=== PATIENT | male | born 1955 | race Caucasian/White ===

== ENCOUNTER → 2017-10-17 | Day surgery (SDC) | payer OTHER ==
[~2017-10-17] MED LIST: AMIODARONE HCL200 MG PO; ASPIR 8181 MG PO; ATORVASTATIN CA20 MG PO; BUPIVACAINE 0.25% 30ML SDV INJ ONE; DEXAMETHASONE SOD PHOS INJ 4 MG/ML VIAL ONE; EPHEDRINE SULFATE INJ 50 MG/10 ML SYR ONE; FENTANYL CITRATE/PF 100MCG/2 ML INJ ONE; LIDOCAINE 1% W/EPINEPHRINE 20 ML VIAL ONE; LIDOCAINE HCL 2% LOCAL INJ 5 ML SDV VIAL INJ ONE; METFORMIN HCL500 M2 PO; METOPROLOL TART25 MG PO; MIDAZOLAM HCL 2 MG/2 ML VIAL ONE; ONDANSETRON HCL INJ 2 MG/ML VIAL ONE; PLAVIX75 MG PO; PROPOFOL IV EMULSION 10 MG/ML 20 ML VIAL ONE; SEVOFLURANE INHAL SOLN 250 ML PEN BTL ONE
[2017-10-17 10:03] LABS: BASOPHILS # (AUTO) 0.1 (0.0-0.1); BASOPHILS % 0.8 % (0.0-1.0); EOSINOPHILS # (AUTO) 0.1 (0.0-0.4); EOSINOPHILS % 1.3 % (0.0-6.0); HEMOGLOBIN 12.6 g/dL (14.0-18.0); LYMPHOCYTES % 26.2 % (18.0-39.1); MEAN CORPUSCULAR HEMOGLOBIN 28.3 pg (28-32); MEAN CORPUSCULAR HGB CONC 33.2 g/dL (31-35); MEAN CORPUSCULAR VOLUME 85.4 fL (81-99); MONOCYTES # (AUTO) 0.6 (0.2-0.8); MONOCYTES % 7.7 % (4.4-11.3); NEUTROPHILS # (AUTO) 4.9 (2.1-6.9); NEUTROPHILS % 63.2 % (38.7-80.0); PLATELET COUNT 249 x10e3/uL (140-360); RED BLOOD COUNT 4.45 x10e6/uL (4.3-5.7); RED CELL DISTRIBUTION WIDTH 13.1 % (11.7-14.4)
[2017-10-17 10:24] LABS: ANION GAP 12.2 mmol/L (8-16); BLOOD UREA NITROGEN 18 mg/dL (7-26); BUN/CREATININE RATIO 16 (6-25); CALCIUM 8.9 mg/dL (8.4-10.2); CARBON DIOXIDE 23 mmol/L (22-29); CHLORIDE 107 mmol/L (98-107); CREATININE, SERUM 1.12 mg/dL (0.72-1.25); EST GLOMERULAR FILTRATION RATE > 60 ML/MIN (60-); GLUCOSE 122 mg/dL (74-118); POTASSIUM 4.2 mmol/L (3.5-5.1); SODIUM 138 mmol/L (136-145)
--- NOTE | 2017-10-17 10:57 | Diagnostic Imaging Report ---
PROCEDURE: X-RAY CHEST, TWO VIEWS COMPARISON: None. INDICATIONS: PREOPERATIVE FOR DRAINAGE OF ABSCESS FINDINGS: LUNGS: No consolidations or edema. PLEURA: No effusions or pneumothorax. HEART \T\ MEDIASTINUM: The heart is within normal size-limits. Sternotomy wire sutures and multiple mediastinal clips. BONES \T\ SOFT TISSUES: No acute findings. Irregularity of the distal right clavicle may be postoperative in nature. Degenerative changes of the spine. CONCLUSION: No acute thoracic abnormality. Ger Cortes D.O. Dictated by: Ger Cortes D.O. on 10/17/2017 at 10:57 Electronically approved by: Ger Cortes D.O. on 10/17/2017 at 10:57
--- NOTE | 2017-10-17 14:10 | Operative Report ---
DATE OF PROCEDURE: October 17, 2017 PREOPERATIVE DIAGNOSIS: Infected cystic mass of the back. POSTOPERATIVE DIAGNOSIS: Infected cystic mass of the back. OPERATION PERFORMED: Excision of infected cystic mass of the back. ANESTHESIA: General. COMPLICATIONS: None. ESTIMATED BLOOD LOSS: Minimal. DESCRIPTION OF PROCEDURE: With the patient lying in bed in the lateral position under good general anesthesia, the back was prepped with Betadine solution and draped in the usual manner. The necrotic skin overlying the lower aspect of the cystic mass was then excised and immediately a large amount of purulent material and sebaceous material was encountered. All of this was slowly and carefully aspirated. There was an actual cyst above the necrotic area and all of the contents of the cysts were removed and as much of the capsule of the cyst was resected as possible. After this was done, the whole area was thoroughly irrigated. Perfect hemostasis was ascertained. The wound was then packed with 1-inch iodoform gauze. A dressing was applied. The sponge, lap, and needle count was correct. Patient tolerated the procedure well and returned to the recovery room in stable condition. Job#: [id number] [facility]
== END | disposition home or self-care (01) ==
LOC: OR 08:35
PROVIDERS: ATTEND Surgery
DX: L72.9 Follicular cyst of the skin and subcutaneous tissue, unspecified (principal); I25.810 Atherosclerosis of coronary artery bypass graft(s) without angina pectoris; I10 Essential (primary) hypertension; E11.9 Type 2 diabetes mellitus without complications; G47.33 Obstructive sleep apnea (adult) (pediatric); I44.0 Atrioventricular block, first degree; Z95.1 Presence of aortocoronary bypass graft
CPT/HCPCS: 11406; 36415; 71046; 80048; 82948; 85025; 93005; J1100; J2001; J2250; J2405

== ENCOUNTER → 2018-08-21 | Day surgery (SDC) | payer OTHER ==
[2018-08-18 09:47] LABS: BASOPHILS # (AUTO) 0.1 (0.0-0.1); BASOPHILS % 0.6 % (0.0-1.0); EOSINOPHILS % 0.4 % (0.0-6.0); HEMATOCRIT 42.7 % (38.2-49.6); HEMOGLOBIN 14.5 g/dL (14.0-18.0); LYMPHOCYTES # (AUTO) 1.5 (1.0-3.2); LYMPHOCYTES % 17.9 % (18.0-39.1); MEAN CORPUSCULAR HEMOGLOBIN 29.7 pg (28-32); MEAN CORPUSCULAR VOLUME 87.3 fL (81-99); MONOCYTES # (AUTO) 0.5 (0.2-0.8); MONOCYTES % 6.4 % (4.4-11.3); NEUTROPHILS # (AUTO) 6.2 (2.1-6.9); NEUTROPHILS % 74.1 % (38.7-80.0); PLATELET COUNT 189 x10e3/uL (140-360); RED BLOOD COUNT 4.89 x10e6/uL (4.3-5.7); RED CELL DISTRIBUTION WIDTH 13.2 % (11.7-14.4)
--- NOTE | 2018-08-18 10:01 | Diagnostic Imaging Report ---
PROCEDURE: Frontal and lateral views of the chest. COMPARISON: Patients [facility], , CHEST 2 VIEWS, 10/17/2017, 10:22. INDICATIONS: PRE-OPERATIVE CHEST X-RAY FOR HERNIA SURGERY FINDINGS: Lines/tubes: Sternotomy wire sutures and small mediastinal vascular clips. Lungs: The lungs are well inflated and clear. There is no evidence of pneumonia or pulmonary edema. Scattered calcified granulomas. Pleura: There is no pleural effusion or pneumothorax. Heart and mediastinum: The heart and the mediastinum are normal. Bones: Degenerative changes of the spine. Irregularity of both distal clavicles. IMPRESSION: No acute cardiopulmonary disease. Ger Cortes D.O. Dictated by: Ger Cortes D.O. on 08/18/2018 at 10:11 Electronically approved by: Ger Cortes D.O. on 08/18/2018 at 10:11
[2018-08-18 10:08] LABS: ANION GAP 13.2 mmol/L (8-16); BLOOD UREA NITROGEN 13 mg/dL (7-26); BUN/CREATININE RATIO 12 (6-25); CALCIUM 9.3 mg/dL (8.4-10.2); CARBON DIOXIDE 25 mmol/L (22-29); CHLORIDE 106 mmol/L (98-107); EST GLOMERULAR FILTRATION RATE > 60 ML/MIN (60-); GLUCOSE 153 mg/dL (74-118); POTASSIUM 4.2 mmol/L (3.5-5.1); SODIUM 140 mmol/L (136-145)
[~2018-08-21] MED LIST changes: +ATROPINE SULFATE 1 MG/ML VIAL ONE; -BUPIVACAINE 0.25% 30ML SDV INJ ONE; +BUPIVACAINE 0.5%/EPI 30 ML SDV INJ ONE; -EPHEDRINE SULFATE INJ 50 MG/10 ML SYR ONE; +HYDROMORPHONE 2MG/ML 2 MG/ML ML ONE; +KETOROLAC TROMETHAMINE 30 MG/ML VIAL ONE; -LIDOCAINE 1% W/EPINEPHRINE 20 ML VIAL ONE; +MORPHINE SULFATE INJ 4 MG/ML INJ ONE; +NEOSTIGMINE 5 MG/5ML SYR ONE; +ROCURONIUM BROMIDE 10 MG/ML 5ML VIAL ONE
--- OUTSIDE RECORDS SUMMARY | 2018-08-21 06:57 | XMS REPORT | Continuity of Care Document ---
Author Author [facility] Interface Address Unknown Phone Unavailable Problems Problem Status Onset Date Classification Date Reported Comments Source Atherosclerotic heart disease of [place] coronary artery without angina pectoris 11/02/2017 02/03/2018 [facility] FOLLOW UP Active 09/24/2017 [facility] FOLLOW UP 1 MONTH Active 09/23/2017 [facility] 1 WEEK F/U Active 09/06/2017 [facility] HOSPITAL F/U Active 09/05/2017 [facility] SOB; SYNCOPE Active 09/05/2017 [facility] TRIPLE VESSEL DISEASE Active 08/29/2017 [facility] UNK Active 08/22/2017 [facility] UNK Active 08/22/2017 [facility] Chest pain Resolved Problem 02/03/2018 [facility] Hyperlipidemia Resolved Problem 02/03/2018 [facility] Hypertension Resolved Problem 02/03/2018 [facility] Unspecified atrial fibrillation 02/03/2018 [facility] Unspecified atrial flutter 02/03/2018 [facility] Presence of aortocoronary bypass graft 12/26/2017 [facility] Hyperlipidemia, unspecified 02/03/2018 [facility] Essential hypertension 02/03/2018 [facility] termite control representative use of aspirin 02/03/2018 [facility] termite control representative use of antithrombotics/antiplatelets 02/03/2018 [facility] Type 2 diabetes mellitus without complications 02/03/2018 [facility] Medications Medication Details Route Status Patient Instructions Ordering Provider Order Date Source 24 HR Metoprolol Tartrate 25 MG Extended Release Tablet [Toprol] 12.5 mg=0.5 tab, PO, Daily, # 45 tab, 3 Refill(s), Pharmacy: [facility] [id number] Active 12/13/2017 [facility] Acetaminophen 300 MG / Codeine Phosphate 30 MG Oral Tablet [Tylenol with Codeine #3] 1 tab, PO, Q12H, X 5 day, # 10 tab, 0 Refill(s), called to pharmacy No Longer Active 10/08/2017 [facility] tramadol hydrochloride 50 MG Oral Tablet 50 mg=1 tab, PO, Q4H, PRN, 0 Refill(s) Active 09/06/2017 [facility] Colchicine 0.6 MG Oral Tablet 0.6 mg=1 tab, PO, Daily, # 14 tab, 0 Refill(s), Pharmacy: [facility]/pharmacy #[id number] Active 09/06/2017 [facility] Metformin hydrochloride 500 MG Oral Tablet 500 mg=1 tab, PO, BID-Meals, # 60 tab, 1 Refill(s) Active 09/04/2017 [facility] 24 HR Metoprolol Tartrate 25 MG Extended Release Tablet [Toprol] 25 mg=1 tab, PO, Daily, # 30 tab, 1 Refill(s) Active 09/04/2017 [facility] pantoprazole 40 mg oral enteric coated tablet 40 mg=1 tab, PO, Before Breakfast, # 30 tab, 2 Refill(s) Inactive 09/04/2017 [facility] Cardiac Rehabilitation See Instructions, Cardiac Rehab Phase 2, # 1 ea, 0 Refill(s) Active 09/04/2017 [facility] aspirin 81 mg tablet, enteric coated 81 mg=1 tab, PO, Daily, # 100 tab, 3 Refill(s) Active 09/04/2017 [facility] Furosemide 40 MG Oral Tablet 40 mg=1 tab, PO, Daily, # 14 tab, 0 Refill(s) Active 09/04/2017 [facility] AMIODarone 200 mg oral tablet 400 mg=2 tab, PO, BID, Take 400mg (2 tabs) BID until 09/11 Then take 200mg (1 tab) daily and continue this dose, # 120 tab, 0 Refill(s) Active 09/04/2017 [facility] clopidogrel 75 mg oral tablet 75 mg=1 tab, PO, Daily, # 90 tab, 3 Refill(s) Active 09/04/2017 [facility] metoprolol tartrate 25 mg oral tablet 12.5 mg=0.5 tab, PO, Q12H, # 30 tab, 3 Refill(s) Inactive 09/04/2017 [facility] Acetaminophen 300 MG / Codeine Phosphate 30 MG Oral Tablet [Tylenol with Codeine #3] 1 tab, PO, Q6H, PRN Pain Score 6-10, X 7 day, # 28 tab, 0 Refill(s) Active 09/04/2017 [facility] atorvastatin 40 mg oral tablet 40 mg=1 tab, PO, Bedtime, # 90 tab, 3 Refill(s) Active 09/04/2017 [facility] Plavix 75 mg, 1 tab, Route: PO, Drug form: TAB, Daily, Dosing Weight 135.9, kg, Start date: 09/04/17 9:00:00 TROUT FARMER, Duration: 30 day, Stop date: 10/03/17 9:00:00 CSTNotes: (Same As: Plavix) Inactive 09/04/2017 [facility] Amiodarone 400 mg, Route: PO, Drug form: TAB, BID, Dosing Weight 135.9, kg, Start date: 09/03/17 17:00:00 TROUT FARMER, Duration: 30 day, Stop date: 10/03/17 9:00:00 [employer]OUT FARMER Inactive 09/03/2017 [facility] potassium phosphate 15 mmol, 5 mL, Route: IVPB, PRN, Dosing Weight 135.9, kg, PRN Abnormal Lab Result, For NON-ICU Patients Only., Start date: 09/03/17 12:38:00 TROUT FARMER, Duration: 30 day, Stop date: 10/03/17 12:37:00 CSTNotes: (Same as: K Phosphate.) 1 mMol phoshate has 1.47 mEq potassium Infuse over 4 hours No Longer Active 09/03/2017 [facility] Magnesium Sulfate 1 gm, 100 mL, Route: IVPB, Drug form: INJ, PRN, Dosing Weight 135.9, kg, PRN Abnormal Lab Result, For NON-ICU Patients Only., Start date: 09/03/17 12:38:00 TROUT FARMER, Duration: 30 day, Stop date: 10/03/17 12:37:00 CSTNotes: WASTE: F/P - Sink; E - Municipal Trash Bin No Longer Active 09/03/2017 [facility] sodium phosphate 15 mmol, 5 mL, Route: IVPB, PRN, Dosing Weight 135.9, kg, PRN Abnormal Lab Result, For NON-ICU Patients Only., Start date: 09/03/17 12:38:00 TROUT FARMER, Duration: 30 day, Stop date: 10/03/17 12:37:00 TROUT FARMER No Longer Active 09/03/2017 [facility] Calcium Gluconate 3 gm, 30 mL, Route: IVPB, PRN, Dosing Weight 135.9, kg, PRN Abnormal Lab Result, For NON-ICU Patients Only., Start date: 09/03/17 12:38:00 TROUT FARMER, Duration: 30 day, Stop date: 10/03/17 12:37:00 CSTNotes: WASTE: F/P - Sink; E - Municipal Trash Bin No Longer Active 09/03/2017 [facility] Magnesium Oxide 800 mg, 2 tab, Route: PO, Drug form: TAB, PRN, Dosing Weight 135.9, kg, PRN Abnormal Lab Result, For NON-ICU Patients Only., Start date: 09/03/17 12:38:00 TROUT FARMER, Duration: 30 day, Stop date: 10/03/17 12:37:00 CSTNotes: (Same as: Mag-Ox 400) Magnesium oxide [id number] elemental magnesium Dose=____mg magnesium oxide (___mg elemental magnesium) No Longer Active 09/03/2017 [facility] Potassium Chloride 20 mEq, 1 tab, Route: PO, Drug form: ERTAB, PRN, Dosing Weight 135.9, kg, PRN Abnormal Lab Result, For NON-ICU Patients Only, Start date: 09/03/17 12:38:00 TROUT FARMER, Duration: 30 day, Stop date: 10/03/17 12:37:00 CSTNotes: (Same as: K-Dur 20) "Do Not Crush" With food and full glass of water No Longer Active 09/03/2017 [facility] potassium phosphate-sodium phosphate 250 mg-280 mg-160 mg oral powder for reconstitution 2 pkt, Route: PO, Drug Form: PDR/REC, Dosing Weight 135.9, kg, PRN, PRN Abnormal Lab Result, For NON-ICU Patients Only, Start date: 09/03/17 12:38:00 TROUT FARMER, Duration: 30 day, Stop date: 10/03/17 12:37:00 CSTNotes: (Same as: Phos-NaK) Each 1.5 gm pkt has 250mg phosphorous. Mix w/2.5oz water and stir. No Longer Active 09/03/2017 [facility] Lasix 40 mg, 1 tab, Route: PO, Drug form: TAB, Daily, Dosing Weight 135.9, kg, Start date: 09/03/17 9:59:00 TROUT FARMER, Duration: 30 day, Stop date: 10/03/17 9:00:00 CSTNotes: (Same as: Lasix) May cause GI upset. Give with food or milk. No Longer Active 09/03/2017 [facility] Amiodarone 400 mg, 2 tab, Route: PO, Drug form: TAB, BID, Dosing Weight 135.9, kg, Start date: 09/03/17 9:57:00 TROUT FARMER, Duration: 30 day, Stop date: 10/03/17 9:00:00 CSTNotes: (Same as: Cordarone) No Longer Active 09/03/2017 [facility] Bisacodyl 10 mg, 1 supp, Route: SC, Drug form: SUPP, Daily, Dosing Weight 135.9, kg, PRN Constipation, Start date: 09/03/17 7:07:00 TROUT FARMER, Duration: 30 day, Stop date: 10/03/17 7:06:00 CSTNotes: (Same As: Dulcolax, Bisco-Lax) No Longer Active 09/03/2017 [facility] Lasix 20 mg, 2 mL, Route: IVP, Drug form: INJ, ONCE, Dosing Weight 135.9, kg, Start date: 09/02/17 9:10:00 TROUT FARMER, Stop date: 09/02/17 9:10:00 CSTNotes: (Same as: Lasix) Inactive 09/02/2017 [facility] Protonix 40 mg, 1 tab, Route: PO, Drug form: ECTAB, Before Breakfast, Dosing Weight 135.9, kg, Start date: 09/02/17 7:30:00 TROUT FARMER, Duration: 30 day, Stop date: 10/01/17 7:30:00 CSTNotes: Tablet should not be chewed or crushed. (Same as: Protonix) No Longer Active 09/02/2017 [facility] Lyrica 50 mg, 1 cap, Route: PO, Drug form: CAP, Q8H, Dosing Weight 135.9, kg, Start date: 09/01/17 16:00:00 TROUT FARMER, Duration: 30 day, Stop date: 10/01/17 8:00:00 CSTNotes: Same as Lyrica No Longer Active 09/01/2017 [facility] metoprolol tartrate 12.5 mg, 0.5 tab, Route: PO, Drug form: TAB, Q12H, Dosing Weight 135.9, kg, Start date: 09/01/17 14:00:00 TROUT FARMER, Duration: 30 day, Stop date: 10/01/17 9:00:00 CSTNotes: (Same as: Lopressor) 12.5 mg=1/2 X 25 mg TAB No Longer Active 09/01/2017 [facility] AMIODarone 900 mg in D5W 500 ml IV 900 mg + Dextrose 5% in Water IV 482 mL 900 mg, 18 mL, Rate: 1 mg/min for 6 hours, then reduce to 0.5 mg/min, Dosing Weight 135.9, kg, Route: IV, Total Volume: 500, Start Date: 09/01/17 12:06:00 TROUT FARMER, Duration: 30 day, Stop date: 10/01/17 12:05:00 TROUT FARMER, Replace Every: 24 hrNotes: Central administration only for concentration > 2 mg/ml. Use Glass Bottle or Non PVC Bag "Use 0.22 micron in-line filter" MEDICATION WASTE Product Size: 900 mg Product Wasted: ___ mg No Longer Active 09/01/2017 [facility] Amiodarone 150 mg, 3 mL, Route: IVPB, ONCE, Dosing Weight 135.9, kg, Start date: 09/01/17 12:06:00 TROUT FARMER, Stop date: 09/01/17 12:06:00 CSTNotes: Central administration only for concentrations > 2 mg/ml. "Recommendation: Use an in-line filter during administration for continuous infusions to reduce the incidence of phlebitis" (Same as Codarone) MEDICATION WASTE Product Size: 150 mg Product Wasted: ___ mg Inactive 09/01/2017 [facility] Lasix 40 mg, 4 mL, Route: IVP, Drug form: INJ, ONCE, Dosing Weight 135.9, kg, Start date: 09/01/17 9:34:00 TROUT FARMER, Stop date: 09/01/17 9:34:00 CSTNotes: (Same as: Lasix) MEDICATION WASTE Product Size: 40 mg Product Wasted: ___ mg Inactive 09/01/2017 [facility] Aspirin 81 mg, 1 tab, Route: PO, Drug form: ECTAB, Daily, Dosing Weight 135.9, kg, Start date: 09/01/17 9:00:00 TROUT FARMER, Duration: 30 day, Stop date: 09/30/17 9:00:00 CSTNotes: Do not crush or chew. (Same As: Ecotrin) No Longer Active 09/01/2017 [facility] atorvastatin 40 mg, 1 tab, Route: PO, Drug form: TAB, Bedtime, Dosing Weight 135.9, kg, Start date: 08/31/17 21:00:00 TROUT FARMER, Stop date: 09/29/17 21:00:00 CSTNotes: (Same as: Lipitor) No Longer Active 09/01/2017 [facility] insulin, isophane 5 unit, 0.05 mL, Route: SUB-Q, Drug form: INJ, Q12H, Dosing Weight 135.9, kg, Start date: 08/31/17 21:00:00 TROUT FARMER, Duration: 30 day, Stop date: 09/30/17 9:00:00 CSTNotes: Roll in palms of hands gently; Do not shake vigorously. (Same as: Humulin N) Do not hold insulin without contacting prescriber WASTE: F/P - Black; E - Municipal Trash Bin Stable for 28 days at room temperature Expires in days from Date No Longer Active 09/01/2017 [facility] senna 8.6 mg oral tablet 8.6 mg, 1 tab, Route: PO, Drug Form: TAB, Dosing Weight 135.9, kg, BID, Start date: 08/31/17 17:00:00 TROUT FARMER, Duration: 30 day, Stop date: 09/30/17 9:00:00 CSTNotes: (Same as: Senokot) No Longer Active 08/31/2017 [facility] heparin sodium, porcine 2500 UNT/ML Injectable Solution 5,000 unit, 1 mL, Route: SUB-Q, Drug form: INJ, Q8H, Dosing Weight 135.9, kg, Start date: 08/31/17 16:00:00 TROUT FARMER, Duration: 30 day, Stop date: 09/30/17 8:00:00 CSTNotes: porcine heparin No Longer Active 08/31/2017 [facility] Dextrose 50% Syringe 25 gm, 50 mL, Route: IVP, Drug Form: INJ, Dosing Weight 135.9, kg, PRN, PRN Blood Glucose Results, Start date: 08/31/17 15:45:00 TROUT FARMER, Duration: 30 day, Stop date: 09/30/17 15:44:00 TROUT FARMER No Longer Active 08/31/2017 [facility] Glucagon 1 mg, Route: IM, Drug form: PDR/INJ, PRN, Dosing Weight 135.9, kg, PRN Blood Glucose Results, Start date: 08/31/17 15:45:00 TROUT FARMER, Duration: 30 day, Stop date: 09/30/17 15:44:00 TROUT FARMER No Longer Active 08/31/2017 [facility] Insulin Lispro 10 unit, 0.1 mL, Route: SUB-Q, Drug form: SOLN, TID-Before Meals, Dosing Weight 135.9, kg, PRN Blood Glucose Results, Start date: 08/31/17 15:45:00 TROUT FARMER, Duration: 30 day, Stop date: 09/30/17 15:44:00 CSTNotes: (Same as: Humalog ) Roll in palms of hands gently; Do not shake `vigorously. "Single Patient Use Only " WASTE: F/P - Black; E - Municipal Trash Bin Stable for 28 days at room temperature. Expires in days from Date No Longer Active 08/31/2017 [facility] pantoprazole 40 mg, Route: IVP, Drug form: INJ, Daily, Dosing Weight 135.9, kg, Start date: 08/31/17 9:00:00 TROUT FARMER, Duration: 30 day, Stop date: 09/29/17 9:00:00 CSTNotes: For IV push reconstitute with 10 ml 0.9% s odium chloride and push over 2 minutes. (Same as: Protonix) No Longer Active 08/31/2017 [facility] Aspirin 325 MG Enteric Coated Tablet 325 mg, 1 tab, Route: PO, Drug form: ECTAB, Daily, Dosing Weight 135.9, kg, Start date: 08/31/17 9:00:00 TROUT FARMER, Duration: 30 day, Stop date: 09/29/17 9:00:00 CSTNotes: (Do Not Crush) Do not crush or chew. Inactive 08/31/2017 [facility] Tylenol 1,000 mg, 100 mL, Route: IV, Drug form: INJ, ONCE, Dosing Weight 135.9, kg, Start date: 08/31/17 0:34:00 TROUT FARMER, Stop date: 08/31/17 0:34:00 CSTNotes: Infuse over 15 minutes Do not exceed 4gm/day of acetaminophen MEDICATION WASTE Product Size: 1000 mg Product Wasted: ___ mg Inactive 08/31/2017 [facility] Cefazolin 2 gm, 20 mL, Route: IVPB, Drug form: SOLN, [id number], Dosing Weight 135.9, kg, Start date: 08/30/17 22:30:00 TROUT FARMER, Duration: 3 doses or times, Stop date: 08/31/17 14:30:00 TROUT FARMER, ABX Indication: Surgical P rophylaxisNotes: (Same as Ancef) No Longer Active 08/31/2017 [facility] Vancomycin 1,500 mg, Route: IVPB, [id number], Dosing Weight 135.9, kg, Time Critical Medication, Start date: 08/30/17 21:30:00 TROUT FARMER, Duration: 2 doses or times, Stop date: 08/31/17 9:30:00 TROUT FARMER, ABX Indication: Surgical ProphylaxisNotes: TIME CRITICAL MEDICATION (Same As: Vancocin) Infusion rate 2001 mg: infuse over 2.5 hours MEDICATION WASTE Product Size: 1000 mg Product Wasted: ___ mg No Longer Active 08/31/2017 [facility] chlorhexidine gluconate 1.2 MG/ML Mouthwash 15 mL, Route: Swab Mouth, Q12H, Drug form: LIQ, Start date: 08/30/17 21:00:00 TROUT FARMER, Duration: 30 day, Stop date: 09/29/17 9:00:00 CSTNotes: (Same As: Peridex) No Longer Active 08/31/2017 [facility] ocular lubricant 1 appl, Route: BOTH EYES, Q6H, Drug form: OINT, Start date: 08/30/17 18:00:00 TROUT FARMER, Duration: 30 day, Stop date: 09/29/17 12:00:00 CSTNotes: (Same as: Lacri-Lube, Duratears Naturale, Artificial Tears, and Tears Again ) No Longer Active 08/31/2017 [facility] Aspirin 300 MG Rectal Suppository 300 mg, 1 supp, Route: SC, Drug form: SUPP, Daily, Dosing Weight 135.9, kg, Start date: 08/30/17 18:00:00 TROUT FARMER, Duration: 30 day, Stop date: 09/29/17 9:00:00 CSTNotes: Refrigerate. No Longer Active 08/31/2017 [facility] Fentanyl 50 microgram, 1 mL, Route: IV, Drug form: INJ, ONCE, Dosing Weight 135.9, kg, Start date: 08/30/17 17:45:00 TROUT FARMER, Stop date: 08/30/17 17:45:00 CSTNotes: (Same as: Sublimaze) Preservative free. Inactive 08/30/2017 [facility] normal saline 0.9% IV 1,000 mL 1,000 mL, Rate: 100 ml/hr, Infuse over: 10 hr, Route: IV, Dosing Weight 135.9 kg, Total Volume: 1,000, Start date: 08/30/17 17:02:00 TROUT FARMER, Duration: 30 day, Stop date: 09/29/17 17:01:00 TROUT FARMER, 2.69, m2 No Longer Active 08/30/2017 [facility] Docusate Sodium 100 MG Oral Capsule [Colace] 100 mg, 1 cap, Route: PO, Drug form: CAP, BID, Dosing Weight 135.9, kg, Start date: 08/30/17 17:00:00 TROUT FARMER, Duration: 30 day, Stop date: 09/29/17 9:00:00 CSTNotes: (Same as: Colace) (Do Not Crush) No Longer Active 08/30/2017 [facility] Versed 1 mg, 1 mL, Route: IVP, Drug form: INJ, Q2H, Dosing Weight 135.9, kg, PRN Agitation, Start date: 08/30/17 16:57:00 TROUT FARMER, Duration: 4 doses or times, Stop date: Limited # of timesNotes: (Same as: Versed) MEDICATION WASTE Product Size: 5 mg Product Wasted: _0_ mg No Longer Active 08/30/2017 [facility] Fentanyl 1,000 microgram, 20 mL, Rate: Titrate, Start Dose: 50 microgram/hr, Titration: 25 microgram/hour every 15 minutes, Goal(s): -2, Max Dose: 300 microgram/hr, Route: IV, Dosing Weight 135.9 kg, Total Volume: 20, Start date: 08/30/17 16:57:00 TROUT FARMER, Duratio... No Longer Active 08/30/2017 [facility] Nicardipine 40 mg, 200 mL, Rate: Titrate, Start Dose: 5 mg/hr, Titration: 2.5 mg/hr every 15 minutes, Goal(s): MAP less than 80, Max Dose: 15 mg/hr, Route: IV, Dosing Weight 135.9 kg, Total Volume: 200, Start da te: 08/30/17 15:50:00 TROUT FARMER, Duration: 30 day, Stop da...Notes: Same as: Cardene Concentration: (0.2 mg /1 ml ) No Longer Active 08/30/2017 [facility] chlorhexidine gluconate 1.2 MG/ML Mouthwash 15 mL, Route: Swab Mouth, PRN, Drug form: LIQ, PRN Other -See Comment, Start date: 08/30/17 15:40:00 TROUT FARMER, Duration: 30 day, Stop date: 09/29/17 15:39:00 CSTNotes: (Same As: Peridex) No Longer Active 08/30/2017 [facility] Fentanyl 600 microgram, 30 mL, Route: IV, FORESTRY SUPPORT SPECIALIST Dose: 10 mcg, FORESTRY SUPPORT SPECIALIST Lockout: 10 minutes, Continuous Basal Rate: 0 mg, 4 Hour Limit (In MCG): 240, Drug Form: INJ, Continuous, Start date: 08/30/17 15:23:00 TROUT FARMER, Durati on: 30 day, Stop date: 09/29/17 15:22:00 CSTNotes: Concentration is 20 micrograms/ml No Longer Active 08/30/2017 [facility] Naloxone 0.04 mg, 0.1 mL, Route: IVP, Drug form: INJ, Q2MIN, Dosing Weight 135.9, kg, PRN Narcotic Reversal, Start date: 08/30/17 15:23:00 TROUT FARMER, Duration: 30 day, Stop date: 09/29/17 15:22:00 CSTNotes: Same as Narcan No Longer Active 08/30/2017 [facility] Dextrose 50% Syringe 25 gm, 50 mL, Route: IVP, Drug Form: INJ, Dosing Weight 135.9, kg, PRN, PRN Blood Glucose Results, Start date: 08/30/17 15:23:00 TROUT FARMER, Duration: 30 day, Stop date: 09/29/17 15:22:00 TROUT FARMER No Longer Active 08/30/2017 [facility] Insulin regular 100 unit + 99 mL, Rate: Start Insulin Drip Per ICU Protocol, Dosing Weight 135.9, kg, Route: IVPB, Total Volume: 100, Start Date: 08/30/17 15:23:00 TROUT FARMER, Duration: 30 day, Stop date: 09/29/17 15:22:00 TROUT FARMER, Replace Every: 24 hrNotes: Final Concentration 1unit/1ml WASTE: F/P - Black; E - Municipal Trash Bin No Longer Active 08/30/2017 [facility] Zofran 4 mg, 2 mL, Route: IV, Drug form: INJ, Q6H, Dosing Weight 135.9, kg, PRN Nausea, Start date: 08/30/17 15:23:00 TROUT FARMER, Duration: 30 day, Stop date: 09/29/17 15:22:00 CSTNotes: (Same as: Zofran) MEDICATION WASTE Product Size: 4 mg Product Wasted: ___ mg No Longer Active 08/30/2017 [facility] Cardene 40 mg in NS 200 mL (Titrate.) IV 40 mg 40 mg, 200 mL, Rate: Titrate, Start Dose: 5 mg/hr, Titration: increase or decrease by 5 but no more than 15, Goal(s): MAP 70, Max Dose: 15 mg/hr, Route: IV, Dosing Weight 135.9 kg, Total Volume: 200 mL, Start date: 08/30/17 15:23:00 TROUT FARMER, Duration: 30...Notes: Same as: Cardene Concentration: (0.2 mg /1 ml ) Inactive 08/30/2017 [facility] Aspirin 325 MG Oral Tablet 325 mg, 1 tab, Route: NG, Drug form: TAB, ONCE, Dosing Weight 135.9, kg, Start date: 08/30/17 15:23:00 TROUT FARMER, Stop date: 08/30/17 15:23:00 CSTNotes: Take with food. Inactive 08/30/2017 [facility] Acetaminophen 650 mg, 2 tab, Route: PO, Drug form: TAB, Q4H, Dosing Weight 135.9, kg, PRN Pain 1-3/Temp > 100.4 F, Start date: 08/30/17 15:23:00 TROUT FARMER, Duration: 30 day, Stop date: 09/29/17 15:22:00 CSTNotes: Do not exceed 4 gm/day. (Same as: Tylenol) No Longer Active 08/30/2017 [facility] Acetaminophen 325 MG / Hydrocodone Bitartrate 10 MG Oral Tablet 2 tab, Route: PO, Drug Form: TAB, Dosing Weight 135.9, kg, Q4H, PRN Pain Score 4-6, Start date: 08/30/17 15:23:00 TROUT FARMER, Duration: 30 day, Stop date: 09/29/17 15:22:00 CSTNotes: Do not exceed 4gm/day of acetaminophen. (Same as: [place] 325/10) No Longer Active 08/30/2017 [facility] Dextrose 50% Syringe 12.5 gm, 25 mL, Route: IVP, Drug Form: INJ, Dosing Weight 135.9, kg, PRN, PRN Blood Glucose Results, Start date: 08/30/17 14:36:00 TROUT FARMER, Duration: 30 day, Stop date: 09/29/17 14:35:00 TROUT FARMER No Longer Active 08/30/2017 [facility] Insulin regular 100 unit + 99 mL, Rate: Start Insulin Drip Per ICU Protocol, Dosing Weight 135.9, kg, Route: IVPB, Total Volume: 100, Start Date: 08/30/17 14:36:00 TROUT FARMER, Duration: 30 day, Stop date: 09/29/17 14:35:00 TROUT FARMER, Replace Every: 24 hrNotes: Final Concentration 1unit/1ml WASTE: F/P - Black; E - Municipal Trash Bin Inactive 08/30/2017 [facility] acetaminophen (ANES) Route: IV, Drug form: INJ, ONCE, Stop date: 08/30/17 13:53:00 TROUT FARMER Inactive 08/30/2017 [facility] protamine (ANES) 10 mg Route: IV, Drug form: INJ, Start date: 08/30/17 13:13:00 TROUT FARMER, Stop date: 08/30/17 14:13:00 TROUT FARMER Inactive 08/30/2017 [facility] Insulin regular (ANES) Route: IV, Drug form: INJ, ONCE, Stop date: 08/30/17 12:53:00 TROUT FARMER Inactive 08/30/2017 [facility] calcium gluconate (ANES) Route: IV, Drug form: INJ, ONCE, Stop date: 08/30/17 12:53:00 TROUT FARMER Inactive 08/30/2017 [facility] lidocaine (ANES) Route: IV, Drug form: INJ, ONCE, Stop date: 08/30/17 12:48:00 TROUT FARMER Inactive 08/30/2017 [facility] magnesium sulfate (ANES) Route: IV, Drug form: INJ, ONCE, Stop date: 08/30/17 12:48:00 TROUT FARMER Inactive 08/30/2017 [facility] tranexamic acid (ANES) Route: IV, Drug form: INJ, ONCE, Stop date: 08/30/17 11:33:00 TROUT FARMER Inactive 08/30/2017 [facility] heparin (ANES) Route: IV, Drug form: INJ, ONCE, Stop date: 08/30/17 11:03:00 TROUT FARMER Inactive 08/30/2017 [facility] esmolol (ANES) Route: IV, Drug form: INJ, ONCE, Stop date: 08/30/17 9:28:00 TROUT FARMER Inactive 08/30/2017 [facility] ceFAZolin (ANES) Route: IV, Drug form: INJ, ONCE, Stop date: 08/30/17 9:13:00 TROUT FARMER Inactive 08/30/2017 [facility] fentaNYL (ANES) Route: IV, Drug form: INJ, ONCE, Stop date: 08/30/17 9:08:00 [employer]ER Inactive 08/30/2017 [facility] midazolam (ANES) Route: IV, Drug form: SOLN, ONCE, Stop date: 08/30/17 9:08:00 [employer] Inactive 08/30/2017 [facility] lidocaine (ANES) Route: IV, Drug form: INJ, ONCE, Stop date: 08/30/17 9:08:00 [employer] Inactive 08/30/2017 [facility] propofol (ANES) Route: IV, Drug form: INJ, ONCE, Stop date: 08/30/17 9:08:00 [employer] Inactive 08/30/2017 [facility] norepinephrine (ANES) 10 microgram Route: IV, Drug form: INJ, Start date: 08/30/17 9:01:00 [employer]ER, Stop date: 08/30/17 10:01:00 [employer] Inactive 08/30/2017 [facility] rocuronium (ANES) Route: IV, Drug form: INJ, ONCE, Stop date: 08/30/17 8:22:00 [employer] Inactive 08/30/2017 [facility] vancomycin (ANES) 1000 mg Route: IV, Drug form: INJ, Start date: 08/30/17 8:20:00 [employer], Stop date: 08/30/17 9:20:00 [employer] Inactive 08/30/2017 [facility] tranexamic acid (ANES) 100 mg Route: IV, Drug form: INJ, Start date: 08/30/17 8:00:00 [employer], Stop date: 08/30/17 9:00:00 [employer] Inactive 08/30/2017 [facility] Sodium Chloride 0.9% IV (ANES) 1000 mL Route: IV, Total Volume: 1,000, Start date: 08/30/17 8:00:00 [employer]ER, Stop date: 08/30/17 9:00:00 [employer] Inactive 08/30/2017 [facility] Isolyte S PH 7.4 (ANES) 1000 mL Route: IV, Total Volume: 1,000, Start date: 08/30/17 7:46:00 [employer], Stop date: 08/30/17 8:46:00 [employer] Inactive 08/30/2017 [facility] atorvastatin 40 mg, 1 tab, Route: PO, Drug form: TAB, Bedtime, Dosing Weight 134.091, kg, Start date: 08/29/17 21:00:00 [employer]ER, Duration: 30 day, Stop date: 09/27/17 21:00:00 CSTNotes: (Same as: Lipitor) No Longer Active 08/30/2017 [facility] Saline Flush 0.9% 5 ml, Route: IVP, Drug Form: INJ, Dosing Weight 135.9, kg, Q12H, Start date: 08/29/17 21:00:00 [employer]ER, Duration: 30 day, Stop date: 09/28/17 9:00:00 CSTNotes: (Same as: BD Posiflush) No Longer Active 08/30/2017 [facility] Vancomycin 2,000 mg, 500 mL, Route: IV, Drug form: SOLN, ONCALL, Dosing Weight 135.9, kg, Start date: 08/29/17 18:00:00 [employer]ER, Duration: 1 doses or times, ABX Indication: Surgical ProphylaxisNotes: TIME CRITICAL MED ICATION Same as: Vancocin Infusion rate 2001 mg: infuse over 2.5 hours No Longer Active 08/30/2017 [facility] Cefazolin 2 gm, Route: IVPB, ONCALL, Dosing Weight 135.9, kg, Start date: 08/29/17 18:00:00 [employer], Duration: 1 doses or times, ABX Indication: Surgical ProphylaxisNotes: (Same As: Ancef Kefzol) MEDICATIO N WASTE Product Size: 1000 mg Product Wasted: ___ mg No Longer Active 08/30/2017 [facility] Sodium Chloride 0.9% (titrate) 250 mL 250 mL, Rate: To prime line and flush remaining blood products., Dosing Weight 135.9, kg, Route: IV, Total Volume: 250, Priority: Routine, Start Date: 08/29/17 17:24:00 [employer]ER, Duration: 30 day, Stop date: 09/28/17 17:23:00 [employer]OUT [employer]ER, Replace Every: 24 hr No Longer Active 08/29/2017 [facility] Saline Flush 0.9% 5 ml, Route: IVP, Drug Form: INJ, Dosing Weight 135.9, kg, PRN, PRN Line Flush, Start date: 08/29/17 17:24:00 [employer]ER, Duration: 30 day, Stop date: 09/28/17 17:23:00 CSTNotes: (Same as: BD Posiflush) No Longer Active 08/29/2017 [facility] Metoprolol 2 mg, 2 mL, Route: IVP, Drug form: INJ, ONCE, Dosing Weight 135.9, kg, Start date: 08/29/17 17:24:00 [employer], Stop date: 08/29/17 17:24:00 CSTNotes: (Same as: Lopressor) Push over 2 minutes No Longer Active 08/29/2017 [facility] metoprolol extended release 25 mg, 1 tab, Route: PO, Drug form: ERTAB, Daily, Start date: 08/29/17 9:00:00 [employer], Duration: 30 day, Stop date: 09/27/17 9:00:00 CSTNotes: (Same as: Toprol XL) Do Not Crush Inactive 08/29/2017 [facility] Aspirin 81 MG Chewable Tablet 81 mg, 1 tab, Route: PO, Drug form: CHEWTAB, Daily, Dosing Weight 134.091, kg, Start date: 08/29/17 9:00:00 [employer], Duration: 30 day, Stop date: 09/27/17 9:00:00 CSTNotes: Take with food. No Longer Active 08/29/2017 [facility] 24 HR Metoprolol Tartrate 25 MG Extended Release Tablet [Toprol] 25 mg, 1 tab, Route: PO, Drug form: ERTAB, Daily, Start date: 08/29/17 9:00:00 [employer]ER, Duration: 30 day, Stop date: 09/27/17 9:00:00 CSTNotes: (Same as: Toprol XL) Do Not Crush No Longer Active 08/29/2017 [facility] heparin 5,000 unit, Route: SUB-Q, Q8H, Dosing Weight 134.091, kg, Start date: 08/29/17 8:00:00 [employer]OUT [employer]ER, Duration: 30 day, Stop date: 09/28/17 0:00:00 [employer]OUT [employer]ER Inactive 08/29/2017 [facility] heparin additive 25,000 unit [12 unit/kg/hr] + Premix Diluent Sodium Chloride 0.45% 500 mL 500 mL, Rate: 24.88 ml/hr, Infuse over: 20.1 hr, Route: IVPB, Dosing Weight 103.68 kg, Total Volume: 500 mL, Start date: 08/29/17 4:13:00 [employer]OUT [employer]ER, Duration: 30 day, Stop date: 09/28/17 4:12:00 [employer]OUT [employer]ER, 2.34, [id number]: Total Concentration=50 unit/ ml Total utesbu=885 ml Send Med Request 2 hours prior to next bag No Longer Active 08/29/2017 [facility] Heparin 60 unit/kg Bolus (Heparin Dosing Weight) Route: IVP, PRN, 6,200 unit, 6.2 mL, Drug form: INJ, PRN, Heparin Protocol, Start date: 08/29/17 4:13:00 [employer] Stop date: 09/28/17 4:12:00 [employer], 30 day No Longer Active 08/29/2017 [facility] Heparin 30 unit/kg Bolus (Heparin Dosing Weight) Route: IVP, PRN, 3,100 unit, 3.1 mL, Drug form: INJ, PRN, Heparin Protocol, Start date: 08/29/17 4:13:00 [employer]ER Stop date: 09/28/17 4:12:00 [employer]OUT [employer]ER, 30 day No Longer Active 08/29/2017 [facility] Heparin - one time bolus for ACS 4,000 unit, 4 mL, Route: IVP, Drug form: INJ, ONCE, Dosing Weight 134.091, kg, Priority: STAT, Start date: 08/29/17 4:13:00 [employer]OUT [employer]ER, Stop date: 08/29/17 4:13:00 [employer]OUT [employer]ER Inactive 08/29/2017 [facility] Nitroglycerin 0.4 MG Sublingual Tablet 0.4 mg, 1 tab, Route: SL, Drug form: TAB, Q5Min, Dosing Weight 134.091, kg, PRN Chest Pain, Start date: 08/29/17 3:53:00 [employer]OUT [employer]ER, Duration: 30 day, Stop date: 09/28/17 3:52:00 CSTNotes: (Same as:Nitroquick, Nitrostat) "Do Not Crush" Sublingual tablet No Longer Active 08/29/2017 [facility] Calcium Carbonate 500 MG Chewable Tablet 1,000 mg, 2 tab, Route: PO, Drug form: CHEWTAB, PRN, Dosing Weight 134.091, kg, PRN Abnormal Lab Result, FOR ICU USE ONLY, Start date: 08/29/17 3:52:00 [employer]OUT [employer]ER, Duration: 30 day, Stop date: 09/28/17 3:51:00 CSTNotes: (Same As: Tums) Calcium Carbonate 500 [id number] mg elemental calcium Dose= mg calcium carbonate ( mg elemental calcium) No Longer Active 08/29/2017 [facility] Calcium Gluconate 1 gm, 10 mL, Route: IVPB, PRN, Dosing Weight 134.091, kg, PRN Abnormal Lab Result, Start date: 08/29/17 3:52:00 [employer]OUT [employer]ER, Duration: 30 day, Stop date: 09/28/17 3:51:00 TROUT FARMER, FOR ICU USE ONLYNotes: WASTE: F/P - Sink; E - Municipal Trash Bin No Longer Active 08/29/2017 [facility] sodium phosphate 30 mmol, 10 mL, Route: IVPB, PRN, Dosing Weight 134.091, kg, PRN Abnormal Lab Result, Start date: 08/29/17 3:52:00 [employer]OUT [employer]ER, Duration: 30 day, Stop date: 09/28/17 3:51:00 [employer]OUT [employer]ER, FOR ICU USE ONLY No Longer Active 08/29/2017 [facility] Magnesium Oxide 800 mg, 2 tab, Route: PO, Drug form: TAB, PRN, Dosing Weight 134.091, kg, PRN Abnormal Lab Result, FOR ICU USE ONLY, Start date: 08/29/17 3:52:00 [employer]OUT F[employer]ER, Duration: 30 day, Stop date: 09/28/17 3:51:00 CSTNotes: (Same as: Mag-Ox 400) Magnesium oxide [id number] elemental magnesium Dose=____mg magnesium oxide (___mg elemental magnesium) No Longer Active 08/29/2017 [facility] Potassium Chloride 20 mEq, 1 tab, Route: PO, Drug form: ERTAB, PRN, Dosing Weight 134.091, kg, PRN Abnormal Lab Result, Start date: 08/29/17 3:52:00 [employer]OUT [employer]ER, Duration: 30 day, Stop date: 09/28/17 3:51:00 [employer]OUT FARMER, FOR ICU USE ONLYNotes: (Same as: K-Dur 20) "Do Not Crush" With food and full glass of water No Longer Active 08/29/2017 [facility] potassium phosphate 45 mmol, 15 mL, Route: IVPB, PRN, Dosing Weight 134.091, kg, PRN Abnormal Lab Result, Start date: 08/29/17 3:52:00 [employer]OUT [employer]ER, Duration: 30 day, Stop date: 09/28/17 3:51:00 TROUT FARMER, FOR ICU USE ONLYNotes: (Same as: K Phosphate.) 1 mMol phoshate has 1.47 mEq potassium Infuse over 4 hours No Longer Active 08/29/2017 [facility] potassium phosphate-sodium phosphate 250 mg-280 mg-160 mg oral powder for reconstitution 2 pkt, Route: PO, Drug Form: PDR/REC, Dosing Weight 134.091, kg, PRN, PRN Abnormal Lab Result, FOR ICU USE ONLY, Start date: 08/29/17 3:52:00 [employer]OUT F[employer]ER, Duration: 30 day, Stop date: 09/28/17 3:51:00 CSTNotes: (Same as: Phos-NaK) Each 1.5 gm pkt has 250mg phosphorous. Mix w/2.5oz water and stir. No Longer Active 08/29/2017 [facility] Magnesium Sulfate 2 gm, 50 mL, Route: IVPB, Drug form: INJ, PRN, Dosing Weight 134.091, kg, PRN Abnormal Lab Result, Start date: 08/29/17 3:52:00 TROUT FARMER, Duration: 30 day, Stop date: 09/28/17 3:51:00 TROUT FARMER, FOR ICU USE ONLYNotes: WASTE: F/P - Sink; E - Municipal Trash Bin No Longer Active 08/29/2017 [facility] Nitroglycerin 0.4 MG Sublingual Tablet 0.4 mg=1 tab, SL, Q5Min, PRN Chest Pain, 0 Refill(s) On Hold 08/29/2017 [facility] metoprolol 25 mg oral tablet, extended release 25 mg=1 tab, PO, Daily, 0 Refill(s) On Hold 08/29/2017 [facility] atorvastatin 40 mg oral tablet 40 mg=1 tab, PO, Bedtime, 0 Refill(s) On Hold 08/29/2017 [facility] Aspirin 81 MG Chewable Tablet 81 mg=1 tab, PO, Daily, 0 Refill(s) On Hold 08/29/2017 [facility] atorvastatin 40 mg, 1 tab, Route: PO, Drug form: TAB, Bedtime, Dosing Weight 134.091, kg, Start date: 08/28/17 21:00:00 [employer]OUT [employer]ER, Duration: 30 day, Stop date: 09/26/17 21:00:00 CSTNotes: (Same as: Lipitor) No Longer Active 08/29/2017 [facility] Aspirin 325 MG Oral Tablet 325 mg, 1 tab, Route: PO, Drug form: ECTAB, Daily, Dosing Weight 134.091, kg, Start date: 08/28/17 17:00:00 [employer]OUT [employer]ER, Duration: 30 day, Stop date: 09/27/17 9:00:00 CSTNotes: (Do Not Crush) Do not crush or chew. Inactive 08/28/2017 [facility] Nitroglycerin 0.4 mg, 1 tab, Route: SL, Drug form: TAB, Q5Min, Dosing Weight 134.091, kg, PRN Chest Pain, Start date: 08/28/17 15:39:00 [employer]OUT [employer]ER, Duration: 3 doses or times, Stop date: Limited # of timesNotes: (Same as:[place]ина) "Do Not Crush" Sublingual tablet No Longer Active 08/28/2017 [facility] normal saline 0.9% IV 1,000 mL 1,000 mL, Rate: 100 ml/hr, Infuse over: 10 hr, Route: IV, Dosing Weight 134.091 kg, Total Volume: 1,000, Start date: 08/28/17 11:46:00 TROUT F[employer]ER, Duration: 30 day, Stop date: 09/27/17 11:45:00 TROUT FARMER, 2.67, m2 No Longer Active 08/28/2017 [facility] Sodium Chloride 0.9% (Bolus) IV 500 mL, 500 ml/hr, Infuse Over: 1 hr, Route: IV, 500, Drug form: INJ, ONCE, Dosing Weight 134.091 kg, Start date: 08/28/17 11:46:00 TROUT F[employer]ER, Stop date: 08/28/17 11:46:00 TROUT FARMER Inactive 08/28/2017 [facility] Nitroglycerin 0.4 MG Sublingual Tablet 0.4 mg=1 tab, SL, Q5Min, PRN Chest pain, Give up to 3 doses. Call 911 if pain persists., # 100 tab, 0 Refill(s) On Hold 08/28/2017 [facility] metoprolol 25 mg oral tablet, extended release 25 mg=1 tab, PO, Daily, # 30 tab, 0 Refill(s) On Hold 08/28/2017 [facility] Aspirin 81 MG Chewable Tablet 81 mg=1 tab, PO, Daily, tab, 0 Refill(s) On Hold 08/28/2017 [facility] Lipitor PO, Daily, 0 Refill(s) On Hold 08/28/2017 [facility] Allergies, Adverse Reactions, Alerts Substance Category Reaction Severity Reaction type Status Date Reported Comments Source Immunizations Immunization Date Given Site Status Last Updated Comments Source Results Order Name Results Value Reference Range Date Interpretation Comments Source Chest 1view DX Chest 1view DX EXAM: XR CHEST 1 VIEW DATE: 09/04/2017 INDICATION: - dyspnea . Comparison is made with yesterday FINDINGS: Cardiomediastinal silhouette and sternotomy wires are unchanged as a small left pleural effusion. There is platelike atelectasis at the left lung and left lower lobe. The right lung is clear. IMPRESSION: No significant interval change when compared to prior radiograph. 09/04/2017 - - Read by: Conchita Woody MD Dictated Date/time: 09/04/17 10:12 Electronically Signed by: Conchita Woody MD 09/04/17 10:13 FINAL REPORT [facility] CHEM PANEL Phosphorus 2.6 mg/dL 2.5 - 4.5 09/03/2017 [facility] CHEM PANEL Magnesium Lvl 2.1 mg/dL 1.8 - 2.4 09/03/2017 [facility] CHEM PANEL B/C Ratio 19 6 - 25 09/03/2017 [facility] CHEM PANEL AGAP 9.9 meq/L 10.0 - 20.0 09/03/2017 [facility] CHEM PANEL Globulin 3.6 g/dL 2.7 - 4.2 09/03/2017 [facility] CHEM PANEL A/G Ratio 0.6 0.7 - 1.6 09/03/2017 [facility] CHEM PANEL eGFR 70 mL/min/1.73m2 09/03/2017 Result Comment: The eGFR is calculated using the CKD-EPI formula. In most young, healthy individuals the eGFR will be >90 mL/min/1.73m2. The eGFR declines with age. An eGFR of 60-89 may be normal in some populations, particularly the elderly, for whom the CKD-EPI formula has not been extensively validated. Use of the eGFR is not recommended in the following populations: Individuals with unstable creatinine concentrations, including patients and those with serious co-morbid conditions. Patients with extremes in muscle mass or diet. The data above are obtained from the National Kidney Disease Education Program (NKDEP) which additionally recommends that when the eGFR is used in patients with extremes of body mass index for purposes of drug dosing, the eGFR should be multiplied by the estimated BMI. [facility] CHEM PANEL Calcium Lvl 8.2 mg/dL 8.5 - 10.5 09/03/2017 [facility] CHEM PANEL Chloride Lvl 99 meq/L 95 - 109 09/03/2017 [facility] CHEM PANEL CO2 29 meq/L 24 - 32 09/03/2017 [facility] CHEM PANEL Sodium Lvl 134 meq/L 135 - 145 09/03/2017 [facility] CHEM PANEL Creatinine Lvl 1.13 mg/dL 0.50 - 1.40 09/03/2017 [facility] CHEM PANEL Potassium Lvl 3.9 meq/L 3.5 - 5.1 09/03/2017 [facility] CHEM PANEL Glucose Lvl 133 mg/dL 70 - 99 09/03/2017 [facility] CHEM PANEL BUN 21 mg/dL 7 - 22 09/03/2017 [facility] CHEM PANEL Total Protein 5.8 g/dL 6.4 - 8.4 09/03/2017 [facility] CHEM PANEL ALT 25 unit/L 0 - 65 09/03/2017 [facility] CHEM PANEL Alk Phos 54 unit/L 39 - 136 09/03/2017 [facility] CHEM PANEL Albumin Lvl 2.2 g/dL 3.5 - 5.0 09/03/2017 [facility] CHEM PANEL Bili Total 0.5 mg/dL 0.2 - 1.3 09/03/2017 [facility] CHEM PANEL AST 23 unit/L 0 - 37 09/03/2017 [facility] HEMATOLOGY INR 1.13 0.85 - 1.17 09/03/2017 [facility] HEMATOLOGY PTT 33.0 s 22.9 - 35.8 09/03/2017 [facility] HEMATOLOGY D-Dimer 0.89 ug/mL FEU 09/03/2017 [facility] HEMATOLOGY Fibrinogen Lvl 771 mg/dL 230 - 510 09/03/2017 [facility] HEMATOLOGY Thrombin Time 14.9 s 15.0 - 21.2 09/03/2017 [facility] HEMATOLOGY PT 14.5 s 12.0 - 14.7 09/03/2017 [facility] HEMATOLOGY RDW 13.0 % 11.5 - 14.5 09/03/2017 [facility] HEMATOLOGY Platelet 191 K/CMM 133 - 450 09/03/2017 [facility] HEMATOLOGY MPV 9.1 fL 7.4 - 10.4 09/03/2017 [facility] HEMATOLOGY WBC 12.8 K/CMM 3.7 - 10.4 09/03/2017 [facility] HEMATOLOGY Hgb 9.9 g/dL 14.0 - 18.0 09/03/2017 [facility] HEMATOLOGY RBC 3.38 M/CMM 4.70 - 6.10 09/03/2017 [facility] HEMATOLOGY Hct 29.1 % 42.0 - 54.0 09/03/2017 [facility] HEMATOLOGY MCH 29.3 pg 27.0 - 31.0 09/03/2017 [facility] HEMATOLOGY MCV 85.9 fL 80.0 - 94.0 09/03/2017 [facility] HEMATOLOGY MCHC 34.1 g/dL 32.0 - 36.0 09/03/2017 [facility] HEMATOLOGY Anisocyte 1+ *ABN* (09/03/17 4:29 AM) None Seen 09/03/2017 [facility] HEMATOLOGY Eosinophils # 0.1 K/CMM 0.0 - 0.5 09/03/2017 [facility] HEMATOLOGY Plt Morph Normal (09/03/17 4:29 AM) 09/03/2017 [facility] HEMATOLOGY Lymphocytes 19.0 % 20.0 - 40.0 09/03/2017 [facility] HEMATOLOGY Monocytes 12.2 % 2.0 - 12.0 09/03/2017 [facility] HEMATOLOGY Segs 67.6 % 45.0 - 75.0 09/03/2017 [facility] HEMATOLOGY Segs-Bands # 8.7 K/CMM 1.5 - 8.1 09/03/2017 [facility] HEMATOLOGY Basophils 0.3 % 0.0 - 1.0 09/03/2017 [facility] HEMATOLOGY Eosinophils 0.9 % 0.0 - 4.0 09/03/2017 [facility] HEMATOLOGY Monocytes # 1.6 K/CMM 0.0 - 0.8 09/03/2017 [facility] HEMATOLOGY Lymphocytes # 2.4 K/CMM 1.0 - 5.5 09/03/2017 [facility] PARATHYROID PROFILE Ca Ion WB 1.05 mMol/L 1.05 - 1.25 09/03/2017 [facility] PARATHYROID PROFILE Ca Norm WB 1.05 mMol/L 1.05 - 1.25 09/03/2017 [facility] Chest 1view DX Chest 1view DX EXAM: XR CHEST 1 VIEW DATE: 09/03/2017 INDICATION: Tube placement/removal/reposition - chest tube placement . Comparison is made with yesterday FINDINGS: Cardiomediastinal silhouette and sternotomy wires are unchanged. Costophrenic sulci are sharp without effusion. Platelike atelectasis at the left lower lobe. The remainder the lungs are clear IMPRESSION: No significant interval change when compared to prior radiograph. 09/03/2017 - - Read by: Conchita Woody MD Dictated Date/time: 09/03/17 09:42 Electronically Signed by: Conchita Woody MD 09/03/17 09:43 FINAL REPORT [facility] BLOOD BANK RESULTS Antibody Scrn Negative (09/02/17 12:45 AM) 09/02/2017 [facility] BLOOD BANK RESULTS ABO/Rh O POS 09/02/2017 [facility] CHEM PANEL Phosphorus 2.6 mg/dL 2.5 - 4.5 09/02/2017 [facility] CHEM PANEL Magnesium Lvl 2.2 mg/dL 1.8 - 2.4 09/02/2017 [facility] ELECTROLYTES CO2 28 meq/L 24 - 32 09/02/2017 [facility] ELECTROLYTES Calcium Lvl 8.1 mg/dL 8.5 - 10.5 09/02/2017 [facility] ELECTROLYTES Chloride Lvl 101 meq/L 95 - 109 09/02/2017 [facility] ELECTROLYTES Potassium Lvl 3.9 meq/L 3.5 - 5.1 09/02/2017 [facility] ELECTROLYTES Creatinine Lvl 1.51 mg/dL 0.50 - 1.40 09/02/2017 [facility] ELECTROLYTES Sodium Lvl 135 meq/L 135 - 145 09/02/2017 [facility] ELECTROLYTES Glucose Lvl 140 mg/dL 70 - 99 09/02/2017 [facility] ELECTROLYTES BUN 23 mg/dL 7 - 22 09/02/2017 [facility] ELECTROLYTES eGFR 49 mL/min/1.73m2 09/02/2017 Result Comment: The eGFR is calculated using the CKD-EPI formula. In most young, healthy individuals the eGFR will be >90 mL/min/1.73m2. The eGFR declines with age. An eGFR of 60-89 may be normal in some populations, particularly the elderly, for whom the CKD-EPI formula has not been extensively validated. Use of the eGFR is not recommended in the following populations: Individuals with unstable creatinine concentrations, including patients and those with serious co-morbid conditions. Patients with extremes in muscle mass or diet. The data above are obtained from the National Kidney Disease Education Program (NKDEP) which additionally recommends that when the eGFR is used in patients with extremes of body mass index for purposes of drug dosing, the eGFR should be multiplied by the estimated BMI. [facility] ELECTROLYTES AGAP 9.9 meq/L 10.0 - 20.0 09/02/2017 [facility] HEMATOLOGY MCV 85.9 fL 80.0 - 94.0 09/02/2017 [facility] HEMATOLOGY RDW 13.1 % 11.5 - 14.5 09/02/2017 [facility] HEMATOLOGY Platelet 165 K/CMM 133 - 450 09/02/2017 [facility] HEMATOLOGY MCH 30.0 pg 27.0 - 31.0 09/02/2017 [facility] HEMATOLOGY MCHC 34.9 g/dL 32.0 - 36.0 09/02/2017 [facility] HEMATOLOGY MPV 9.0 fL 7.4 - 10.4 09/02/2017 [facility] HEMATOLOGY Hgb 10.9 g/dL 14.0 - 18.0 09/02/2017 [facility] HEMATOLOGY Hct 31.1 % 42.0 - 54.0 09/02/2017 [facility] HEMATOLOGY WBC 16.2 K/CMM 3.7 - 10.4 09/02/2017 [facility] HEMATOLOGY RBC 3.62 M/CMM 4.70 - 6.10 09/02/2017 [facility] HEMATOLOGY Segs 70.0 % 45.0 - 75.0 09/02/2017 [facility] HEMATOLOGY Lymphocytes 18.5 % 20.0 - 40.0 09/02/2017 [facility] HEMATOLOGY Basophils 0.3 % 0.0 - 1.0 09/02/2017 [facility] HEMATOLOGY Monocytes 10.7 % 2.0 - 12.0 09/02/2017 [facility] HEMATOLOGY Eosinophils 0.5 % 0.0 - 4.0 09/02/2017 [facility] HEMATOLOGY Eosinophils # 0.1 K/CMM 0.0 - 0.5 09/02/2017 [facility] HEMATOLOGY Monocytes # 1.7 K/CMM 0.0 - 0.8 09/02/2017 [facility] HEMATOLOGY Lymphocytes # 3.0 K/CMM 1.0 - 5.5 09/02/2017 [facility] HEMATOLOGY Segs-Bands # 11.3 K/CMM 1.5 - 8.1 09/02/2017 [facility] HEMATOLOGY INR 1.32 0.85 - 1.17 09/02/2017 [facility] HEMATOLOGY PT 16.5 s 12.0 - 14.7 09/02/2017 [facility] HEMATOLOGY PTT 32.6 s 22.9 - 35.8 09/02/2017 [facility] PARATHYROID PROFILE Ca Norm WB 1.04 mMol/L 1.05 - 1.25 09/02/2017 [facility] PARATHYROID PROFILE Ca Ion WB 1.06 mMol/L 1.05 - 1.25 09/02/2017 [facility] Chest 1view DX Chest 1view DX EXAM: XR CHEST 1 VIEW DATE: 09/02/2017 3:00 AM [employer]OUT [employer] INDICATION: Tube placement/removal/reposition - chest tube placement TECHNIQUE: AP chest. DISCUSSION: Removal of a previous right IJ approach central venous catheter. Intact median sternotomy wires. Postoperative changes of coronary artery bypass grafting. Prominent cardiac silhouette. Mild scattered platelike opacities are demonstrated. The costophrenic sulci are sharp. No pneumothorax given the limitation of a semiupright exam. IMPRESSION: No significant interval changes other than removal of a right IJ catheter. 09/02/2017 - - Read by: Kenneth Nagy MD Dictated Date/time: 09/02/17 10:18 Electronically Signed by: Kenneth Nagy MD 09/02/17 10:20 FINAL REPORT [facility] Chest 1view DX Chest 1view DX EXAM: XR CHEST 1 VIEW DATE: 09/01/2017 11:17 AM [employer]OUT [employer]ER INDICATION: - tube removal TECHNIQUE: AP chest. IMPRESSION: No significant interval changes. A right IJ approach central venous catheter is seen with its tip overlying the SVC. Intact median sternotomy wires. Low lung volumes with bronchovascular crowding and scattered subsegmental atelectasis. No pneumothorax given the limitation of a semiupright exam. 09/01/2017 - - Read by: Kenneth Nagy MD Dictated Date/time: 09/01/17 15:23 Electronically Signed by: Kenneth Nagy MD 09/01/17 15:27 FINAL REPORT [facility] CHEM PANEL Phosphorus 2.3 mg/dL 2.5 - 4.5 09/01/2017 [facility] CHEM PANEL Magnesium Lvl 2.2 mg/dL 1.8 - 2.4 09/01/2017 [facility] ELECTROLYTES AGAP 10.4 meq/L 10.0 - 20.0 09/01/2017 [facility] ELECTROLYTES eGFR 71 mL/min/1.73m2 09/01/2017 Result Comment: The eGFR is calculated using the CKD-EPI formula. In most young, healthy individuals the eGFR will be >90 mL/min/1.73m2. The eGFR declines with age. An eGFR of 60-89 may be normal in some populations, particularly the elderly, for whom the CKD-EPI formula has not been extensively validated. Use of the eGFR is not recommended in the following populations: Individuals with unstable creatinine concentrations, including patients and those with serious co-morbid conditions. Patients with extremes in muscle mass or diet. The data above are obtained from the National Kidney Disease Education Program (NKDEP) which additionally recommends that when the eGFR is used in patients with extremes of body mass index for purposes of drug dosing, the eGFR should be multiplied by the estimated BMI. [facility] ELECTROLYTES CO2 27 meq/L 24 - 32 09/01/2017 [facility] ELECTROLYTES Calcium Lvl 8.2 mg/dL 8.5 - 10.5 09/01/2017 [facility] ELECTROLYTES Glucose Lvl 160 mg/dL 70 - 99 09/01/2017 [facility] ELECTROLYTES BUN 18 mg/dL 7 - 22 09/01/2017 [facility] ELECTROLYTES Creatinine Lvl 1.12 mg/dL 0.50 - 1.40 09/01/2017 [facility] ELECTROLYTES Potassium Lvl 4.4 meq/L 3.5 - 5.1 09/01/2017 [facility] ELECTROLYTES Sodium Lvl 140 meq/L 135 - 145 09/01/2017 [facility] ELECTROLYTES Chloride Lvl 107 meq/L 95 - 109 09/01/2017 [facility] HEMATOLOGY PTT 32.7 s 22.9 - 35.8 09/01/2017 [facility] HEMATOLOGY INR 1.41 0.85 - 1.17 09/01/2017 [facility] HEMATOLOGY PT 17.3 s 12.0 - 14.7 09/01/2017 [facility] HEMATOLOGY Platelet 160 K/CMM 133 - 450 09/01/2017 [facility] HEMATOLOGY RDW 13.1 % 11.5 - 14.5 09/01/2017 [facility] HEMATOLOGY MPV 8.9 fL 7.4 - 10.4 09/01/2017 [facility] HEMATOLOGY MCV 86.7 fL 80.0 - 94.0 09/01/2017 [facility] HEMATOLOGY Hct 33.5 % 42.0 - 54.0 09/01/2017 [facility] HEMATOLOGY MCH 29.8 pg 27.0 - 31.0 09/01/2017 [facility] HEMATOLOGY RBC 3.86 M/CMM 4.70 - 6.10 09/01/2017 [facility] HEMATOLOGY MCHC 34.4 g/dL 32.0 - 36.0 09/01/2017 [facility] HEMATOLOGY Hgb 11.5 g/dL 14.0 - 18.0 09/01/2017 [facility] HEMATOLOGY WBC 17.0 K/CMM 3.7 - 10.4 09/01/2017 [facility] HEMATOLOGY Monocytes # 1.5 K/CMM 0.0 - 0.8 09/01/2017 [facility] HEMATOLOGY Eosinophils 0.1 % 0.0 - 4.0 09/01/2017 [facility] HEMATOLOGY Segs-Bands # 13.8 K/CMM 1.5 - 8.1 09/01/2017 [facility] HEMATOLOGY Basophils 0.2 % 0.0 - 1.0 09/01/2017 [facility] HEMATOLOGY Lymphocytes # 1.7 K/CMM 1.0 - 5.5 09/01/2017 [facility] HEMATOLOGY Segs 81.1 % 45.0 - 75.0 09/01/2017 [facility] HEMATOLOGY Monocytes 8.9 % 2.0 - 12.0 09/01/2017 [facility] HEMATOLOGY Lymphocytes 9.7 % 20.0 - 40.0 09/01/2017 [facility] PARATHYROID PROFILE Ca Ion WB 1.05 mMol/L 1.05 - 1.25 09/01/2017 [facility] PARATHYROID PROFILE Ca Norm WB 1.05 mMol/L 1.05 - 1.25 09/01/2017 [facility] Chest 1view DX Chest 1view DX EXAM: XR CHEST 1 VIEW DATE: 09/01/2017 3:00 AM [employer]OUT [employer] INDICATION: Tube placement/removal/reposition - chest tube placement TECHNIQUE: AP chest. DISCUSSION: A right IJ sheath is in place. Left chest tube is also present. Moderate patchy perihilar opacities are demonstrated. Low lung volumes with scattered subsegmental atelectasis. No definite residual pneumothorax. IMPRESSION: No significant interval changes. 09/01/2017 - - Read by: Kenneth Nagy MD Dictated Date/time: 09/01/17 19:23 Electronically Signed by: Kenneth Nagy MD 09/01/17 19:24 FINAL REPORT [facility] CHEM PANEL AST 62 unit/L 0 - 37 08/31/2017 [facility] CHEM PANEL Total Protein 5.9 g/dL 6.4 - 8.4 08/31/2017 [facility] CHEM PANEL Albumin Lvl 2.9 g/dL 3.5 - 5.0 08/31/2017 [facility] CHEM PANEL ALT 57 unit/L 0 - 65 08/31/2017 [facility] CHEM PANEL Bili Total 0.5 mg/dL 0.2 - 1.3 08/31/2017 [facility] CHEM PANEL Bili Indirect 0.4 mg/dL 0.0 - 1.0 08/31/2017 [facility] CHEM PANEL Bili Direct 0.1 mg/dL 0.0 - 0.3 08/31/2017 [facility] CHEM PANEL Alk Phos 63 unit/L 39 - 136 08/31/2017 [facility] CHEM PANEL Globulin 3.0 g/dL 2.7 - 4.2 08/31/2017 [facility] CHEM PANEL A/G Ratio 1.0 0.7 - 1.6 08/31/2017 [facility] CHEM PANEL Lactic Acid Lvl 1.3 mMol/L 0.5 - 2.2 08/31/2017 [facility] HEMATOLOGY Thrombin Time 16.6 s 15.0 - 21.2 08/31/2017 [facility] HEMATOLOGY Fibrinogen Lvl 393 mg/dL 230 - 510 08/31/2017 [facility] HEMATOLOGY D-Dimer 0.73 ug/mL FEU 08/31/2017 [facility] Chest 1view DX Chest 1view DX EXAM: XR CHEST 1 VIEW DATE: 08/31/2017 3:00 AM [employer]OUT [employer] INDICATION: Tube placement/removal/reposition - chest tube placement TECHNIQUE: AP chest. IMPRESSION: Life-support lines are stable. There is a tiny left apical pneumothorax. Mild platelike atelectasis or consolidation in the lung bases. Findings are grossly stable. 08/31/2017 - - Read by: Kenneth Nagy MD Dictated Date/time: 08/31/17 17:04 Electronically Signed by: Kenneth Nagy MD 08/31/17 17:04 FINAL REPORT [facility] CHEM PANEL Lactic Acid Lvl 1.9 mMol/L 0.5 - 2.2 08/30/2017 [facility] HEMATOLOGY Thrombin Time 20.3 s 15.0 - 21.2 08/30/2017 [facility] HEMATOLOGY D-Dimer 1.29 ug/mL FEU 08/30/2017 [facility] HEMATOLOGY Fibrinogen Lvl 312 mg/dL 230 - 510 08/30/2017 [facility] HEMATOLOGY Bands 20.0 % 0.0 - 11.0 08/30/2017 [facility] HEMATOLOGY Metamyelocytes 1.0 % 0.0 - 1.0 08/30/2017 [facility] HEMATOLOGY Atypical Lymphs 0.0 % <=0.0 % 08/30/2017 [facility] Chest 1view DX Chest 1view DX EXAM: AP VIEW OF THE CHEST DATE: 08/30/2017 4:07 PM [employer]OUT [employer] INDICATION: - for tube placement COMPARISON: CXR 08/30/2017 at 0306 hours TECHNIQUE: Single frontal view of the chest. FINDINGS: Lines and Tubes: Postsurgical changes of the mediastinum. ET tube tip projects 5.2 cm above the david. Right IJ vascular sheath projects over the mid SVC. Overlying EKG leads. Left chest tube with sidehole projecting over the mid left hemithorax and tip overlying the superior left hemithorax. The visualized bones, soft tissues and cardiac silhouette are unchanged. IMPRESSION: 1. Low lung volumes with accentuated vascular markings and bibasilar atelectasis. 2. Slight increase in bilateral mid to upper lung zone opacities may represent atelectasis or possible aspiration. 3. No pleural effusions. 08/30/2017 - - Read by: Deon Hayes MD Dictated Date/time: 08/30/17 17:15 Electronically Signed by: Deon Hayes MD 08/30/17 17:29 FINAL REPORT [facility] CHEM PANEL Bili Total 0.6 mg/dL 0.2 - 1.3 08/30/2017 [facility] CHEM PANEL Alk Phos 75 unit/L 39 - 136 08/30/2017 [facility] CHEM PANEL Albumin Lvl 3.5 g/dL 3.5 - 5.0 08/30/2017 [facility] CHEM PANEL ALT 60 unit/L 0 - 65 08/30/2017 [facility] CHEM PANEL AST 26 unit/L 0 - 37 08/30/2017 [facility] CHEM PANEL Total Protein 6.9 g/dL 6.4 - 8.4 08/30/2017 [facility] CHEM PANEL A/G Ratio 1.0 0.7 - 1.6 08/30/2017 [facility] CHEM PANEL Globulin 3.4 g/dL 2.7 - 4.2 08/30/2017 [facility] CHEM PANEL B/C Ratio 12 6 - 25 08/30/2017 [facility] HEMATOLOGY Eosinophils # 0.1 K/CMM 0.0 - 0.5 08/30/2017 [facility] HEMATOLOGY Basophils # 0.1 K/CMM 0.0 - 0.2 08/30/2017 [facility] URINE AND STOOL UA Turbidity Clear (08/30/17 12:01 AM) Clear 08/30/2017 [facility] URINE AND STOOL UA Color Yellow *NA* (08/30/17 12:01 AM) Yellow 08/30/2017 [facility] URINE AND STOOL UA Spec Grav 1.010 <=1.030 08/30/2017 [facility] URINE AND STOOL UA pH 6.0 5.0 - 8.0 08/30/2017 [facility] URINE AND STOOL UA Bili Negative *NA* (08/30/17 12:01 AM) Negative 08/30/2017 [facility] URINE AND STOOL UA Ketones Negative mg/dL Negative mg/dL 08/30/2017 [facility] URINE AND STOOL UA Glucose Negative mg/dL Negative mg/dL 08/30/2017 [facility] URINE AND STOOL UA Protein Negative mg/dL Negative mg/dL 08/30/2017 [facility] URINE AND STOOL UA WBC null 0 - 5 08/30/2017 [facility] URINE AND STOOL UA Leuk Est Negative (08/30/17 12:01 AM) Negative 08/30/2017 [facility] URINE AND STOOL UA Nitrite Negative (08/30/17 12:01 AM) Negative 08/30/2017 [facility] URINE AND STOOL UA Blood Negative (08/30/17 12:01 AM) Negative 08/30/2017 [facility] URINE AND STOOL UA Sq Epi None Seen 08/30/2017 [facility] URINE AND STOOL UA Urobilinogen <=1.0 mg/dL 0.1 - 1.0 08/30/2017 [facility] Chest 1view DX Chest 1view DX EXAM: XR CHEST 1 VIEW DATE: 08/30/2017 3:00 AM [employer]OUT F[employer]ER INDICATION: Respiratory distress - preop TECHNIQUE: AP chest DISCUSSION: The lungs and pleura are clear. Heart size is within normal limits. Osseous structures are unremarkable. IMPRESSION: The lungs are clear. 08/30/2017 - - Read by: Kenneth Nagy MD Dictated Date/time: 08/30/17 10:06 Electronically Signed by: Kenneth Nagy MD 08/30/17 10:07 FINAL REPORT [facility] BLOOD BANK RESULTS FFP product Product available (08/29/17 5:51 PM) 08/29/2017 [facility] BLOOD BANK RESULTS Platelet product Product available (08/29/17 5:51 PM) 08/29/2017 [facility] BLOOD BANK RESULTS RBC product Product available (08/29/17 5:51 PM) 08/29/2017 [facility] Chest wo contrast CT Chest wo contrast CT EXAM: CT CHEST WITHOUT CONTRAST DATE: 08/29/2017 4:18 PM [employer]OUT F[employer]ER INDICATION: - Dilated aortic root TECHNIQUE: Volumetric CT acquisition of the chest without contrast. Axial, sagittal and coronal reconstructions. Axial MIP images included. IV contrast: None. COMPARISON: None available. DISCUSSION: Lines and Tubes: None. Lower Neck: The visible portions or the lower neck and thyroid are unremarkable. Heart, Mediastinum, and Great Vessels: Heart is within normal limits in size. Moderate three-vessel coronary artery calcifications. No significant pericardial effusion. Dilated ascending thoracic aorta. Limited assessment without intravenous contrast but no acute findings. No mediastinal fluid collections. No abnormal periaortic density. Measurements of the aorta: Sinuses of Valsalva: width 37 x 38 x 38 mm (approximate, as the exam is limited from being nongated) Sino-Tubular Junction: 36 x 38 mm; average 37 mm Ascending Thoracic Aorta: 42 x 42 mm; average 42 mm; Mid Aortic Arch: 29 x 29 mm; average 29 mm; Descending Thoracic Aortic: 27 x 28 mm; average 27 mm; Aorta at the Diaphragm level: 26 x 27 mm; average 26 mm; Lymph Nodes: No hilar, mediastinal, axillary or internal mammary lymphadenopathy. Lungs: There is a punctate calcified granuloma in the left upper lobe. Tiny punctate calcified granuloma in the right upper lobe. The lungs are clear of consolidation. No suspicious pulmonary nodules. Pleura: No pleural effusion or pneumothorax. Esophagus and Upper abdomen: Fat infiltration of the liver. No acute findings. Bones and Soft Tissues: Degenerative changes of the thoracic spine are noted. No destructive process. IMPRESSION: Aortic measurements as provided above. Approximate measurements of the aortic root within the limitations of a noncontrast nongated exam. 08/29/2017 - - Read by: Kenneth Nagy MD Dictated Date/time: 08/30/17 08:20 Electronically Signed by: Kenneth Nagy MD 08/30/17 08:33 FINAL REPORT [facility] BACTERIAL - SEROLOGY MRSA by PCR Negative (08/29/17 5:07 AM) 08/29/2017 [facility] BLOOD BANK RESULTS Antibody Scrn Negative (08/29/17 5:01 AM) 08/29/2017 [facility] BLOOD BANK RESULTS ABO/Rh O POS 08/29/2017 [facility] CHEM PANEL Bili Indirect 0.4 mg/dL 0.0 - 1.0 08/29/2017 [facility] CHEM PANEL Bili Direct 0.1 mg/dL 0.0 - 0.3 08/29/2017 [facility] SPECIAL CHEMISTRY Hgb A1C 6.4 % <=5.6 % 08/29/2017 [facility] CHEM PANEL eGFR 82 mL/min/1.73m2 08/28/2017 Result Comment: The eGFR is calculated using the CKD-EPI formula. In most young, healthy individuals the eGFR will be >90 mL/min/1.73m2. The eGFR declines with age. An eGFR of 60-89 may be normal in some populations, particularly the elderly, for whom the CKD-EPI formula has not been extensively validated. Use of the eGFR is not recommended in the following populations: Individuals with unstable creatinine concentrations, including patients and those with serious co-morbid conditions. Patients with extremes in muscle mass or diet. The data above are obtained from the National Kidney Disease Education Program (NKDEP) which additionally recommends that when the eGFR is used in patients with extremes of body mass index for purposes of drug dosing, the eGFR should be multiplied by the estimated BMI. [facility] CHEM PANEL Creatinine Lvl 0.99 mg/dL 0.50 - 1.40 08/28/2017 [facility] HEMATOLOGY Hgb 14.0 g/dL 14.0 - 18.0 08/28/2017 [facility] CHEM PANEL eGFR 72 mL/min/1.73m2 08/28/2017 Result Comment: The eGFR is calculated using the CKD-EPI formula. In most young, healthy individuals the eGFR will be >90 mL/min/1.73m2. The eGFR declines with age. An eGFR of 60-89 may be normal in some populations, particularly the elderly, for whom the CKD-EPI formula has not been extensively validated. Use of the eGFR is not recommended in the following populations: Individuals with unstable creatinine concentrations, including patients and those with serious co-morbid conditions. Patients with extremes in muscle mass or diet. The data above are obtained from the National Kidney Disease Education Program (NKDEP) which additionally recommends that when the eGFR is used in patients with extremes of body mass index for purposes of drug dosing, the eGFR should be multiplied by the estimated BMI. [facility] CHEM PANEL CO2 28 meq/L 24 - 32 08/28/2017 [facility] CHEM PANEL Calcium Lvl 8.4 mg/dL 8.5 - 10.5 08/28/2017 [facility] CHEM PANEL Creatinine Lvl 1.11 mg/dL 0.50 - 1.40 08/28/2017 [facility] CHEM PANEL Glucose Lvl 142 mg/dL 70 - 99 08/28/2017 [facility] CHEM PANEL BUN 21 mg/dL 7 - 22 08/28/2017 [facility] CHEM PANEL Sodium Lvl 140 meq/L 135 - 145 08/28/2017 [facility] CHEM PANEL Potassium Lvl 3.9 meq/L 3.5 - 5.1 08/28/2017 [facility] CHEM PANEL Chloride Lvl 104 meq/L 95 - 109 08/28/2017 [facility] CHEM PANEL AGAP 11.9 meq/L 10.0 - 20.0 08/28/2017 [facility] HEMATOLOGY Eosinophils # 0.1 K/CMM 0.0 - 0.5 08/28/2017 [facility] HEMATOLOGY Monocytes # 0.8 K/CMM 0.0 - 0.8 08/28/2017 [facility] HEMATOLOGY Basophils 0.4 % 0.0 - 1.0 08/28/2017 [facility] HEMATOLOGY Eosinophils 1.4 % 0.0 - 4.0 08/28/2017 [facility] HEMATOLOGY Segs-Bands # 5.9 K/CMM 1.5 - 8.1 08/28/2017 [facility] HEMATOLOGY Lymphocytes # 2.7 K/CMM 1.0 - 5.5 08/28/2017 [facility] HEMATOLOGY Lymphocytes 28.1 % 20.0 - 40.0 08/28/2017 [facility] HEMATOLOGY Segs 61.5 % 45.0 - 75.0 08/28/2017 [facility] HEMATOLOGY Monocytes 8.6 % 2.0 - 12.0 08/28/2017 [facility] HEMATOLOGY PT 12.4 s 12.0 - 14.7 08/28/2017 [facility] HEMATOLOGY PTT 28.5 s 22.9 - 35.8 08/28/2017 [facility] HEMATOLOGY INR 0.92 0.85 - 1.17 08/28/2017 [facility] HEMATOLOGY MCV 87.1 fL 80.0 - 94.0 08/28/2017 [facility] HEMATOLOGY Hct 43.5 % 42.0 - 54.0 08/28/2017 [facility] HEMATOLOGY Hgb 14.8 g/dL 14.0 - 18.0 08/28/2017 [facility] HEMATOLOGY RBC 4.99 M/CMM 4.70 - 6.10 08/28/2017 [facility] HEMATOLOGY WBC 9.6 K/CMM 3.7 - 10.4 08/28/2017 [facility] HEMATOLOGY RDW 12.9 % 11.5 - 14.5 08/28/2017 [facility] HEMATOLOGY Platelet 206 K/CMM 133 - 450 08/28/2017 [facility] HEMATOLOGY MCH 29.6 pg 27.0 - 31.0 08/28/2017 [facility] HEMATOLOGY MCHC 34.0 g/dL 32.0 - 36.0 08/28/2017 [facility] HEMATOLOGY MPV 9.0 fL 7.4 - 10.4 08/28/2017 [facility] LIPIDS VLDL 44 08/28/2017 [facility] LIPIDS LDL (Calculated) 20 mg/dL <=99 mg/dL 08/28/2017 [facility] LIPIDS HDL 30 mg/dL >=61 mg/dL 08/28/2017 [facility] LIPIDS Chol 94 mg/dL <=199 mg/dL 08/28/2017 [facility] LIPIDS Trig 222 mg/dL <=149 mg/dL 08/28/2017 [facility] LIPIDS CHD Risk 3.13 4.00 - 7.30 08/28/2017 [facility] Vital Signs Vital Sign Value Date Comments Source BMI Calculated 38.08 10/28/2017 [facility] Weight 134.545 10/28/2017 [facility] Temperature Oral (F) 98.0 F 10/28/2017 [facility] Heart Rate 67 10/28/2017 [facility] Respitory Rate 16 10/28/2017 [facility] Height 187.96 cm 10/28/2017 [facility] Systolic (mm Hg) 110 10/28/2017 [facility] Diastolic (mm Hg) 67 10/28/2017 [facility] Height 181.1 cm 09/19/2017 [facility] Heart Rate 73 09/19/2017 [facility] Respitory Rate 18 09/19/2017 [facility] Temperature Oral (F) 97.9 F 09/19/2017 [facility] Weight 130.227 09/19/2017 [facility] BMI Calculated 39.71 09/19/2017 [facility] Systolic (mm Hg) 122 09/19/2017 [facility] Diastolic (mm Hg) 71 09/19/2017 [facility] Weight 134.574 09/06/2017 [facility] BMI Calculated 38.09 09/06/2017 [facility] Heart Rate 72 09/06/2017 [facility] Temperature Oral (F) 97.7 F 09/06/2017 [facility] Respitory Rate 20 09/06/2017 [facility] Systolic (mm Hg) 99 09/06/2017 [facility] Diastolic (mm Hg) 59 09/06/2017 [facility] Height 187.96 cm 09/06/2017 [facility] Height 182.63 cm 09/05/2017 [facility] Weight 135.682 09/05/2017 [facility] BMI Calculated 40.68 09/05/2017 [facility] Temperature Oral (F) 97.3 F 09/05/2017 [facility] Heart Rate 68 09/05/2017 [facility] Respitory Rate 18 09/05/2017 [facility] Systolic (mm Hg) 120 09/05/2017 [facility] Diastolic (mm Hg) 68 09/05/2017 [facility] Temperature Oral (F) 99 F 09/04/2017 [facility] Temperature Oral (F) 98.9 F 09/04/2017 [facility] Respitory Rate 20 09/04/2017 [facility] Systolic (mm Hg) 115 09/04/2017 [facility] Diastolic (mm Hg) 56 09/04/2017 [facility] Systolic (mm Hg) 108 09/04/2017 [facility] Diastolic (mm Hg) 56 09/04/2017 [facility] Respitory Rate 20 09/04/2017 [facility] Systolic (mm Hg) 108 09/04/2017 [facility] Diastolic (mm Hg) 53 09/04/2017 [facility] Respitory Rate 20 09/04/2017 [facility] Temperature Oral (F) 99.7 F 09/03/2017 [facility] Height 187.96 cm 08/31/2017 [facility] Height 187.96 cm 08/31/2017 [facility] Height 187.96 cm 08/31/2017 [facility] BMI Calculated 38.47 08/29/2017 [facility] Weight 135.9 08/29/2017 [facility] Respitory Rate 18 08/29/2017 [facility] Heart Rate 69 08/29/2017 [facility] Temperature Oral (F) 98.1 F 08/29/2017 [facility] Systolic (mm Hg) 115 08/29/2017 [facility] Diastolic (mm Hg) 69 08/29/2017 [facility] Respitory Rate 18 08/29/2017 [facility] Heart Rate 66 08/29/2017 [facility] Systolic (mm Hg) 119 08/29/2017 [facility] Diastolic (mm Hg) 69 08/29/2017 [facility] Temperature Oral (F) 98.3 F 08/29/2017 [facility] Systolic (mm Hg) 128 08/29/2017 [facility] Diastolic (mm Hg) 72 08/29/2017 [facility] Respitory Rate 18 08/29/2017 [facility] Heart Rate 68 08/29/2017 [facility] Height 187.96 cm 08/28/2017 [facility] BMI Calculated 37.95 08/28/2017 [facility] Weight 134.091 08/28/2017 [facility] BMI Calculated 37.95 08/28/2017 [facility] Weight 134.091 08/28/2017 [facility] Height 187.96 cm 08/28/2017 [facility] Encounters Location Location Details Encounter Type Encounter Number Reason For Visit Attending Provider ADM Date DC Date Status Source [facility] Bedded Outpatient [id number] Aurelio Fernandezado 08/28/2017 08/29/2017 [facility] Inpatient [id number] Rossyfelixjarrett Kendall 08/29/2017 09/04/2017 [facility] Outpatient [id number] Wilber Meek 09/05/2017 09/06/2017 [facility] Outpatient [id number] Jorge Arzate 09/06/2017 09/07/2017 [facility] Outpatient [id number] Jorge Arzate 09/19/2017 09/20/2017 [facility] Outpatient [id number] Jorge Arzate 10/28/2017 10/29/2017 [facility] Procedures Procedure Code Date Perfomer Comments Source Appendectomy [id number] [facility] Right knee Arthroscopy [id number] [facility] Repair of umbiilical hernia<sup>3</sup> [id number] In the 's [facility] Laminectomy and Spinal fusion<sup>1</sup> [id number] Fusion at L 4, 5, 6 [facility] Repair of ruptured biceps tendon<sup>2</sup> [id number] Attempted but unsuccessful [facility] Rotator cuff repair (bilateral) [id number] [facility] Suture of joint capsule with arthroplasty of ankle<sup>4</sup> [id number] Fractured, repaired with abe and screws [facility] Tonsilectomy [id number] [facility] Total replacement of left knee joint [id number] [facility] Appendectomy [id number] [facility] Right knee Arthroscopy [id number] [facility] Repair of umbiilical hernia<sup>3</sup> [id number] In the 80's [facility] Laminectomy and Spinal fusion<sup>1</sup> [id number] Fusion at L 4, 5, 6 [facility] Repair of ruptured biceps tendon<sup>2</sup> [id number] Attempted but unsuccessful [facility] Rotator cuff repair (bilateral) [id number] [facility] Suture of joint capsule with arthroplasty of ankle<sup>4</sup> [id number] Fractured, repaired with abe and screws [facility] Tonsilectomy [id number] [facility] Total replacement of left knee joint [id number] [facility]
--- OUTSIDE RECORDS SUMMARY | 2018-08-21 06:58 | XMS REPORT | Summary of Care ---
Author Author [facility] Organization [facility] Address Unknown Phone Unavailable Encounter WHITNEY Be(LILIYA) [id number] Date(s): 09/05/17 - 09/05/17 [facility] [address], [address] [place] [address]- Discharge Disposition: Home or Self Care Attending Physician: Wilber Meek Referring Physician: Wilber Meek Vital Signs Most recent to 1 oldest [Reference Range]: Height 182.63 cm (09/05/17 4:01 PM) Temperature Oral 97.3 DegF [96.4-99.1 DegF] (09/05/17 4:01 PM) Blood Pressure 120/68 mmHg [90-140/60-90 mmHg] (09/05/17 4:01 PM) Respiratory Rate 18 BRMIN [14-20 BRMIN] (09/05/17 4:01 PM) Peripheral Pulse 68 bpm Rate [60-100 bpm] (09/05/17 4:01 PM) Weight 135.682 kg (09/05/17 4:01 PM) Body Mass Index 40.68 m2 (09/05/17 4:01 PM) Problem List Condition Effective Dates Status Health Status Informant Chest Resolved pain(Confirmed) Hyperlipidemia(Confi Resolved rmed) Hypertension(Confirm Resolved ed) Allergies, Adverse Reactions, Alerts Substance Reaction Severity Status NKDA Active Medications No Known Medications Results No data available for this section Immunizations No data available for this section Procedures Procedure Date Related Diagnosis Body Site Appendectomy Laminectomy and Spinal fusion1 Repair of ruptured biceps tendon2 Repair of umbiilical hernia3 Right knee Arthroscopy Rotator cuff repair (bilateral) Suture of joint capsule with arthroplasty of ankle4 Tonsilectomy Total replacement of left knee joint 1Fusion at L 4, 5, 6 2Attempted but unsuccessful 3In the 's 4Fractured, repaired with abe and screws Social History Social History Type Response Exercise Exercise duration: 30. Exercise frequency: 1-2 times/week. Exercise type: Walking. Alcohol Current, Type Beer. Frequency: 1-2 times per week. Smoking Status Former smoker; Type: Cigars; Exposure to Tobacco Smoke None; Cigarette Smoking Last 365 Days Yes; Reg Smoking Cessation Counseling No1 1Quit smoking cigars December 2016 Assessment and Plan No data available for this section
--- OUTSIDE RECORDS SUMMARY | 2018-08-21 06:58 | XMS REPORT ---
Author Author [facility] Address Unknown Phone Unavailable Care Team Providers Care Supply Aide Name Role Phone Mary RODRIGUEZ Unavailable Unavailable Problems This patient has no known problems. Allergies, Adverse Reactions, Alerts This patient has no known allergies or adverse reactions. Medications This patient has no known medications. Results Test Description Test Time Test Comments Text Results Atomic Results Result Comments CHEST 2 VIEWS 2018-08-18 10:11:00 [place] [address] Patient Name: TERRENCE OLIVAS MR #: [id number] : 1955 Age/Sex: 63/M Req #: [id number] Adm Physician: Ordered by: MARIELY RODRIGUEZ MD Report #: [id number] Location: OR Room/Bed: Procedure: [id number] DX/CHEST 2 VIEWS Exam Date: 08/18/18 Exam Time: 924 REPORT STATUS: Signed PROCEDURE: Frontal and lateral views of the chest. COMPARISON: [facility], , CHEST 2 VIEWS, 10/17/2017, 10:22. INDICATIONS: PRE-OPERATIVE CHEST X-RAY FOR HERNIA SURGERY FINDINGS: Lines/tubes: Sternotomy wire sutures and small mediastinal vascular clips. Lungs: The lungs are well inflated and clear. There is no evidence of pneumonia or pulmonary edema. Scattered calcified granulomas. Pleura: There is no pleural effusion or pneumothorax. Heart and mediastinum: The heart and the mediastinum are normal. Bones: Degenerative changes of the spine. Irregularity of both distal clavicles. IMPRESSION: No acute cardiopulmonary disease. Hallie Cortes D.O. Dictated by: Hallie Cortes D.O. on 08/18/2018 at 10:11 Electronically approved by: Hallie Cortes D.O. on 08/18/2018 at 10:11 Dictated By: HALLIE CORTES DO 1011 Transcribed By: LINDA on 08/18/18 1011 COPY TO: MARIELY BOONE MD CHEST 2 VIEWS [place] [address] Patient Name: TERRENCE OLIVAS MR #: [id number] : 1955 Age/Sex: 62/M Req #: [id number] Adm Physician: Ordered by: MARIELY RODRIGUEZ MD Report #: [id number] Location: OR Room/Bed: Procedure: [id number] DX/CHEST 2 VIEWS Exam Date: 10/17/17 Exam Time: 1020 REPORT STATUS: Signed PROCEDURE: X-RAY CHEST, TWO VIEWS COMPARISON: None. INDICATIONS: PREOPERATIVE FOR DRAINAGE OF ABSCESS FINDINGS: LUNGS: No consolidations or edema. PLEURA: No effusions or pneumothorax. HEART T MEDIASTINUM: The heart is within normal size-limits. Sternotomy wire sutures and multiple mediastinal clips. BONES T SOFT TISSUES: No acute findings. Irregularity of the distal right clavicle may be postoperative in nature. Degenerative changes of the spine. CONCLUSION: No acute thoracic abnormality. Hallie Cortes D.O. Dictated by: Hallie Cortes D.O. on 10/17/2017 at 10:57 Electronically approved by: Hallie Cortes D.O. on 10/17/2017 at 10:57 Dictated By: HALLIE CORTES DO 1057 Transcribed By: LINDA on 10/17/17 1057 COPY TO: MARIELY RODRIGUEZ MD
--- OUTSIDE RECORDS SUMMARY | 2018-08-21 06:58 | XMS REPORT | Summary of Care ---
Author Author [facility] Organization [facility] Address Unknown Phone Unavailable Encounter [facility] [place](LILIYA) [id number] Date(s): 08/28/17 - 08/29/17 [facility] [address] [place] [address]- Discharge Disposition: Acute Care Attending Physician: Aurelio Gabriel MD Referring Physician: Aurelio Gabriel MD Vital Signs 1 2 3 Most recent to oldest [Reference Range]: 187.96 cm (08/28/17 6:55 AM) 187.96 cm (08/28/17 6:53 AM) Height 98.1 DegF (08/29/17 12:00 AM) 98.3 DegF (08/28/17 8:00 PM) Temperature Oral [96.4-99.1 DegF] 115/69 mmHg (08/29/17 12:00 AM) 119/69 mmHg (08/28/17 8:00 PM) 128/72 mmHg (08/28/17 6:40 PM) Blood Pressure [90-140/60-90 mmHg] 18 BRMIN (08/29/17 12:00 AM) 18 BRMIN (08/28/17 8:00 PM) 18 BRMIN (08/28/17 6:40 PM) Respiratory Rate [14-20 BRMIN] 69 bpm (08/29/17 12:00 AM) 66 bpm (08/28/17 8:00 PM) 68 bpm (08/28/17 6:40 PM) Peripheral Pulse Rate [60-100 bpm] 134.091 kg (08/28/17 6:55 AM) 134.091 kg (08/28/17 6:53 AM) Weight 37.95 m2 (08/28/17 6:55 AM) 37.95 m2 (08/28/17 6:53 AM) Body Mass Index Problem List Condition Effective Dates Status Health Status Informant Chest Resolved pain(Confirmed) Hyperlipidemia(Confi Resolved rmed) Hypertension(Confirm Resolved ed) Allergies, Adverse Reactions, Alerts Substance Reaction Severity Status NKDA Active Medications aspirin 325 mg tablet 325 mg, 1 tab, Route: PO, Drug form: ECTAB, Daily, Dosing Weight 134.091, kg, St art date: 08/28/17 17:00:00 HEALTH/SAFETY JOB TITLES, Duration: 30 day, Stop date: 09/27/17 9:00:[address] Notes: (Do Not Crush) Do not crush or chew. Start Date: 08/28/17 Stop Date: 08/28/17 Status: Canceled aspirin 81 mg tablet, chewable 81 mg, 1 tab, Route: PO, Drug form: CHEWTAB, Daily, Dosing Weight 134.091, kg, S tart date: 08/29/17 9:00:00 HEALTH/SAFETY JOB TITLES, Duration: 30 day, Stop date: 09/27/17 9:00:[address] Notes: Take with food. Start Date: 08/29/17 Stop Date: 08/29/17 Status: Canceled aspirin 81 mg tablet, chewable 81 mg=1 tab, PO, Daily, 0 Refill(s) Start Date: 08/29/17 Status: Suspended aspirin 81 mg tablet, chewable 81 mg=1 tab, PO, Daily, tab, 0 Refill(s) Start Date: 08/28/17 Status: Suspended atorvastatin 40 mg, 1 tab, Route: PO, Drug form: TAB, Bedtime, Dosing Weight 134.091, kg, Sta rt date: 08/28/17 21:00:00 HEALTH/SAFETY JOB TITLES, Duration: 30 day, Stop date: 09/26/17 21:00:[address] Notes: (Same as: Lipitor) Start Date: 08/28/17 Stop Date: 08/29/17 Status: Discontinued atorvastatin 40 mg oral tablet 40 mg=1 tab, PO, Bedtime, 0 Refill(s) Start Date: 08/29/17 Status: Suspended Lipitor PO, Daily, 0 Refill(s) Start Date: 08/28/17 Status: Suspended metoprolol 25 mg oral tablet, extended release 25 mg=1 tab, PO, Daily, 0 Refill(s) Start Date: 08/29/17 Status: Suspended metoprolol 25 mg oral tablet, extended release 25 mg=1 tab, PO, Daily, # 30 tab, 0 Refill(s) Start Date: 08/28/17 Status: Suspended metoprolol extended release 25 mg, 1 tab, Route: PO, Drug form: ERTAB, Daily, Start date: 08/29/17 9:00:[address], Duration: 30 day, Stop date: 09/27/17 9:00:00 HEALTH/SAFETY JOB TITLES Notes: (Same as: Toprol XL) Do Not Crush Start Date: 08/29/17 Stop Date: 08/29/17 Status: Canceled nitroglycerin 0.4 mg sublingual tablet 0.4 mg=1 tab, SL, Q5Min, PRN Chest Pain, 0 Refill(s) Start Date: 08/29/17 Status: Suspended nitroglycerin 0.4 mg sublingual tablet 0.4 mg=1 tab, SL, Q5Min, PRN Chest pain, Give up to 3 doses. Call 911 if pain pe rsists., # 100 tab, 0 Refill(s) Start Date: 08/28/17 Status: Suspended nitroglycerin SL Tab 0.4 mg, 1 tab, Route: SL, Drug form: TAB, Q5Min, Dosing Weight 134.091, kg, PRN Chest Pain, Start date: 08/28/17 15:39:00 HEALTH/SAFETY JOB TITLES, Duration: 3 doses or times, Stop date: Limited # of times Notes: (Same as:Nitroquick, Nitrostat)"Do Not Crush" Sublingual tablet Start Date: 08/28/17 Stop Date: 08/29/17 Status: Discontinued normal saline 0.9% IV 1,000 mL 1,000 mL, Rate: 100 ml/hr, Infuse over: 10 hr, Route: IV, Dosing Weight 134.091 kg, Total Volume: 1,000, Start date: 08/28/17 11:46:00 HEALTH/SAFETY JOB TITLES, Duration: 30 day, St op date: 09/27/17 11:45:00 HEALTH/SAFETY JOB TITLES, 2.67, m2 Start Date: 08/28/17 Stop Date: 08/29/17 Status: Discontinued Sodium Chloride 0.9% (Bolus) IV 500 mL, 500 ml/hr, Infuse Over: 1 hr, Route: IV, 500, Drug form: INJ, ONCE, Dosi ng Weight 134.091 kg, Start date: 08/28/17 11:46:00 HEALTH/SAFETY JOB TITLES, Stop date: 08/28/17 11: 46:00 HEALTH/SAFETY JOB TITLES Start Date: 08/28/17 Stop Date: 08/28/17 Status: Completed Results ELECTROLYTES Most recent to 1 2 oldest [Reference Range]: Sodium Lvl [135-145 140 mEq/L mEq/L] (08/28/17 6:56 AM) Potassium Lvl 3.9 mEq/L [3.5-5.1 mEq/L] (08/28/17 6:56 AM) Chloride Lvl [95-109 104 mEq/L mEq/L] (08/28/17 6:56 AM) CO2 [24-32 mEq/L] 28 mEq/L (08/28/17 6:56 AM) AGAP [10.0-20.0 11.9 mEq/L mEq/L] (08/28/17 6:56 AM) CHEM PANEL Most recent to 1 2 oldest [Reference Range]: Creatinine Lvl 0.99 mg/dL 1.11 mg/dL [0.50-1.40 mg/dL] (08/28/17 4:47 PM) (08/28/17 6:56 AM) eGFR 82 mL/min/1.73m2 1 72 mL/min/1.73m2 2 *NA* *NA* (08/28/17 4:47 PM) (08/28/17 6:56 AM) BUN [7-22 mg/dL] 21 mg/dL (08/28/17 6:56 AM) Glucose Lvl [70-99 142 mg/dL mg/dL] *HI* (08/28/17 6:56 AM) Calcium Lvl 8.4 mg/dL [8.5-10.5 mg/dL] *LOW* (08/28/17 6:56 AM) 1Result Comment: The eGFR is calculated using the [...] from the National Kidney Disease Education Program ( NKDEP) which additionally recommends that when the eGFR is used in patients with extremes of body mass index for purposes of drug dosing, the eGFR should be mul tiplied by the estimated BMI. 2Result Comment: The eGFR is calculated using the [...] from the National Kidney Disease Education Program ( NKDEP) which additionally recommends that when the eGFR is used in patients with extremes of body mass index for purposes of drug dosing, the eGFR should be mul tiplied by the estimated BMI. LIPIDS Most recent to 1 2 oldest [Reference Range]: CHD Risk [4.00-7.30] 3.13 *LOW* (08/28/17 6:56 AM) Chol [<=199 mg/dL] 94 mg/dL (08/28/17 6:56 AM) Trig [<=149 mg/dL] 222 mg/dL *HI* (08/28/17 6:56 AM) HDL [>=61 mg/dL] 30 mg/dL *LOW* (08/28/17 6:56 AM) LDL (Calculated) 20 mg/dL [<=99 mg/dL] (08/28/17 6:56 AM) VLDL 44 *NA* (08/28/17 6:56 AM) HEMATOLOGY Most recent to 1 2 oldest [Reference Range]: WBC [3.7-10.4 K/CMM] 9.6 K/CMM (08/28/17 6:56 AM) RBC [4.70-6.10 4.99 M/CMM M/CMM] (08/28/17 6:56 AM) Hgb [14.0-18.0 g/dL] 14.0 g/dL 14.8 g/dL (08/28/17 4:47 PM) (08/28/17 6:56 AM) Hct [42.0-54.0 %] 43.5 % (08/28/17 6:56 AM) MCV [80.0-94.0 fL] 87.1 fL (08/28/17 6:56 AM) MCH [27.0-31.0 pg] 29.6 pg (08/28/17 6:56 AM) MCHC [32.0-36.0 34.0 g/dL g/dL] (08/28/17 6:56 AM) RDW [11.5-14.5 %] 12.9 % (08/28/17 6:56 AM) Platelet [133-450 206 K/CMM K/CMM] (08/28/17 6:56 AM) MPV [7.4-10.4 fL] 9.0 fL (08/28/17 6:56 AM) Segs [45.0-75.0 %] 61.5 % (08/28/17 6:56 AM) Lymphocytes 28.1 % [20.0-40.0 %] (08/28/17 6:56 AM) Monocytes [2.0-12.0 8.6 % %] (08/28/17 6:56 AM) Eosinophils [0.0-4.0 1.4 % %] (08/28/17 6:56 AM) Basophils [0.0-1.0 0.4 % %] (08/28/17 6:56 AM) Segs-Bands # 5.9 K/CMM [1.5-8.1 K/CMM] (08/28/17 6:56 AM) Lymphocytes # 2.7 K/CMM [1.0-5.5 K/CMM] (08/28/17 6:56 AM) Monocytes # [0.0-0.8 0.8 K/CMM K/CMM] (08/28/17 6:56 AM) Eosinophils # 0.1 K/CMM [0.0-0.5 K/CMM] (08/28/17 6:56 AM) PT [12.0-14.7 12.4 seconds seconds] (08/28/17 6:56 AM) INR [0.85-1.17] 0.92 (08/28/17 6:56 AM) PTT [22.9-35.8 28.5 seconds seconds] (08/28/17 6:56 AM) Immunizations No data available for this section [...] Frequency: 1-2 times per week. Smoking Status Current some day smoker; Type: Cigars; Exposure to Tobacco Smoke None; Cigarette Smoking Last 365 Days Yes; Reg Smoking Cessation Counseling No Assessment and Plan Extracted from: Title: Cardiovascular Admission H&P Author: Aurelio Gabriel Date: 08/28/17 * Phil ROSEN Impression and Plan 62 yo M Severe multivessel CAD HTN HLD Recs: 08/28/17- ASA, statin, BB, initiated transfer to [facility] for CV surgical consultation- CAB evaluation.
--- OUTSIDE RECORDS SUMMARY | 2018-08-21 06:58 | XMS REPORT | Summary of Care ---
Author Author [facility] Organization [facility] Address Unknown Phone Unavailable Encounter WHITNEY Be(LILIYA) [id number] Date(s): 09/06/17 - 09/06/17 [facility] [address], [address] Discharge Disposition: Home or Self Care Attending Physician: Jorge Arzate MD Referring Physician: Jorge Arzate MD Vital Signs Most recent to 1 oldest [Reference Range]: Height 187.96 cm (09/06/17 11:30 AM) Temperature Oral 97.7 DegF [96.4-99.1 DegF] (09/06/17 11:30 AM) Blood Pressure 99/59 mmHg [90-140/60-90 mmHg] (09/06/17 11:30 AM) Respiratory Rate 20 BRMIN [14-20 BRMIN] (09/06/17 11:30 AM) Peripheral Pulse 72 bpm Rate [60-100 bpm] (09/06/17 11:30 AM) Weight 134.574 kg (09/06/17 11:30 AM) Body Mass Index 38.09 m2 (09/06/17 11:30 AM) Problem List Condition Effective Dates Status Health Status Informant Chest Resolved pain(Confirmed) Hyperlipidemia(Confi Resolved rmed) Hypertension(Confirm Resolved ed) Allergies, Adverse Reactions, Alerts Substance Reaction Severity Status NKDA Active Medications colchicine 0.6 mg oral tablet 0.6 mg=1 tab, PO, Daily, # 14 tab, 0 Refill(s), Pharmacy: [facility]/pharmacy #[id number] Start Date: 09/06/17 Stop Date: 09/20/17 Status: Ordered tramadol 50 mg oral tablet 50 mg=1 tab, PO, Q4H, PRN, 0 Refill(s) Start Date: 09/06/17 Status: Ordered Results No data available for this section [...] 5, 6 2Attempted but unsuccessful 3In the 80's 4Fractured, repaired with abe and screws Social [...]
--- OUTSIDE RECORDS SUMMARY | 2018-08-21 06:58 | XMS REPORT | Summary of Care ---
Author Author [facility] Organization [facility] Address Unknown Phone Unavailable Encounter WHITNEY Be(LILIYA) [id number] Date(s): 08/29/17 - 09/04/17 [facility] [address] [employer] provided by [facility] [place] [address]- Discharge Disposition: Home or Self Care Attending Physician: Traci Argueta MD Admitting Physician: Traci Argueta MD Vital Signs Most recent to 2 3 4 oldest [Reference Range]: Height 187.96 cm 187.96 cm 187.96 cm (08/31/17 8:19 AM) (08/31/17 3:15 AM) (08/30/17 10:54 PM) Current Weight 135.142 kg 141.7 kg 139 kg (09/04/17 5:51 AM) (09/03/17 5:00 AM) (09/02/17 5:00 AM) Temperature Oral 99 DegF 98.9 DegF 99.7 DegF 99.7 DegF [96.4-99.1 DegF] (09/04/17 11:14 AM) (09/04/17 8:00 AM) *HI* *HI* (09/03/17 4:00 PM) (09/03/17 4:00 PM) Blood Pressure 115/56 mmHg 108/56 mmHg 108/53 mmHg [90-140/60-90 mmHg] (09/04/17 8:00 AM) (09/04/17 4:00 AM) (09/04/17 2:00 AM) Respiratory Rate 20 BRMIN 20 BRMIN 20 BRMIN [14-20 BRMIN] (09/04/17 8:00 AM) (09/04/17 4:00 AM) (09/04/17 2:00 AM) Weight 135.9 kg (08/29/17 4:33 AM) Body Mass Index 38.47 m2 (08/29/17 4:33 AM) Problem List Condition Effective Dates Status Health Status Informant Chest Resolved pain(Confirmed) Hyperlipidemia(Confi Resolved rmed) Hypertension(Confirm Resolved ed) Allergies, Adverse Reactions, Alerts Substance Reaction Severity Status NKDA Active Medications acetaminophen 650 mg, 2 tab, Route: PO, Drug form: TAB, Q4H, Dosing Weight 135.9, kg, PRN Pain 1-3/Temp > 100.4 F, Start date: 08/30/17 15:23:00 OUTLET MANAGER, Duration: 30 day, Stop date: 09/29/17 15:22:00 OUTLET MANAGER Notes: Do not exceed 4 gm/day. (Same as: Tylenol) Start Date: 08/30/17 Stop Date: 09/04/17 Status: Discontinued acetaminophen 650 mg, 1 supp, Route: CT, Drug form: SUPP, Q4H, Dosing Weight 135.9, kg, PRN Pa in Score 1-3, Start date: 08/30/17 15:23:00 OUTLET MANAGER, Duration: 30 day, Stop date: 15:22:00 OUTLET MANAGER Notes: Max [id number]=0319 mg/day (4 gm/day). (Same as: Tylenol) Start Date: 08/30/17 Stop Date: 09/04/17 Status: Discontinued acetaminophen (ANES) Route: IV, Drug form: INJ, ONCE, Stop date: 08/30/17 13:53:00 OUTLET MANAGER Start Date: 08/30/17 Stop Date: 08/30/17 Status: Completed acetaminophen-hydrocodone 325 mg-10 mg oral tablet 2 tab, Route: PO, Drug Form: TAB, Dosing Weight 135.9, kg, Q4H, PRN Pain Score 4 -6, Start date: 08/30/17 15:23:00 OUTLET MANAGER, Duration: 30 day, Stop date: 09/29/17 15: 22:00 OUTLET MANAGER Notes: Do not exceed 4gm/day of acetaminophen. (Same as: [place] 325/10) Start Date: 08/30/17 Stop Date: 09/04/17 Status: Discontinued acetaminophen-hydrocodone 325 mg-10 mg oral tablet 1 tab, Route: PO, Drug Form: TAB, Dosing Weight 135.9, kg, Q4H, PRN Pain Score 1 -3, Start date: 08/30/17 15:23:00 OUTLET MANAGER, Duration: 30 day, Stop date: 09/29/17 15: 22:00 OUTLET MANAGER Notes: Do not exceed 4gm/day of acetaminophen. (Same as: [place] 325/10) Start Date: 08/30/17 Stop Date: 09/04/17 Status: Discontinued AMIODarone 400 mg, 2 tab, Route: PO, Drug form: TAB, BID, Dosing Weight 135.9, kg, Start da te: 09/03/17 9:57:00 OUTLET MANAGER, Duration: 30 day, Stop date: 10/03/17 9:00:00 OUTLET MANAGER Notes: (Same as: Cordarone) Start Date: 09/03/17 Stop Date: 09/04/17 Status: Discontinued AMIODarone 400 mg, Route: PO, Drug form: TAB, BID, Dosing Weight 135.9, kg, Start date: 10/20 17:00:00 OUTLET MANAGER, Duration: 30 day, Stop date: 10/03/17 9:00:00 OUTLET MANAGER Start Date: 09/03/17 Stop Date: 09/03/17 Status: Canceled AMIODarone + Dextrose 5% in Water 100 mL 150 mg, 3 mL, Route: IVPB, ONCE, Dosing Weight 135.9, kg, Start date: 09/01/17 1 2:06:00 OUTLET MANAGER, Stop date: 09/01/17 12:06:00 OUTLET MANAGER Notes: Central administration only for concentrations > 2 mg/ml."Recommendation: Use an in-line filter during administration for continuous infusions to reduce the incidence of phlebitis"(Same as Codarone) MEDICATION WASTE Product Size: 150 mgProduct Wasted: ___ mg Start Date: 09/01/17 Stop Date: 09/01/17 Status: Completed AMIODarone 200 mg oral tablet 400 mg=2 tab, PO, BID, Take 400mg (2 tabs) BID until 09/11 Then take 200mg (1 ta b) daily and continue this dose, # 120 tab, 0 Refill(s) Start Date: 09/04/17 Stop Date: 10/04/17 Status: Ordered AMIODarone 900 mg in D5W 500 ml IV 900 mg + Dextrose 5% in Water IV 482 mL 900 mg, 18 mL, Rate: 1 mg/min for 6 hours, then reduce to 0.5 mg/min, Dosing Arjun ght 135.9, kg, Route: IV, Total Volume: 500, Start Date: 09/01/17 12:06:00 OUTLET MANAGER, Duration: 30 day, Stop date: 10/01/17 12:05:00 OUTLET MANAGER, Replace Every: 24 hr Notes: Central administration only for concentration > 2 mg/ml. Use Glass Bottle or Non PVC Bag"Use 0.22 micron in-line filter" MEDICATION WASTE Product Size: 900 mgProduct Wasted: ___ mg Start Date: 09/01/17 Stop Date: 09/03/17 Status: Discontinued aspirin 81 mg, 1 tab, Route: PO, Drug form: ECTAB, Daily, Dosing Weight 135.9, kg, Start date: 09/01/17 9:00:00 OUTLET MANAGER, Duration: 30 day, Stop date: 09/30/17 9:00:00 OUTLET MANAGER Notes: Do not crush or chew.(Same As: Ecotrin) Start Date: 09/01/17 Stop Date: 09/04/17 Status: Discontinued aspirin 300 mg rectal suppository 300 mg, 1 supp, Route: CT, Drug form: SUPP, Daily, Dosing Weight 135.9, kg, Star t date: 08/30/17 18:00:00 OUTLET MANAGER, Duration: 30 day, Stop date: 09/29/17 9:00:00 OUTLET MANAGER Notes: Refrigerate. Start Date: 08/30/17 Stop Date: 09/03/17 Status: Discontinued aspirin 325 mg tablet 325 mg, 1 tab, Route: NG, Drug form: TAB, ONCE, Dosing Weight 135.9, kg, Start d ate: 08/30/17 15:23:00 OUTLET MANAGER, Stop date: 08/30/17 15:23:00 OUTLET MANAGER Notes: Take with food. Start Date: 08/30/17 Stop Date: 08/30/17 Status: Completed aspirin 325 mg tablet, enteric coated 325 mg, 1 tab, Route: PO, Drug form: ECTAB, Daily, Dosing Weight 135.9, kg, Star t date: 08/31/17 9:00:00 OUTLET MANAGER, Duration: 30 day, Stop date: 09/29/17 9:00:00 OUTLET MANAGER Notes: (Do Not Crush) Do not crush or chew. Start Date: 08/31/17 Stop Date: 08/31/17 Status: Discontinued aspirin 81 mg tablet, chewable 81 mg, 1 tab, Route: PO, Drug form: CHEWTAB, Daily, Dosing Weight 134.091, kg, S tart date: 08/29/17 9:00:00 OUTLET MANAGER, Duration: 30 day, Stop date: 09/27/17 9:00:[address] Notes: Take with food. Start Date: 08/29/17 Stop Date: 08/30/17 Status: Discontinued aspirin 81 mg tablet, enteric coated 81 mg=1 tab, PO, Daily, # 100 tab, 3 Refill(s) Start Date: 09/04/17 Status: Ordered atorvastatin 40 mg, 1 tab, Route: PO, Drug form: TAB, Bedtime, Dosing Weight 135.9, kg, Start date: 08/31/17 21:00:00 OUTLET MANAGER, Stop date: 09/29/17 21:00:00 OUTLET MANAGER Notes: (Same as: Lipitor) Start Date: 08/31/17 Stop Date: 09/04/17 Status: Discontinued atorvastatin 40 mg, 1 tab, Route: PO, Drug form: TAB, Bedtime, Dosing Weight 134.091, kg, Sta rt date: 08/29/17 21:00:00 OUTLET MANAGER, Duration: 30 day, Stop date: 09/27/17 21:00:[address] Notes: (Same as: Lipitor) Start Date: 08/29/17 Stop Date: 08/30/17 Status: Discontinued atorvastatin 40 mg oral tablet 40 mg=1 tab, PO, Bedtime, # 90 tab, 3 Refill(s) Start Date: 09/04/17 Status: Ordered bisacodyl 10 mg, 1 supp, Route: CT, Drug form: SUPP, Daily, Dosing Weight 135.9, kg, PRN C onstipation, Start date: 09/03/17 7:07:00 OUTLET MANAGER, Duration: 30 day, Stop date: 09/19 7:06:00 OUTLET MANAGER Notes: (Same As: Dulcolax, Bisco-Lax) Start Date: 09/03/17 Stop Date: 09/04/17 Status: Discontinued calcium carbonate 500 mg (200 mg elemental calcium) oral tablet 1,000 mg, 2 tab, Route: PO, Drug form: CHEWTAB, PRN, Dosing Weight 134.091, kg, PRN Abnormal Lab Result, FOR ICU USE ONLY, Start date: 08/29/17 3:52:00 OUTLET MANAGER, Dur ation: 30 day, Stop date: 09/28/17 3:51:00 OUTLET MANAGER Notes: (Same As: Armands)Calcium Carbonate 500 gk=633 mg elemental calcium Dose=_ mg calcium carbonate ( mg elemental calcium) Start Date: 08/29/17 Stop Date: 09/03/17 Status: Discontinued calcium carbonate 500 mg (200 mg elemental calcium) oral tablet 500 mg, 1 tab, Route: PO, Drug form: CHEWTAB, PRN, Dosing Weight 134.091, kg, CT N Abnormal Lab Result, FOR ICU USE ONLY, Start date: 08/29/17 3:52:00 OUTLET MANAGER, Durat ion: 30 day, Stop date: 09/28/17 3:51:00 OUTLET MANAGER Notes: (Same As: Yohannes)Calcium Carbonate 500 ap=735 mg elemental calcium Dose=_ mg calcium carbonate ( mg elemental calcium) Start Date: 08/29/17 Stop Date: 09/03/17 Status: Discontinued calcium gluconate (ANES) Route: IV, Drug form: INJ, ONCE, Stop date: 08/30/17 12:53:00 OUTLET MANAGER Start Date: 08/30/17 Stop Date: 08/30/17 Status: Completed calcium gluconate + Sodium Chloride 0.9% IV 50 mL 1 gm, 10 mL, Route: IVPB, PRN, Dosing Weight 134.091, kg, PRN Abnormal Lab Resul t, Start date: 08/29/17 3:52:00 OUTLET MANAGER, Duration: 30 day, Stop date: 09/28/17 3:51: 00 OUTLET MANAGER, FOR ICU USE ONLY Notes: WASTE: F/P - Sink; E - Municipal Trash Bin Start Date: 08/29/17 Stop Date: 09/03/17 Status: Discontinued calcium gluconate + Sodium Chloride 0.9% IV 80 mL 3 gm, 30 mL, Route: IVPB, PRN, Dosing Weight 135.9, kg, PRN Abnormal Lab Result, For NON-ICU Patients Only., Start date: 09/03/17 12:38:00 OUTLET MANAGER, Duration: 30 day, Stop date: 10/03/17 12:37:00 OUTLET MANAGER Notes: WASTE: F/P - Sink; E - Municipal Trash Bin Start Date: 09/03/17 Stop Date: 09/04/17 Status: Discontinued calcium gluconate + Sodium Chloride 0.9% IV 80 mL 2 gm, 20 mL, Route: IVPB, PRN, Dosing Weight 135.9, kg, PRN Abnormal Lab Result, For NON-ICU Patients Only., Start date: 09/03/17 12:38:00 OUTLET MANAGER, Duration: 30 day, Stop date: 10/03/17 12:37:00 OUTLET MANAGER Notes: WASTE: F/P - Sink; E - Municipal Trash Bin Start Date: 09/03/17 Stop Date: 09/04/17 Status: Discontinued Cardene 20 mg in NS 200 mL (Titrate.) IV 40 mg 40 mg, 200 mL, Rate: Titrate, Start Dose: 5 mg/hr, Titration: 2.5 mg/hr every 15 minutes, Goal(s): MAP less than 80, Max Dose: 15 mg/hr, Route: IV, Dosing Weight 135.9 kg, Total Volume: 200, Start date: 08/30/17 15:50:00 OUTLET MANAGER, Duration: 30 d ay, Stop da... Notes: Same as: CardeneConcentration: (0.2 mg /1 ml ) Start Date: 08/30/17 Stop Date: 09/01/17 Status: Discontinued Cardene 40 mg in NS 200 mL (Titrate.) IV 40 mg 40 mg, 200 mL, Rate: Titrate, Start Dose: 5 mg/hr, Titration: increase or decrea se by 5 but no more than 15, Goal(s): MAP 70, Max Dose: 15 mg/hr, Route: IV, Dos ing Weight 135.9 kg, Total Volume: 200 mL, Start date: 08/30/17 15:23:00 OUTLET MANAGER, Du ration: 30... Notes: Same as: CardeneConcentration: (0.2 mg /1 ml ) Start Date: 08/30/17 Stop Date: 08/30/17 Status: Discontinued Cardiac Rehabilitation See Instructions, Cardiac Rehab Phase 2, # 1 ea, 0 Refill(s) Start Date: 09/04/17 Status: Ordered ceFAZolin (ANES) Route: IV, Drug form: INJ, ONCE, Stop date: 08/30/17 9:13:00 OUTLET MANAGER Start Date: 08/30/17 Stop Date: 08/30/17 Status: Completed ceFAZolin (SCIP) 2 gm, 20 mL, Route: IVPB, Drug form: SOLN, ABXQ8H, Dosing Weight 135.9, kg, Star t date: 08/30/17 22:30:00 OUTLET MANAGER, Duration: 3 doses or times, Stop date: 08/31/17 1 4:30:00 OUTLET MANAGER, ABX Indication: Surgical Prophylaxis Notes: (Same as Ancef) Start Date: 08/30/17 Stop Date: 08/31/17 Status: Completed ceFAZolin + sterile water 20 mL 2 gm, Route: IVPB, ONCALL, Dosing Weight 135.9, kg, Start date: 08/29/17 18:00:0 0 OUTLET MANAGER, Duration: 1 doses or times, ABX Indication: Surgical Prophylaxis Notes: (Same As: Ancef, Mikafzol) MEDICATION WASTE Product Size: 1000 mgP roduct Wasted: ___ mg Start Date: 08/29/17 Stop Date: 08/31/17 Status: Completed chlorhexidine topical 0.12% liquid 15 mL, Route: Swab Mouth, Q12H, Drug form: LIQ, Start date: 08/30/17 21:00:00 CS T, Duration: 30 day, Stop date: 09/29/17 9:00:00 OUTLET MANAGER Notes: (Same As: Peridex) Start Date: 08/30/17 Stop Date: 08/31/17 Status: Voided With Results chlorhexidine topical 0.12% liquid 15 mL, Route: Swab Mouth, PRN, Drug form: LIQ, PRN Other -See Comment, Start tirso e: 08/30/17 15:40:00 OUTLET MANAGER, Duration: 30 day, Stop date: 09/29/17 15:39:00 OUTLET MANAGER Notes: (Same As: Peridex) Start Date: 08/30/17 Stop Date: 08/31/17 Status: Deleted clopidogrel 75 mg oral tablet 75 mg=1 tab, PO, Daily, # 90 tab, 3 Refill(s) Start Date: 09/04/17 Status: Ordered Colace 100 mg oral capsule 100 mg, 1 cap, Route: PO, Drug form: CAP, BID, Dosing Weight 135.9, kg, Start da te: 08/30/17 17:00:00 OUTLET MANAGER, Duration: 30 day, Stop date: 09/29/17 9:00:00 OUTLET MANAGER Notes: (Same as: Colace) (Do Not Crush) Start Date: 08/30/17 Stop Date: 09/04/17 Status: Discontinued Dextrose 50% Syringe 25 gm, 50 mL, Route: IVP, Drug Form: INJ, Dosing Weight 135.9, kg, PRN, PRN Bloo d Glucose Results, Start date: 08/30/17 15:23:00 OUTLET MANAGER, Duration: 30 day, Stop tirso e: 09/29/17 15:22:00 OUTLET MANAGER Start Date: 08/30/17 Stop Date: 09/01/17 Status: Discontinued Dextrose 50% Syringe 12.5 gm, 25 mL, Route: IVP, Drug Form: INJ, Dosing Weight 135.9, kg, PRN, PRN Bl ood Glucose Results, Start date: 08/30/17 15:23:00 OUTLET MANAGER, Duration: 30 day, Stop d ate: 09/29/17 15:22:00 OUTLET MANAGER Start Date: 08/30/17 Stop Date: 09/01/17 Status: Discontinued Dextrose 50% Syringe 12.5 gm, 25 mL, Route: IVP, Drug Form: INJ, Dosing Weight 135.9, kg, PRN, PRN Bl ood Glucose Results, Start date: 08/30/17 14:36:00 OUTLET MANAGER, Duration: 30 day, Stop d ate: 09/29/17 14:35:00 OUTLET MANAGER Start Date: 08/30/17 Stop Date: 08/31/17 Status: Discontinued Dextrose 50% Syringe 25 gm, 50 mL, Route: IVP, Drug Form: INJ, Dosing Weight 135.9, kg, PRN, PRN Bloo d Glucose Results, Start date: 08/30/17 14:36:00 OUTLET MANAGER, Duration: 30 day, Stop tirso e: 09/29/17 14:35:00 OUTLET MANAGER Start Date: 08/30/17 Stop Date: 08/31/17 Status: Discontinued Dextrose 50% Syringe 25 gm, 50 mL, Route: IVP, Drug Form: INJ, Dosing Weight 135.9, kg, PRN, PRN Bloo d Glucose Results, Start date: 08/31/17 15:45:00 OUTLET MANAGER, Duration: 30 day, Stop tirso e: 09/30/17 15:44:00 OUTLET MANAGER Start Date: 08/31/17 Stop Date: 09/04/17 Status: Discontinued Dextrose 50% Syringe 12.5 gm, 25 mL, Route: IVP, Drug Form: INJ, Dosing Weight 135.9, kg, PRN, PRN Bl ood Glucose Results, Start date: 08/31/17 15:45:00 OUTLET MANAGER, Duration: 30 day, Stop d ate: 09/30/17 15:44:00 OUTLET MANAGER Start Date: 08/31/17 Stop Date: 09/04/17 Status: Discontinued esmolol (ANES) Route: IV, Drug form: INJ, ONCE, Stop date: 08/30/17 9:28:00 OUTLET MANAGER Start Date: 08/30/17 Stop Date: 08/30/17 Status: Completed fentaNYL 50 microgram, 1 mL, Route: IV, Drug form: INJ, ONCE, Dosing Weight 135.9, kg, St art date: 08/30/17 17:45:00 OUTLET MANAGER, Stop date: 08/30/17 17:45:00 OUTLET MANAGER Notes: (Same as: Sublimaze) Preservative free. Start Date: 08/30/17 Stop Date: 08/30/17 Status: Completed fentaNYL 25 microgram, 0.5 mL, Route: IVP, Drug form: INJ, Q2H, Dosing Weight 135.9, kg, PRN Pain Score 4-6, Start date: 08/30/17 15:23:00 OUTLET MANAGER, Duration: 30 day, Stop da te: 09/29/17 15:22:00 OUTLET MANAGER Notes: (Same as: Sublimaze) Preservative free. Start Date: 08/30/17 Stop Date: 09/04/17 Status: Discontinued fentaNYL (ANES) Route: IV, Drug form: INJ, ONCE, Stop date: 08/30/17 9:08:00 OUTLET MANAGER Start Date: 08/30/17 Stop Date: 08/30/17 Status: Completed fentaNYL (PF) 20 mcg/ml CHILD ATTENDANT (600 microgram /30 mL) 600 microgram 600 microgram, 30 mL, Route: IV, CHILD ATTENDANT Dose: 10 mcg, CHILD ATTENDANT Lockout: 10 minutes, Cont inuous Basal Rate: 0 mg, 4 Hour Limit (In MCG): 240, Drug Form: INJ, Continuous, Start date: 08/30/17 15:23:00 OUTLET MANAGER, Duration: 30 day, Stop date: 09/29/17 15:22: 00 OUTLET MANAGER Notes: Concentration is 20 micrograms/ml Start Date: 08/30/17 Stop Date: 09/01/17 Status: Discontinued fentaNYL 1000 microgram in 20 mL NS (Titrate.) IV 1,000 microgram 1,000 microgram, 20 mL, Rate: Titrate, Start Dose: 50 microgram/hr, Titration: 2 5 microgram/hour every 15 minutes, Goal(s): -2, Max Dose: 300 microgram/hr, Rout e: IV, Dosing Weight 135.9 kg, Total Volume: 20, Start date: 08/30/17 16:57:[address], Duratio... Start Date: 08/30/17 Stop Date: 09/01/17 Status: Discontinued furosemide 40 mg oral tablet 40 mg=1 tab, PO, Daily, # 14 tab, 0 Refill(s) Start Date: 09/04/17 Status: Ordered glucagon 1 mg, Route: IM, Drug form: PDR/INJ, PRN, Dosing Weight 135.9, kg, PRN Blood Glu cose Results, Start date: 08/31/17 15:45:00 OUTLET MANAGER, Duration: 30 day, Stop date: 15:44:00 OUTLET MANAGER Start Date: 08/31/17 Stop Date: 09/04/17 Status: Discontinued heparin 5,000 unit, Route: SUB-Q, Q8H, Dosing Weight 134.091, kg, Start date: 08/29/17 8 :00:00 OUTLET MANAGER, Duration: 30 day, Stop date: 09/28/17 0:00:00 OUTLET MANAGER Start Date: 08/29/17 Stop Date: 08/29/17 Status: Deleted heparin (ANES) Route: IV, Drug form: INJ, ONCE, Stop date: 08/30/17 11:03:00 OUTLET MANAGER Start Date: 08/30/17 Stop Date: 08/30/17 Status: Completed Heparin - one time bolus for ACS 4,000 unit, 4 mL, Route: IVP, Drug form: INJ, ONCE, Dosing Weight 134.091, kg, P riority: STAT, Start date: 08/29/17 4:13:00 OUTLET MANAGER, Stop date: 08/29/17 4:13:00 OUTLET MANAGER Start Date: 08/29/17 Stop Date: 08/29/17 Status: Completed Heparin 30 unit/kg Bolus (Heparin Dosing Weight) Route: IVP, PRN, 3,100 unit, 3.1 mL, Drug form: INJ, PRN, Heparin Protocol, Star t date: 08/29/17 4:13:00 OUTLET MANAGER Stop date: 09/28/17 4:12:00 OUTLET MANAGER, 30 day Start Date: 08/29/17 Stop Date: 08/30/17 Status: Discontinued heparin 5000 units/mL injectable solution 5,000 unit, 1 mL, Route: SUB-Q, Drug form: INJ, Q8H, Dosing Weight 135.9, kg, St art date: 08/31/17 16:00:00 OUTLET MANAGER, Duration: 30 day, Stop date: 09/30/17 8:00:[address] Notes: porcine heparin Start Date: 08/31/17 Stop Date: 09/04/17 Status: Discontinued Heparin 60 unit/kg Bolus (Heparin Dosing Weight) Route: IVP, PRN, 6,200 unit, 6.2 mL, Drug form: INJ, PRN, Heparin Protocol, Star t date: 08/29/17 4:13:00 OUTLET MANAGER Stop date: 09/28/17 4:12:00 OUTLET MANAGER, 30 day Start Date: 08/29/17 Stop Date: 08/30/17 Status: Discontinued heparin additive 25,000 unit [12 unit/kg/hr] + Premix Diluent Sodium Chloride 0. 45% 500 mL 500 mL, Rate: 24.88 ml/hr, Infuse over: 20.1 hr, Route: IVPB, Dosing Weight 103. 68 kg, Total Volume: 500 mL, Start date: 08/29/17 4:13:00 OUTLET MANAGER, Duration: 30 day, Stop date: 09/28/17 4:12:00 OUTLET MANAGER, 2.34, m2 Notes: Total Concentration=50 unit/ ml Total ohyfpn=302 mlSend Med Request 2 ho urs prior to next bag Start Date: 08/29/17 Stop Date: 08/30/17 Status: Discontinued insulin isophane-NPH 5 unit, 0.05 mL, Route: SUB-Q, Drug form: INJ, Q12H, Dosing Weight 135.9, kg, St art date: 08/31/17 21:00:00 OUTLET MANAGER, Duration: 30 day, Stop date: 09/30/17 9:00:[address] Notes: Roll in palms of hands gently; Do not shake vigorously. (Same as: Humuli n N)Do not hold insulin without contacting prescriberWASTE: F/P - Black; E - [place] [place] Tr[place] Stable for 28 days at room temperatureExpires in days f rom Date Start Date: 08/31/17 Stop Date: 09/04/17 Status: Discontinued insulin lispro 10 unit, 0.1 mL, Route: SUB-Q, Drug form: SOLN, TID-Before Meals, Dosing Weight 135.9, kg, PRN Blood Glucose Results, Start date: 08/31/17 15:45:00 OUTLET MANAGER, Duratio n: 30 day, Stop date: 09/30/17 15:44:00 OUTLET MANAGER Notes: (Same as: Humalog ) Roll in palms of hands gently; Do not shake `vigorou sly. "Single Patient Use Only " WASTE: F/P - Black; E - Municipal Trash Bin St able for 28 days at room temperature.Expires in days from Da te Start Date: 08/31/17 Stop Date: 09/04/17 Status: Discontinued insulin lispro 2 unit, 0.02 mL, Route: SUB-Q, Drug form: SOLN, TID-Before Meals, Dosing Weight 135.9, kg, PRN Blood Glucose Results, Start date: 08/31/17 15:45:00 OUTLET MANAGER, Duratio n: 30 day, Stop date: 09/30/17 15:44:00 OUTLET MANAGER Notes: (Same as: Humalog ) Roll in palms of hands gently; Do not shake `vigorou sly. "Single Patient Use Only " WASTE: F/P - Black; E - Municipal Trash Bin St able for 28 days at room temperature.Expires in days from Da te Start Date: 08/31/17 Stop Date: 09/04/17 Status: Discontinued insulin lispro 4 unit, 0.04 mL, Route: SUB-Q, Drug form: SOLN, TID-Before Meals, Dosing Weight 135.9, kg, PRN Blood Glucose Results, Start date: 08/31/17 15:45:00 OUTLET MANAGER, Duratio n: 30 day, Stop date: 09/30/17 15:44:00 OUTLET MANAGER Notes: (Same as: Humalog ) Roll in palms of hands gently; Do not shake `vigorou sly. "Single Patient Use Only " WASTE: F/P - Black; E - Municipal Trash Bin St able for 28 days at room temperature.Expires in days from Da te Start Date: 08/31/17 Stop Date: 09/04/17 Status: Discontinued insulin lispro 6 unit, 0.06 mL, Route: SUB-Q, Drug form: SOLN, TID-Before Meals, Dosing Weight 135.9, kg, PRN Blood Glucose Results, Start date: 08/31/17 15:45:00 OUTLET MANAGER, Duratio n: 30 day, Stop date: 09/30/17 15:44:00 OUTLET MANAGER Notes: (Same as: Humalog ) Roll in palms of hands gently; Do not shake `vigorou sly. "Single Patient Use Only " WASTE: F/P - Black; E - Municipal Trash Bin St able for 28 days at room temperature.Expires in days from Da te Start Date: 08/31/17 Stop Date: 09/04/17 Status: Discontinued insulin lispro 8 unit, 0.08 mL, Route: SUB-Q, Drug form: SOLN, TID-Before Meals, Dosing Weight 135.9, kg, PRN Blood Glucose Results, Start date: 08/31/17 15:45:00 OUTLET MANAGER, Duratio n: 30 day, Stop date: 09/30/17 15:44:00 OUTLET MANAGER Notes: (Same as: Humalog ) Roll in palms of hands gently; Do not shake `alonzou sly. "Single Patient Use Only " WASTE: F/P - Black; E - Municipal Trash Bin St able for 28 days at room temperature.Expires in days from Da te Start Date: 08/31/17 Stop Date: 09/04/17 Status: Discontinued Insulin regular (ANES) Route: IV, Drug form: INJ, ONCE, Stop date: 08/30/17 12:53:00 OUTLET MANAGER Start Date: 08/30/17 Stop Date: 08/30/17 Status: Completed Insulin regular 100 unit + 99 mL, Rate: Start Insulin Drip Per ICU Protocol, Dosing Weight 135.9, kg, Route : IVPB, Total Volume: 100, Start Date: 08/30/17 15:23:00 OUTLET MANAGER, Duration: 30 day, Stop date: 09/29/17 15:22:00 OUTLET MANAGER, Replace Every: 24 hr Notes: Final Concentration 1unit/1mlWASTE: F/P - Black; E - Municipal Trash Bin Start Date: 08/30/17 Stop Date: 09/01/17 Status: Discontinued Insulin regular 100 unit + 99 mL, Rate: Start Insulin Drip Per ICU Protocol, Dosing Weight 135.9, kg, Route : IVPB, Total Volume: 100, Start Date: 08/30/17 14:36:00 OUTLET MANAGER, Duration: 30 day, Stop date: 09/29/17 14:35:00 OUTLET MANAGER, Replace Every: 24 hr Notes: Final Concentration 1unit/1mlWASTE: F/P - Black; E - Municipal Trash Bin Start Date: 08/30/17 Stop Date: 08/30/17 Status: Discontinued Isolyte S PH 7.4 (ANES) 1000 mL Route: IV, Total Volume: 1,000, Start date: 08/30/17 7:46:00 OUTLET MANAGER, Stop date: 8:46:00 OUTLET MANAGER Start Date: 08/30/17 Stop Date: 08/30/17 Status: Completed Lasix 20 mg, 2 mL, Route: IVP, Drug form: INJ, ONCE, Dosing Weight 135.9, kg, Start da te: 09/02/17 9:10:00 OUTLET MANAGER, Stop date: 09/02/17 9:10:00 OUTLET MANAGER Notes: (Same as: Lasix) Start Date: 09/02/17 Stop Date: 09/02/17 Status: Completed Lasix 40 mg, 4 mL, Route: IVP, Drug form: INJ, ONCE, Dosing Weight 135.9, kg, Start da te: 09/01/17 9:34:00 OUTLET MANAGER, Stop date: 09/01/17 9:34:00 OUTLET MANAGER Notes: (Same as: Lasix) MEDICATION WASTE Product Size: 40 mgProduct Was josue: ___ mg Start Date: 09/01/17 Stop Date: 09/01/17 Status: Completed Lasix 40 mg, 1 tab, Route: PO, Drug form: TAB, Daily, Dosing Weight 135.9, kg, Start d ate: 09/03/17 9:59:00 OUTLET MANAGER, Duration: 30 day, Stop date: 10/03/17 9:00:00 OUTLET MANAGER Notes: (Same as: Lasix) May cause GI upset. Give with food or milk. Start Date: 09/03/17 Stop Date: 09/04/17 Status: Discontinued lidocaine (ANES) Route: IV, Drug form: INJ, ONCE, Stop date: 08/30/17 9:08:00 OUTLET MANAGER Start Date: 08/30/17 Stop Date: 08/30/17 Status: Deleted lidocaine (ANES) Route: IV, Drug form: INJ, ONCE, Stop date: 08/30/17 12:48:00 OUTLET MANAGER Start Date: 08/30/17 Stop Date: 08/30/17 Status: Completed Lyrica 50 mg, 1 cap, Route: PO, Drug form: CAP, Q8H, Dosing Weight 135.9, kg, Start tirso e: 09/01/17 16:00:00 OUTLET MANAGER, Duration: 30 day, Stop date: 10/01/17 8:00:00 OUTLET MANAGER Notes: Same as Lyrica Start Date: 09/01/17 Stop Date: 09/04/17 Status: Discontinued magnesium oxide 800 mg, 2 tab, Route: PO, Drug form: TAB, PRN, Dosing Weight 134.091, kg, PRN Ab normal Lab Result, FOR ICU USE ONLY, Start date: 08/29/17 3:52:00 OUTLET MANAGER, Duration: 30 day, Stop date: 09/28/17 3:51:00 OUTLET MANAGER Notes: (Same as: Mag-Ox 400)Magnesium oxide [id number] elemental magnesiumDose= ____mg magnesium oxide (___mg elemental magnesium) Start Date: 08/29/17 Stop Date: 09/03/17 Status: Discontinued magnesium oxide 800 mg, 2 tab, Route: PO, Drug form: TAB, PRN, Dosing Weight 135.9, kg, PRN Abno rmal Lab Result, For NON-ICU Patients Only., Start date: 09/03/17 12:38:00 OUTLET MANAGER, Duration: 30 day, Stop date: 10/03/17 12:37:00 OUTLET MANAGER Notes: (Same as: Mag-Ox 400)Magnesium oxide [id number] elemental magnesiumDose= ____mg magnesium oxide (___mg elemental magnesium) Start Date: 09/03/17 Stop Date: 09/04/17 Status: Discontinued magnesium sulfate 2 gm, 50 mL, Route: IVPB, Drug form: INJ, PRN, Dosing Weight 134.091, kg, PRN Ab normal Lab Result, Start date: 08/29/17 3:52:00 OUTLET MANAGER, Duration: 30 day, Stop date : 09/28/17 3:51:00 OUTLET MANAGER, FOR ICU USE ONLY Notes: WASTE: F/P - Sink; E - Municipal Trash Bin Start Date: 08/29/17 Stop Date: 09/03/17 Status: Discontinued magnesium sulfate 1 gm, 100 mL, Route: IVPB, Drug form: INJ, PRN, Dosing Weight 135.9, kg, PRN Abn ormal Lab Result, For NON-ICU Patients Only., Start date: 09/03/17 12:38:00 OUTLET MANAGER, Duration: 30 day, Stop date: 10/03/17 12:37:00 OUTLET MANAGER Notes: WASTE: F/P - Sink; E - Municipal Trash Bin Start Date: 09/03/17 Stop Date: 09/04/17 Status: Discontinued magnesium sulfate 2 gm, 50 mL, Route: IVPB, Drug form: INJ, PRN, Dosing Weight 135.9, kg, PRN Abno rmal Lab Result, For NON-ICU Patients Only., Start date: 09/03/17 12:38:00 OUTLET MANAGER, Duration: 30 day, Stop date: 10/03/17 12:37:00 OUTLET MANAGER Notes: WASTE: F/P - Sink; E - Municipal Trash Bin Start Date: 09/03/17 Stop Date: 09/04/17 Status: Discontinued magnesium sulfate (ANES) Route: IV, Drug form: INJ, ONCE, Stop date: 08/30/17 12:48:00 OUTLET MANAGER Start Date: 08/30/17 Stop Date: 08/30/17 Status: Completed metFORMIN 500 mg oral tablet 500 mg=1 tab, PO, BID-Meals, # 60 tab, 1 Refill(s) Start Date: 09/04/17 Status: Ordered metoprolol 2 mg, 2 mL, Route: IVP, Drug form: INJ, ONCE, Dosing Weight 135.9, kg, Start tirso e: 08/29/17 17:24:00 OUTLET MANAGER, Stop date: 08/29/17 17:24:00 OUTLET MANAGER Notes: (Same as: Lopressor)Push over 2 minutes Start Date: 08/29/17 Stop Date: 09/04/17 Status: Completed metoprolol tartrate 12.5 mg, 0.5 tab, Route: PO, Drug form: TAB, Q12H, Dosing Weight 135.9, kg, Star t date: 09/01/17 14:00:00 OUTLET MANAGER, Duration: 30 day, Stop date: 10/01/17 9:00:00 OUTLET MANAGER Notes: (Same as: Lopressor) 12.5 mg=1/2 X 25 mg TAB Start Date: 09/01/17 Stop Date: 09/04/17 Status: Discontinued metoprolol tartrate 25 mg oral tablet 12.5 mg=0.5 tab, PO, Q12H, # 30 tab, 3 Refill(s) Start Date: 09/04/17 Stop Date: 09/04/17 Status: Discontinued midazolam (ANES) Route: IV, Drug form: SOLN, ONCE, Stop date: 08/30/17 9:08:00 OUTLET MANAGER Start Date: 08/30/17 Stop Date: 08/30/17 Status: Completed naloxone 0.04 mg, 0.1 mL, Route: IVP, Drug form: INJ, Q2MIN, Dosing Weight 135.9, kg, PRN Narcotic Reversal, Start date: 08/30/17 15:23:00 OUTLET MANAGER, Duration: 30 day, Stop da te: 09/29/17 15:22:00 OUTLET MANAGER Notes: Same as Narcan Start Date: 08/30/17 Stop Date: 09/04/17 Status: Discontinued nitroglycerin 0.4 mg sublingual tablet 0.4 mg, 1 tab, Route: SL, Drug form: TAB, Q5Min, Dosing Weight 134.091, kg, PRN Chest Pain, Start date: 08/29/17 3:53:00 OUTLET MANAGER, Duration: 30 day, Stop date: 09/28 3:52:00 OUTLET MANAGER Notes: (Same as:Nitroquick, Nitrostat)"Do Not Crush" Sublingual tablet Start Date: 08/29/17 Stop Date: 09/04/17 Status: Discontinued norepinephrine (ANES) 10 microgram Route: IV, Drug form: INJ, Start date: 08/30/17 9:01:00 OUTLET MANAGER, Stop date: 08/30/17 10:01:00 OUTLET MANAGER Start Date: 08/30/17 Stop Date: 08/30/17 Status: Completed normal saline 0.9% IV 1,000 mL 1,000 mL, Rate: 100 ml/hr, Infuse over: 10 hr, Route: IV, Dosing Weight 135.9 kg , Total Volume: 1,000, Start date: 08/30/17 17:02:00 OUTLET MANAGER, Duration: 30 day, Stop date: 09/29/17 17:01:00 OUTLET MANAGER, 2.69, m2 Start Date: 08/30/17 Stop Date: 08/31/17 Status: Discontinued ocular lubricant 1 appl, Route: BOTH EYES, Q6H, Drug form: OINT, Start date: 08/30/17 18:00:00 CS T, Duration: 30 day, Stop date: 09/29/17 12:00:00 OUTLET MANAGER Notes: (Same as: Lacri-Lube, Duratears Naturale, Artificial Tears, and Tears Aga in ) Start Date: 08/30/17 Stop Date: 08/31/17 Status: Discontinued pantoprazole 40 mg, Route: IVP, Drug form: INJ, Daily, Dosing Weight 135.9, kg, Start date: 9:00:00 OUTLET MANAGER, Duration: 30 day, Stop date: 09/29/17 9:00:00 OUTLET MANAGER Notes: For IV push reconstitute with 10 ml 0.9% sodium chloride and push over 2 minutes. (Same as: Protonix) Start Date: 08/31/17 Stop Date: 09/01/17 Status: Discontinued pantoprazole 40 mg oral enteric coated tablet 40 mg=1 tab, PO, Before Breakfast, # 30 tab, 2 Refill(s) Start Date: 09/04/17 Stop Date: 09/04/17 Status: Discontinued Plavix 75 mg, 1 tab, Route: PO, Drug form: TAB, Daily, Dosing Weight 135.9, kg, Start d ate: 09/04/17 9:00:00 OUTLET MANAGER, Duration: 30 day, Stop date: 10/03/17 9:00:00 OUTLET MANAGER Notes: (Same As: Plavix) Start Date: 09/04/17 Stop Date: 09/04/17 Status: Discontinued potassium chloride 20 mEq, 1 tab, Route: PO, Drug form: ERTAB, PRN, Dosing Weight 134.091, kg, PRN Abnormal Lab Result, Start date: 08/29/17 3:52:00 OUTLET MANAGER, Duration: 30 day, Stop da te: 09/28/17 3:51:00 OUTLET MANAGER, FOR ICU USE ONLY Notes: (Same as: K-Dur 20)"Do Not Crush" With food and full glass of water Start Date: 08/29/17 Stop Date: 09/03/17 Status: Discontinued potassium chloride 20 mEq, 15 mL, Route: NJ, Drug form: LIQ, PRN, Dosing Weight 134.091, kg, PRN Ab normal Lab Result, Start date: 08/29/17 3:52:00 OUTLET MANAGER, Duration: 30 day, Stop date : 09/28/17 3:51:00 OUTLET MANAGER, FOR ICU USE ONLY Notes: (Same as: Potassium Chloride) Start Date: 08/29/17 Stop Date: 09/03/17 Status: Discontinued potassium chloride 10 mEq, 50 mL, Route: IVPB, Drug form: INJ, PRN, Dosing Weight 134.091, kg, PRN Abnormal Lab Result, Via peripheral line, Start date: 08/29/17 3:52:00 OUTLET MANAGER, Dura tion: 30 day, Stop date: 09/28/17 3:51:00 OUTLET MANAGER, FOR ICU USE ONLY Notes: (Same as: KCL) Infuse over 2 hours. Start Date: 08/29/17 Stop Date: 09/03/17 Status: Discontinued potassium chloride 20 mEq, 1 tab, Route: PO, Drug form: ERTAB, PRN, Dosing Weight 135.9, kg, PRN Ab normal Lab Result, For NON-ICU Patients Only, Start date: 09/03/17 12:38:00 OUTLET MANAGER, Duration: 30 day, Stop date: 10/03/17 12:37:00 OUTLET MANAGER Notes: (Same as: K-Dur 20)"Do Not Crush" With food and full glass of water Start Date: 09/03/17 Stop Date: 09/04/17 Status: Discontinued potassium chloride 20 mEq, 15 mL, Route: NJ, Drug form: LIQ, PRN, Dosing Weight 135.9, kg, PRN Abno rmal Lab Result, For NON-ICU Patients Only, Start date: 09/03/17 12:38:00 OUTLET MANAGER, D uration: 30 day, Stop date: 10/03/17 12:37:00 OUTLET MANAGER Notes: (Same as: Potassium Chloride) Start Date: 09/03/17 Stop Date: 09/04/17 Status: Discontinued potassium chloride 10 mEq, 50 mL, Route: IVPB, Drug form: INJ, PRN, Dosing Weight 135.9, kg, PRN Ab normal Lab Result, For NON-ICU Patients Only, Start date: 09/03/17 12:38:00 OUTLET MANAGER, Duration: 30 day, Stop date: 10/03/17 12:37:00 OUTLET MANAGER Notes: (Same as: KCL) Infuse over 2 hours. Start Date: 09/03/17 Stop Date: 09/04/17 Status: Discontinued potassium chloride + Sodium Chloride 0.9% IV 100 mL 20 mEq, 10 mL, Route: IVPB, Drug form: INJ, PRN, Dosing Weight 134.091, kg, PRN Abnormal Lab Result, Via central line, Start date: 08/29/17 3:52:00 OUTLET MANAGER, Duratio n: 30 day, Stop date: 09/28/17 3:51:00 OUTLET MANAGER, FOR ICU USE ONLY Notes: MUST be Diluted before use(Same as: KCl) MEDICATION WASTE Product Size: 20 mEqProduct Wasted: ___ mEq Start Date: 08/29/17 Stop Date: 09/03/17 Status: Discontinued potassium phosphate + Sodium Chloride 0.9% IV 250 mL 45 mmol, 15 mL, Route: IVPB, PRN, Dosing Weight 134.091, kg, PRN Abnormal Lab Re sult, Start date: 08/29/17 3:52:00 OUTLET MANAGER, Duration: 30 day, Stop date: 09/28/17 3: 51:00 OUTLET MANAGER, FOR ICU USE ONLY Notes: (Same as: K Phosphate.) 1 mMol phoshate has 1.47 mEq potassium Infuse o delaney 4 hours Start Date: 08/29/17 Stop Date: 09/03/17 Status: Discontinued potassium phosphate + Sodium Chloride 0.9% IV 250 mL 15 mmol, 5 mL, Route: IVPB, PRN, Dosing Weight 134.091, kg, PRN Abnormal Lab Res ult, Start date: 08/29/17 3:52:00 OUTLET MANAGER, Duration: 30 day, Stop date: 09/28/17 3:5 1:00 OUTLET MANAGER, FOR ICU USE ONLY Notes: (Same as: K Phosphate.) 1 mMol phoshate has 1.47 mEq potassium Infuse o delaney 4 hours Start Date: 08/29/17 Stop Date: 09/03/17 Status: Discontinued potassium phosphate + Sodium Chloride 0.9% IV 250 mL 30 mmol, 10 mL, Route: IVPB, PRN, Dosing Weight 134.091, kg, PRN Abnormal Lab Re sult, Start date: 08/29/17 3:52:00 OUTLET MANAGER, Duration: 30 day, Stop date: 09/28/17 3: 51:00 OUTLET MANAGER, FOR ICU USE ONLY Notes: (Same as: K Phosphate.) 1 mMol phoshate has 1.47 mEq potassium Infuse o delaney 4 hours Start Date: 08/29/17 Stop Date: 09/03/17 Status: Discontinued potassium phosphate + Sodium Chloride 0.9% IV 250 mL 15 mmol, 5 mL, Route: IVPB, PRN, Dosing Weight 135.9, kg, PRN Abnormal Lab Resul t, For NON-ICU Patients Only., Start date: 09/03/17 12:38:00 OUTLET MANAGER, Duration: 30 d ay, Stop date: 10/03/17 12:37:00 OUTLET MANAGER Notes: (Same as: K Phosphate.) 1 mMol phoshate has 1.47 mEq potassium Infuse o delaney 4 hours Start Date: 09/03/17 Stop Date: 09/04/17 Status: Discontinued potassium phosphate + Sodium Chloride 0.9% IV 250 mL 30 mmol, 10 mL, Route: IVPB, PRN, Dosing Weight 135.9, kg, PRN Abnormal Lab Resu lt, For NON-ICU Patients Only., Start date: 09/03/17 12:38:00 OUTLET MANAGER, Duration: 30 day, Stop date: 10/03/17 12:37:00 OUTLET MANAGER Notes: (Same as: K Phosphate.) 1 mMol phoshate has 1.47 mEq potassium Infuse o delaney 4 hours Start Date: 09/03/17 Stop Date: 09/04/17 Status: Discontinued potassium phosphate-sodium phosphate 250 mg-280 mg-160 mg oral powder for recons titution 2 pkt, Route: PO, Drug Form: PDR/REC, Dosing Weight 134.091, kg, PRN, PRN Abnorm al Lab Result, FOR ICU USE ONLY, Start date: 08/29/17 3:52:00 OUTLET MANAGER, Duration: 30 day, Stop date: 09/28/17 3:51:00 OUTLET MANAGER Notes: (Same as: Phos-NaK) Each 1.5 gm pkt has 250mg phosphorous. Mix w/2.5oz w ater and stir. Start Date: 08/29/17 Stop Date: 09/03/17 Status: Discontinued potassium phosphate-sodium phosphate 250 mg-280 mg-160 mg oral powder for recons titution 2 pkt, Route: PO, Drug Form: PDR/REC, Dosing Weight 135.9, kg, PRN, PRN Abnormal Lab Result, For NON-ICU Patients Only, Start date: 09/03/17 12:38:00 OUTLET MANAGER, Durat ion: 30 day, Stop date: 10/03/17 12:37:00 OUTLET MANAGER Notes: (Same as: Phos-NaK) Each 1.5 gm pkt has 250mg phosphorous. Mix w/2.5oz w ater and stir. Start Date: 09/03/17 Stop Date: 09/04/17 Status: Discontinued propofol (ANES) Route: IV, Drug form: INJ, ONCE, Stop date: 08/30/17 9:08:00 OUTLET MANAGER Start Date: 08/30/17 Stop Date: 08/30/17 Status: Completed protamine (ANES) 10 mg Route: IV, Drug form: INJ, Start date: 08/30/17 13:13:00 OUTLET MANAGER, Stop date: 7 14:13:00 OUTLET MANAGER Start Date: 08/30/17 Stop Date: 08/30/17 Status: Completed Protonix 40 mg, 1 tab, Route: PO, Drug form: ECTAB, Before Breakfast, Dosing Weight 135.9 , kg, Start date: 09/02/17 7:30:00 OUTLET MANAGER, Duration: 30 day, Stop date: 10/01/17 7: 30:00 OUTLET MANAGER Notes: Tablet should not be chewed or crushed.(Same as: Protonix) Start Date: 09/02/17 Stop Date: 09/04/17 Status: Discontinued rocuronium (ANES) Route: IV, Drug form: INJ, ONCE, Stop date: 08/30/17 8:22:00 OUTLET MANAGER Start Date: 08/30/17 Stop Date: 08/30/17 Status: Completed Saline Flush 0.9% 5 ml, Route: IVP, Drug Form: INJ, Dosing Weight 135.9, kg, Q12H, Start date: 21:00:00 OUTLET MANAGER, Duration: 30 day, Stop date: 09/28/17 9:00:00 OUTLET MANAGER Notes: (Same as: BD Posiflush) Start Date: 08/29/17 Stop Date: 09/04/17 Status: Discontinued Saline Flush 0.9% 5 ml, Route: IVP, Drug Form: INJ, Dosing Weight 135.9, kg, PRN, PRN Line Flush, Start date: 08/29/17 17:24:00 OUTLET MANAGER, Duration: 30 day, Stop date: 09/28/17 17:23:0 0 OUTLET MANAGER Notes: (Same as: BD Posiflush) Start Date: 08/29/17 Stop Date: 09/04/17 Status: Discontinued senna 8.6 mg oral tablet 8.6 mg, 1 tab, Route: PO, Drug Form: TAB, Dosing Weight 135.9, kg, BID, Start da te: 08/31/17 17:00:00 OUTLET MANAGER, Duration: 30 day, Stop date: 09/30/17 9:00:00 OUTLET MANAGER Notes: (Same as: Senokot) Start Date: 08/31/17 Stop Date: 09/04/17 Status: Discontinued Sodium Chloride 0.9% (titrate) 250 mL 250 mL, Rate: To prime line and flush remaining blood products., Dosing Weight 1 35.9, kg, Route: IV, Total Volume: 250, Priority: Routine, Start Date: 08/29/17 17:24:00 OUTLET MANAGER, Duration: 30 day, Stop date: 09/28/17 17:23:00 OUTLET MANAGER, Replace Every: 24 hr Start Date: 08/29/17 Stop Date: 09/01/17 Status: Discontinued Sodium Chloride 0.9% IV (ANES) 1000 mL Route: IV, Total Volume: 1,000, Start date: 08/30/17 8:00:00 OUTLET MANAGER, Stop date: 9:00:00 OUTLET MANAGER Start Date: 08/30/17 Stop Date: 08/30/17 Status: Completed sodium phosphate + Sodium Chloride 0.9% IV 250 mL 30 mmol, 10 mL, Route: IVPB, PRN, Dosing Weight 134.091, kg, PRN Abnormal Lab Re sult, Start date: 08/29/17 3:52:00 OUTLET MANAGER, Duration: 30 day, Stop date: 09/28/17 3: 51:00 OUTLET MANAGER, FOR ICU USE ONLY Start Date: 08/29/17 Stop Date: 09/03/17 Status: Discontinued sodium phosphate + Sodium Chloride 0.9% IV 250 mL 45 mmol, 15 mL, Route: IVPB, PRN, Dosing Weight 134.091, kg, PRN Abnormal Lab Re sult, Start date: 08/29/17 3:52:00 OUTLET MANAGER, Duration: 30 day, Stop date: 09/28/17 3: 51:00 OUTLET MANAGER, FOR ICU USE ONLY Start Date: 08/29/17 Stop Date: 09/03/17 Status: Discontinued sodium phosphate + Sodium Chloride 0.9% IV 250 mL 15 mmol, 5 mL, Route: IVPB, PRN, Dosing Weight 134.091, kg, PRN Abnormal Lab Res ult, Start date: 08/29/17 3:52:00 OUTLET MANAGER, Duration: 30 day, Stop date: 09/28/17 3:5 1:00 OUTLET MANAGER, FOR ICU USE ONLY Start Date: 08/29/17 Stop Date: 09/03/17 Status: Discontinued sodium phosphate + Sodium Chloride 0.9% IV 250 mL 15 mmol, 5 mL, Route: IVPB, PRN, Dosing Weight 135.9, kg, PRN Abnormal Lab Resul t, For NON-ICU Patients Only., Start date: 09/03/17 12:38:00 OUTLET MANAGER, Duration: 30 d ay, Stop date: 10/03/17 12:37:00 OUTLET MANAGER Start Date: 09/03/17 Stop Date: 09/04/17 Status: Discontinued sodium phosphate + Sodium Chloride 0.9% IV 250 mL 30 mmol, 10 mL, Route: IVPB, PRN, Dosing Weight 135.9, kg, PRN Abnormal Lab Resu lt, For NON-ICU Patients Only., Start date: 09/03/17 12:38:00 OUTLET MANAGER, Duration: 30 day, Stop date: 10/03/17 12:37:00 OUTLET MANAGER Start Date: 09/03/17 Stop Date: 09/04/17 Status: Discontinued Toprol-XL 25 mg oral tablet, extended release 25 mg=1 tab, PO, Daily, # 30 tab, 1 Refill(s) Start Date: 09/04/17 Status: Ordered Toprol-XL 25 mg oral tablet, extended release 25 mg, 1 tab, Route: PO, Drug form: ERTAB, Daily, Start date: 08/29/17 9:00:[address], Duration: 30 day, Stop date: 09/27/17 9:00:00 OUTLET MANAGER Notes: (Same as: Toprol XL) Do Not Crush Start Date: 08/29/17 Stop Date: 08/30/17 Status: Discontinued tranexamic acid (ANES) Route: IV, Drug form: INJ, ONCE, Stop date: 08/30/17 11:33:00 OUTLET MANAGER Start Date: 08/30/17 Stop Date: 08/30/17 Status: Completed tranexamic acid (ANES) 100 mg Route: IV, Drug form: INJ, Start date: 08/30/17 8:00:00 OUTLET MANAGER, Stop date: 08/30/17 9:00:00 OUTLET MANAGER Start Date: 08/30/17 Stop Date: 08/30/17 Status: Completed Tylenol 1,000 mg, 100 mL, Route: IV, Drug form: INJ, ONCE, Dosing Weight 135.9, kg, Star t date: 08/31/17 0:34:00 OUTLET MANAGER, Stop date: 08/31/17 0:34:00 OUTLET MANAGER Notes: Infuse over 15 minutesDo not exceed 4gm/day of acetaminophen MEDICAT ION WASTE Product Size: 1000 mgProduct Wasted: ___ mg Start Date: 08/31/17 Stop Date: 08/31/17 Status: Completed Tylenol with Codeine #3 oral tablet 1 tab, PO, Q6H, PRN Pain Score 6-10, X 7 day, # 28 tab, 0 Refill(s) Start Date: 09/04/17 Stop Date: 09/11/17 Status: Ordered vancomycin 2,000 mg, 500 mL, Route: IV, Drug form: SOLN, ONCALL, Dosing Weight 135.9, kg, S tart date: 08/29/17 18:00:00 OUTLET MANAGER, Duration: 1 doses or times, ABX Indication: Dasilva rgical Prophylaxis Notes: TIME CRITICAL MEDICATIONSame as: Vancocin Infusion rate< 1000 mg: infuse over 1 [id number] - 1500 mg: infuse over 1.5 [id number] - 2000 mg: infuse over 2 hours> 2001 mg: infuse over 2.5 hours Start Date: 08/29/17 Stop Date: 09/04/17 Status: Completed vancomycin (ANES) 1000 mg Route: IV, Drug form: INJ, Start date: 08/30/17 8:20:00 OUTLET MANAGER, Stop date: 08/30/17 9:20:00 OUTLET MANAGER Start Date: 08/30/17 Stop Date: 08/30/17 Status: Completed vancomycin (SCIP) + Sodium Chloride 0.9% IV 250 mL 1,500 mg, Route: IVPB, [id number], Dosing Weight 135.9, kg, Time Critical Medicatio n, Start date: 08/30/17 21:30:00 OUTLET MANAGER, Duration: 2 doses or times, Stop date: 9:30:00 OUTLET MANAGER, ABX Indication: Surgical Prophylaxis Notes: TIME CRITICAL MEDICATION(Same As: Vancocin)Infusion rate< 1000 mg: infuse over 1 [id number] - 1500 mg: infuse over 1.5 hoursVancomycin FOR IV SET [id number] - 2000 mg: infuse over 2 hours> 2001 mg: infuse over 2.5 hours MEDICATION WASTE Product Size: 1000 mgProduct Wasted: ___ mg Start Date: 08/30/17 Stop Date: 08/31/17 Status: Completed Versed 1 mg, 1 mL, Route: IVP, Drug form: INJ, Q2H, Dosing Weight 135.9, kg, PRN Agitat ion, Start date: 08/30/17 16:57:00 OUTLET MANAGER, Duration: 4 doses or times, Stop date: L imited # of times Notes: (Same as: Versed) MEDICATION WASTE Product Size: 5 mgProduct Was josue: _0_ mg Start Date: 08/30/17 Stop Date: 09/04/17 Status: Discontinued Zofran 4 mg, 2 mL, Route: IV, Drug form: INJ, Q6H, Dosing Weight 135.9, kg, PRN Nausea, Start date: 08/30/17 15:23:00 OUTLET MANAGER, Duration: 30 day, Stop date: 09/29/17 15:22: 00 OUTLET MANAGER Notes: (Same as: Zofran) MEDICATION WASTE Product Size: 4 mgProduct Was josue: ___ mg Start Date: 08/30/17 Stop Date: 09/01/17 Status: Discontinued Results BLOOD BANK RESULTS 1 2 3 Most recent to oldest [Reference Range]: O POS *Unknown* (09/02/17 12:45 AM) O POS *Unknown* (08/29/17 5:01 AM) ABO/Rh Negative (09/02/17 12:45 AM) Negative (08/29/17 5:01 AM) Antibody Scrn Product available (08/29/17 5:51 PM) FFP product Product available (08/29/17 5:51 PM) Platelet product Product available (08/29/17 5:51 PM) RBC product ELECTROLYTES 1 2 3 Most recent to oldest [Reference Range]: 134 mEq/L *LOW* (09/03/17 4:29 AM) 135 mEq/L (09/02/17 12:45 AM) 140 mEq/L (09/01/17 4:32 AM) Sodium Lvl [135-145 mEq/L] 3.9 mEq/L (09/03/17 4:29 AM) 3.9 mEq/L (09/02/17 12:45 AM) 4.4 mEq/L (09/01/17 4:32 AM) Potassium Lvl [3.5-5.1 mEq/L] 99 mEq/L (09/03/17 4:29 AM) 101 mEq/L (09/02/17 12:45 AM) 107 mEq/L (09/01/17 4:32 AM) Chloride Lvl [95-109 mEq/L] 29 mEq/L (09/03/17 4:29 AM) 28 mEq/L (09/02/17 12:45 AM) 27 mEq/L (09/01/17 4:32 AM) CO2 [24-32 mEq/L] 9.9 mEq/L *LOW* (09/03/17 4:29 AM) 9.9 mEq/L *LOW* (09/02/17 12:45 AM) 10.4 mEq/L (09/01/17 4:32 AM) AGAP [10.0-20.0 mEq/L] CHEM PANEL 1 2 3 Most recent to oldest [Reference Range]: 1.13 mg/dL (09/03/17 4:29 AM) 1.51 mg/dL *HI* (09/02/17 12:45 AM) 1.12 mg/dL (09/01/17 4:32 AM) Creatinine Lvl [0.50-1.40 mg/dL] 70 mL/min/1.73m2 1 *NA* (09/03/17 4:29 AM) 49 mL/min/1.73m2 2 *NA* (09/02/17 12:45 AM) 71 mL/min/1.73m2 3 *NA* (09/01/17 4:32 AM) eGFR 21 mg/dL (09/03/17 4:29 AM) 23 mg/dL *HI* (09/02/17 12:45 AM) 18 mg/dL (09/01/17 4:32 AM) BUN [7-22 mg/dL] 19 (09/03/17 4:29 AM) 12 (08/30/17 5:28 AM) B/C Ratio [6-25] 133 mg/dL *HI* (09/03/17 4:29 AM) 140 mg/dL *HI* (09/02/17 12:45 AM) 160 mg/dL *HI* (09/01/17 4:32 AM) Glucose Lvl [70-99 mg/dL] 5.8 g/dL *LOW* (09/03/17 4:29 AM) 5.9 g/dL *LOW* (08/31/17 2:08 AM) 6.9 g/dL (08/30/17 5:28 AM) Total Protein [6.4-8.4 g/dL] 2.2 g/dL *LOW* (09/03/17 4:29 AM) 2.9 g/dL *LOW* (08/31/17 2:08 AM) 3.5 g/dL (08/30/17 5:28 AM) Albumin Lvl [3.5-5.0 g/dL] 3.6 g/dL (09/03/17 4:29 AM) 3.0 g/dL (08/31/17 2:08 AM) 3.4 g/dL (08/30/17 5:28 AM) Globulin [2.7-4.2 g/dL] 0.6 *LOW* (09/03/17 4:29 AM) 1.0 (08/31/17 2:08 AM) 1.0 (08/30/17 5:28 AM) A/G Ratio [0.7-1.6] 8.2 mg/dL *LOW* (09/03/17 4:29 AM) 8.1 mg/dL *LOW* (09/02/17 12:45 AM) 8.2 mg/dL *LOW* (09/01/17 4:32 AM) Calcium Lvl [8.5-10.5 mg/dL] 2.6 mg/dL (09/03/17 4:29 AM) 2.6 mg/dL (09/02/17 12:45 AM) 2.3 mg/dL *LOW* (09/01/17 4:32 AM) Phosphorus [2.5-4.5 mg/dL] 2.1 mg/dL (09/03/17 4:29 AM) 2.2 mg/dL (09/02/17 12:45 AM) 2.2 mg/dL (09/01/17 4:32 AM) Magnesium Lvl [1.8-2.4 mg/dL] 25 unit/L (09/03/17 4:29 AM) 57 unit/L (08/31/17 2:08 AM) 60 unit/L (08/30/17 5:28 AM) ALT [0-65 unit/L] 23 unit/L (09/03/17 4:29 AM) 62 unit/L *HI* (08/31/17 2:08 AM) 26 unit/L (08/30/17 5:28 AM) AST [0-37 unit/L] 54 unit/L (09/03/17 4:29 AM) 63 unit/L (08/31/17 2:08 AM) 75 unit/L (08/30/17 5:28 AM) Alk Phos [39-136 unit/L] 0.5 mg/dL (09/03/17 4:29 AM) 0.5 mg/dL (08/31/17 2:08 AM) 0.6 mg/dL (08/30/17 5:28 AM) Bili Total [0.2-1.3 mg/dL] 0.1 mg/dL (08/31/17 2:08 AM) 0.1 mg/dL (08/29/17 5:01 AM) Bili Direct [0.0-0.3 mg/dL] 0.4 mg/dL (08/31/17 2:08 AM) 0.4 mg/dL (08/29/17 5:01 AM) Bili Indirect [0.0-1.0 mg/dL] 1.3 mMol/L (08/31/17 2:08 AM) 1.9 mMol/L (08/30/17 3:33 PM) Lactic Acid Lvl [0.5-2.2 mMol/L] 1Result Comment: The eGFR is calculated using [...] be mul tiplied by the estimated BMI. 3Result Comment: The eGFR is calculated using the [...] be mul tiplied by the estimated BMI. SPECIAL CHEMISTRY 1 2 3 Most recent to oldest [Reference Range]: 6.4 % *HI* (08/29/17 5:01 AM) Hgb A1C [<=5.6 %] PARATHYROID PROFILE 1 2 3 Most recent to oldest [Reference Range]: 1.05 mMol/L (09/03/17 4:29 AM) 1.06 mMol/L (09/02/17 12:45 AM) 1.05 mMol/L (09/01/17 4:32 AM) Ca Ion WB [1.05-1.25 mMol/L] 1.05 mMol/L (09/03/17 4:29 AM) 1.04 mMol/L *LOW* (09/02/17 12:45 AM) 1.05 mMol/L (09/01/17 4:32 AM) Ca Norm WB [1.05-1.25 mMol/L] URINE AND STOOL 1 2 3 Most recent to oldest [Reference Range]: Clear (08/30/17 12:01 AM) UA Turbidity [Clear] Yellow *NA* (08/30/17 12:01 AM) UA Color [Yellow] 6.0 (08/30/17 12:01 AM) UA pH [5.0-8.0] 1.010 (08/30/17 12:01 AM) UA Spec Grav [<=1.030] Negative mg/dL *NA* (08/30/17 12:01 AM) UA Glucose [Negative mg/dL] Negative (08/30/17 12:01 AM) UA Blood [Negative] Negative mg/dL *NA* (08/30/17 12:01 AM) UA Ketones [Negative mg/dL] Negative mg/dL (08/30/17 12:01 AM) UA Protein [Negative mg/dL] <=1.0 mg/dL *NA* (08/30/17 12:01 AM) UA Urobilinogen [0.1-1.0 mg/dL] Negative *NA* (08/30/17 12:01 AM) UA Bili [Negative] Negative (08/30/17 12:01 AM) UA Leuk Est [Negative] Negative (08/30/17 12:01 AM) UA Nitrite [Negative] <1 /HPF (08/30/17 12:01 AM) UA WBC [0-5 /HPF] None Seen *NA* (08/30/17 12:01 AM) UA Sq Epi HEMATOLOGY 1 2 3 Most recent to oldest [Reference Range]: 12.8 K/CMM *HI* (09/03/17 4:29 AM) 16.2 K/CMM *HI* (09/02/17 12:45 AM) 17.0 K/CMM *HI* (09/01/17 4:32 AM) WBC [3.7-10.4 K/CMM] 3.38 M/CMM *LOW* (09/03/17 4:29 AM) 3.62 M/CMM *LOW* (09/02/17 12:45 AM) 3.86 M/CMM *LOW* (09/01/17 4:32 AM) RBC [4.70-6.10 M/CMM] 9.9 g/dL *LOW* (09/03/17 4:29 AM) 10.9 g/dL *LOW* (09/02/17 12:45 AM) 11.5 g/dL *LOW* (09/01/17 4:32 AM) Hgb [14.0-18.0 g/dL] 29.1 % *LOW* (09/03/17 4:29 AM) 31.1 % *LOW* (09/02/17 12:45 AM) 33.5 % *LOW* (09/01/17 4:32 AM) Hct [42.0-54.0 %] 85.9 fL (09/03/17 4:29 AM) 85.9 fL (09/02/17 12:45 AM) 86.7 fL (09/01/17 4:32 AM) MCV [80.0-94.0 fL] 29.3 pg (09/03/17 4:29 AM) 30.0 pg (09/02/17 12:45 AM) 29.8 pg (09/01/17 4:32 AM) MCH [27.0-31.0 pg] 34.1 g/dL (09/03/17 4:29 AM) 34.9 g/dL (09/02/17 12:45 AM) 34.4 g/dL (09/01/17 4:32 AM) MCHC [32.0-36.0 g/dL] 13.0 % (09/03/17 4:29 AM) 13.1 % (09/02/17 12:45 AM) 13.1 % (09/01/17 4:32 AM) RDW [11.5-14.5 %] 191 K/CMM (09/03/17 4:29 AM) 165 K/CMM (09/02/17 12:45 AM) 160 K/CMM (09/01/17 4:32 AM) Platelet [133-450 K/CMM] 9.1 fL (09/03/17 4:29 AM) 9.0 fL (09/02/17 12:45 AM) 8.9 fL (09/01/17 4:32 AM) MPV [7.4-10.4 fL] 67.6 % (09/03/17 4:29 AM) 70.0 % (09/02/17 12:45 AM) 81.1 % *HI* (09/01/17 4:32 AM) Segs [45.0-75.0 %] 20.0 % *HI* (08/30/17 3:33 PM) Bands [0.0-11.0 %] 19.0 % *LOW* (09/03/17 4:29 AM) 18.5 % *LOW* (09/02/17 12:45 AM) 9.7 % *LOW* (09/01/17 4:32 AM) Lymphocytes [20.0-40.0 %] 0.0 % (08/30/17 3:33 PM) Atypical Lymphs [<=0.0 %] 12.2 % *HI* (09/03/17 4:29 AM) 10.7 % (09/02/17 12:45 AM) 8.9 % (09/01/17 4:32 AM) Monocytes [2.0-12.0 %] 0.9 % (09/03/17 4:29 AM) 0.5 % (09/02/17 12:45 AM) 0.1 % (09/01/17 4:32 AM) Eosinophils [0.0-4.0 %] 0.3 % (09/03/17 4:29 AM) 0.3 % (09/02/17 12:45 AM) 0.2 % (09/01/17 4:32 AM) Basophils [0.0-1.0 %] 1.0 % (08/30/17 3:33 PM) Metamyelocytes [0.0-1.0 %] 8.7 K/CMM *HI* (09/03/17 4:29 AM) 11.3 K/CMM *HI* (09/02/17 12:45 AM) 13.8 K/CMM *HI* (09/01/17 4:32 AM) Segs-Bands # [1.5-8.1 K/CMM] 2.4 K/CMM (09/03/17 4:29 AM) 3.0 K/CMM (09/02/17 12:45 AM) 1.7 K/CMM (09/01/17 4:32 AM) Lymphocytes # [1.0-5.5 K/CMM] 1.6 K/CMM *HI* (09/03/17 4:29 AM) 1.7 K/CMM *HI* (09/02/17 12:45 AM) 1.5 K/CMM *HI* (09/01/17 4:32 AM) Monocytes # [0.0-0.8 K/CMM] 0.1 K/CMM (09/03/17 4:29 AM) 0.1 K/CMM (09/02/17 12:45 AM) 0.1 K/CMM (08/30/17 5:28 AM) Eosinophils # [0.0-0.5 K/CMM] 0.1 K/CMM (08/30/17 5:28 AM) Basophils # [0.0-0.2 K/CMM] 1+ *ABN* (09/03/17 4:29 AM) Anisocyte [None Seen] Normal (09/03/17 4:29 AM) Plt Morph 14.5 seconds (09/03/17 4:29 AM) 16.5 seconds *HI* (09/02/17 12:45 AM) 17.3 seconds *HI* (09/01/17 4:32 AM) PT [12.0-14.7 seconds] 1.13 (09/03/17 4:29 AM) 1.32 *HI* (09/02/17 12:45 AM) 1.41 *HI* (09/01/17 4:32 AM) INR [0.85-1.17] 14.9 seconds *LOW* (09/03/17 4:29 AM) 16.6 seconds (08/31/17 2:08 AM) 20.3 seconds (08/30/17 3:33 PM) Thrombin Time [15.0-21.2 seconds] 771 mg/dL *HI* (09/03/17 4:29 AM) 393 mg/dL (08/31/17 2:08 AM) 312 mg/dL (08/30/17 3:33 PM) Fibrinogen Lvl [230-510 mg/dL] 0.89 ug/mL FEU *NA* (09/03/17 4:29 AM) 0.73 ug/mL FEU *NA* (08/31/17 2:08 AM) 1.29 ug/mL FEU *NA* (08/30/17 3:33 PM) D-Dimer 33.0 seconds (09/03/17 4:29 AM) 32.6 seconds (09/02/17 12:45 AM) 32.7 seconds (09/01/17 4:32 AM) PTT [22.9-35.8 seconds] BACTERIAL - SEROLOGY 1 2 3 Most recent to oldest [Reference Range]: Negative (08/29/17 5:07 AM) MRSA by PCR Immunizations No data available for this section [...] smoking cigars December 2016 Assessment and Plan Extracted from: Title: HF Surgery Author: Maddison Antunez Date: 09/04/17 Impression and Plan This is a 62 year-old CM with HTN, HLD, recent diagnosed CAD who was transferred to for evalution of surgical revascularization. S/P ACB x5 (TORRES-LAD, SVG-Ramus, SVG-OM1, SVG-OM2, SVG-RCA), Endoscopic vein harvest to LLE and open vein harvest to RLE 08/30/2017 POD# 5 - started Plavix on POD 3 - Pain management - Bowel regimen - Encourage use of incentive spirometer - Sternal precautions x8 weeks. Keep sternal binder on at all times. OOB, mobilize, ambulate with PT/OT - Wound care: Keep all surgical sites clean and dry, can leave open to air - Drains/wires: All chest tubes removed 09/01/17. TPW cut at level of skin 09/01/17 - Dispo: Follow up in HF surgery clinic in 1 week for chest tube suture removal and wound check, can be reached at [phone] Surgical Risk Checklist: Pre-op STS: 0.744% Pre-op Beta Naun: Esmolol 50mg Cr Pre-op and Post-op: 1.07/1.115 24h Post-op Transfusions: None Extubated: 08/31/17 Transfer to IMU: 09/03/17 Post-op ECHO: pending Post-op Complications: none Extracted from: Title: Electrophysiology Consult Author: Adalgisa Bustos MD Date: 09/02/17 Patient: TERRENCE OLIVASN Age: 62 years Sex: Male : 1955 Associated Diagnoses: None Author: Adalgisa Bustos MD History of Present Illness This is a 62 yo man with medical history of HTN, HLD, CAD s/p bypass (TORRES-LAD, SVG-ramus, SVG-OM1, SVG-OM2, SVG-RCA) who began having episodes of atrial fibrillation with RVR. He was started on amiodarone and his rate improved. On ECG today he appears to have atrial flutter and so we were consulted. He feels palpitations with this, but no chest pain. His heart rate yesterday was as fast as 160. He has been on an amiodarone gtt which is now at 0.5 mg/min. he has no prior history of atrial fibrillation or flutter. Review of Systems Constitutional: No fever, No chills. Eye: No recent visual problem, No icterus. Ear/Nose/Mouth/Throat: No decreased hearing, No ear pain. Respiratory: No shortness of breath, No cough. Cardiovascular: No chest pain, No palpitations. Gastrointestinal: No nausea, No vomiting. Genitourinary: No dysuria, No hematuria. Hematology/Lymphatics: No bruising tendency, No bleeding tendency. Endocrine: No excessive thirst, No polyuria. Immunologic: Not immunocompromised, No recurrent fevers. Musculoskeletal: No back pain, No neck pain. Integumentary: No rash, No pruritus. Neurologic: Alert and oriented X4, No abnormal balance. Psychiatric: No anxiety, No depression. Health Status Allergies: Allergic Reactions (All) Severity Not Documented NKDA- No reactions were documented., Allergies (1) ActiveReaction NKDANone Documented Current medications: (Selected) Inpatient Medications Ordered AMIODarone 900 mg in D5W 500 ml IV 900 mg + Dextrose 5% in Water IV 482 mL: 1 mg/min for 6 hours, then reduce to 0.5 mg/min, IV, Stop: 10/01/17 12:05:00 OUTLET MANAGER Colace 100 mg oral capsule: 100 mg, 1 cap, PO, BID Dextrose 50% Syringe: 12.5 gm, 25 mL, IVP, PRN, PRN: Blood Glucose Results Dextrose 50% Syringe: 25 gm, 50 mL, IVP, PRN, PRN: Blood Glucose Results Lyrica: 50 mg, 1 cap, PO, Q8H Protonix: 40 mg, 1 tab, PO, Before Breakfast Saline Flush 0.9%: 5 ml, IVP, PRN, PRN: Line Flush Saline Flush 0.9%: 5 ml, IVP, Q12H Versed: 1 mg, 1 mL, IVP, Q2H, PRN: Agitation acetaminophen-hydrocodone 325 mg-10 mg oral tablet: 1 tab, PO, Q4H, PRN: Pain Score 1-3 acetaminophen-hydrocodone 325 mg-10 mg oral tablet: 2 tab, PO, Q4H, PRN: Pain Score 4-6 acetaminophen: 650 mg, 1 supp, CT, Q4H, PRN: Pain Score 1-3 acetaminophen: 650 mg, 2 tab, PO, Q4H, PRN: Pain 1-3/Temp > 100.4 F aspirin 300 mg rectal suppository: 300 mg, 1 supp, CT, Daily aspirin: 81 mg, 1 tab, PO, Daily atorvastatin: 80 mg, 1 tab, PO, Bedtime calcium carbonate 500 mg (200 mg elemental calcium) oral tablet: 1,000 mg, 2 tab, PO, PRN, PRN: Abnormal Lab Result calcium carbonate 500 mg (200 mg elemental calcium) oral tablet: 500 mg, 1 tab, PO, PRN, PRN: Abnormal Lab Result calcium gluconate + Sodium Chloride 0.9% IV 50 mL: 1 gm, 10 mL, 120 ml/hr, IVPB, PRN, PRN: Abnormal Lab Result fentaNYL: 25 microgram, 0.5 mL, IVP, Q2H, PRN: Pain Score 4-6 glucagon: 1 mg, IM, PRN, PRN: Blood Glucose Results heparin 5000 units/mL injectable solution: 5,000 unit, 1 mL, SUB-Q, Q8H insulin isophane-NPH: 5 unit, 0.05 mL, SUB-Q, Q12H insulin lispro: 10 unit, 0.1 mL, SUB-Q, TID-Before Meals, PRN: Blood Glucose Results insulin lispro: 2 unit, 0.02 mL, SUB-Q, TID-Before Meals, PRN: Blood Glucose Results insulin lispro: 4 unit, 0.04 mL, SUB-Q, TID-Before Meals, PRN: Blood Glucose Results insulin lispro: 6 unit, 0.06 mL, SUB-Q, TID-Before Meals, PRN: Blood Glucose Results insulin lispro: 8 unit, 0.08 mL, SUB-Q, TID-Before Meals, PRN: Blood Glucose Results magnesium oxide: 800 mg, 2 tab, PO, PRN, PRN: Abnormal Lab Result magnesium sulfate: 2 gm, 50 mL, 25 ml/hr, IVPB, PRN, PRN: Abnormal Lab Result metoprolol tartrate: 12.5 mg, 0.5 tab, PO, Q12H metoprolol: 2 mg, 2 mL, IVP, ONCE naloxone: 0.04 mg, 0.1 mL, IVP, Q2MIN, PRN: Narcotic Reversal nitroglycerin 0.4 mg sublingual tablet: 0.4 mg, 1 tab, SL, Q5Min, PRN: Chest Pain potassium chloride + Sodium Chloride 0.9% IV 100 mL: 20 mEq, 10 mL, 55 ml/hr, IVPB, PRN, PRN: Abnormal Lab Result potassium chloride: 10 mEq, 50 mL, 50 ml/hr, IVPB, PRN, PRN: Abnormal Lab Result potassium chloride: 20 mEq, 1 tab, PO, PRN, PRN: Abnormal Lab Result potassium chloride: 20 mEq, 15 mL, NJ, PRN, PRN: Abnormal Lab Result potassium phosphate + Sodium Chloride 0.9% IV 250 mL: 15 mmol, 5 mL, 63.75 ml/hr, IVPB, PRN, PRN: Abnormal Lab Result potassium phosphate + Sodium Chloride 0.9% IV 250 mL: 30 mmol, 10 mL, 65 ml/hr, IVPB, PRN, PRN: Abnormal Lab Result potassium phosphate + Sodium Chloride 0.9% IV 250 mL: 45 mmol, 15 mL, 66.25 ml/hr, IVPB, PRN, PRN: Abnormal Lab Result potassium phosphate-sodium phosphate 250 mg-280 mg-160 mg oral powder for reconstitution: 2 pkt, PO, PRN, PRN: Abnormal Lab Result senna 8.6 mg oral tablet: 8.6 mg, 1 tab, PO, BID sodium phosphate + Sodium Chloride 0.9% IV 250 mL: 15 mmol, 5 mL, 63.75 ml/hr, IVPB, PRN, PRN: Abnormal Lab Result sodium phosphate + Sodium Chloride 0.9% IV 250 mL: 30 mmol, 10 mL, 65 ml/hr, IVPB, PRN, PRN: Abnormal Lab Result sodium phosphate + Sodium Chloride 0.9% IV 250 mL: 45 mmol, 15 mL, 66.25 ml/hr, IVPB, PRN, PRN: Abnormal Lab Result vancomycin: 2,000 mg, 500 mL, 250 ml/hr, IV, ONCALL Documented Medications Suspended Lipitor: PO, Daily, 0 Refill(s) aspirin 81 mg tablet, chewable: 81 mg, 1 tab, PO, Daily, 0 Refill(s) aspirin 81 mg tablet, chewable: 81 mg, 1 tab, PO, Daily, tab, 0 Refill(s) atorvastatin 40 mg oral tablet: 40 mg, 1 tab, PO, Bedtime, 0 Refill(s) metoprolol 25 mg oral tablet, extended release: 25 mg, 1 tab, PO, Daily, 0 Refill(s) metoprolol 25 mg oral tablet, extended release: 25 mg, 1 tab, PO, Daily, 30 tab, 0 Refill(s) nitroglycerin 0.4 mg sublingual tablet: 0.4 mg, 1 tab, SL, Q5Min, Give up to 3 doses. Call 911 if pain persists., PRN: Chest pain, 100 tab, 0 Refill(s) nitroglycerin 0.4 mg sublingual tablet: 0.4 mg, 1 tab, SL, Q5Min, PRN: Chest Pain, 0 Refill(s), Medications (47) Active Scheduled: (13) aspirin 300 mg rect SUPP 300 mg 1 supp, CT, Daily aspirin 81 mg ECT 81 mg 1 tab, PO, Daily atorvastatin 80mg tab 80 mg 1 tab, PO, Bedtime docusate sodium 100 mg CAP 100 mg 1 cap, PO, BID heparin 5000 unit/1 ml INJ VL 5,000 unit 1 mL, SUB-Q, Q8H insulin NPH 100 unit/ml INJ 3ml Vial 5 unit 0.05 mL, SUB-Q, Q12H metoprolol 5 mg/5 ml INJ 2 mg 2 mL, IVP, ONCE metoprolol tartrate 12.5 mg (1/2 of 25 mg) TAB 12.5 mg 0.5 tab, PO, Q12H pantoprazole 40 mg ECT 40 mg 1 tab, PO, Before Breakfast pregabalin 50mg CAP 50 mg 1 cap, PO, Q8H senna 8.6 mg TAB 8.6 mg 1 tab, PO, BID sodium chloride 0.9% 10 ml flush syr BD 5 ml, IVP, Q12H Vancomycin 2 gm / NS 500 ml (premixed) 2,000 mg 500 mL, IV, ONCALL Continuous: (1) AMIODarone INJ 900 mg + D5W 500 ml INJ 482 mL 900 mg 18 mL, IV PRN: (33) acetaminophen 325 mg TABLET 650 mg 2 tab, PO, Q4H acetaminophen 650 mg rect SUPP 650 mg 1 supp, CT, Q4H acetaminophen-hydrocodone 325 mg-10 mg TAB 1 tab, PO, Q4H acetaminophen-hydrocodone 325 mg-10 mg TAB 2 tab, PO, Q4H calcium carbonate 500 mg (200 mg elemental) CHEW 500 mg 1 tab, PO, PRN calcium carbonate 500 mg (200 mg elemental) CHEW 1,000 mg 2 tab, PO, PRN calcium gluconate 100mg/ml 10ml VL + sodium chloride 0.9% INJ 50 mL 1 gm 10 mL, IVPB, PRN Dextrose 50% 50 ml INJ syringe 12.5 gm 25 mL, IVP, PRN Dextrose 50% 50 ml INJ syringe 25 gm 50 mL, IVP, PRN fentaNYL 100 microgram/2 ml INJ 25 microgram 0.5 mL, IVP, Q2H glucagon recombinant 1 mg PDR 1 mg, IM, PRN insulin lispro 100 unit/ml 3 ml Vial 2 unit 0.02 mL, SUB-Q, TID-Before Meals insulin lispro 100 unit/ml 3 ml Vial 4 unit 0.04 mL, SUB-Q, TID-Before Meals insulin lispro 100 unit/ml 3 ml Vial 6 unit 0.06 mL, SUB-Q, TID-Before Meals insulin lispro 100 unit/ml 3 ml Vial 8 unit 0.08 mL, SUB-Q, TID-Before Meals insulin lispro 100 unit/ml 3 ml Vial 10 unit 0.1 mL, SUB-Q, TID-Before Meals magnesium oxide (242 mg elemental) tab 800 mg 2 tab, PO, PRN magnesium sulfate 2 gm/H20 50ml soln 2 gm 50 mL, IVPB, PRN midazolam 5 mg/5 ml INJ VL 1 mg 1 mL, IVP, Q2H naloxone 0.4 mg/ml 1ml INJ vial 0.04 mg 0.1 mL, IVP, Q2MIN nitroglycerin 0.4 mg TAB 25's btl 0.4 mg 1 tab, SL, Q5Min potassium chloride 10 mEq/50 ml PB 10 mEq 50 mL, IVPB, PRN potassium chloride 20 mEq ERT 20 mEq 1 tab, PO, PRN potassium chloride 20mEq/15ml LIQ ud 20 mEq 15 mL, NJ, PRN potassium chloride INJ + sodium chloride 0.9% INJ 100 mL 20 mEq 10 mL, IVPB, PRN potassium phosphate 3mmol/1ml 15ml VL + sodium chloride 0.9% INJ 250 mL 15 mmol 5 mL, IVPB, PRN potassium phosphate 3mmol/1ml 15ml VL + sodium chloride 0.9% INJ 250 mL 30 mmol 10 mL, IVPB, PRN potassium phosphate 3mmol/1ml 15ml VL + sodium chloride 0.9% INJ 250 mL 45 mmol 15 mL, IVPB, PRN potassium phosphate-sodium phosphate 1.5 gm pkt 2 pkt, PO, PRN sodium chloride 0.9% 10 ml flush syr BD 5 ml, IVP, PRN sodium phosphate 3 mmol/1 ml 15 ml vial + sodium chloride 0.9% INJ 250 mL 15 mmol 5 mL, IVPB, PRN sodium phosphate 3 mmol/1 ml 15 ml vial + sodium chloride 0.9% INJ 250 mL 30 mmol 10 mL, IVPB, PRN sodium phosphate 3 mmol/1 ml 15 ml vial + sodium chloride 0.9% INJ 250 mL 45 mmol 15 mL, IVPB, PRN Histories Past Medical History: Resolved Chest pain (56315349): Resolved. Hypertension (5478324600): Resolved. Hyperlipidemia (28470168): Resolved. Family History: Heart attack Father Procedure history: Total replacement of left knee joint (SNOMED CT 2881272270). Laminectomy and Spinal fusion (SNOMED CT 450446803). Comments: 08/29/2017 05:34 - Kristal Awan RN Fusion at L 4, 5, 6 Appendectomy (SNOMED CT 461348799). Repair of umbiilical hernia (SNOMED CT 869681367). Comments: 08/29/2017 05:33 - Kristal Awan RN In the 's Rotator cuff repair (bilateral) (SNOMED CT 804088558). Tonsilectomy (SNOMED CT 501703541). Repair of ruptured biceps tendon (SNOMED CT 05067475). Comments: 08/29/2017 05:37 - Kristal Awan RN Attempted but unsuccessful Right knee Arthroscopy (SNOMED CT 299712463). Suture of joint capsule with arthroplasty of ankle (SNOMED CT 53516768). Comments: 08/29/2017 05:40 - Kristal Awan RN Fractured, repaired with abe and screws Social History Social & Psychosocial Habits Alcohol 08/29/2017 Use: Current Type: Beer Frequency: 1-2 times per week Exercise 08/29/2017 Duration (average number of minutes): 30 Times per week: 1-2 times/week Exercise type: Walking Tobacco 08/29/2017 Use: Current some day smoker Type: Cigars Exposure to Tobacco Smoke None Cigarette Smoking Last 365 Days Yes Reg Smoking Cessation Counseling No . Physical Examination VS/Measurements Measurements from flowsheet : Measurements 09/02/2017 05:00 Weight Collection Method Measured Current Weight 139 kg Weight Difference Percent -0.43 % 09/01/2017 05:00 Weight Collection Method Measured Current Weight 139.6 kg Weight Difference Percent 0.287 % , Vital Signs (last 24 hrs) Last Charted Temp Oral H 99.5 DegF (SEP 02 08:00) Heart Rate Apical 83 bpm (SEP 02 14:) Resp Rate H 22 BRMIN (SEP 02 14:00) SBP 120 mmHg (SEP 02 14:00) DBP 61 mmHg (SEP 02 14:) SpO2 95 % (SEP 02 14:00) Labs Most Recent Results Previous Results Previous Results Previous Results WBC H 16.2 (SEP 02) H 17.0 (SEP 01) H 22.8 (AUG 31) H 26.6 (AUG 30) Hgb L 10.9 (SEP 02) L 11.5 (SEP 01) L 13.8 (AUG 31) 14.1 (AUG 30) Hct L 31.1 (SEP 02) L 33.5 (SEP 01) L 40.7 (AUG 31) L 41.2 (AUG 30) Plt 165 (SEP 02) 160 (SEP 01) 202 (AUG 31) 177 (AUG 30) Na 135 (SEP 02) 140 (SEP 01) 143 (AUG 31) 141 (AUG 30) K 3.9 (SEP 02) 4.4 (SEP 01) 4.8 (AUG 31) 4.7 (AUG 30) CO2 28 (SEP 02) 27 (SEP 01) 24 (AUG 31) 24 (AUG 30) Cl 101 (SEP 02) 107 (SEP 01) 108 (AUG 31) 108 (AUG 30) Cr H 1.51 (SEP 02) 1.12 (SEP 01) 1.15 (AUG 31) 1.13 (AUG 30) BUN H 23 (SEP 02) 18 (SEP 01) 15 (AUG 31) 15 (AUG 30) Glucose Random H 140 (SEP 02) H 160 (SEP 01) H 133 (AUG 31) H 184 (AUG 30) Mg 2.2 (SEP 02) 2.2 (SEP 01) 2.2 (AUG 31) H 2.7 (AUG 30) Phos 2.6 (SEP 02) L 2.3 (SEP 01) 4.0 (AUG 31) H 4.6 (AUG 30) Ca L 8.1 (SEP 02) L 8.2 (SEP 01) L 8.2 (AUG 31) 8.8 (AUG 30) PT H 16.5 (SEP 02) H 17.3 (SEP 01) 14.3 (AUG 31) H 14.8 (AUG 30) INR H 1.32 (SEP 02) H 1.41 (SEP 01) 1.11 (AUG 31) 1.11 (AUG 31) PTT 32.6 (SEP 02) 32.7 (SEP 01) 24.5 (AUG 31) 26.0 (AUG 30) Impression and Plan This is a 62 yo man with medical history of HTN, HLD, CAD s/p bypass (TORRES-LAD, SVG-ramus, SVG-OM1, SVG-OM2, SVG-RCA) who began having episodes of a supraventricular tachycardia at first thought to be atrial fibrillation. He was started on amiodarone and his rate improved. On ECG today he appears to have atrial flutter. Atrial flutter - please keep NPO after midnight for possible ablation tomorrow - rate is well controlled on amiodarone 0.5mg/min, please continue - appears normal sinus rhythm at the moment Electrophysiology will continue to follow. Addendum I have seen and and examined the patient with Dr. Vasquez on 09-02-17. I have reviewed by Akash, all clincal information and agree with above note, assessment, and plan. I was present, Adalgisa ROSEN and supervised. on 09/06/2017 15:17 Extracted from: Title: HF Surgery. ACB Author: Maddison Antunez Date: 08/30/17 ADVANCED HEART FAILURE/CV SURGERY BRIEF OP NOTE Preop Diagnosis: HTN, HLD, Severe coronary artery disease Postop Diagnosis: same Procedures: ACB x5 (TORRES-LAD, SVG-Ramus, SVG-OM1, SVG-OM2, SVG-RCA), Endoscopic vein harvest to LLE and open vein harvest to RLE Surgeon: Taco Ta MD Assistants: Carlyle Lemon MD, Maddison Antunez PA-C, Wilber Meek PA-C Anesthesiologist: [place] Anesthesia: General Antibiotics: Ancef 1g @ 820 & 1120, Vanco 1.5g @820 IVF: 1700cc crystalloid UOP: 500cc EBL: 1500cc Transfusions: 1 Fresh Frozen Plasma Cell Saver: 3 Drains: 3 chest tubes (Anterior mediastinal, posterior mediastinal, left pleural Complications: none Specimens: none Dictation #: by Dr. Ta Disposition: HFICU, Intubated in stable condition Extracted from: Title: AHF History and Physical Author: Stefan Bermudez MD Date: 08/29/17 Impression and Plan 1. CAD - 08/28/2017 SCA showed 70% LAD, RCA and OM FINAL INSPECTION SUPERVISOR - continue ASA 81 mg PO daily, Lipitor 40 mg PO daily, and Metoprolol 25 mg PO daily - start heparin gtt - obtain TTE - CABG evaluation in AM 2. HLD - continue Lipitor 40 mg PO daily 3. HTN - continue Metoprolol succinate 25 mg PO daily Heparin 5000 units SQ q8 hours Cardiology Staff Attestation; I have seen and examined the patient on 08/29/2017 and discussed the case with Dr Bermudez. I have reviewed all the clinical information, lab investigations, radiographic and other imaging data. I agree with findings, assessment and plan as outlined. Treatment plan was formulated under my direct supervision.
--- OUTSIDE RECORDS SUMMARY | 2018-08-21 06:58 | XMS REPORT | Summary of Care ---
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/antiplatelets (Final) - Unspecified atrial fibrillation (Final) - Unspecified atrial flutter (Final) - Type 2 diabetes mellitus without complications (Final) - Hyperlipidemia, unspecified (Final) - Essential (primary) hypertension (Final) - half-way (current) use of aspirin (Final) - Discharge Disposition: Home or Self Care Attending Physician: Jorge Arzate MD Referring Physician: Jorge Arzate MD Vital Signs Most recent to 1 oldest [Reference Range]: Height 187.96 cm (10/28/17 10:31 AM) Temperature Oral 98.0 DegF [96.4-99.1 DegF] (10/28/17 10:31 AM) Blood Pressure 110/67 mmHg [90-140/60-90 mmHg] (10/28/17 10:31 AM) Respiratory Rate 16 BRMIN [14-20 BRMIN] (10/28/17 10:31 AM) Peripheral Pulse 67 bpm Rate [60-100 bpm] (10/28/17 10:31 AM) Weight 134.545 kg (10/28/17 10:31 AM) Body Mass Index 38.08 m2 (10/28/17 10:31 AM) Problem List Condition Effective Dates Status Health Status Informant Chest Resolved pain(Confirmed) Hyperlipidemia(Confi Resolved rmed) Hypertension(Confirm Resolved ed) Allergies, Adverse Reactions, Alerts Substance Reaction Severity Status NKDA Active Medications Toprol-XL 25 mg oral tablet, extended release 12.5 mg=0.5 tab, PO, Daily, # 45 tab, 3 Refill(s), Pharmacy: [id number] Start Date: 12/13/17 Status: Ordered Tylenol with Codeine #3 oral tablet 1 tab, PO, Q12H, X 5 day, # 10 tab, 0 Refill(s), called to pharmacy Start Date: 10/08/17 Stop Date: 10/13/17 Status: Completed Results No data available for this section Immunizations No data available for this section Procedures Procedure Date Related Diagnosis Body Site Status Appendectomy Completed Laminectomy and Spinal fusion1 Completed Repair of ruptured biceps tendon2 Completed Repair of umbiilical hernia3 Completed Right knee Arthroscopy Completed Rotator cuff repair (bilateral) Completed Suture of joint capsule with arthroplasty of Completed ankle4 Tonsilectomy Completed Total replacement of left knee joint Completed 1Fusion at L 4, 5, 6 2Attempted [...] Days Yes; Reg Smoking Cessation Counseling No1 entered on: 10/28/17 1Quit smoking cigars December 2016 Assessment and Plan No data available for this section
--- OUTSIDE RECORDS SUMMARY | 2018-08-21 06:58 | XMS REPORT | Summary of Care ---
Author Author [facility] Organization [facility] Address Unknown Phone Unavailable Encounter [facility] [place](FIN) [id number] Date(s): 09/19/17 - 09/19/17 [facility] [address], [address] [place] [address]- Encounter Diagnosis Atherosclerotic heart disease of [place] coronary artery without angina pectoris (Final) - 09/23/17 Unspecified atrial fibrillation (Final) - Unspecified atrial flutter (Final) - Presence of aortocoronary bypass graft (Final) - Hyperlipidemia, unspecified (Final) - Essential (primary) hypertension (Final) - intermediate (current) use of aspirin (Final) - Discharge Disposition: Home or Self Care Attending Physician: Jorge Arzate MD Referring Physician: Jorge Arzate MD Vital Signs Most recent to 1 oldest [Reference Range]: Height 181.1 cm (09/19/17 12:35 PM) Temperature Oral 97.9 DegF [96.4-99.1 DegF] (09/19/17 12:35 PM) Blood Pressure 122/71 mmHg [90-140/60-90 mmHg] (09/19/17 12:35 PM) Respiratory Rate 18 BRMIN [14-20 BRMIN] (09/19/17 12:35 PM) Peripheral Pulse 73 bpm Rate [60-100 bpm] (09/19/17 12:35 PM) Weight 130.227 kg (09/19/17 12:35 PM) Body Mass Index 39.71 m2 (09/19/17 12:35 PM) Problem List Condition Effective Dates Status [...]
[2018-08-21 12:30] VITALS: BP 124/75
--- NOTE | 2018-08-21 13:05 | Operative Report ---
DATE OF PROCEDURE: August 21, 2018 PREOPERATIVE DIAGNOSIS: Incarcerated ventral hernia. POSTOPERATIVE DIAGNOSIS: Incarcerated ventral hernia. OPERATION PERFORMED: Repair of incarcerated ventral hernia with Ventralex mesh. ANESTHESIA: General. COMPLICATIONS: None. ESTIMATED BLOOD LOSS: Minimal. DESCRIPTION OF PROCEDURE: With the patient lying in bed in the supine position, under good general endotracheal anesthesia, the abdomen was prepped with Betadine solution and draped in the usual manner. A midline upper abdominal incision was made. It was carried down through the subcutaneous tissue. Immediately, an incarcerated ventral hernia sac was encountered. The fascia was then all the way around, the hernia sac was delineated. The patient has had a previous umbilical repair. The umbilicus was then detached from this area as we needed to cover the entire area. There were actually two other smaller holes next to the larger hernia sac. All of these were then slowly and carefully , and the fascia was cleared all the way around. The hernia sac was then opened, and the contents were ligated with 2-0 Vicryl and resected and sent for pathological examination. All 3 holes were then incorporated into a single hole. All the intra-abdominal adhesions were taken down. Once this was done, a large Ventralex patch was then placed intra-abdominally, and the defect was then closed transversely using interrupted sutures of #0 Ethibond, anchoring the mesh with the closure of the repair. This gave us a satisfactory closure without any tension. The whole area was then thoroughly irrigated. Perfect hemostasis was ascertained. All layers were infiltrated on the way out with a solution of 1/4 percent Marcaine. Umbilicus was then tacked back down to the midline fascia with 3-0 Vicryl. The subcutaneous tissue was approximated with 3-0 Vicryl, and the skin was closed with clips. A dressing was applied. The sponge, lap and needle count was correct. The patient tolerated the procedure well and returned to the recovery room in stable condition. Job#: [id number]
== END | disposition home or self-care (01) ==
LOC: OR 06:54
PROVIDERS: ATTEND Surgery
DX: K43.6 Other and unspecified ventral hernia with obstruction, without gangrene (principal); G47.33 Obstructive sleep apnea (adult) (pediatric); I25.810 Atherosclerosis of coronary artery bypass graft(s) without angina pectoris; I10 Essential (primary) hypertension; Z01.810 Encounter for preprocedural cardiovascular examination; Z01.812 Encounter for preprocedural laboratory examination; Z01.818 Encounter for other preprocedural examination; Z79.82 Long term (current) use of aspirin; Z95.1 Presence of aortocoronary bypass graft
CPT/HCPCS: 36415; 49561; 49568; 71046; 80048; 85025; 88302; 93005; C1781; J0461; J1100; J1170; J1885; J2001; J2250; J2270; J2405; J2704

== ENCOUNTER 2020-04-06 16:15 | Emergency (ER) | payer OTHER ==
[~2020-04-06] VITALS: Ht 188 cm; Wt 133.8 kg
[~2020-04-06 16:15] MED LIST changes: -ATROPINE SULFATE 1 MG/ML VIAL ONE; -BUPIVACAINE 0.5%/EPI 30 ML SDV INJ ONE; -DEXAMETHASONE SOD PHOS INJ 4 MG/ML VIAL ONE; -FENTANYL CITRATE/PF 100MCG/2 ML INJ ONE; -HYDROMORPHONE 2MG/ML 2 MG/ML ML ONE; -KETOROLAC TROMETHAMINE 30 MG/ML VIAL ONE; -LIDOCAINE HCL 2% LOCAL INJ 5 ML SDV VIAL INJ ONE; -MIDAZOLAM HCL 2 MG/2 ML VIAL ONE; -MORPHINE SULFATE INJ 4 MG/ML INJ ONE; -NEOSTIGMINE 5 MG/5ML SYR ONE; -ONDANSETRON HCL INJ 2 MG/ML VIAL ONE; -PROPOFOL IV EMULSION 10 MG/ML 20 ML VIAL ONE; -ROCURONIUM BROMIDE 10 MG/ML 5ML VIAL ONE; -SEVOFLURANE INHAL SOLN 250 ML PEN BTL ONE
--- NOTE | 2020-04-06 16:30 | NUR ---
X2 PILLOWS PLACED UNDER LEFT KNEE
[2020-04-06] MEDS ORDERED: MORPHINE SULFATE 2 MG/ML SYR 1ML IV STA (16:43)
[2020-04-06] MEDS ORDERED: ONDANSETRON HCL INJ 2MG/ML 2ML 2 MG/ML VIAL IV STA (16:43)
[2020-04-06] MEDS ORDERED: ACETAMINOPHEN 325 MG TAB PO ONE (16:45)
--- OUTSIDE RECORDS SUMMARY | 2020-04-06 16:47 | XMS REPORT | Summary of Care ---
Author Author [facility] Organization [facility] Address Unknown Phone Unavailable Care Team Providers Care Utilities Manager Name Role Phone Richard Bryant PCP Encounter [place]) [phone] Date(s): 01/21/20 - 01/21/20 [facility] [address], [address] Discharge Disposition: Home or Self Care Attending Physician: Jorge Arzate MD Referring Physician: Jorge Arzate MD Vital Signs Most recent to 1 oldest [Reference Range]: Height 182.88 cm (01/21/20 8:39 AM) Temperature Oral 98.4 DegF [96.4-99.1 DegF] (01/21/20 8:39 AM) Blood Pressure 126/70 mmHg [90-140/60-90 mmHg] (01/21/20 8:39 AM) Respiratory Rate 18 BRMIN [14-20 BRMIN] (01/21/20 8:39 AM) Peripheral Pulse 82 bpm Rate [60-100 bpm] (01/21/20 8:39 AM) Weight 139.29 kg (01/21/20 8:39 AM) Body Mass Index 41.65 m2 (01/21/20 8:39 AM) Problem List Condition Effective Dates Status Health Status Informan t Chest Resolved pain(Confirmed) Hyperlipidemia(Confi Resolved rmed) Hypertension(Confirm Resolved ed) Allergies, Adverse Reactions, Alerts No Known Medication Allergies Medications aspirin 81 mg tablet, enteric coated 81 mg = 1 tab, PO, Daily, # 90 tab, 3 Refill(s), Pharmacy: [facility]/pharmacy #[id number] Start Date: 05/18/19 Status: Ordered atorvastatin 40 mg oral tablet 40 mg = 1 tab, PO, Bedtime, # 90 tab, 3 Refill(s), Pharmacy: [facility]/pharmacy #[id number] Start Date: 09/15/19 Status: Ordered losartan 25 mg oral tablet 12.5 mg = 0.5 tab, PO, Daily, # 45 tab, 3 Refill(s), Pharmacy: [facility]/pharmacy #[id number] Start Date: 02/16/19 Status: Ordered Results Most recent to 1 oldest [Reference Range]: Neutrophils # 5.0 K/CMM [1.5-8.1 K/CMM] (01/21/20 9:40 AM) Lymphocytes # 1.8 K/CMM [1.0-5.5 K/CMM] (01/21/20 9:40 AM) Monocytes # [0.0-0.8 0.7 K/CMM K/CMM] (01/21/20 9:40 AM) Eosinophils # 0.1 K/CMM [0.0-0.5 K/CMM] (01/21/20 9:40 AM) eGFR 66 mL/min/1.73m2 1 *NA* (01/21/20 9:40 AM) A/G Ratio [0.7-1.6] 1.1 (01/21/20 9:40 AM) Albumin Lvl [3.5-5.0 3.7 g/dL g/dL] (01/21/20 9:40 AM) Alk Phos [39-136 87 unit/L unit/L] (01/21/20 9:40 AM) ALT [0-65 unit/L] 55 unit/L (01/21/20 9:40 AM) AGAP [10.0-20.0 11.1 mEq/L mEq/L] (01/21/20 9:40 AM) AST [0-37 unit/L] 50 unit/L *HI* (01/21/20 9:40 AM) B/C Ratio [6-25] 13 (01/21/20 9:40 AM) Basophils [0.0-1.0 0.6 % %] (01/21/20 9:40 AM) BUN [7-22 mg/dL] 15 mg/dL (01/21/20 9:40 AM) Calcium Lvl 8.7 mg/dL [8.5-10.5 mg/dL] (01/21/20 9:40 AM) CHD Risk [4.00-7.30] 4.38 (01/21/20:40 AM) Chol [<=199 mg/dL] 162 mg/dL (01/21/20:40 AM) Chloride Lvl [95-109 109 mEq/L mEq/L] (01/21/20:40 AM) CO2 [24-32 mEq/L] 22 mEq/L *LOW* (01/21/2040 AM) Creatinine Lvl 1.17 mg/dL [0.50-1.40 mg/dL] (01/21/20:40 AM) Eosinophils [0.0-4.0 0.8 % %] (01/21/2040 AM) Globulin [2.7-4.2 3.5 g/dL g/dL] (01/21/20:40 AM) Glucose Lvl [70-99 203 mg/dL mg/dL] *HI* (01/21/2040 AM) Hct [42.0-54.0 %] 42.6 % (01/21/20:40 AM) HDL [>=61 mg/dL] 37 mg/dL *LOW* (01/21/20:40 AM) Hgb [14.0-18.0 g/dL] 14.6 g/dL (01/21/20:40 AM) Hgb A1C [<=5.6 %] 6.8 % *HI* (01/21/2040 AM) Potassium Lvl 4.1 mEq/L [3.5-5.1 mEq/L] (01/21/20:40 AM) LDL (Calculated) 78 mg/dL [<=99 mg/dL] (01/21/20:40 AM) Lymphocytes 23.8 % [20.0-40.0 %] (01/21/2040 AM) MCH [27.0-31.0 pg] 30.4 pg (01/21/20:40 AM) MCHC [32.0-36.0 34.2 g/dL g/dL] (01/21/20:40 AM) MCV [80.0-94.0 fL] 88.8 fL (01/21/20 9:40 AM) Monocytes [2.0-12.0 8.9 % %] (01/21/20 9:40 AM) MPV [7.4-10.4 fL] 8.9 fL (01/21/20 9:40 AM) Sodium Lvl [135-145 138 mEq/L mEq/L] (01/21/20 9:40 AM) Platelet [133-450 189 K/CMM K/CMM] (01/21/20 9:40 AM) Segs [45.0-75.0 %] 65.9 % (01/21/20 9:40 AM) Total Protein 7.2 g/dL [6.4-8.4 g/dL] (01/21/20 9:40 AM) PSA [0.00-4.00 0.85 ng/mL ng/mL] (01/21/20 9:40 AM) RBC [4.70-6.10 4.80 M/CMM M/CMM] (01/21/20 9:40 AM) RDW [11.5-14.5 %] 13.3 % (01/21/20 9:40 AM) Bili Total [0.2-1.3 0.6 mg/dL mg/dL] (01/21/20 9:40 AM) Trig [<=149 mg/dL] 236 mg/dL *HI* (01/21/20 9:40 AM) WBC [3.7-10.4 K/CMM] 7.6 K/CMM (01/21/20 9:40 AM) VLDL 47 *NA* (01/21/20 9:40 AM) 1Result Comment: The eGFR is calculated [...] be mul tiplied by the estimated BMI. Immunizations No data available for this section Procedures Procedure Date Related Diagnosis Body Site Status Appendectomy Completed Laminectomy and Spinal fusion1 Completed Repair of ruptured biceps tendon2 Completed Repair of umbiilical hernia3 Completed Right knee Arthroscopy Completed Rotator cuff repair (bilateral) Completed Suture of joint capsule with arthroplasty of Comp leted ankle4 Tonsilectomy Completed Total replacement of left knee joint Completed 1Fusion at L 4, 5, 6 2Attempted but unsuccessful 3In the 80's 4Fractured, repaired with abe and screws Social History Social History Type Response Alcohol Current, Type Beer. Freque ncy: 1-2 times per week. Exercise Exercise duration: 30. Exe rcise frequency: 1-2 times/week. Exercise type: Walking. Smoking Status Former smoker; Type: Cigars ; Exposure to Tobacco Smoke None; Cigarette Smoking Last 365 Days Yes; Reg Smoking Cessation Counseling No1 entered on: 01/21/20 1Quit smoking cigars December 2016 Assessment and Plan No data available for this section
--- OUTSIDE RECORDS SUMMARY | 2020-04-06 16:47 | XMS REPORT | Continuity of Care Document ---
Author Author [employer] Address Unknown Phone Unavailable Care Team Providers Care Fire Dispatcher Name Role Phone 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 07/05/2018 01/17/2019 [facility] FOLLOW UP Active 09/24/2017 [facility] FOLLOW UP 1 MONTH Active 09/23/2017 [facility] 1 WEEK F/U Active 09/06/2017 [facility] HOSPITAL F/U Active 09/05/2017 [facility] SOB; SYNCOPE Active 09/05/2017 [facility] TRIPLE VESSEL DISEASE Active 08/29/2017 [facility] UNK Active 1 10/23/2016 [facility] Chest pain (finding) Resolved Problem 01/23/2020 [facility] Hyperlipidemia (disorder) Reso lved Problem [facility] Hypertensive disorder, systemic arterial (disorder) Resolved Problem 01/23/2020 [facility] Unspecified atrial fibrillation 01/17/2019 [facility] Unspecified atrial flutter 01/17/2019 [facility] Presence of aortocoronary bypass graft 01/17/2019 [facility] Hyperlipidemia, unspecified 01/17/2019 [facility] Essential (primary) hypertension 01/17/2019 [facility] lobsterman (current) use of aspirin 01/17/2019 [facility] (current) use of antithromboti cs/antiplatelets 01/17/2019 [facility] Type 2 diabetes mellitus without complications 02/03/2018 [facility] Obesity, unspecified 01/17/2019 [facility] Personal history of nicotine dependence 01/17/2019 [facility] Medications Medication Details Route Status Patient Instructions Ordering Provider Order Date Source atorvastatin 40 mg oral tablet 40 mg = 1 tab, PO, Bedtime, # 90 tab, 3 Refill(s), [id number]2019 [facility] Aspirin 81 MG Enteric Coated Tablet 81 mg = 1 tab, PO, Daily, # 90 tab, 3 Refill(s), [id number] Active 05/18/2019 [facility] losartan 25 mg oral tablet 12. 5 mg = 0.5 tab, PO, Daily, # 45 tab, 3 Refill(s), Pharmacy: [facility]/pharmacy #[id number] Active 02/16/2019 [facility] nter Aspirin 81 MG Enteric Coated Tablet 81 mg = 1 tab, PO, Daily, # 120 tab, 1 Refill(s), [id number] Active 02/09/2019 [facility] atorvastatin 40 mg oral tablet 40 mg = 1 tab, PO, Bedtime, # 30 tab, 7 Refill(s), [id number] Active 02/09/2019 [facility] 24 HR Metoprolol Tartrate 25 MG Extended Release Tablet [Toprol] 12.5 mg = 0.5 tab, PO, Daily, # 30 tab, 7 Refill(s), [id number] Active 02/09/2019 [facility] losartan 25 mg oral tablet 12. 5 mg = 0.5 tab, PO, Daily, # 30 tab, 7 Refill(s), [id number] Active 02/09/2019 [facility] losartan 25 mg oral tablet 12. 5 mg = 0.5 tab, PO, Daily, # 15 tab, 6 Refill(s), [id number] Active 06/30/2018 [facility] atorvastatin 40 mg oral tablet 40 mg = 1 tab, PO, Bedtime, # 90 tab, 3 Refill(s), Pharmacy: [facility]/pharmacy #[id number] Active 01/06/2018 [facility] 24 HR Metoprolol Tartrate 25 MG Extended Release Tablet [Toprol] 12.5 mg = 0.5 tab, PO, Daily, # 45 tab, 3 Refill(s), Pharmacy: [facility] [id number] Active 12/13/2017 [facility] Acetaminophen 300 MG / Codeine Phosphate 30 MG Oral Tablet [Tylenol with Codeine #3] 1 tab, PO, Q12H, X 5 day, # 10 tab, 0 Re fill(s), called to pharmacy No Longer Active 10/08/2017 [facility] nter tramadol hydrochloride 50 MG Oral Tablet 50 mg = 1 tab, PO, Q4H, PRN, 0 Refill(s) Active 09/06/2017 [facility] nter Colchicine 0.6 MG Oral Tablet 0.6 mg = 1 tab, PO, Daily, # 14 tab, 0 Refill(s), Pharmacy: [facility]/pharmacy #[id number] Active 09/06/2017 [facility] nter Metformin hydrochloride 500 MG Oral Tablet 500 mg = 1 tab, PO, BID-Meals, # 60 tab, 1 Refill(s) Active 09/04/2017 [facility] nter 24 HR Metoprolol Tartrate 25 MG Extended Release Tablet [Toprol] 25 mg = 1 tab, PO, Daily, # 30 tab, 1 Re fill(s) Active 09/04/2017 [facility] pantoprazole 40 mg oral enteric coated tablet 40 mg = 1 tab, PO, Before Breakfast, # 30 tab, 2 Refill(s) Inactive 09/04/2017 [facility] nt Cardiac Rehabilitation See Ins tructions, Cardiac Rehab Phase 2, # 1 ea, 0 Refill(s) Active 09/04/2017 [facility] nter aspirin 81 mg tablet, enteric coated 81 mg = 1 tab, PO, Daily, # 100 tab, 3 Refill(s) Active 09/04/2017 [facility] nter Furosemide 40 MG Oral Tablet 4 0 mg = 1 tab, PO, Daily, # 14 tab, 0 Refill(s) Active 09/04/2017 [facility] AMIODarone 200 mg oral tablet 400 mg = 2 tab, PO, BID, Take 400mg (2 tabs) BID until 09/11 Then take 200mg (1 tab) daily and continue this dose, # 120 tab, 0 Refill(s) Active 09/04/2017 [facility] nter clopidogrel 75 mg oral tablet 75 mg = 1 tab, PO, Daily, # 90 tab, 3 Refill(s) Active 09/04/2017 [facility] metoprolol tartrate 25 mg oral tablet 12.5 mg = 0.5 tab, PO, Q12H, # 30 tab, 3 Refill(s) Inactive 09/04/2017 [facility] nter Acetaminophen 300 MG / Codeine Phosphate 30 MG Oral Tablet [Tylenol with Codeine #3] 1 tab, PO, Q6H, PRN Pain Score 6-10, X 7 day, # 28 tab, 0 Refill(s) Active 09/04/2017 [facility] atorvastatin 40 mg oral tablet 40 mg = 1 tab, PO, Bedtime, # 90 tab, 3 Refill(s) Active 09/04/2017 [facility] nter Plavix Notes: (Same As: Plavix) Inactive 09/04/2017 [facility] Amiodarone 400 mg, Route: PO, Drug form: TAB, BID, Dosing Weight 135.9, kg, Start date: 09/03/17 17:00:00 INVENTORY AUDIT CLERK, Duration: 30 day, Stop date: 10/03/17 9:00:00 INVENTORY AUDIT CLERK Inactive 09/03/2017 [facility] nt potassium phosphate Notes: ([facility] as: K Phosphate.) 1 mMol phoshate has 1.47 mEq potassium Infuse over 4 hours No Longer Active 09/03/2017 [facility] Magnesium Sulfate Notes: WASTE : F/P - Sink; E - Municipal Trash Bin No Longer Active 09/03/2017 [facility] nt sodium phosphate 15 mmol, 5 mL , Route: IVPB, PRN, Dosing Weight 135.9, kg, PRN Abnormal Lab Result, For NON-ICU Patients Only., Start date: 09/03/17 12:38:00 INVENTORY AUDIT CLERK, Duration: 30 day, Stop date: 10/03/17 12:37:00 INVENTORY AUDIT CLERK No Longer Active 09/03/2017 [facility] Calcium Gluconate Notes: WASTE : F/P - Sink; E - Municipal Trash Bin No Longer Active 09/03/2017 [facility] nter Magnesium Oxide Notes: (Same a s: Mag-Ox 400) Magnesium oxide [id number] elemental magnesium Dose=____mg magnesium oxide (___mg elemental magnesium) No Longer Active 09/03/2017 [facility] nter Potassium Chloride Notes: ([facility] e as: K-Dur 20) "Do Not Crush" With food and full glass of water No Longer Active 09/03/2017 [facility] nter potassium phosphate-sodium phosphate 250 mg-280 mg-160 mg oral powder for reconstitution Notes: (Same as: Phos-NaK) Each 1.5 gm pkt has 250mg phosphorous. Mix w/2.5oz water and stir. No Longer Active 09/03/2017 [facility] Lasix Notes: (Same as: Lasix) May cause GI upset. Give with food or milk. No Longer Active 09/03/2017 [facility] nt Amiodarone Notes: (Same as: Co rdarone) No Longer Active 09/03/2017 [facility] Bisacodyl Notes: (Same As: Dul colax, Bisco-Lax) No Longer Active 09/03/2017 [facility] Lasix Notes: (Same as: Lasix) Inactive 09/02/2017 [facility] Protonix Notes: Tablet should not be chewed or crushed. (Same as: Protonix) No Longer Active 09/02/2017 [facility] Lyrica Notes: Same as Lyrica No Longer Active 09/01/2017 [facility] metoprolol tartrate Notes: (Sa me as: Lopressor) 12.5 mg=1/2 X 25 mg TAB No Longer Active 09/01/2017 [facility] nt AMIODarone 900 mg in D5W 500 ml IV 900 m g + Dextrose 5% in Water IV 482 mL 2 mg/ml. Use Glass Bottle or Non PVC Ba g "Use 0.22 micron in-line filter" MEDICATION WASTE Product Size: 900 mg Product Wasted: ___ mg No Longer Active 09/01/2017 [facility] Amiodarone 2 mg/ml. "Recommen dation: Use an in-line filter during administration for continuous infusions to reduce the incidence of phlebitis" (Same as Codarone) MEDICATION WASTE Product Size: 150 mg Product Wasted: ___ mg Inactive 09/01/2017 [facility] nter Lasix Notes: (Same as: Lasix) MEDICATION WASTE Product Size: 40 mg Product Wasted: ___ mg Inactive 09/01/2017 [facility] nter Aspirin Notes: Do not crush or chew. (Same As: Ecotrin) No Longer Active 09/01/2017 [facility] atorvastatin Notes: (Same as: Lipitor) No Longer Active 09/01/2017 [facility] insulin, isophane Notes: Roll in palms of hands gently; Do not shake vigorously. (Same as: Humulin N) Do not hold insulin without contacting prescriber WASTE: F/P - Black; E - Municipal Trash Bin Stable for 28 days at room temperature Expires in days from Date No Longer Active 09/01/2017 [facility] senna 8.6 mg oral tablet Notes : (Same as: Senokot) No Longer Active 08/31/2017 [facility] heparin sodium, porcine 2500 UNT/ML Injectable Solutio n Notes: porcine heparin No Longer Active 08/31/2017 [facility] nter Dextrose 50% Syringe 25 gm, 50 mL, Route: IVP, Drug Form: INJ, Dosing Weight 135.9, kg, PRN, PRN Blood Glucose Results, Start date: 08/31/17 15:45:00 INVENTORY AUDIT CLERK, Duration: 30 day, Stop date: 09/30/17 15:44:00 INVENTORY AUDIT CLERK No Longer Active 08/31/2017 [facility] Glucagon 1 mg, Route: IM, Drug form: PDR/INJ, PRN, Dosing Weight 135.9, kg, PRN Blood Glucose Results, Start date: 08/31/17 15:45:00 INVENTORY AUDIT CLERK, Duration: 30 day, Stop date: 09/30/17 15:44:00 INVENTORY AUDIT CLERK No Longer Active 08/31/2017 [facility] Insulin Lispro Notes: (Same as : Humalog ) Roll in palms of hands gently; Do not shake `vigorously. "Single Patient Use Only " WASTE: F/P - Black; E - Municipal Trash Bin Stable for 28 days at room temp erature. Expires in days from Date No Longer Active 08/31/2017 [facility] pantoprazole Notes: For IV pus h reconstitute with 10 ml 0.9% sodium chloride and push over 2 minutes. (Same as: Protonix) No Longer Active 08/31/2017 [facility] Aspirin 325 MG Enteric Coated Tablet Notes: (Do Not Crush) Do not crush or chew. Inactive 08/31/2017 [facility] nter Tylenol Notes: Infuse over 15 minutes Do not exceed 4gm/day of acetaminophen MEDICATION WASTE Product Size: 1000 mg Product Wasted: ___ mg Inactive 08/31/2017 [facility] nter Cefazolin Notes: (Same as Ance f) No Longer Active 08/31/2017 [facility] Vancomycin 2001 mg: infuse ov er 2.5 hours MEDICATION WASTE Product Size: 1000 mg Product Wasted: ___ mg No Longer Active 08/31/2017 [facility] chlorhexidine gluconate 1.2 MG/ML Mouthwash Notes: (Same As: Peridex) No Longer Active 08/31/2017 [facility] ocular lubricant Notes: (Same as: Lacri-Lube, Duratears Naturale, Artificial Tears, and Tears Again ) No Longer Active 08/31/2017 [facility] Aspirin 300 MG Rectal Suppository Notes: Refrigerate. No Longer Active 08/31/2017 [facility] Fentanyl Notes: (Same as: Subl imaze) Preservative free. Inactive 08/30/2017 [facility] normal saline 0.9% IV 1,000 mL 1,000 mL, Rate: 100 ml/hr, Infuse over: 10 hr, Route: IV, Dosing Weight 135.9 kg, Total Volume: 1,000, Start date: 08/30/17 17:02:00 INVENTORY AUDIT CLERK, Duration: 30 day, Stop date: 09/29/17 17:01:00 INVENTORY AUDIT CLERK, 2.69, m2 No Longer Active 08/30/2017 [facility] nter Docusate Sodium 100 MG Oral Capsule [Colace] Notes: (Same as: Colace) (Do Not Crush) No Longer Active 08/30/2017 [facility] nter Versed Notes: (Same as: Versed ) MEDICATION WASTE Product Size: 5 mg Product Wasted: _0_ mg No Longer Active 08/30/2017 [facility] Fentanyl 1,000 microgram, 20 m L, Rate: Titrate, Start Dose: 50 microgram/hr, Titration: 25 microgram/hour every 15 minutes, Goal(s): - 2, Max Dose: 300 microgram/hr, Route: IV, Dosing Weight 135.9 kg, Total Volume: 20, Start date: 08/30/17 16:57:00 INVENTORY AUDIT CLERK, Duratio... No Longer Active 08/30/2017 [facility] Nicardipine Notes: Same as: Ca rdene Concentration: (0.2 mg /1 ml ) No Longer Active 08/30/2017 [facility] chlorhexidine gluconate 1.2 MG/ML Mouthwash Notes: (Same As: Peridex) No Longer Active 08/30/2017 [facility] Fentanyl Notes: Concentration is 20 micrograms/ml No Longer Active 08/30/2017 [facility] Naloxone Notes: Same as Narcan No Longer Active 08/30/2017 [facility] Dextrose 50% Syringe 25 gm, 50 mL, Route: IVP, Drug Form: INJ, Dosing Weight 135.9, kg, PRN, PRN Blood Glucose Results, Start date: 08/30/17 15:23:00 INVENTORY AUDIT CLERK, Duration: 30 day, Stop date: 09/29/17 15:22:00 INVENTORY AUDIT CLERK No Longer Active 08/30/2017 [facility] Insulin regular 100 unit + Not es: Final Concentration 1unit/1ml WASTE: F/P - Black; E - Municipal Trash Bin No Longer Active 08/30/2017 [facility] Zofrtimi Notes: (Same as: Sabino ) MEDICATION WASTE Product Size: 4 mg Product Wasted: ___ mg No Longer Active 08/30/2017 [facility] Cardene 40 mg in NS 200 mL (Titrate.) IV 40 mg Notes: Same as: Cardene Concentration: (0.2 mg /1 ml ) Inactive 08/30/2017 [facility] nter Aspirin 325 MG Oral Tablet Not es: Take with food. Inactive 08/30/2017 [facility] Acetaminophen Notes: Do not ex ceed 4 gm/day. (Same as: Tylenol) No Longer Active 08/30/2017 [facility] Acetaminophen 325 MG / Hydrocodone Clarisa trate 10 MG Oral Tablet Notes: Do not exceed 4gm/day of acetamin ophen. (Same as: Somers 325/10) No Longer Active 08/30/2017 [facility] Dextrose 50% Syringe 12.5 gm, 25 mL, Route: IVP, Drug Form: INJ, Dosing Weight 135.9, kg, PRN, PRN Blood Glucose Results, Start date: 08/30/17 14:36:00 INVENTORY AUDIT CLERK, Duration: 30 day, Stop date: 09/29/17 14:35:00 INVENTORY AUDIT CLERK No Longer Active 08/30/2017 [facility] Insulin regular 100 unit + Not es: Final Concentration 1unit/1ml WASTE: F/P - Black; E - Municipal Trash Bin Inactive 08/30/2017 [facility] acetaminophen (ANES) Route: IV , Drug form: INJ, ONCE, Stop date: 08/30/17 13:53:00 INVENTORY AUDIT CLERK Inactive 08/30/2017 [facility] nter protamine (ANES) 10 mg Route: IV, Drug form: INJ, Start date: 08/30/17 13:13:00 INVENTORY AUDIT CLERK, Stop date: 08/30/17 14:13:00 INVENTORY AUDIT CLERK Inactive 08/30/2017 [facility] Insulin regular (ANES) Route: IV, Drug form: INJ, ONCE, Stop date: 08/30/17 12:53:00 INVENTORY AUDIT CLERK Inactive 08/30/2017 [facility] nter calcium gluconate (ANES) Route : IV, Drug form: INJ, ONCE, Stop date: 08/30/17 12:53:00 INVENTORY AUDIT CLERK Inactive 08/30/2017 [facility] nter lidocaine (ANES) Route: IV, Dr ug form: INJ, ONCE, Stop date: 08/30/17 12:48:00 INVENTORY AUDIT CLERK Inactive 08/30/2017 [facility] nter magnesium sulfate (ANES) Route : IV, Drug form: INJ, ONCE, Stop date: 08/30/17 12:48:00 INVENTORY AUDIT CLERK Inactive 08/30/2017 [facility] nter tranexamic acid (ANES) Route: IV, Drug form: INJ, ONCE, Stop date: 08/30/17 11:33:00 INVENTORY AUDIT CLERK Inactive 08/30/2017 [facility] nter heparin (ANES) Route: IV, Drug form: INJ, ONCE, Stop date: 08/30/17 11:03:00 INVENTORY AUDIT CLERK Inactive 08/30/2017 [facility] nter esmolol (ANES) Route: IV, Drug form: INJ, ONCE, Stop date: 08/30/17 9:28:00 INVENTORY AUDIT CLERK Inactive 08/30/2017 [facility] nter ceFAZolin (ANES) Route: IV, Dr ug form: INJ, ONCE, Stop date: 08/30/17 9:13:00 INVENTORY AUDIT CLERK Inactive 08/30/2017 [facility] nter fentaNYL (ANES) Route: IV, Shahzad g form: INJ, ONCE, Stop date: 08/30/17 9:08:00 INVENTORY AUDIT CLERK Inactive 08/30/2017 [facility] nter midazolam (ANES) Route: IV, Dr ug form: SOLN, ONCE, Stop date: 08/30/17 9:08:00 INVENTORY AUDIT CLERK Inactive 08/30/2017 [facility] nter lidocaine (ANES) Route: IV, Dr ug form: INJ, ONCE, Stop date: 08/30/17 9:08:00 INVENTORY AUDIT CLERK Inactive 08/30/2017 [facility] nter propofol (ANES) Route: IV, Shahzad g form: INJ, ONCE, Stop date: 08/30/17 9:08:00 INVENTORY AUDIT CLERK Inactive 08/30/2017 [facility] nt norepinephrine (ANES) 10 microgram Route: IV, Drug form: INJ, Start date: 08/30/17 9:01:00 INVENTORY AUDIT CLERK, Stop date: 08/30/17 10:01:00 INVENTORY AUDIT CLERK Inactive 08/30/2017 [facility] rocuronium (ANES) Route: IV, D rug form: INJ, ONCE, Stop date: 08/30/17 8:22:00 INVENTORY AUDIT CLERK Inactive 08/30/2017 [facility] nt vancomycin (ANES) 1000 mg Rout e: IV, Drug form: INJ, Start date: 08/30/17 8:20:00 INVENTORY AUDIT CLERK, Stop date: 08/30/17 9:20:00 INVENTORY AUDIT CLERK Inactive 08/30/2017 [facility] tranexamic acid (ANES) 100 mg Route: IV, Drug form: INJ, Start date: 08/30/17 8:00:00 INVENTORY AUDIT CLERK, Stop date: 08/30/17 9:00:00 INVENTORY AUDIT CLERK Inactive 08/30/2017 [facility] Sodium Chloride 0.9% IV (ANES) 1000 mL Route: IV, Total Volume: 1,000, Start date: 08/30/17 8:00:00 INVENTORY AUDIT CLERK, Stop date: 08/30/17 9:00:00 INVENTORY AUDIT CLERK Inactive 08/30/2017 [facility] Isolyte S PH 7.4 (ANES) 1000 mL Route: IV, Total Volume: 1,000, Start date: 08/30/17 7:46:00 INVENTORY AUDIT CLERK, Stop date: 08/30/17 8:46:00 INVENTORY AUDIT CLERK Inactive 08/30/2017 [facility] atorvastatin Notes: (Same as: Lipitor) No Longer Active 08/30/2017 [facility] Saline Flush 0.9% Notes: (Same as: BD Posiflush) No Longer Active 08/30/2017 [facility] Vancomycin 2001 mg: infuse ov er 2.5 hours No Longer Active 08/30/2017 [facility] Cefazolin Notes: (Same As: Anc ef, Kefzol) MEDICATION WASTE Product Size: 1000 mg Product Wasted: ___ mg No Longer Active 08/30/2017 [facility] Sodium Chloride 0.9% (titrate) 250 mL 250 mL, Rate: To prime line and flush remaining blood products., Dosing Weight 135.9, kg, Route: IV, Total Volume: 250, Priority: Routine, Start Date: 08/29/17 17:24:00 INVENTORY AUDIT CLERK, Duration: 30 day, Stop date: 09/28/17 17:23:00 INVENTORY AUDIT CLERK, Replace Every: 24 hr No Longer Active 08/29/2017 [facility] Saline Flush 0.9% Notes: (Same as: BD Posiflush) No Longer Active 08/29/2017 [facility] Metoprolol Notes: (Same as: Lo pressor) Push over 2 minutes No Longer Active 08/29/2017 [facility] metoprolol extended release No alan: (Same as: Toprol XL) Do Not Crush Inactive 08/29/2017 [facility] Aspirin 81 MG Chewable Tablet Notes: Take with food. No Longer Active 08/29/2017 [facility] 24 HR Metoprolol Tartrate 25 MG Extended Release Tablet [Toprol] Notes: (Same as: Toprol XL) Do Not Crush No Longer Active 08/29/2017 [facility] heparin 5,000 unit, Route: SUB -Q, Q8H, Dosing Weight 134.091, kg, Start date: 08/29/17 8:00:00 INVENTORY AUDIT CLERK, Duration: 30 day, Stop date: 09/28/17 0:00:00 INVENTORY AUDIT CLERK Inactive 08/29/2017 [facility] heparin additive 25,000 unit [12 unit/kg /hr] + Premix Diluent Sodium Chloride 0.45% 500 mL Notes: Total Concentration = 50 unit/ ml Total volume = 500 ml Send Med Request 2 hours prior to next bag No Longer Active 08/29/2017 [facility] Heparin 60 unit/kg Bolus (Heparin Dosing Weight) Route: IVP, PRN, 6,200 unit, 6.2 mL, Drug form: INJ, PRN, Heparin Protocol, Start date: 08/29/17 4:13:00 INVENTORY AUDIT CLERK Stop date: 09/28/17 4:12:00 INVENTORY AUDIT CLERK, 30 day No Longer Active 08/29/2017 [facility] Heparin 30 unit/kg Bolus (Heparin Dosing Weight) Route: IVP, PRN, 3,100 unit, 3.1 mL, Drug form: INJ, PRN, Heparin Protocol, Start date: 08/29/17 4:13:00 INVENTORY AUDIT CLERK Stop date: 09/28/17 4:12:00 INVENTORY AUDIT CLERK, 30 day No Longer Active 08/29/2017 [facility] Heparin - one time bolus for ACS 4,000 unit, 4 mL, Route: IVP, Drug form: INJ, ONCE, Dosing Weight 134.091, kg, Priority: STAT, Start date: 08/29/17 4:13:00 INVENTORY AUDIT CLERK, Stop date: 08/29/17 4:13:00 INVENTORY AUDIT CLERK Inactive 08/29/2017 [facility] Nitroglycerin 0.4 MG Sublingual Tablet Notes: (Same as:Nitroquick, Nitrostat) "Do Not Crush" Sublingual tablet No Longer Active 08/29/2017 [facility] Calcium Carbonate 500 MG Chewable Tablet Notes: (Same As: Tums) Calcium Carbonate 500 mg = 200 mg elemental calcium Dose = mg calcium carbonate ( mg elemental calcium) No Longer Active 08/29/2017 [facility] Calcium Gluconate Notes: WASTE : F/P - Sink; E - Municipal Trash Bin No Longer Active 08/29/2017 [facility] nter sodium phosphate 30 mmol, 10 m L, Route: IVPB, PRN, Dosing Weight 134.091, kg, PRN Abnormal Lab Result, Start date: 08/29/17 3:52:00 INVENTORY AUDIT CLERK, Duration: 30 day, Stop date: 09/28/17 3:51:00 INVENTORY AUDIT CLERK, FOR ICU USE ONLY No Longer Active 08/29/2017 [facility] Magnesium Oxide Notes: (Same a s: Mag-Ox 400) Magnesium oxide [id number] elemental magnesium Dose=____mg magnesium oxide (___mg elemental magnesium) No Longer Active 08/29/2017 [facility] nter Potassium Chloride Notes: ([facility] e as: K-Dur 20) "Do Not Crush" With food and full glass of water No Longer Active 08/29/2017 [facility] nter potassium phosphate Notes: ([facility] as: K Phosphate.) 1 mMol phoshate has 1.47 mEq potassium Infuse over 4 hours No Longer Active 08/29/2017 [facility] potassium phosphate-sodium phosphate 250 mg-280 mg-160 mg oral powder for reconstitution Notes: (Same as: Phos-NaK) Each 1.5 gm pkt has 250mg phosphorous. Mix w/2.5oz water and stir. No Longer Active 08/29/2017 [facility] Magnesium Sulfate Notes: WASTE : F/P - Sink; E - Municipal Trash Bin No Longer Active 08/29/2017 [facility] nter Nitroglycerin 0.4 MG Sublingual Tablet 0.4 mg = 1 tab, SL, Q5Min, PRN Chest Pain, 0 Refill(s) On Hold 08/29/2017 [facility] metoprolol 25 mg oral tablet, extended release 25 mg = 1 tab, PO, Daily, 0 Refill(s) On Hold 08/29/2017 [facility] atorvastatin 40 mg oral tablet 40 mg = 1 tab, PO, Bedtime, 0 Refill(s) On Hold 08/29/2017 [facility] Aspirin 81 MG Chewable Tablet 81 mg = 1 tab, PO, Daily, 0 Refill(s) On Hold 08/29/2017 [facility] atorvastatin Notes: (Same as: Lipitor) No Longer Active 08/29/2017 [facility] Aspirin 325 MG Oral Tablet Not es: (Do Not Crush) Do not crush or chew. Inactive 08/28/2017 [facility] Nitroglycerin Notes: (Same as: Nitroquick, Nitrostat) "Do Not Crush" Sublingual tablet No Longer Active 08/28/2017 [facility] normal saline 0.9% IV 1,000 mL 1,000 mL, Rate: 100 ml/hr, Infuse over: 10 hr, Route: IV, Dosing Weight 134.091 kg, Total Volume: 1,000, Start date: 08/28/17 11:46:00 [employer]ORY AUDIT [employer]ERK, Duration: 30 day, Stop date: 09/27/17 11:45:00 INVENTORY AUDIT CLERK, 2.67, m2 No Longer Active 08/28/2017 [facility] Sodium Chloride 0.9% (Bolus) IV 500 mL, 500 ml/hr, Infuse Over: 1 hr, Route: IV, 500, Drug form: INJ, ONCE, Dosing Weight 134.091 kg, Start date: 08/28/17 11:46:00 INVENTORY AUDIT CLERK, Stop date: 08/28/17 11:46:00 INVENTORY AUDIT CLERK Inactive 08/28/2017 [facility] Nitroglycerin 0.4 MG Sublingual Tablet 0.4 mg = 1 tab, SL, Q5Min, PRN Chest pain, Give up to 3 doses. Call 911 if pain persists., # 100 tab, 0 Refill(s) On Hold 08/28/2017 [facility] metoprolol 25 mg oral tablet, extended release 25 mg = 1 tab, PO, Daily, # 30 tab, 0 Refill(s) On Hold 08/28/2017 [facility] Aspirin 81 MG Chewable Tablet 81 mg = 1 tab, PO, Daily, tab, 0 Refill(s) On Hold 08/28/2017 [facility] Lipitor PO, Daily, 0 Refill(s) On Hold 08/28/2017 [facility] Allergies, Adverse Reactions, Alerts Substance Category Reaction Severity Reaction type Status Date Reported Comments Source No Known Medication Allergies Assertion Drug aller gy [facility] Immunizations No Data Provided for This Section Results Order Name Results Value Reference Range Date Interpretation Comments Source CHEM PANEL Glucose Lvl 203 70 - 99 01/21/2020 [facility] CHEM PANEL BUN 15 7 - 22 01/21/2020 [facility] CHEM PANEL Creatinine Lvl 1.17 0.50 - 1.40 01/21/2020 [facility] CHEM PANEL Sodium Lvl 138 135 - 145 01/21/2020 [facility] CHEM PANEL Potassium Lvl 4.1 3.5 - 5.1 01/21/2020 [facility] CHEM PANEL Chloride Lvl 109 95 - 109 01/21/2020 [facility] CHEM PANEL CO2 22 24 - 32 01/21/2020 [facility] CHEM PANEL Calcium Lvl 8.7 8.5 - 10.5 01/21/2020 [facility] CHEM PANEL Total Protein 7.2 6.4 - 8.4 01/21/2020 [facility] CHEM PANEL Albumin Lvl 3.7 3.5 - 5.0 01/21/2020 [facility] CHEM PANEL ALT 55 0 - 65 01/21/2020 [facility] CHEM PANEL AST 50 0 - 37 01/21/2020 [facility] CHEM PANEL Alk Phos 87 39 - 136 01/21/2020 [facility] CHEM PANEL Bili Total 0.6 0.2 - 1.3 01/21/2020 [facility] CHEM PANEL AGAP 11.1 10.0 - 20.0 01/21/2020 [facility] CHEM PANEL B/C Ratio 13 6 - 25 01/21/2020 [facility] CHEM PANEL Globulin 3.5 2.7 - 4.2 01/21/2020 [facility] CHEM PANEL A/G Ratio 1.1 0.7 - 1.6 01/21/2020 [facility] CHEM PANEL eGFR 66 01/21/2020 Result Comment: The eGFR is calculated using [...] should be multiplied by the estimated BMI. [facility] HEMATOLOGY WBC 7.6 3.7 - 10.4 01/21/2020 [facility] HEMATOLOGY RBC 4.80 4.70 - 6.10 01/21/2020 [facility] HEMATOLOGY Hgb 14.6 14.0 - 18.0 01/21/2020 [facility] HEMATOLOGY Hct 42.6 42.0 - 54.0 01/21/2020 [facility] HEMATOLOGY MCV 88.8 80.0 - 94.0 01/21/2020 [facility] HEMATOLOGY MCH 30.4 27.0 - 31.0 01/21/2020 [facility] HEMATOLOGY MCHC 34.2 32.0 - 36.0 01/21/2020 [facility] HEMATOLOGY RDW 13.3 11.5 - 14.5 01/21/2020 [facility] HEMATOLOGY Platelet 189 133 - 450 01/21/2020 [facility] HEMATOLOGY MPV 8.9 7.4 - 10.4 01/21/2020 [facility] HEMATOLOGY Segs 65.9 45.0 - 75.0 01/21/2020 [facility] HEMATOLOGY Lymphocytes 23.8 20.0 - 40.0 01/21/2020 [facility] HEMATOLOGY Monocytes 8.9 2.0 - 12.0 01/21/2020 [facility] HEMATOLOGY Eosinophils 0.8 0.0 - 4.0 01/21/2020 [facility] HEMATOLOGY Basophils 0.6 0.0 - 1.0 01/21/2020 [facility] HEMATOLOGY Neutrophils # 5.0 1.5 - 8.1 01/21/2020 [facility] HEMATOLOGY Lymphocytes # 1.8 1.0 - 5.5 01/21/2020 [facility] HEMATOLOGY Monocytes # 0.7 0.0 - 0.8 01/21/2020 [facility] HEMATOLOGY Eosinophils # 0.1 0.0 - 0.5 01/21/2020 [facility] LIPIDS Trig 236 <=149 mg/dL 01/21/2020 [facility] LIPIDS Chol 162 <=199 mg/dL 01/21/2020 [facility] LIPIDS HDL 37 >=61 mg/dL 01/21/2020 [facility] LIPIDS CHD Risk 4.38 4.00 - 7.30 01/21/2020 [facility] LIPIDS LDL (Calculated) 78 <=99 mg/dL 01/21/2020 [facility] LIPIDS VLDL 47 01/21/2020 [facility] SPECIAL CHEMISTRY PSA 0.85 0.00 - 4.00 01/21/2020 [facility] SPECIAL CHEMISTRY Hgb A1C 6.8 <=5.6 % 01/21/2020 [facility] CHEM PANEL eGFR 60 06/30/2018 Result Comment: The eGFR is calculated using [...] should be multiplied by the estimated BMI. [facility] CHEM PANEL Calcium Lvl 8.6 8.5 - 10.5 06/30/2018 [facility] CHEM PANEL CO2 28 24 - 32 06/30/2018 [facility] CHEM PANEL AGAP 11.4 10.0 - 20.0 06/30/2018 [facility] CHEM PANEL BUN 19 7 - 22 06/30/2018 [facility] CHEM PANEL Glucose Lvl 131 70 - 99 06/30/2018 [facility] CHEM PANEL Chloride Lvl 105 95 - 109 06/30/2018 [facility] CHEM PANEL Potassium Lvl 4.4 3.5 - 5.1 06/30/2018 [facility] CHEM PANEL Creatinine Lvl 1.28 0.50 - 1.40 06/30/2018 [facility] CHEM PANEL Sodium Lvl 140 135 - 145 06/30/2018 [facility] LIPIDS VLDL 33 06/30/2018 [facility] LIPIDS Chol 142 <=199 mg/dL 06/30/2018 [facility] LIPIDS CHD Risk 3.74 4.00 - 7.30 06/30/2018 [facility] LIPIDS HDL 38 >=61 mg/dL 06/30/2018 [facility] LIPIDS Trig 163 <=149 mg/dL 06/30/2018 [facility] LIPIDS LDL (Calculated) 71 <=99 mg/dL 06/30/2018 [facility] SPECIAL CHEMISTRY Hgb A1C 6.4 <=5.6 % 06/30/2018 [facility] CHEM PANEL Phosphorus 2.6 2.5 - 4.5 09/03/2017 [facility] CHEM PANEL Magnesium Lvl 2.1 1.8 - 2.4 09/03/2017 [facility] CHEM PANEL B/C Ratio 19 6 - 25 09/03/2017 [facility] CHEM PANEL AGAP 9.9 10.0 - 20.0 09/03/2017 [facility] CHEM PANEL Globulin 3.6 2.7 - 4.2 09/03/2017 [facility] CHEM PANEL A/G Ratio 0.6 0.7 - 1.6 09/03/2017 [facility] CHEM PANEL eGFR 70 09/03/2017 Result Comment: The eGFR is calculated [...] should be multiplied by the estimated BMI. [facility] CHEM PANEL Calcium Lvl 8.2 8.5 - 10.5 09/03/2017 [facility] CHEM PANEL Chloride Lvl 99 95 - 109 09/03/2017 [facility] CHEM PANEL CO2 29 24 - 32 09/03/2017 [facility] CHEM PANEL Sodium Lvl 134 135 - 145 09/03/2017 [facility] CHEM PANEL Creatinine Lvl 1.13 0.50 - 1.40 09/03/2017 [facility] CHEM PANEL Potassium Lvl 3.9 3.5 - 5.1 09/03/2017 [facility] CHEM PANEL Glucose Lvl 133 70 - 99 09/03/2017 [facility] CHEM PANEL BUN 21 7 - 22 09/03/2017 [facility] CHEM PANEL Total Protein 5.8 6.4 - 8.4 09/03/2017 [facility] CHEM PANEL ALT 25 0 - 65 09/03/2017 [facility] CHEM PANEL Alk Phos 54 39 - 136 09/03/2017 [facility] CHEM PANEL Albumin Lvl 2.2 3.5 - 5.0 09/03/2017 [facility] CHEM PANEL Bili Total 0.5 0.2 - 1.3 09/03/2017 [facility] CHEM PANEL AST 23 0 - 37 09/03/2017 [facility] HEMATOLOGY INR 1.13 0.85 - 1.17 09/03/2017 [facility] HEMATOLOGY PTT 33.0 22.9 - 35.8 09/03/2017 [facility] HEMATOLOGY D-Dimer 0.89 09/03/2017 [facility] HEMATOLOGY Fibrinogen Lvl 771 230 - 510 09/03/2017 [facility] HEMATOLOGY Thrombin Time 14.9 15.0 - 21.2 09/03/2017 [facility] HEMATOLOGY PT 14.5 12.0 - 14.7 09/03/2017 [facility] HEMATOLOGY RDW 13.0 11.5 - 14.5 09/03/2017 [facility] HEMATOLOGY Platelet 191 133 - 450 09/03/2017 [facility] HEMATOLOGY MPV 9.1 7.4 - 10.4 09/03/2017 [facility] HEMATOLOGY WBC 12.8 3.7 - 10.4 09/03/2017 [facility] HEMATOLOGY Hgb 9.9 14.0 - 18.0 09/03/2017 [facility] HEMATOLOGY RBC 3.38 4.70 - 6.10 09/03/2017 [facility] HEMATOLOGY Hct 29.1 42.0 - 54.0 09/03/2017 [facility] HEMATOLOGY MCH 29.3 27.0 - 31.0 09/03/2017 [facility] HEMATOLOGY MCV 85.9 80.0 - 94.0 09/03/2017 [facility] HEMATOLOGY MCHC 34.1 32.0 - 36.0 09/03/2017 [facility] HEMATOLOGY Anisocyte 1+ *ABN* (09/03/17 4:29 AM) None Seen 09/03/2017 [facility] HEMATOLOGY Eosinophils # 0.1 0.0 - 0.5 09/03/2017 [facility] HEMATOLOGY Plt Morph Carri l (09/03/17 4:29 AM) 09/03/2017 [facility] HEMATOLOGY Lymphocytes 19.0 20.0 - 40.0 09/03/2017 [facility] HEMATOLOGY Monocytes 12.2 2.0 - 12.0 09/03/2017 [facility] HEMATOLOGY Segs 67.6 45.0 - 75.0 09/03/2017 [facility] HEMATOLOGY Segs-Bands # 8.7 1.5 - 8.1 09/03/2017 [facility] HEMATOLOGY Basophils 0.3 0.0 - 1.0 09/03/2017 [facility] HEMATOLOGY Eosinophils 0.9 0.0 - 4.0 09/03/2017 [facility] HEMATOLOGY Monocytes # 1.6 0.0 - 0.8 09/03/2017 [facility] HEMATOLOGY Lymphocytes # 2.4 1.0 - 5.5 09/03/2017 [facility] PARATHYROID PROFILE Ca Ion WB 1.05 1.05 - 1.25 09/03/2017 [facility] PARATHYROID PROFILE Ca Norm WB 1.05 1.05 - 1.25 09/03/2017 [facility] BLOOD BANK RESULTS Antibody Scrn Negative (09/02/17 12:45 AM) 09/02/2017 [facility] BLOOD BANK RESULTS ABO/Rh O POS 09/02/2017 [facility] CHEM PANEL Phosphorus 2.6 2.5 - 4.5 09/02/2017 [facility] CHEM PANEL Magnesium Lvl 2.2 1.8 - 2.4 09/02/2017 [facility] ELECTROLYTES CO2 28 24 - 32 09/02/2017 [facility] ELECTROLYTES Calcium Lvl 8.1 8.5 - 10.5 09/02/2017 [facility] ELECTROLYTES Chloride Lvl 101 95 - 109 09/02/2017 [facility] ELECTROLYTES Potassium Lvl 3.9 3.5 - 5.1 09/02/2017 [facility] ELECTROLYTES Creatinine Lvl 1.5 1 0.50 - 1.40 09/02/2017 [facility] ELECTROLYTES Sodium Lvl 135 135 - 145 09/02/2017 [facility] ELECTROLYTES Glucose Lvl 140 70 - 99 09/02/2017 [facility] ELECTROLYTES BUN 23 7 - 22 09/02/2017 [facility] ELECTROLYTES eGFR 49 09/02/2017 Result Comment: The eGFR is calculated [...] should be multiplied by the estimated BMI. [facility] ELECTROLYTES AGAP 9.9 10.0 - 20.0 09/02/2017 [facility] HEMATOLOGY MCV 85.9 80.0 - 94.0 09/02/2017 [facility] HEMATOLOGY RDW 13.1 11.5 - 14.5 09/02/2017 [facility] HEMATOLOGY Platelet 165 133 - 450 09/02/2017 [facility] HEMATOLOGY MCH 30.0 27.0 - 31.0 09/02/2017 [facility] HEMATOLOGY MCHC 34.9 32.0 - 36.0 09/02/2017 [facility] HEMATOLOGY MPV 9.0 7.4 - 10.4 09/02/2017 [facility] HEMATOLOGY Hgb 10.9 14.0 - 18.0 09/02/2017 [facility] HEMATOLOGY Hct 31.1 42.0 - 54.0 09/02/2017 [facility] HEMATOLOGY WBC 16.2 3.7 - 10.4 09/02/2017 [facility] HEMATOLOGY RBC 3.62 4.70 - 6.10 09/02/2017 [facility] HEMATOLOGY Segs 70.0 45.0 - 75.0 09/02/2017 [facility] HEMATOLOGY Lymphocytes 18.5 20.0 - 40.0 09/02/2017 [facility] HEMATOLOGY Basophils 0.3 0.0 - 1.0 09/02/2017 [facility] HEMATOLOGY Monocytes 10.7 2.0 - 12.0 09/02/2017 [facility] HEMATOLOGY Eosinophils 0.5 0.0 - 4.0 09/02/2017 [facility] HEMATOLOGY Eosinophils # 0.1 0.0 - 0.5 09/02/2017 [facility] HEMATOLOGY Monocytes # 1.7 0.0 - 0.8 09/02/2017 [facility] HEMATOLOGY Lymphocytes # 3.0 1.0 - 5.5 09/02/2017 [facility] HEMATOLOGY Segs-Bands # 11.3 1.5 - 8.1 09/02/2017 [facility] HEMATOLOGY INR 1.32 0.85 - 1.17 09/02/2017 [facility] HEMATOLOGY PT 16.5 12.0 - 14.7 09/02/2017 [facility] HEMATOLOGY PTT 32.6 22.9 - 35.8 09/02/2017 [facility] PARATHYROID PROFILE Ca Norm WB 1.04 1.05 - 1.25 09/02/2017 [facility] PARATHYROID PROFILE Ca Ion WB 1.06 1.05 - 1.25 09/02/2017 [facility] CHEM PANEL Phosphorus 2.3 2.5 - 4.5 09/01/2017 [facility] CHEM PANEL Magnesium Lvl 2.2 1.8 - 2.4 09/01/2017 [facility] ELECTROLYTES AGAP 10.4 10.0 - 20.0 09/01/2017 [facility] ELECTROLYTES eGFR 71 09/01/2017 Result Comment: The eGFR is calculated [...] should be multiplied by the estimated BMI. [facility] ELECTROLYTES CO2 27 24 - 32 09/01/2017 [facility] ELECTROLYTES Calcium Lvl 8.2 8.5 - 10.5 09/01/2017 [facility] ELECTROLYTES Glucose Lvl 160 70 - 99 09/01/2017 [facility] ELECTROLYTES BUN 18 7 - 22 09/01/2017 [facility] ELECTROLYTES Creatinine Lvl 1.1 2 0.50 - 1.40 09/01/2017 [facility] ELECTROLYTES Potassium Lvl 4.4 3.5 - 5.1 09/01/2017 [facility] ELECTROLYTES Sodium Lvl 140 135 - 145 09/01/2017 [facility] ELECTROLYTES Chloride Lvl 107 95 - 109 09/01/2017 [facility] HEMATOLOGY PTT 32.7 22.9 - 35.8 09/01/2017 [facility] HEMATOLOGY INR 1.41 0.85 - 1.17 09/01/2017 [facility] HEMATOLOGY PT 17.3 12.0 - 14.7 09/01/2017 [facility] HEMATOLOGY Platelet 160 133 - 450 09/01/2017 [facility] HEMATOLOGY RDW 13.1 11.5 - 14.5 09/01/2017 [facility] HEMATOLOGY MPV 8.9 7.4 - 10.4 09/01/2017 [facility] HEMATOLOGY MCV 86.7 80.0 - 94.0 09/01/2017 [facility] HEMATOLOGY Hct 33.5 42.0 - 54.0 09/01/2017 [facility] HEMATOLOGY MCH 29.8 27.0 - 31.0 09/01/2017 [facility] HEMATOLOGY RBC 3.86 4.70 - 6.10 09/01/2017 [facility] HEMATOLOGY MCHC 34.4 32.0 - 36.0 09/01/2017 [facility] HEMATOLOGY Hgb 11.5 14.0 - 18.0 09/01/2017 [facility] HEMATOLOGY WBC 17.0 3.7 - 10.4 09/01/2017 [facility] HEMATOLOGY Monocytes # 1.5 0.0 - 0.8 09/01/2017 [facility] HEMATOLOGY Eosinophils 0.1 0.0 - 4.0 09/01/2017 [facility] HEMATOLOGY Segs-Bands # 13.8 1.5 - 8.1 09/01/2017 [facility] HEMATOLOGY Basophils 0.2 0.0 - 1.0 09/01/2017 [facility] HEMATOLOGY Lymphocytes # 1.7 1.0 - 5.5 09/01/2017 [facility] HEMATOLOGY Segs 81.1 45.0 - 75.0 09/01/2017 [facility] HEMATOLOGY Monocytes 8.9 2.0 - 12.0 09/01/2017 [facility] HEMATOLOGY Lymphocytes 9.7 20.0 - 40.0 09/01/2017 [facility] PARATHYROID PROFILE Ca Ion WB 1.05 1.05 - 1.25 09/01/2017 [facility] PARATHYROID PROFILE Ca Norm WB 1.05 1.05 - 1.25 09/01/2017 [facility] CHEM PANEL AST 62 0 - 37 08/31/2017 [facility] CHEM PANEL Total Protein 5.9 6.4 - 8.4 08/31/2017 [facility] CHEM PANEL Albumin Lvl 2.9 3.5 - 5.0 08/31/2017 [facility] CHEM PANEL ALT 57 0 - 65 08/31/2017 [facility] CHEM PANEL Bili Total 0.5 0.2 - 1.3 08/31/2017 [facility] CHEM PANEL Bili Indirect 0.4 0.0 - 1.0 08/31/2017 [facility] CHEM PANEL Bili Direct 0.1 0.0 - 0.3 08/31/2017 [facility] CHEM PANEL Alk Phos 63 39 - 136 08/31/2017 [facility] CHEM PANEL Globulin 3.0 2.7 - 4.2 08/31/2017 [facility] CHEM PANEL A/G Ratio 1.0 0.7 - 1.6 08/31/2017 [facility] CHEM PANEL Lactic Acid Lvl 1.3 0.5 - 2.2 08/31/2017 [facility] HEMATOLOGY Thrombin Time 16.6 15.0 - 21.2 08/31/2017 [facility] HEMATOLOGY Fibrinogen Lvl 393 230 - 510 08/31/2017 [facility] HEMATOLOGY D-Dimer 0.73 08/31/2017 [facility] CHEM PANEL Lactic Acid Lvl 1.9 0.5 - 2.2 08/30/2017 [facility] HEMATOLOGY Thrombin Time 20.3 15.0 - 21.2 08/30/2017 [facility] HEMATOLOGY D-Dimer 1.29 08/30/2017 [facility] HEMATOLOGY Fibrinogen Lvl 312 230 - 510 08/30/2017 [facility] HEMATOLOGY Bands 20.0 0.0 - 11.0 08/30/2017 [facility] HEMATOLOGY Metamyelocytes 1.0 0.0 - 1.0 08/30/2017 [facility] HEMATOLOGY Atypical Lymphs 0.0 <=0.0 % 08/30/2017 [facility] CHEM PANEL Bili Total 0.6 0.2 - 1.3 08/30/2017 [facility] CHEM PANEL Alk Phos 75 39 - 136 08/30/2017 [facility] CHEM PANEL Albumin Lvl 3.5 3.5 - 5.0 08/30/2017 [facility] CHEM PANEL ALT 60 0 - 65 08/30/2017 [facility] CHEM PANEL AST 26 0 - 37 08/30/2017 [facility] CHEM PANEL Total Protein 6.9 6.4 - 8.4 08/30/2017 [facility] CHEM PANEL A/G Ratio 1.0 0.7 - 1.6 08/30/2017 [facility] CHEM PANEL Globulin 3.4 2.7 - 4.2 08/30/2017 [facility] CHEM PANEL B/C Ratio 12 6 - 25 08/30/2017 [facility] HEMATOLOGY Eosinophils # 0.1 0.0 - 0.5 08/30/2017 [facility] HEMATOLOGY Basophils # 0.1 0.0 - 0.2 08/30/2017 [facility] URINE AND STOOL UA Turbidity Clear (08/30/17 12:01 AM) Clear 08/30/2017 [facility] URINE AND STOOL UA Color Yellow *NA* (08/30/17 12:01 AM) Yellow 08/30/2017 [facility] URINE AND STOOL UA Spec Grav 1.010 <=1.030 08/30/2017 [facility] URINE AND STOOL UA pH 6.0 5.0 - 8.0 08/30/2017 [facility] URINE AND STOOL UA Bili Negative *NA* (08/30/17 12:01 AM) Negative 08/30/2017 [facility] URINE AND STOOL UA Ketones Negative mg/dL Negative mg/dL 08/30/2017 [facility] URINE AND STOOL UA Glucose Negative mg/dL Negative mg/dL 08/30/2017 [facility] URINE AND STOOL UA Protein Negative mg/dL Negative mg/dL 08/30/2017 [facility] URINE AND STOOL UA WBC <1 0 - 5 08/30/2017 [facility] URINE AND STOOL UA Leuk Est Negative (08/30/17 12:01 AM) Negative 08/30/2017 [facility] URINE AND STOOL UA Nitrite Negative (08/30/17 12:01 AM) Negative 08/30/2017 [facility] URINE AND STOOL UA Blood Negative (08/30/17 12:01 AM) Negative 08/30/2017 [facility] URINE AND STOOL UA Sq Epi None Seen 08/30/2017 [facility] URINE AND STOOL UA Urobilinogen <=1.0 mg/dL 0.1 - 1.0 08/30/2017 [facility] BLOOD BANK RESULTS FFP product Product available (08/29/17 5:51 PM) 08/29/2017 [facility] BLOOD BANK RESULTS Platelet product Product available (08/29/17 5:51 PM) 08/29/2017 [facility] BLOOD BANK RESULTS RBC product Product available (08/29/17 5:51 PM) 08/29/2017 [facility] BACTERIAL - SEROLOGY MRSA by PCR Negative (08/29/17 5:07 AM) 08/29/2017 [facility] BLOOD BANK RESULTS Antibody Scrn Negative (08/29/17 5:01 AM) 08/29/2017 [facility] BLOOD BANK RESULTS ABO/Rh O POS 08/29/2017 [facility] CHEM PANEL Bili Indirect 0.4 0.0 - 1.0 08/29/2017 [facility] CHEM PANEL Bili Direct 0.1 0.0 - 0.3 08/29/2017 [facility] SPECIAL CHEMISTRY Hgb A1C 6.4 <=5.6 % 08/29/2017 [facility] CHEM PANEL eGFR 82 08/28/2017 Result Comment: The eGFR is calculated [...] should be multiplied by the estimated BMI. [facility] CHEM PANEL Creatinine Lvl 0.99 0.50 - 1.40 08/28/2017 [facility] HEMATOLOGY Hgb 14.0 14.0 - 18.0 08/28/2017 [facility] CHEM PANEL eGFR 72 08/28/2017 Result Comment: The eGFR is calculated [...] should be multiplied by the estimated BMI. [facility] CHEM PANEL CO2 28 24 - 32 08/28/2017 [facility] CHEM PANEL Calcium Lvl 8.4 8.5 - 10.5 08/28/2017 [facility] CHEM PANEL Creatinine Lvl 1.11 0.50 - 1.40 08/28/2017 [facility] CHEM PANEL Glucose Lvl 142 70 - 99 08/28/2017 [facility] CHEM PANEL BUN 21 7 - 22 08/28/2017 [facility] CHEM PANEL Sodium Lvl 140 135 - 145 08/28/2017 [facility] CHEM PANEL Potassium Lvl 3.9 3.5 - 5.1 08/28/2017 [facility] CHEM PANEL Chloride Lvl 104 95 - 109 08/28/2017 [facility] CHEM PANEL AGAP 11.9 10.0 - 20.0 08/28/2017 [facility] Eosinophils # 0.1 0.0 - 0.5 08/28/2017 [facility] Monocytes # 0.8 0.0 - 0.8 08/28/2017 [facility] Basophils 0.4 0.0 - 1.0 08/28/2017 [facility] Eosinophils 1.4 0.0 - 4.0 08/28/2017 [facility] Segs-Bands # 5.9 1.5 - 8.1 08/28/2017 [facility] Lymphocytes # 2.7 1.0 - 5.5 08/28/2017 [facility] Lymphocytes 28.1 20.0 - 40.0 08/28/2017 [facility] Segs 61.5 45.0 - 75.0 08/28/2017 [facility] Monocytes 8.6 2.0 - 12.0 08/28/2017 [facility] PT 12.4 12.0 - 14.7 08/28/2017 [facility] HEMATOLOGY PTT 28.5 22.9 - 35.8 08/28/2017 [facility] HEMATOLOGY INR 0.92 0.85 - 1.17 08/28/2017 [facility] HEMATOLOGY MCV 87.1 80.0 - 94.0 08/28/2017 [facility] HEMATOLOGY Hct 43.5 42.0 - 54.0 08/28/2017 [facility] HEMATOLOGY Hgb 14.8 14.0 - 18.0 08/28/2017 [facility] HEMATOLOGY RBC 4.99 4.70 - 6.10 08/28/2017 [facility] HEMATOLOGY WBC 9.6 3.7 - 10.4 08/28/2017 [facility] HEMATOLOGY RDW 12.9 11.5 - 14.5 08/28/2017 [facility] HEMATOLOGY Platelet 206 133 - 450 08/28/2017 [facility] HEMATOLOGY MCH 29.6 27.0 - 31.0 08/28/2017 [facility] HEMATOLOGY MCHC 34.0 32.0 - 36.0 08/28/2017 [facility] HEMATOLOGY MPV 9.0 7.4 - 10.4 08/28/2017 [facility] LIPIDS VLDL 44 08/28/2017 [facility] LIPIDS LDL (Calculated) 20 <=99 mg/dL 08/28/2017 [facility] LIPIDS HDL 30 >=61 mg/dL 08/28/2017 [facility] LIPIDS Chol 94 <=199 mg/dL 08/28/2017 [facility] LIPIDS Trig 222 <=149 mg/dL 08/28/2017 [facility] LIPIDS CHD Risk 3.13 4.00 - 7.30 08/28/2017 [facility] Pathology Reports No Data Provided for This Section Diagnostic Reports Report Value Date Source Chest 1view DX EXAM: XR CHEST 1 VIEW DATE: 09/04/2017 INDICATION: - dyspnea . Comparison is made with yesterday FINDINGS: Cardiomediastinal silhouette and sternotomy wires are unchanged as a small left pleural effusion. There is platelike atelectasis at the left lung and left lower lobe. The right lung is clear. IMPRESSION: No significant interval change when compared to prior radiograph. 09/04/2017 [facility] Chest 1view DX EXAM: XR CHEST 1 VIEW DATE: 09/03/2017 INDICATION: Tube placement/removal/reposition - chest tube placement . Comparison is made with yesterday FINDINGS: Cardiomediastinal silhouette and sternotomy wires are unchanged. Costophrenic sulci are sharp without effusion. Platelike atelectasis at the left lower lobe. The remainder the lungs are clear IMPRESSION: No significant interval change when compared to prior radiograph. 09/03/2017 [facility] Chest 1view DX EXAM: XR CHEST 1 VIEW DATE: 09/02/2017 3:00 AM INVENTORY AUDIT CLERK INDICATION: Tube placement/removal/reposition - chest tube placement [...] removal of a right IJ catheter. 09/02/2017 [facility] Chest 1view DX EXAM: XR CHEST 1 VIEW DATE: 09/01/2017 11:17 AM INVENTORY AUDIT CLERK INDICATION: - tube removal TECHNIQUE: AP chest. IMPRESSION: No significant interval changes. A right IJ approach central venous catheter is seen with its tip overlying the SVC. Intact median sternotomy wires. Low lung volumes with bronchovascular crowding and scattered subsegmental atelectasis. No pneumothorax given the limitation of a semiupright exam. 09/01/2017 [facility] Chest 1view DX EXAM: XR CHEST 1 VIEW DATE: 09/01/2017 3:00 AM INVENTORY AUDIT CLERK INDICATION: Tube placement/removal/reposition - chest tube placement TECHNIQUE: AP chest. DISCUSSION: A right IJ sheath is in place. Left chest tube is also present. Moderate patchy perihilar opacities are demonstrated. Low lung volumes with scattered subsegmental atelectasis. No definite residual pneumothorax. IMPRESSION: No significant interval changes. 09/01/2017 [facility] Chest 1view DX EXAM: XR CHEST 1 VIEW DATE: 08/31/2017 3:00 AM INVENTORY AUDIT CLERK INDICATION: Tube placement/removal/reposition - chest tube placement TECHNIQUE: AP chest. IMPRESSION: Life-support lines are stable. There is a tiny left apical pneumothorax. Mild platelike atelectasis or consolidation in the lung bases. Findings are grossly stable. 08/31/2017 [facility] Chest 1view DX EXAM: AP VIEW O F THE CHEST DATE: 08/30/2017 4:07 PM INVENTORY AUDIT CLERK INDICATION: - for tube placement COMPARISON: CXR [...] IMPRESSION: 1. Low lung volumes with accentuated vas cular markings and bibasilar atelectasis. 2. Slight increase in bilateral mid to u pper lung zone opacities may represent atelectasis or possible aspiration. 3. No pleural effusions. 08/30/2017 [facility] Chest 1view DX EXAM: XR CHEST 1 VIEW DATE: 08/30/2017 3:00 AM INVENTORY AUDIT CLERK INDICATION: Respiratory distress - preop TECHNIQUE: AP chest DISCUSSION: The lungs and pleura are clear. Heart size is within normal limits. Osseous structures are unremarkable. IMPRESSION: The lungs are clear. 08/30/2017 [facility] Chest wo contrast CT EXAM: CT CHEST WITHOUT CONTRAST DATE: 08/29/2017 4:18 PM INVENTORY AUDIT CLERK INDICATION: - Dilated aortic root TECHNIQUE: Volumetric [...] limitations of a noncontrast nongated exam. 08/29/2017 [facility] Consultation Notes No Data Provided for This Section Discharge Summaries No Data Provided for This Section History and Physicals No Data Provided for This Section Vital Signs Vital Sign Value Date Comments Source Systolic (mm Hg) 126 01/21/2020 [facility] Diastolic (mm Hg) 70 01/21/2020 [facility] Heart Rate 82 01/21/2020 [facility] Respitory Rate 18 01/21/2020 [facility] Temperature Oral (F) 98.4 F 01/21/2020 [facility] Height 182.88 cm 01/21/2020 [facility] Weight 139.29 01/21/2020 [facility] BMI Calculated 41.65 01/21/2020 [facility] Height 182.88 cm 02/09/2019 [facility] Weight 139.545 02/09/2019 [facility] BMI Calculated 41.72 02/09/2019 [facility] Systolic (mm Hg) 121 02/09/2019 [facility] Diastolic (mm Hg) 73 02/09/2019 [facility] Temperature Oral (F) 98.3 F 02/09/2019 [facility] Heart Rate 66 02/09/2019 [facility] Respitory Rate 18 02/09/2019 [facility] Respitory Rate 16 06/30/2018 [facility] Heart Rate 63 06/30/2018 [facility] BMI Calculated 42.2 06/30/2018 [facility] Weight 139.955 06/30/2018 [facility] Height 182.12 cm 06/30/2018 [facility] Temperature Oral (F) 98.2 F 06/30/2018 [facility] Systolic (mm Hg) 175 06/30/2018 [facility] Diastolic (mm Hg) 88 06/30/2018 [facility] BMI Calculated 38.08 10/28/2017 [facility] Weight 134.545 10/28/2017 [facility] Temperature Oral (F) 98.0 F 10/28/2017 [facility] Heart Rate 67 10/28/2017 [facility] Respitory Rate 16 10/28/2017 [facility] Height 187.96 cm 10/28/2017 [facility] Systolic (mm Hg) 110 10/28/2017 [facility] Diastolic (mm Hg) 67 10/28/2017 [facility] Height 181.1 cm 09/19/2017 [facility] Heart Rate 73 09/19/2017 [facility] Respitory Rate 18 09/19/2017 [facility] Temperature Oral (F) 97.9 F 09/19/2017 [facility] Weight 130.227 09/19/2017 [facility] BMI Calculated 39.71 09/19/2017 [facility] Systolic (mm Hg) 122 09/19/2017 [facility] Diastolic (mm Hg) 71 09/19/2017 [facility] Weight 134.574 09/06/2017 [facility] BMI Calculated 38.09 09/06/2017 [facility] Heart Rate 72 09/06/2017 [facility] Temperature Oral (F) 97.7 F 09/06/2017 [facility] Respitory Rate 20 09/06/2017 [facility] Systolic (mm Hg) 99 09/06/2017 [facility] Diastolic (mm Hg) 59 09/06/2017 [facility] Height 187.96 cm 09/06/2017 [facility] Height 182.63 cm 09/05/2017 [facility] Weight 135.682 09/05/2017 [facility] BMI Calculated 40.68 09/05/2017 [facility] Temperature Oral (F) 97.3 F 09/05/2017 [facility] Heart Rate 68 09/05/2017 [facility] Respitory Rate 18 09/05/2017 [facility] Systolic (mm Hg) 120 09/05/2017 [facility] Diastolic (mm Hg) 68 09/05/2017 [facility] Temperature Oral (F) 99 F 09/04/2017 [facility] Temperature Oral (F) 98.9 F 09/04/2017 [facility] Respitory Rate 20 09/04/2017 [facility] Systolic (mm Hg) 115 09/04/2017 [facility] Diastolic (mm Hg) 56 09/04/2017 [facility] Systolic (mm Hg) 108 09/04/2017 [facility] Diastolic (mm Hg) 56 09/04/2017 [facility] Respitory Rate 20 09/04/2017 [facility] Systolic (mm Hg) 108 09/04/2017 [facility] Diastolic (mm Hg) 53 09/04/2017 [facility] Respitory Rate 20 09/04/2017 [facility] Temperature Oral (F) 99.7 F 09/03/2017 [facility] Height 187.96 cm 08/31/2017 [facility] Height 187.96 cm 08/31/2017 [facility] Height 187.96 cm 08/31/2017 [facility] BMI Calculated 38.47 08/29/2017 [facility] Weight 135.9 08/29/2017 [facility] Respitory Rate 18 08/29/2017 [facility] Heart Rate 69 08/29/2017 [facility] Temperature Oral (F) 98.1 F 08/29/2017 [facility] Systolic (mm Hg) 115 08/29/2017 [facility] Diastolic (mm Hg) 69 08/29/2017 [facility] Respitory Rate 18 08/29/2017 [facility] Heart Rate 66 08/29/2017 [facility] Systolic (mm Hg) 119 08/29/2017 [facility] Diastolic (mm Hg) 69 08/29/2017 [facility] Temperature Oral (F) 98.3 F 08/29/2017 [facility] Systolic (mm Hg) 128 08/29/2017 [facility] Diastolic (mm Hg) 72 08/29/2017 [facility] Respitory Rate 18 08/29/2017 [facility] Heart Rate 68 08/29/2017 [facility] Height 187.96 cm 08/28/2017 [facility] BMI Calculated 37.95 08/28/2017 [facility] Weight 134.091 08/28/2017 [facility] BMI Calculated 37.95 08/28/2017 [facility] Weight 134.091 08/28/2017 [facility] Height 187.96 cm 08/28/2017 [facility] Encounters Location Location Details Encounter Type Encounter Number Reason For Visit Attending Provider ADM Date DC Date Status Source [facility] Bedded Outpatient [id number] Aurelio Duranbrayan Stock 08/28/2017 08/29/2017 [facility] Inpatient [id number] Rossyfelixanitaирина Argueta 08/29/2017 09/04/2017 [facility] Outpatient [id number] Wilber Meek 09/05/2017 09/06/2017 [facility] Outpatient [id number] Jorge Arzate 09/06/2017 09/07/2017 [facility] Outpatient [id number] Jorge Arzate 09/19/2017 09/20/2017 [facility] Outpatient [id number] Jorge Arzate 10/28/2017 10/29/2017 [facility] Outpatient [id number] Jorge Arzate 06/30/2018 07/01/2018 [facility] Outpatient [id number] Jorge Arzate 02/09/2019 02/10/2019 [facility] Outpatient [id number] Jorge Arzate 01/21/2020 01/22/2020 [facility] Procedures Procedure Code Date Perfomer Comments Source Appendectomy [id number] [facility] Right knee Arthroscopy 3768009 09 [facility] Repair of umbiilical hernia<sup>3</sup> [id number] In the 80' s [facility] Laminectomy and Spinal fusion<sup>1</sup> 108886074 Fusion at L 4, 5, 6 [facility] Repair of ruptured biceps tendon<sup>2</sup> [id number] Attempted but unsuccessful [facility] Rotator cuff repair (bilateral) [id number] [facility] Suture of joint capsule with arthroplast y of ankle<sup>4</sup> [id number] Fractured, repaired with abe and screws [facility] Tonsilectomy [id number] [facility] Total replacement of left knee joint [id number] [facility] Assessment and Plan Assessment and Plan Date Source Extracted from:Title: HF Surgery Author: Maddison Antunez Date: 09/04/17 [...] spirometer - Sternal precautions x8 weeks. Keep bk rnal binder on at all times. OOB, mobilize, ambulate with PT/OT - Wound care: Keep all surgical sites cl torrey and dry, can leave open to air - Drains/wires: All chest tubes removed 09/01/17. TPW cut at level of skin 09/01/17 - Dispo: Follow up in surgery clinic in 1 week for chest tube suture removal and wound check, can be reached at [phone] Surgical Risk Checklist: Pre-op STS: 0.744% Pre-op Beta Naun: Esmolol 50mg Cr Pre-op and Post-op: 1.07/1.115 24h Post-op Transfusions: None Extubated: 08/31/17 Transfer to IMU: 09/03/17 Post-op ECHO: pending Post-op Complications: none Extracted from:Title: Electrophysiology Consult Author: Adalgisa Bustos MD Date: 09/02/17 Patient: TERRENCE OLIVAS Age: 62 years Sex: Male : 1955 [...] NKDA- No reactions were documented., Allergies (1) Active Reaction NKDA None Documented Current medications: (Selected) Inpatient Medications Ordered AMIODarone 900 mg in D5W 500 ml IV 900 mg + Dextrose 5% in Water IV 482 mL: 1 mg/min for 6 hours, then reduce to 0.5 mg/min, IV, Stop: 10/01/17 12:05: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 Hypertension (2353406734): Resolved. Hyperlipidemia (87233165): Resolved. Family History: Heart attack Father Procedure history: Total replacement of left knee joint (SNOMED CT 5040184665). Laminectomy and Spinal fusion (SNOMED CT 554185606). Comments: 08/29/2017 05:34 - Kristal Awan RN Fusion at L 4, 5, 6 Appendectomy (SNOMED CT 901900541). Repair of umbiilical hernia (SNOMED CT 187126344). Comments: 08/29/2017 05:33 - Kristal Awan RN In the 80's Rotator cuff repair (bilateral) (SNOMED CT 859616686). Tonsilectomy (SNOMED CT 905195680). Repair of ruptured biceps tendon (SNOMED CT 05984869). Comments: 08/29/2017 05:37 - Kristal Awan RN Attempted but unsuccessful Right knee Arthroscopy (SNOMED CT 607849785). Suture of joint capsule with arthroplasty of ankle (SNOMED CT 88359963). Comments: 08/29/2017 05:40 - Kristal Awan RN Fractured, repaired with abe and screws Social History Social and Psychosocial Habits Alcohol 08/29/2017 Use: Current Type: [...] Heart Rate Apical 83 bpm (SEP 02 14:00) Resp Rate H 22 BRMIN (SEP 02 14:00) SBP 120 mmHg (SEP 02 14:00) DBP 61 mmHg (SEP 02 14:00) SpO2 95 % (SEP 02 14:00) Labs [...] - please keep NPO after midnight for pos sible ablation tomorrow - rate is well controlled on amiodarone 0.5mg/min, please continue - appears normal sinus rhythm at the [facility] ent Electrophysiology will continue to follow. Addendum by Adalgisa Bustos MD on 09/06/2017 15:17 I have seen and and examined the patient with Dr. Vasquez on 09-02-17. I have reviewed all clincal information and agree with above note, assessment, and plan. I was present, and supervised. Extracted from:Title: HF Surgery. ACB Author: Maddison Antunez Date: [...] Anesthesia: General Antibiotics: Ancef 1g @ 820 and 1120, Vanco 1.5g @820 IVF: 1700cc crystalloid UOP: 500cc EBL: 1500cc Transfusions: 1 Fresh Frozen Plasma Cell Saver: 3 Drains: 3 chest tubes (Anterior mediastinal, posterior mediastinal, left pleural Complications: none Specimens: none Dictation #: by Dr. Ta Disposition: HFICU, Intubated in stable condition Extracted from:Title: AHF History and Physical Author: Stefan Bermudez MD Date: 08/29/17 Impression and Plan 1. 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 09/04/2017 [facility] Extracted from:Title: Cardiovascular Adm ission H&P * Author: Aurelio Gabriel MD Date: 08/28/17 Impression and Plan 62 yo M Severe multivessel CAD HTN HLD Recs: 08/28/17- ASA, statin, BB, initiated tra nsfer to [facility] for CV surgical consultation- CAB evaluation. 08/29/2017 [facility] Plan of Care No Data Provided for This Section Social History Social History Date Source Social History TypeResponse Exercise Exercise duration: 30. Exercise frequency: 1-2 times/week. Exercise type: Walking. Alcohol Current, Type Beer. Frequency: 1-2 times per week. Smoking Status Current some day smoker; Type: Cigars; Exposure to Tobacco Smoke None; Cigarette Smoking Last 365 Days Yes; Reg Smoking Cessation Counseling No 08/29/2017 [facility] Social History TypeResponse Alcohol Current, Type Beer. Frequency: 1-2 times per week. Exercise Exercise duration: 30. Exercise frequency: 1-2 times/week. Exercise type: Walking. Smoking Status Former smoker; Type: Cigars; Exposure to Tobacco Smoke None; Cigarette Smoking Last 365 Days Yes; Reg Smoking Cessation Counseling No1 entered on: 01/21/20 1Quit smoking cigars December 2016 08/29/2017 [facility] Family History No Data Provided for This Section Advance Directives No Data Provided for This Section Functional Status No Data Provided for This Section
--- OUTSIDE RECORDS SUMMARY | 2020-04-06 16:47 | XMS REPORT | Summary of Care ---
Author Author [facility] Organization [facility] Address Unknown Phone Unavailable Care Team Providers Care Production Control Scheduler Name Role Phone Richard Bryant PCP Encounter [facility] [place](FIN) [phone] Date(s): 06/30/18 - 06/30/18 [facility] [address], [address] Encounter Diagnosis Atherosclerotic heart disease of [place] coronary artery without angina pectoris (Final) - 07/04/18 Unspecified atrial flutter (Final) - Unspecified atrial fibrillation (Final) - Essential (primary) hypertension (Final) - Hyperlipidemia, unspecified (Final) - Obesity, unspecified (Final) - Personal history of nicotine dependence (Final) - Presence of aortocoronary bypass graft (Final) - custodial (current) use of antithrombotics/antiplatelets (Final) - 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) - Discharge Disposition: Home or Self Care Attending Physician: Jorge Arzate MD Referring Physician: Jorge Arzate MD Vital Signs Most recent to 1 oldest [Reference Range]: Height 182.12 cm (06/30/18 7:58 AM) Temperature Oral 98.2 DegF [96.4-99.1 DegF] (06/30/18 7:58 AM) Blood Pressure 175/88 mmHg [90-140/60-90 mmHg] *HI* (06/30/18 7:58 AM) Respiratory Rate 16 BRMIN [14-20 BRMIN] (06/30/18 7:58 AM) Peripheral Pulse 63 bpm Rate [60-100 bpm] (06/30/18 7:58 AM) Weight 139.955 kg (06/30/18 7:58 AM) Body Mass Index 42.2 m2 (06/30/18 7:58 AM) Problem List Condition Effective Dates Status Health Status Informan t Chest Resolved pain(Confirmed) Hyperlipidemia(Confi Resolved rmed) Hypertension(Confirm Resolved ed) Allergies, Adverse Reactions, Alerts No Known Medication Allergies Medications atorvastatin 40 mg oral tablet 40 mg = 1 tab, PO, Bedtime, # 90 tab, 3 Refill(s), Pharmacy: [id number] Start Date: 01/06/18 Status: Ordered losartan 25 mg oral tablet 12.5 mg = 0.5 tab, PO, Daily, # 15 tab, 6 Refill(s), Pharmacy: [facility] #[id number] Start Date: 06/30/18 Stop Date: 01/26/19 Status: Ordered Results Most recent to 1 oldest [Reference Range]: eGFR 60 mL/min/1.73m2 1 *NA* (06/30/18 8:44 AM) AGAP [10.0-20.0 11.4 mEq/L mEq/L] (06/30/18 8:44 AM) BUN [7-22 mg/dL] 19 mg/dL (06/30/18 8:44 AM) Calcium Lvl 8.6 mg/dL [8.5-10.5 mg/dL] (06/30/18 8:44 AM) CHD Risk [4.00-7.30] 3.74 *LOW* (06/30/18 8:44 AM) Chol [<=199 mg/dL] 142 mg/dL (06/30/18 8:44 AM) Chloride Lvl [95-109 105 mEq/L mEq/L] (06/30/18 8:44 AM) CO2 [24-32 mEq/L] 28 mEq/L (06/30/18 8:44 AM) Creatinine Lvl 1.28 mg/dL [0.50-1.40 mg/dL] (06/30/18 8:44 AM) Glucose Lvl [70-99 131 mg/dL mg/dL] *HI* (06/30/18 8:44 AM) HDL [>=61 mg/dL] 38 mg/dL *LOW* (06/30/18 8:44 AM) Hgb A1C [<=5.6 %] 6.4 % *HI* (06/30/18 8:44 AM) Potassium Lvl 4.4 mEq/L [3.5-5.1 mEq/L] (06/30/18 8:44 AM) LDL (Calculated) 71 mg/dL [<=99 mg/dL] (06/30/18 8:44 AM) Sodium Lvl [135-145 140 mEq/L mEq/L] (06/30/18 8:44 AM) Trig [<=149 mg/dL] 163 mg/dL *HI* (06/30/18 8:44 AM) VLDL 33 *NA* (06/30/18 8:44 AM) 1Result Comment: The eGFR is calculated [...] History Type Response Exercise Exercise duration: 30. Exe rcise frequency: 1-2 times/week. Exercise type: Walking. Alcohol Current, Type Beer. Freque ncy: 1-2 times per week. Smoking Status Former smoker; Type: Cigars ; Exposure to Tobacco Smoke None; Cigarette Smoking Last 365 Days Yes; Reg Smoking Cessation Counseling No1 entered on: 06/30/18 1Quit smoking cigars December 2016 Assessment and Plan No data available for this section
--- OUTSIDE RECORDS SUMMARY | 2020-04-06 16:47 | XMS REPORT | Summary of Care ---
Author Author [facility] Organization [facility] Address Unknown Phone Unavailable Care Team Providers Care Can Sealer Name Role Phone Richard Bryant PCP Encounter [facility] [place](LILIYA) [phone] Date(s): 02/09/19 - 02/09/19 [facility] [address], [address] [place], [place] [id number] Discharge Disposition: Home or Self Care Attending Physician: Jorge Arzate MD Referring Physician: Jorge Arzate MD Vital Signs Most recent to 1 oldest [Reference Range]: Height 182.88 cm (02/09/19 8:12 AM) Temperature Oral 98.3 DegF [96.4-99.1 DegF] (02/09/19 8:12 AM) Blood Pressure 121/73 mmHg [90-140/60-90 mmHg] (02/09/19 8:12 AM) Respiratory Rate 18 BRMIN [14-20 BRMIN] (02/09/19 8:12 AM) Peripheral Pulse 66 bpm Rate [60-100 bpm] (02/09/19 8:12 AM) Weight 139.545 kg (02/09/19 8:12 AM) Body Mass Index 41.72 m2 (02/09/19 8:12 AM) Problem List Condition Effective Dates Status Health Status Informan t Chest Resolved pain(Confirmed) Hyperlipidemia(Confi Resolved rmed) Hypertension(Confirm Resolved ed) Allergies, Adverse Reactions, Alerts No Known Medication Allergies Medications aspirin 81 mg tablet, enteric coated 81 mg = 1 tab, PO, Daily, # 120 tab, 1 Refill(s), Pharmacy: [facility]/pharmacy #[id number] Start Date: 02/09/19 Status: Ordered atorvastatin 40 mg oral tablet 40 mg = 1 tab, PO, Bedtime, # 30 tab, 7 Refill(s), [id number] Start Date: 02/09/19 Status: Ordered losartan 25 mg oral tablet 12.5 mg = 0.5 tab, PO, Daily, # 30 tab, 7 Refill(s), [id number] Start Date: 02/09/19 Status: Ordered Toprol-XL 25 mg oral tablet, extended release 12.5 mg = 0.5 tab, PO, Daily, # 30 tab, 7 Refill(s), [id number] Start Date: 02/09/19 Status: Ordered Results No data available for [...] Reg Smoking Cessation Counseling No1 entered on: 02/09/19 1Quit smoking cigars December 2016 Assessment and Plan No data available for this section
--- OUTSIDE RECORDS SUMMARY | 2020-04-06 16:48 | XMS REPORT | Continuity of Care Document ---
Author Author [facility] Organization [facility] Address [address] [place] [address] Phone Unavailable Care Team Providers Care Director Of Pediatric Rehabilitation Name Role Phone Miguel Arzate Attphys Mary RODRIGUEZ Attphys Unavailable Wilber Meek Attphys Unavailable Rossy Arguetawajarrett Attphys Phil Gabriel Attphys KendallRossywajarertt Admphys Problems Condition Name Condition Details Condition Category Status Onset Date Resolution Date Last Treatment Date Treating Clinician Comments Source 6MOS F/U 6MOS F/U Active 02/09/2019 [facility] Diagnosis Active 2019-02-09 00:00:00 2020-01-21 08:15:00 [facility] 2WK F/U 2WK F/U Active 01/22/2019 [facility] Diagnosis Active 2019-01-22 00:00:00 2019-02-09 07:28:00 [facility] FOLLOW UP FOLL OW UP Active 09/24/2017 [facility] Diagnosis Active 2017-09-24 00:00:00 2017-10-28 09:53:00 [facility] FOLLOW UP 1 MONTH FOLL OW UP 1 MONTH Active 09/23/2017 [facility] Diagnosis Active 2017-09-23 00:00:00 2018-06 07:41:00 [facility] 1 WEEK F/U 1 WE EK F/U Active 09/06/2017 [facility] Diagnosis Active 2017-09-06 00:00:00 2017-09-19 10:37:00 [facility] F/U HOSP ITAL F/U Active 09/05/2017 [facility] Diagnosis Active 2017-09-05 00:00:00 2017-09-10 16:11:00 Hugo Quevedo SOB; SYNCOPE SOB; SYNCOPE Active 09/05/2017 [facility] Diagnosis Active 2017-09-05 00:00:00 2017-09-10 16:12:00 Hugo Quevedo TRIPLE VESSEL DISEASE TRIP LE VESSEL DISEASE Active 08/29/2017 [facility] Diagnosis Active 2017-08-29 00:00:00 2017-09-05 16:11:00 Hugo Quevedo UNK UNK Active 08/22/2017 [facility] Active 2017-08-22 00:00:00 2017-08-29 08:18:00 M laniphilpankaj Sae Unspecified atrial fibrillation Unspecified atrial fibrillation 01/17/2019 [facility] Problem 2019-01-17 12:27:08 Hugo Quevedo Unspecified atrial flutter Uns pecified atrial flutter 01/17/2019 [facility] Problem 2019-01-17 12 :27:08 Hugo Quevedo Presence of aortocoronary bypass graft Presence of aortocoronary bypass graft 01/17/2019 [facility] Problem 2019-01-17 12:27:08 Hugo Quevedo Hyperlipidemia, unspecified Hy perlipidemia, unspecified 01/17/2019 [facility] Problem 2019-01-17 12 :27:08 Hugo Quevedo Essential (primary) hypertension Essential (primary) hypertension 01/17/2019 [facility] Problem 2019-01-17 12:27:08 Hugo Quevedo correction (current) use of aspirin correction (current) use of aspirin 01/17/2019 [facility] Problem 2019-01-17 12:27:08 Hugo Quevedo correction (current) use of antithrombotics/antiplatele ts correction (current) use of antithrombotics/antiplatelets 01/17/2019 [facility] Problem 2019-01-17 12:27:08 Hugo Quevedo Type 2 diabetes mellitus without complications Type 2 diabetes mellitus without complications 02/03/2018 [facility] Problem 2018-02-03 11:23:36 Hugo Quevedo Obesity, unspecified Obes ity, unspecified 01/17/2019 [facility] Problem 2019-01-17 12:27:08 Hugo Quevedo Personal history of nicotine dependence Personal history of nicotine dependence 01/17/2019 [facility] Problem 2019-01-17 12:27:08 Hugo Quevedo Chest pain (finding) Ches t pain (finding) Resolved Problem 01/23/2020 [facility] Problem Resolved 2020-01-23 22:30:13 [facility] Hyperlipidemia (disorder) Hype rlipidemia (disorder) Resolved Problem 01/23/2020 [facility] Problem Resolved 2020-01-23 22:30:13 Eneidamike mcneill Sae Hypertensive disorder, systemic arterial (disorder) Hypertensive disorder, systemic arterial (disorder) Resolved Problem 01/23/2020 [facility] Problem Resolved 2020-01-23 22:30:13 [facility] 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 07/05/2018 01/17/2019 [facility] Problem 2018-07-05 03:14:32 2019-01-17 12:27:08 2019-01-17 12:27:08 [facility] Allergies, Adverse Reactions, Alerts Allergy Name Allergy Type Status Severity Reaction(s) Onset Date Inacti ve Date Treating Clinician Comments Source No Known Medication Allergies No Known Medication Allergies Active [facility] Social History Social Habit Start Date Stop Date Quantity Comments Source Social History 2017-08-29 11:42:08 2017-08-29 11:42:08 [facility] Medications Ordered Medication Name Filled Medication Name Start Date Stop Da te Current Medication? Ordering Clinician Indication Dosage Frequency Signature (SIG) Comments Components Source atorvastatin 40 mg oral tablet 2019-09-15 15:24:00 Yes 40 mg = 1 tab, PO, Bedtime, # 90 tab, 3 Refill(s), Pharmacy: [facility]/pharmacy #[id number] [facility] Aspirin 81 MG Enteric Coated Tablet 2019-05-18 22:04:51 Yes 81 mg = 1 tab, PO, Daily, # 90 tab, 3 Refill(s), Pharmacy: [facility]/pharmacy #[id number] [facility] losartan 25 mg oral tablet 2019-02-16 21:14:34 Yes 12.5 mg = 0.5 tab, PO, Daily, # 45 tab, 3 Refill(s), Pharmacy: [facility]/pharmacy #[id number] [facility] Aspirin 81 MG Enteric Coated Tablet 2019-02-09 19:09:46 Yes 81 mg = 1 tab, PO, Daily, # 120 tab, 1 Refill(s), Pharmacy: [facility]/pharmacy #[id number] [facility] atorvastatin 40 mg oral tablet 2019-02-09 19:08:28 Yes 40 mg = 1 tab, PO, Bedtime, # 30 tab, 7 Refill(s), Pharmacy: [facility]/pharmacy #[id number] [facility] 24 HR Metoprolol Tartrate 25 MG Extended Release Tablet [[facility]] 2019-02-09 19:07:43 Yes 12.5 mg = 0.5 tab, PO, Daily, # 30 tab, 7 Refill(s), Pharmacy: [facility]/pharmacy #[id number] [facility] losartan 25 mg oral tablet 2019-02-09 19:06:35 Yes 12.5 mg = 0.5 tab, PO, Daily, # 30 tab, 7 Refill(s), Pharmacy: [facility]/pharmacy #[id number] [facility] losartan 25 mg oral tablet 2018-06-30 20:30:00 Yes 12.5 mg = 0.5 tab, PO, Daily, # 15 tab, 6 Refill(s), Pharmacy: [facility]/pharmacy #[id number] [facility] atorvastatin 40 mg oral tablet 2018-01-06 14:50:00 Yes 40 mg = 1 tab, PO, Bedtime, # 90 tab, 3 Refill(s), Pharmacy: [facility]/pharmacy #[id number] [facility] 24 HR Metoprolol Tartrate 25 MG Extended Release Tablet [[facility]] 2017-12-13 14:54:45 Yes 12.5 mg = 0.5 tab, PO, Daily, # 45 tab, 3 Refill(s), Pharmacy: [facility] [id number] [place] [address] Acetaminophen 300 MG / Codeine Phosphate 30 MG Oral Tablet [Tylenol with Codeine #3] 2017-10-08 17:43:00 No 1 tab, PO, Q12H, X 5 day, # 10 tab, 0 Refill(s), called to pharmacy [facility] tramadol hydrochloride 50 MG Oral Tablet 2017-09-06 17:34:00 Yes 50 mg = 1 tab, PO, Q4H, PRN, 0 [facility] 0.6 MG Oral Tablet 2017-09-06 17:18:00 Yes 0.6 mg = 1 tab, PO, Daily, # 14 tab, 0 Refill(s), Pharmacy: [facility]/pharmacy #[id number] [facility] Metformin hydrochloride 500 MG Oral Tablet 2017-09-04 18:00:00 Yes 500 mg = 1 tab, PO, BID-Meals, # 60 tab, 1 Refill(s) Hugo Quevedo 24 HR Metoprolol Tartrate 25 MG Extended Release Tablet [Top [facility]] 2017-09-04 17:28:00 Yes 25 mg = 1 tab, PO, Daily, # 3 0 tab, 1 Refill(s) Hugo Quevedo pantoprazole 40 mg oral enteric coated tablet 2017-09-04 15:10:0 0 No 40 mg = 1 tab, PO, Before Breakfast, # 30 tab, 2 Refill(s) [facility] Cardiac Rehabilitation 2017-09-04 15:10:00 Yes See Instructions, Cardiac Rehab Phase 2, # 1 ea, 0 Refill(s) Hugo Quevedo aspirin 81 mg tablet, enteric coated 2017-09-04 15:10:00 Ye s 81 mg = 1 tab, PO, Daily, # 100 tab, 3 Refill(s) Hugo Quevedo Furosemide 40 MG Oral Tablet 2017-09-04 15:10:00 Yes 40 mg = 1 tab, PO, Daily, # 14 tab, 0 Refill(s) Armaan Quevedo AMIODarone 200 mg oral tablet 2017-09-04 15:10:00 Yes 400 mg = 2 tab, PO, BID, Take 400mg (2 tabs) BID until 09/11 Then take 200mg (1 tab) daily and continue this dose, # 120 tab, 0 Refill(s) Hugo Quevedo clopidogrel 75 mg oral tablet 2017-09-04 15:10:00 Yes 75 mg = 1 tab, PO, Daily, # 90 tab, 3 Refill(s) Cj Kumar metoprolol tartrate 25 mg oral tablet 2017-09-04 15:10:00 N o 12.5 mg = 0.5 tab, PO, Q12H, # 30 tab, 3 Refill(s) Hugo Quevedo Acetaminophen 300 MG / Codeine Phosphate 30 MG Oral Tablet [Tylenol with Codeine #3] 2017-09-04 15:10:00 Yes 1 tab, PO, Q6H, PRN Pain Score 6-10, X 7 day, # 28 tab, 0 Refill(s) Hugo knight atorvastatin 40 mg oral tablet 2017-09-04 15:10:00 Yes 40 mg = 1 tab, PO, Bedtime, # 90 tab, 3 Refill(s) [facility] Plavix 2017-09-04 15:00:00 No Notes: (Same As: Plavix) [facility] Amiodarone 2017-09-03 23:00:00 No 400 mg, Route: PO, Drug form: TAB, BID, Dosing Weight 135.9, kg, Start date: 09/03/17 17:00:[address] COUNSELLOR, Duration: 30 day, Stop date: 10/03/17 9:00:[address] COUNSELLOR [facility] potassium phosphate 2017-09-03 18:38:00 No Notes: (Same as: K Phosphate.) 1 mMol phoshate has 1.47 mEq potassium Infuse over 4 hours [facility] Magnesium Sulfate 2017-09-03 18:38:00 No Notes: WASTE: F/P - Sink; E - [employer] [facility] sodium phosphate 2017-09-03 18:38:00 No 15 mmol, 5 mL, Route: IVPB, PRN, Dosing Weight 135.9, kg, PRN Abnormal Lab Result, For NON-ICU Patients Only., Start date: 09/03/17 12:38:[address] COUNSELLOR, Duration: 30 day, Stop date: 10/03/17 12:37:[address] COUNSELLOR [facility] Calcium Gluconate 2017-09-03 18:38:00 No Notes: WASTE: F/P - Sink; E - [employer] [facility] Magnesium Oxide 2017-09-03 18:38:00 No Notes: (Same as: Mag-Ox 400) Magnesium oxide [id number] elemental magnesium Dose=____mg magnesium oxide (___mg elemental magnesium) [facility] Potassium Chloride 2017-09-03 18:38:00 No Notes: (Same as: K-Dur 20) "Do Not Crush" With food and full glass of water [facility] potassium phosphate-sodium phosphate 250 mg-280 mg-160 mg oral powder for reconstitution 2017-09-03 18:38:00 No Notes: (Same as: Phos-NaK) Each 1.5 gm pkt has 250mg phosphorous. Mix w/2.5oz water and stir. [facility] Lasix 2017-09-03 15:59:00 No Notes: (Same as: Lasix) May cause GI upset. Give with food or milk. [facility] Amiodarone 2017-09-03 15:57:00 No Notes: (S roseanne as: Cordarone) [facility] Sae Bisacodyl 2017-09-03 13:07:00 No Notes: (Same As: Dulcolax, Bisco-Lax) [facility] Lasix 2017-09-02 15:10:00 No Notes: (Same a s: Lasix) [facility] Protonix 2017-09-02 13:30:00 No Notes: Tablet should not be chewed or crushed. (Same as: Protonix) [facility] Lyrica 2017-09-01 22:00:00 No Notes: Same a s Lyprabhjota [facility] metoprolol tartrate 2017-09-01 20:00:00 No Notes: (Same as: Lopressor) 12.5 mg=1/2 X 25 mg TAB Chandler rial Sae AMIODarone 900 mg in D5W 500 ml IV 900 mg + Dextrose 5% in W ater IV 482 mL 2017-09-01 18:06:00 No 2 mg/ml. Use Glass Bottle or Non PVC Bag "Use 0.22 micron in-line filter" MEDICATION WASTE Product Size: 900 mg Product Wasted: ___ mg [facility] Amiodarone 2017-09-01 18:06:00 No 2 mg/ml. "Recommendation: Use an in-line filter during administration for continuous infusions to reduce the incidence of phlebitis" (Same as Codarone) MEDICATION WASTE Product Size: 150 mg Product Wasted: ___ mg [facility] Las[facility] 2017-09-01 15:34:00 No Notes: (Same as: Lasix) MEDICATION WASTE Product Size: 40 mg Product Wasted: ___ mg [facility] Aspirin 2017-09-01 15:00:00 No Notes: Do not crush or chew. (Same As: Ecotrin) [facility] atorvastatin 2017-09-01 03:00:00 No Notes: (Same as: Lipitor) [facility] insulin, isophane 2017-09-01 03:00:00 No Notes: Roll in palms of hands gently; Do not shake vigorously. (Same as: Humulin N) Do not hold insulin without contacting prescriber WASTE: F/P - Black; E - Municipal Trash Bin Stable for 28 days at room temperature Expires in days from Date Hugo Quevedo senna 8.6 mg oral tablet 2017-08-31 23:00:00 No Notes: (Same as: Senokot) Hugo Quevedo heparin sodium, porcine 2500 UNT/ML Injectable Solution 2017-08-31 22:00:00 No Notes: porcine heparin [facility] Dextrose 50% Syringe 2017-08-31 21:45:00 No 25 gm, 50 mL, Route: IVP, Drug Form: INJ, Dosing Weight 135.9, kg, PRN, PRN Blood Glucose Results, Start date: 08/31/17 15:45:[address] COUNSELLOR, Duration: 30 day, Stop date: 09/30/17 15:44:[address] COUNSELLOR Hugo Quevedo Glucagon 2017-08-31 21:45:00 No 1 mg, Route: IM, Drug form: PDR/INJ, PRN, Dosing Weight 135.9, kg, PRN Blood Glucose Results, Start date: 08/31/17 15:45:[address] COUNSELLOR, Duration: 30 day, Stop date: 09/30/17 15:44:[address] COUNSELLOR [facility] Sae Insulin Lispro 2017-08-31 21:45:00 No Notes: (Same as: Humalog ) Roll in palms of hands gently; Do not shake `vigorously. "Single Patient Use Only " WASTE: F/P - Black; E - Municipal Trash Bin Stable for 28 days at room temperature. Expires in days from Date [facility] Sae pantoprazole 2017-08-31 15:00:00 No Notes: For IV push reconstitute with 10 ml 0.9% sodium chloride and push over 2 minutes. (Same as: Protonix) Hugo Quevedo Aspirin 325 MG Enteric Coated Tablet 2017-08-31 15:00:00 No Notes: (Do Not Crush) Do not crush or chew. Il danielito Sae Tylenol 2017-08-31 06:34:00 No Notes: Infuse over 15 minutes Do not exceed 4gm/day of acetaminophen MEDICATION WASTE Product Size: 1000 mg Product Wasted: ___ mg Hugo pittman Cefazolin 2017-08-31 04:30:00 No Notes: (Sa me as Ancef) Hugo Quevedo Vancomycin 2017-08-31 03:30:00 No 2001 mg: infuse over 2.5 hours MEDICATION WASTE Product Size: 1000 mg Product Wasted: ___ mg Hugo Quevedo chlorhexidine gluconate 1.2 MG/ML Mouthwash 2017-08-31 03:00:00 No Notes: (Same As: Peridex) Hugo Chadwicka nn ocular lubricant 2017-08-31 00:00:00 No Notes: (Same as: Lacri-Lube, Duratears Naturale, Artificial Tears, and Tears Again ) Hugo Chadwickann Aspirin 300 MG Rectal Suppository 2017-08-31 00:00:00 No Notes: Refrigerate. Hugo Chadwickann Fentanyl 2017-08-30 23:45:00 No Notes: (Same as: Sublimaze) Preservative free. Hugo Sae normal saline 0.9% IV 1,000 mL 2017-08-30 23:02:00 No 1,000 mL, Rate: 100 ml/hr, Infuse over: 10 hr, Route: IV, Dosing Weight 135.9 kg, Total Volume: 1,000, Start date: 08/30/17 17:02:[address] COUNSELLOR, Duration: 30 day, Stop date: 09/29/17 17:01:[address] COUNSELLOR, 2.69, m2 [facility] S[facility] Docusate Sodium 100 MG Oral Capsule [Colace] 2017-08-30 23:00:00 No Notes: (Same as: Colace) (Do Not Crush) Hugo Sae Versed 2017-08-30 22:57:00 No Notes: (Same as: Versed) MEDICATION WASTE Product Size: 5 mg Product Wasted: _0_ mg Hugo Quevedo Fentanyl 2017-08-30 22:57:00 No 1,000 microgram, 20 mL, Rate: Titrate, Start Dose: 50 microgram/hr, Titration: 25 microgram/hour every 15 minutes, Goal(s): -2, Max Dose: 300 microgram/hr, Route: IV, Dosing Weight 135.9 kg, Total Volume: 20, Start date: 08/30/17 16:57:[address] COUNSELLOR, Duratio... Hugo Quevedo Nicardipine 2017-08-30 21:50:00 No Notes: Same as: Cardene Concentration: (0.2 mg /1 ml ) Hugo Quevedo chlorhexidine gluconate 1.2 MG/ML Mouthwash 2017-08-30 21:40:00 No Notes: (Same As: Peridex) Hugo Gore nn Fentanyl 2017-08-30 21:23:00 No Notes: Concentration is 20 micrograms/ml Hugo Quevedo Naloxone 2017-08-30 21:23:00 No Notes: Same as Narcan [facility] Sae Dextrose 50% Syringe 2017-08-30 21:23:00 No 25 gm, 50 mL, Route: IVP, Drug Form: INJ, Dosing Weight 135.9, kg, PRN, PRN Blood Glucose Results, Start date: 08/30/17 15:23:[address] COUNSELLOR, Duration: 30 day, Stop date: 09/29/17 15:22:[address] COUNSELLOR Hugo Quevedo Insulin regular 100 unit + 2017-08-30 21:23:00 No Notes: Final Concentration 1unit/1ml WASTE: F/P - Black; E - Municipal Trash Bin Hugo Quevedo Zofran 2017-08-30 21:23:00 No Notes: (Same as: Sabino) MEDICATION WASTE Product Size: 4 mg Product Wasted: ___ mg Hugo Quevedo Cardene 40 mg in NS 200 mL (Titrate.) IV 40 mg 2017-08-30 21:23: 00 No Notes: Same as: Cardene Concentration: (0.2 mg /1 ml ) Hugo Quevedo Aspirin 325 MG Oral Tablet 2017-08-30 21:23:00 No Notes: Take with food. Hugo Quevedo Acetaminophen 2017-08-30 21:23:00 No Notes: Do not exceed 4 gm/day. (Same as: Tylenol) Hugo Quevedo Acetaminophen 325 MG / Hydrocodone Bitartrate 10 MG Oral Tab let 2017-08-30 21:23:00 No Notes: Do not exceed 4gm/day of acetaminophen. (Same as: [place] 325/10) Hugo Quevedo Dextrose 50% Syringe 2017-08-30 20:36:00 No 12.5 gm, 25 mL, Route: IVP, Drug Form: INJ, Dosing Weight 135.9, kg, PRN, PRN Blood Glucose Results, Start date: 08/30/17 14:36:[address] COUNSELLOR, Duration: 30 day, Stop date: 09/29/17 14:35:[address] COUNSELLOR [facility] Insulin regular 100 unit + 2017-08-30 20:36:00 No Notes: Final Concentration 1unit/1ml WASTE: F/P - Black; E - Municipal Tra Nathanael [facility] acetaminophen (ANES) 2017-08-30 19:53:00 No Route: IV, Drug form: INJ, ONCE, Stop date: 08/30/17 13:53:[address] COUNSELLOR [facility] protamine (ANES) 10 mg 2017-08-30 19:13:00 No Route: IV, Drug form: INJ, Start date: 08/30/17 13:13:[address] COUNSELLOR, Stop date: 08/30/17 14:13:[address] COUNSELLOR [facility] Insulin regular (ANES) 2017-08-30 18:53:00 No Route: IV, Drug form: INJ, ONCE, Stop date: 08/30/17 12:53:00 [facility] calcium gluconate (ANES) 2017-08-30 18:53:00 No Route: IV, Drug form: INJ, ONCE, Stop date: 08/30/17 12:53:[address] COUNSELLOR [facility] lidocaine (ANES) 2017-08-30 18:48:00 No Route: IV, Drug form: INJ, ONCE, Stop date: 08/30/17 12:48:[address] COUNSELLOR [facility] magnesium sulfate (ANES) 2017-08-30 18:48:00 No Route: IV, Drug form: INJ, ONCE, Stop date: 08/30/17 12:48:00 [facility] tranexamic acid (ANES) 2017-08-30 17:33:00 No Route: IV, Drug form: INJ, ONCE, Stop date: 08/30/17 11:33:00 [facility] heparin (ANES) 2017-08-30 17:03:00 No Route: IV, Drug form: INJ, ONCE, Stop date: 08/30/17 11:03:[address] COUNSELLOR [facility] esmolol (ANES) 2017-08-30 15:28:00 No Route: IV, Drug form: INJ, ONCE, Stop date: 08/30/17 9:28:[address] COUNSELLOR Il danielito Quevedo ceFAZolin (ANES) 2017-08-30 15:13:00 No Route: IV, Drug form: INJ, ONCE, Stop date: 08/30/17 9:13:[address] COUNSELLOR Il danielito Quevedo fentaNYL (ANES) 2017-08-30 15:08:00 No Route: IV, Drug form: INJ, ONCE, Stop date: 08/30/17 9:08:[address] COUNSELLOR Il danielito Quevedo midazolam (ANES) 2017-08-30 15:08:00 No Route: IV, Drug form: SOLN, ONCE, Stop date: 08/30/17 9:08:[address] COUNSELLOR Il danielito Quevedo lidocaine (ANES) 2017-08-30 15:08:00 No Route: IV, Drug form: INJ, ONCE, Stop date: 08/30/17 9:08:[address] COUNSELLOR Il danielito Quevedo propofol (ANES) 2017-08-30 15:08:00 No Route: IV, Drug form: INJ, ONCE, Stop date: 08/30/17 9:08:[address] COUNSELLOR Il danielito Quevedo norepinephrine (ANES) 10 microgram 2017-08-30 15:01:00 No Route: IV, Drug form: INJ, Start date: 08/30/17 9:01:[address] COUNSELLOR, Stop date: 08/30/17 10:01:[address] COUNSELLOR Hugo Sae rocuronium (ANES) 2017-08-30 14:22:00 No Route: IV, Drug form: INJ, ONCE, Stop date: 08/30/17 8:22:[address] COUNSELLOR Il danielito Quevedo vancomycin (ANES) 1000 mg 2017-08-30 14:20:00 No Route: IV, Drug form: INJ, Start date: 08/30/17 8:20:[address] COUNSELLOR, Stop date: 08/30/17 9:20:[address] COUNSELLOR Hugo Quevedo tranexamic acid (ANES) 100 mg 2017-08-30 14:00:00 No Route: IV, Drug form: INJ, Start date: 08/30/17 8:00:[address] COUNSELLOR, Stop date: 08/30/17 9:00:[address] COUNSELLOR Hugo Quevedo Sodium Chloride 0.9% IV (ANES) 1000 mL 2017-08-30 14:00:00 No Route: IV, Total Volume: 1,000, Start date: 08/30/17 8:00:[address] COUNSELLOR, Stop date: 08/30/17 9:00:[address] COUNSELLOR [facility] Isolyte S PH 7.4 (ANES) 1000 mL 2017-08-30 13:46:00 No Route: IV, Total Volume: 1,000, Start date: 08/30/17 7:46:[address] COUNSELLOR, Stop date: 08/30/17 8:46:[address] COUNSELLOR [facility] atorvastatin 2017-08-30 03:00:00 No Notes: (Same as: Lipitor) [facility] Saline Flush 0.9% 2017-08-30 03:00:00 No Notes: (Same as: BD Posiflush) [facility] Vancomycin 2017-08-30 00:00:00 No 2001 mg: infuse over 2.5 hours [facility] Cefazolin 2017-08-30 00:00:00 No Notes: (Same As: Ancnyasia Kefzol) MEDICATION WASTE Product Size: 1000 mg Product Wasted: ___ mg [facility] Sodium Chloride 0.9% (titrate) 250 mL 2017-08-29 23:24:00 N o 250 mL, Rate: To prime line and flush remaining blood products., Dosing Weight 135.9, kg, Route: IV, Total Volume: 250, Priority: Routine, Start Date: 08/29/17 17:24:[address] COUNSELLOR, Duration: 30 day, Stop date: 09/28/17 17:23:[address] COUNSELLOR, Replace Every: 24 hr [facility] Saline Flush 0.9% 2017-08-29 23:24:00 No Notes: (Same as: BD Posiflush) [facility] Metoprolol 2017-08-29 23:24:00 No Notes: (Same as: Lopressor) Push over 2 minutes [facility] metoprolol extended release 2017-08-29 15:00:00 No Notes: (Same as: Toprol XL) Do Not Crush [facility] Aspirin 81 MG Chewable Tablet 2017-08-29 15:00:00 No Notes: Take with food. [facility] 24 HR Metoprolol Tartrate 25 MG Extended Release Tablet [Top rol] 2017-08-29 15:00:00 No Notes: (Same as: Toprol XL) D o Not Crush [facility] heparin 2017-08-29 14:00:00 No 5,000 unit, Route: SUB-Q, Q8H, Dosing Weight 134.091, kg, Start date: 08/29/17 8:00:[address] COUNSELLOR, Duration: 30 day, Stop date: 09/28/17 0:00:[address] COUNSELLOR [facility] toya heparin additive 25,000 unit [12 unit/kg /hr] + Premix Diluent Sodium Chloride 0.45% 500 mL 2017-08-29 10:13:00 No Notes: Total Concentration = 50 unit/ ml Total volume = 500 ml Send Med Request 2 hours prior to next bag [facility] Heparin 60 unit/kg Bolus (Heparin Dosing Weight) 2017-08-29 10:1 3:00 No Route: IVP, PRN, 6,200 unit, 6.2 mL, Drug form: INJ, PRN, Heparin Protocol, Start date: 08/29/17 4:13:[address] COUNSELLOR Stop date: 09/28/17 4:12:[address] COUNSELLOR, 30 day [facility] Heparin 30 unit/kg Bolus (Heparin Dosing Weight) 2017-08-29 10:1 3:00 No Route: IVP, PRN, 3,100 unit, 3.1 mL, Drug form: INJ, PRN, Heparin Protocol, Start date: 08/29/17 4:13:[address] COUNSELLOR Stop date: 09/28/17 4:12:[address] COUNSELLOR, 30 day [facility] Heparin - one time bolus for ACS 2017-08-29 10:13:00 No 4,000 unit, 4 mL, Route: IVP, Drug form: INJ, ONCE, Dosing Weight 134.091, kg, Priority: STAT, Start date: 08/29/17 4:13:[address] COUNSELLOR, Stop date: 08/29/17 4:13:[address] COUNSELLOR [facility] Nitroglycerin 0.4 MG Sublingual Tablet 2017-08-29 09:53:00 No Notes: (Same as:Julián Owens) "Do Not Crush" Sublingual tablet [facility] Calcium Carbonate 500 MG Chewable Tablet 2017-08-29 09:52:00 No Notes: (Same As: Yohannes) Calcium Carbonate 500 mg = 200 mg elemental calcium Dose = mg calcium carbonate ( mg elemental calcium) [facility] Calcium Gluconate 2017-08-29 09:52:00 No Notes: WASTE: F/P - Sink; E - [employer] [facility] Sae sodium phosphate 2017-08-29 09:52:00 No 30 mmol, 10 mL, Route: IVPB, PRN, Dosing Weight 134.091, kg, PRN Abnormal Lab Result, Start date: 08/29/17 3:52:[address] COUNSELLOR, Duration: 30 day, Stop date: 09/28/17 3:51:[address] COUNSELLOR, FOR ICU USE ONLY [facility] S[facility] Magnesium Oxide 2017-08-29 09:52:00 No Notes: (Same as: Mag-Ox 400) Magnesium oxide [id number] elemental magnesium Dose=____mg magnesium oxide (___mg elemental magnesium) [facility] Potassium Chloride 2017-08-29 09:52:00 No Notes: (Same as: K-Dur 20) "Do Not Crush" With food and full glass of water [facility] potassium phosphate 2017-08-29 09:52:00 No Notes: (Same as: K Phosphate.) 1 mMol phoshate has 1.47 mEq potassium Infuse over 4 hours [facility] potassium phosphate-sodium phosphate 250 mg-280 mg-160 mg oral powder for reconstitution 2017-08-29 09:52:00 No Notes: (Same as: Phos-NaK) Each 1.5 gm pkt has 250mg phosphorous. Mix w/2.5oz water and stir. [facility] Magnesium Sulfate 2017-08-29 09:52:00 No Notes: WASTE: F/P - Sink; E - [employer] [facility] Sae Nitroglycerin 0.4 MG Sublingual Tablet 2017-08-29 06:34:00 Yes 0.4 mg = 1 tab, SL, Q5Min, PRN Chest Pain, 0 Refill(s) [facility] metoprolol 25 mg oral tablet, extended release 2017-08-29 06:34: 00 Yes 25 mg = 1 tab, PO, Daily, 0 Refill(s) [facility] atorvastatin 40 mg oral tablet 2017-08-29 06:34:00 Yes 40 mg = 1 tab, PO, Bedtime, 0 Refill(s) [facility] oshea Aspirin 81 MG Chewable Tablet 2017-08-29 06:34:00 Yes 81 mg = 1 tab, PO, Daily, 0 Refill(s) Hugo Quevedo atorvastatin 2017-08-29 03:00:00 No Notes: (Same as: Lipitor) Hugo Quevedo Aspirin 325 MG Oral Tablet 2017-08-28 23:00:00 No Notes: (Do Not Crush) Do not crush or chew. Hugo Waite isrraeltoya Nitroglycerin 2017-08-28 21:39:00 No Notes: (Same as:Nitroquick, Nitrostat) "Do Not Crush" Sublingual tablet Hugo Quevedo normal saline 0.9% IV 1,000 mL 2017-08-28 17:46:00 No 1,000 mL, Rate: 100 ml/hr, Infuse over: 10 hr, Route: IV, Dosing Weight 134.091 kg, Total Volume: 1,000, Start date: 08/28/17 11:46:[address] COUNSELLOR, Duration: 30 day, Stop date: 09/27/17 11:45:[address] COUNSELLOR, 2.67, m2 Hugo Quevedo Sodium Chloride 0.9% (Bolus) IV 2017-08-28 17:46:00 No 500 mL, 500 ml/hr, Infuse Over: 1 hr, Route: IV, 500, Drug form: INJ, ONCE, Dosing Weight 134.091 kg, Start date: 08/28/17 11:46:[address] COUNSELLOR, Stop date: 08/28/17 11:46:[address] COUNSELLOR Hugo Quevedo Nitroglycerin 0.4 MG Sublingual Tablet 2017-08-28 13:06:00 Yes 0.4 mg = 1 tab, SL, Q5Min, PRN Chest pain, Give up to 3 doses. Call 911 if pain persists., # 100 tab, 0 Refill(s) Cj Kumar metoprolol 25 mg oral tablet, extended release 2017-08-28 13:06: 00 Yes 25 mg = 1 tab, PO, Daily, # 30 tab, 0 Refill(s) Hugo Quevedo Aspirin 81 MG Chewable Tablet 2017-08-28 13:06:00 Yes 81 mg = 1 tab, PO, Daily, tab, 0 Refill(s) Hugo sukh Lipitor 2017-08-28 13:06:00 Yes PO, Daily, 0 Refill(s) Hugo Quevedo Vital Signs Vital Name Observation Time Observation Value Comments Source Systolic (mm Hg) 2020-01-21 13:39:00 [facility] Diastolic (mm Hg) 2020-01-21 13:39:00 [facility] [place] Heart Rate 2020-01-21 13:39:00 [facility] [place] Respitory Rate 2020-01-21 13:39:00 [facility] [place] Temperature Oral (F) 2020-01-21 13:39:00 98.4 F [facility] Height 2020-01-21 13:39:00 182.88 cm [facility] Weight 2020-01-21 13:39:00 [facility] BMI Calculated 2020-01-21 13:39:00 [facility] Height 2019-02-09 13:12:00 182.88 cm [facility] [place] Weight 2019-02-09 13:12:00 [facility] [place] BMI Calculated 2019-02-09 13:12:00 [facility] Systolic (mm Hg) 2019-02-09 13:12:00 [facility] [place] Diastolic (mm Hg) 2019-02-09 13:12:00 [facility] Temperature Oral (F) 2019-02-09 13:12:00 98.3 F [facility] [place] Heart Rate 2019-02-09 13:12:00 [facility] [place] Respitory Rate 2019-02-09 13:12:00 [facility] [place] Respitory Rate 2018-06-30 12:58:00 [facility] [place] Heart Rate 2018-06-30 12:58:00 [facility] [place] BMI Calculated 2018-06-30 12:58:00 [facility] [place] Weight 2018-06-30 12:58:00 [facility] [place] Height 2018-06-30 12:58:00 182.12 cm [facility] Temperature Oral (F) 2018-06-30 12:58:00 98.2 F [facility] Systolic (mm Hg) 2018-06-30 12:58:00 [facility] Diastolic (mm Hg) 2018-06-30 12:58:00 [facility] [place] BMI Calculated 2017-10-28 16:31:00 [facility] Weight 2017-10-28 16:31:00 [facility] Temperature Oral (F) 2017-10-28 16:31:00 98.0 F [facility] Heart Rate 2017-10-28 16:31:00 [facility] Respitory Rate 2017-10-28 16:31:00 [facility] [place] Height 2017-10-28 16:31:00 187.96 cm [facility] [place] Systolic (mm Hg) 2017-10-28 16:31:00 [facility] [place] Diastolic (mm Hg) 2017-10-28 16:31:00 [facility] [place] Height 2017-09-19 18:35:00 181.1 cm [facility] Heart Rate 2017-09-19 18:35:00 [facility] Respitory Rate 2017-09-19 18:35:00 [facility] Temperature Oral (F) 2017-09-19 18:35:00 97.9 F [facility] Weight 2017-09-19 18:35:00 [facility] [place] BMI Calculated 2017-09-19 18:35:00 [facility] [place] Systolic (mm Hg) 2017-09-19 18:35:00 [facility] [place] Diastolic (mm Hg) 2017-09-19 18:35:00 [facility] [place] Weight 2017-09-06 17:30:00 [facility] [place] BMI Calculated 2017-09-06 17:30:00 [facility] Heart Rate 2017-09-06 17:30:00 [facility] Temperature Oral (F) 2017-09-06 17:30:00 97.7 F [facility] [place] Respitory Rate 2017-09-06 17:30:00 [facility] Systolic (mm Hg) 2017-09-06 17:30:00 [facility] Diastolic (mm Hg) 2017-09-06 17:30:00 [facility] Height 2017-09-06 17:30:00 187.96 cm [facility] [place] Height 2017-09-05 22:01:00 182.63 cm [facility] Weight 2017-09-05 22:01:00 [facility] BMI Calculated 2017-09-05 22:01:00 [facility] [place] Temperature Oral (F) 2017-09-05 22:01:00 97.3 F [facility] Heart Rate 2017-09-05 22:01:00 [facility] [place] Respitory Rate 2017-09-05 22:01:00 [facility] [place] Systolic (mm Hg) 2017-09-05 22:01:00 [facility] Diastolic (mm Hg) 2017-09-05 22:01:00 [facility] Temperature Oral (F) 2017-09-04 17:14:00 99 F [facility] [place] Temperature Oral (F) 2017-09-04 14:00:00 98.9 F [facility] [place] Respitory Rate 2017-09-04 14:00:00 [facility] [place] Systolic (mm Hg) 2017-09-04 14:00:00 [facility] Diastolic (mm Hg) 2017-09-04 14:00:00 [facility] Systolic (mm Hg) 2017-09-04 10:00:00 [facility] [place] Diastolic (mm Hg) 2017-09-04 10:00:00 [facility] Respitory Rate 2017-09-04 10:00:00 [facility] [place] Systolic (mm Hg) 2017-09-04 08:00:00 [facility] [place] Diastolic (mm Hg) 2017-09-04 08:00:00 [facility] Respitory Rate 2017-09-04 08:00:00 [facility] Temperature Oral (F) 2017-09-03 22:00:00 99.7 F [facility] Height 2017-08-31 14:19:00 187.96 cm [facility] Height 2017-08-31 09:15:00 187.96 cm [facility] Height 2017-08-31 04:54:00 187.96 cm [facility] [place] BMI Calculated 2017-08-29 10:33:00 [facility] Weight 2017-08-29 10:33:00 [facility] [place] Respitory Rate 2017-08-29 06:00:00 [facility] Heart Rate 2017-08-29 06:00:00 [facility] [place] Temperature Oral (F) 2017-08-29 06:00:00 98.1 F [facility] Systolic (mm Hg) 2017-08-29 06:00:00 [facility] Diastolic (mm Hg) 2017-08-29 06:00:00 [facility] Respitory Rate 2017-08-29 02:00:00 [facility] Heart Rate 2017-08-29 02:00:00 [facility] Systolic (mm Hg) 2017-08-29 02:00:00 [facility] Diastolic (mm Hg) 2017-08-29 02:00:00 [facility] Temperature Oral (F) 2017-08-29 02:00:00 98.3 F [facility] Systolic (mm Hg) 2017-08-29 00:40:00 [facility] Diastolic (mm Hg) 2017-08-29 00:40:00 [facility] [place] Respitory Rate 2017-08-29 00:40:00 [facility] Heart Rate 2017-08-29 00:40:00 [facility] Height 2017-08-28 12:55:00 187.96 cm [facility] [place] BMI Calculated 2017-08-28 12:55:00 [facility] Weight 2017-08-28 12:55:00 [facility] [place] BMI Calculated 2017-08-28 12:53:00 [facility] [place] Weight 2017-08-28 12:53:00 [facility] Height 2017-08-28 12:53:00 187.96 cm [facility] Procedures Procedure Date / Time Performed Performing Clinician [facility] amaury Appendectomy [facility] Right knee Arthroscopy [facility] Repair of umbiilical hernia<sup>3</sup> [facility] Laminectomy and Spinal fusion<sup>1</sup> [facility] Repair of ruptured biceps tendon<sup>2</sup> [facility] Rotator cuff repair (bilateral) [facility] Suture of joint capsule with arthroplasty of ankle<sup>4</sup> [facility] Tonsilectomy [facility] Total replacement of left knee joint [facility] Encounters Start Date/Time End Date/Time Encounter Type Admission Type Attendi [facility] Care Department Encounter ID Source 2020-01-21 08:08:00 2020-01-21 23:59:00 Outpatient Kumar Arzate [facility] [id number] 2020-01-21 08:08:00 2020-01-21 08:08:00 Outpatient [facility] CAR [id number] 2019-02-09 07:28:00 2019-02-09 23:59:00 Outpatient Kumar Arzate [facility] [id number] 2019-02-09 07:28:00 2019-02-09 07:28:00 Outpatient [facility] [id number] [facility] 2018-06-30 07:41:00 2018-06-30 23:59:00 Outpatient Kumar Arzate [facility] [id number] 2017-10-28 09:53:00 2017-10-28 23:59:00 Outpatient Kumar Arzate [facility] [id number] 2017-09-19 10:05:00 2017-09-19 23:59:00 Outpatient Kumar Arzate [facility] [id number] 2017-09-06 10:41:00 2017-09-06 23:59:00 Outpatient Kumar Arzate [facility] [id number] 2017-09-05 15:48:00 2017-09-05 23:59:00 Outpatient Wilber Meek [facility] [id number] 2017-08-29 03:39:00 2017-09-04 12:55:00 Outpatient Mario Arguetaирина [facility] [id number] 2017-08-28 06:49:00 2017-08-29 02:56:00 Outpatient Aurelio Dee [facility] [id number] Results Test Description Test Time Test Comments Results Result Comments Source CHEM PANEL 2020-01-21 14:40:00 203 [facility] CHEM PANEL 2020-01-21 14:40:00 15 [facility] CHEM PANEL 2020-01-21 14:40:00 1.17 [facility] CHEM PANEL 2020-01-21 14:40:00 138 [facility] CHEM PANEL 2020-01-21 14:40:00 4.1 [facility] CHEM PANEL 2020-01-21 14:40:00 109 [facility] CHEM PANEL 2020-01-21 14:40:00 22 [facility] CHEM PANEL 2020-01-21 14:40:00 8.7 [facility] CHEM [facility] 2020-01-21 14:40:00 7.2 [facility] CHEM PANEL 2020-01-21 14:40:00 3.7 [facility] CHEM PANEL 2020-01-21 14:40:00 55 [facility] [place] CHEM PANEL 2020-01-21 14:40:00 50 [facility] CHEM PANEL 2020-01-21 14:40:00 87 [facility] [place] CHEM PANEL 2020-01-21 14:40:00 0.6 [facility] CHEM PANEL 2020-01-21 14:40:00 11.1 [facility] CHEM PANEL 2020-01-21 14:40:00 Test Item B/C Ratio (test code = B/C Ratio) 13 1 6-25 [facility] [id number] 14:40:003.5[facility]ann[facility] PANEL 2020-01-21 14:40:00* Test Item Value Reference Range Interpretation Comments A/G Ratio (test code = A/G Ratio) 1.1 1 0.7-1.6 [facility]annCHEM IUJWT7845-82-00 14:40:0066[facility]ann[facility]MATOLOGY 2020-01-21 14:40:007.6[facility] QkqnkojCOSKRKBHSC9563-42-25 14:40:004.80[facility] KxuhunzGURSJBHNCY8219-20-54 14:40:0014.6[facility] HcytykvFYPLHEHAIL4504-30-89 14:40:0042.6[facility] BqxjaqqRARIGUKPCJ7487-86-42 14:40:0088.8[facility] [place] URVHQWKNPM2561-53-35 14:40:00* Test Item Value Reference Range Interpretation Comments MCH (test code = MCH) 30.4 pg 27.0-31.0 [facility] YiwpmgiAKMXHSEZPT0666-87-61 14:40:0034.2[facility] HermannHEMATOLOGY 2020-01-21 14:40:0013.3[facility] FfwogauOWQSNWKPAD1963-26-48 14:40:99091Lqwifabb WfrvgqkFSOOCVFXSA2332-82-65 14:40:008.9[facility] FpndcjsRUKVBRYNMY6239-95-42 14:40:0065.9[facility] LmsfearUTEHLBJFBR3235-97-11 14:40:0023.8[facility] ZJTNJHMEIC3670-51-09 14:40:008.9[facility] TiugszmNOIEQKGXGT4078-75-00 14:40:000.8 [facility] UwprgzkJXOSVBOKBG7318-43-48 14:40:000.6[facility] HermannHEMATOLOGY 2020-01-21 14:40:005.0[facility] YtdjyxnMHENWYGVPB8888-75-61 14:40:001.8[facility] JpshwlnEVXZBLGTAC9636-26-60 14:40:000.7[facility] OeytwqzKYVXZBHSQT5335-87-12 14:40:000.1[facility] PtkryfoPGZXUP4005-05-42 14:40:80495Crtmogqx HermannLIPIDS 2020-01-21 14:40:88760Qzhnewnj JqegrblUNDQZI6502-31-50 14:40:0037[facility] VgyeifhSBWKYX1855-98-20 14:40:00* Test Item Value Reference Range Interpretation Comments CHD Risk (test code = CHD Risk) 4.38 1 4.00-7.30 [facility] ScgkoahDZRKFX3036-90-19 14:40:0078[facility] MvewekkLQUCTT7368-50-27 14:40:00* Test Item Value Reference Range Interpretation Comments VLDL (test code = VLDL) 47 1 [facility]ann[facility] FEYALQOWC2896-77-84 14:40:000.85[facility] HermannSPECIAL ANEJHIKBZ0405-99-78 14:40:006.8[facility] HermannCHEST 2 IZXNN2844-70-06 10:11:00 [place] [address] Patient Name: TERRENCE OLIVAS MR #: [id number] 957 Age/Sex: 63/M Req #: [id number] Adm Physician: Ordered by: MARIELY RODRIGUEZ MD Report #: [id number] Location: OR Room/Bed: Procedure: 1217-002 5 DX/CHEST 2 VIEWS Exam Date: 08/18/18 Exam Time: 05 27 REPORT STATUS: Signed PROCEDU RE: Frontal and lateral views of the chest. COMPARISON: [facility], DX, CHEST 2 VIEWS, 10/17/2017, 10:22. INDICATIONS: PRE-OPERAT ENE CHEST X-RAY FOR HERNIA SURGERY FINDINGS: Lines/tubes: Sternotomy wire sutures and small mediastinal vascular clips. Lungs: The lungs a re well inflated and clear. There is no evidence of pneumonia or pulmonary ed emily. Scattered calcified granulomas. Pleura: There is no pleural effusion or pneumothorax. Heart and mediastinum: The heart and the mediastinum are normal. Bones: Degenerative changes of the spine. Irregularity of both d istal clavicles. IMPRESSION: No acute cardiopulmonary disease. Ger Najera D.O. Dictated by: Ger Najera D.O. on 08/18/2018 at 10:11 Electronically approved by: Ger Najera D.O. on 08/18/2018 at 10:11 Dictated By: GER NAJERA DO 1011 Transcribed By: LINDA on 08/18/18 1011 COPY TO: MARIELY RODRIGUEZ MD CHEM [id number] 13:44:2060 [facility]ann[facility] WIMRC1709-73-30 13:44:208.6[facility] HermannCHEM PANEL 2018-06-30 13:44:2027[facility] HermannCHEM JJLGE3242-65-18 13:44:2011.4[facility] HermannCHEM PXVSG3453-78-32 13:44:2019[facility]annCHEM NDOUG1280-01-34 13:44:64042Vrjangrq HermannCHEM UIFSC5298-19-61 13:44:36244Ltymkikl HermannCHEM KMKOM3964-81-73 13:44:204.4[facility]annCHEM YWGVF7380-27-59 13:44:201.28 [facility]annCHE[facility] TALFF0922-11-89 13:44:08215Grnvoifv XagroteVXSDIB1068-58-60 13:44:20* Test Item Value Reference Range Interpretation Comments VLDL (test code = VLDL) 33 1 [facility] YlbatuePAIKLX0828-47-19 13:44:95426Tdywoqdy OhgihghCXAMUY2279-62-82 13:44:20* Test Item Value Reference Range Interpretation Comments CHD Risk (test code = CHD Risk) 3.74 1 4.00-7.30 [facility] RbqwltbQOFHIG2140-70-32 13:44:8[facility] GssgfubTRPWRB4587-66-62 13:44:75996Oypgpdyu YseziqmTSZDBK1236-78-66 13:44:2071[facility] HermannSPECIAL IDONUYPUH9882-74-60 13:44:206.4[facility]annCHEM SXSBZ2971-31-44 10:29:002.6 [facility]annCHE[facility] JHRCR2551-18-53 10:29:002.1[facility] HermannCHEM PANEL 2017-09-03 10:29:0019[facility] HermannCHEM NGPNT9927-57-29 10:29:009.9[facility]annCHEM NBLNG5776-87-95 10:29:003.6[facility]annCHEM VGKOS5850-30-00 10:29:000.6[facility] HermannCHEM IZHTX6578-50-83 10:29:0070[facility]annCHEM DMFGL7718-05-53 10:29:008.2[facility]annCHE[facility] ZMQPT6102-45-84 10:29:0099 [facility]annCHEM KUEGU1573-40-70 10:29:0029[facility] HermannCHEM PANEL 2017-09-03 10:29:16887Ckmugqeu HermannCHEM KRMIA0259-72-44 10:29:001.13[facility] HermannCHEM OYIZT7303-40-38 10:29:003.9[facility]annCHEM PAFUM4753-40-58 10:29:12441Eubrkjuy HermannCHEM SCBXK6819-59-65 10:29:0021[facility]annCHE[facility] DRIFS1444-31-08 10:29:005.8[facility]annCHE[facility] URUTB7770-45-86 10:29:0025 [facility]annCHEM XCPQN9879-57-70 10:29:0054[facility]annCHEM PANEL 2017-09-03 10:29:002.2[facility]annCHEM VJEGU6564-84-99 10:29:000.5[facility]annCHEM DASAG4459-89-57 10:29:0023[facility] FhewyfkHAIPMGKTYQ3000-54-66 10:29:001.13[facility] XtevsjkFMQJAZIKTG3894-01-18 10:29:00* Test Item Value Reference Range Interpretation Comments PTT (test code = PTT) 33.0 s 22.9-35.8 [facility] TyoqsqtIXTGUKMJKF0133-33-43 10:29:000.89[facility]annHEMATOLOGY 2017-09-03 10:29:77179Zphuoqdd WdkqlqnBYILKSZUQK3848-70-14 10:29:00* Test Item Value Reference Range Interpretation Comments Thrombin Time (test code = Thrombin Time) 14.9 s 15.0-21.2 [facility] XfwrawzPOKWIPXMTW0479-65-80 10:29:00* Test Item Value Reference Range Interpretation Comments PT (test code = PT) 14.5 s 12.0-14.7 [facility] PnagojnJQIVZYHWKN5943-52-66 10:29:0013.0[facility] HermannHEMATOLOGY 2017-09-03 10:29:64616Bxbjqynl GexiqauESVORKKLTX4960-19-65 10:29:009.1[facility] ZyjgdeiZLIZDETFLD4175-83-30 10:29:0012.8[facility] ZshabghMKGNZDIJQK8690-57-95 10:29:009.9[facility] LbcvqffVRWMKYKEQC8405-75-35 10:29:003.38[facility] WKFYYQQKSW4055-06-22 10:29:0029.1[facility] KbblmyeZJPZAZYOZE7537-47-35 10:29:00* Test Item Value Reference Range Interpretation Comments MCH (test code = MCH) 29.3 pg 27.0-31.0 [facility] IoovdeyRSORJODNJS1542-12-65 10:29:0085.9[facility] HermannHEMATOLOGY 2017-09-03 10:29:0034.1[facility] CkrtctaECEEKVNPRR4384-34-82 10:29:001+ *ABN*(09/03/17 4:29 AM)[facility] HnilnguBIWPQYAKXH9168-59-22 10:29:000.1[facility] AathkhqCTVARQMYVX9804-66-47 10:29:00Normal (09/03/17 4:29 AM)[facility] RMKGTVUBPH2531-83-69 10:29:0019.0[facility] PixeaenONDGYFWUFD1855-51-28 10:29:00 12.2[facility] NnssvbqZCYTHCECKA6646-92-40 10:29:0067.6[facility] HermannHEMATOLOGY 2017-09-03 10:29:008.7[facility] TtnieycZXXHLUPJID4769-26-47 10:29:000.3[facility] IbivjnoTWMSNYCOXJ7465-85-24 10:29:000.9[facility] MqblzekVRHXLWFBHZ4476-30-95 10:29:001.6[facility] EwloujjXJRFQINQPE3312-60-89 10:29:002.4[facility] PARATHYROID WYCYAKM1464-75-80 10:29:001.05[facility] HermannPARATHYROID PROFILE 2017-09-03 10:29:001.05[facility] HermannBLOOD BANK WFYTAGA7769-72-42 06:45:00 Negative (09/02/17 12:45 AM)[facility]annCHEM KMAQL1599-70-84 06:45:002.6 [facility]annCHEM JAUIE8464-03-10 06:45:002.2[facility] HermannELECTROLYTES 2017-09-02 06:45:0028[facility] HgeocgiUPOBOXILCLEO3530-60-24 06:45:008.1[facility] PbpjokcQICMJGEFRYIN4414-53-70 06:45:32893Wyrhdkln XprjynfBWIVNNYREYTU9664-68-09 06:45:003.9[facility] MplnwnlISZORZSAQPQW6255-88-93 06:45:001.51[facility] [place] ODDOJKAVIQQF2982-55-50 06:45:37201Onwtmxdl CmmirbqWWQPAZEJOQNJ6895-93-09 06:45:26990Hhtrqctb UgsoodkOIEMEMINYHVQ6817-70-35 06:45:0023[facility] [place] ZCBYMGTKDNQZ9317-10-98 06:45:0049[facility] NhdbfvdDCVQOCPWJYOE6617-86-01 06:45:00 9.9[facility] ZmumlicTZNBLGZGJS8596-86-31 06:45:0085.9[facility] HermannHEMATOLOGY 2017-09-02 06:45:0013.1[facility] AaqzbiaUOQZHARNGR0476-26-48 06:45:58918Nzksnmku QwnsoiwKZLMILFWMV4257-37-45 06:45:00* Test Item Value Reference Range Interpretation Comments MCH (test code = MCH) 30.0 pg 27.0-31.0 [facility] PejasccKKRZGSLAEL4165-55-66 06:45:0034.9[facility] HermannHEMATOLOGY 2017-09-02 06:45:009.0[facility] GtozkqcTDYIQZTFNJ1329-93-60 06:45:0010.9[facility] RrbhoozZNRNUMHGPJ9624-49-23 06:45:0031.1[facility] EidsghjGYMBKYMTQN9760-24-82 06:45:0016.2[facility] BrtuxkjLEWIRHHEVU6474-25-92 06:45:003.62[facility] ATUDDSNZYB8228-25-33 06:45:0070.0[facility] EzhddgsDFDVPDMWVH6303-09-78 06:45:00 18.5[facility] OiepjulKPQUEXTPVW1619-89-25 06:45:000.3[facility] HermannHEMATOLOGY 2017-09-02 06:45:0010.7[facility] LlucvgiYVDYOWXQYC5511-15-01 06:45:000.5[facility] SmzrcrqFUTNPNUWBL4705-77-73 06:45:000.1[facility] JnrldkkXUDADRAYYF4548-37-91 06:45:001.7[facility] PagszcjVNWRNSGZPY5643-73-78 06:45:003.0[facility] OKSAWZHJLF3116-46-48 06:45:0011.3[facility] CpbhpodYRUNEXQALW1955-79-19 06:45:00 1.32[facility] DfefhzhWVJDTRTXDK4322-17-31 06:45:00* Test Item Value Reference Range Interpretation Comments PT (test code = PT) 16.5 s 12.0-14.7 [facility] EcvvguoPVKOMWOVZX1417-92-79 06:45:00* Test Item Value Reference Range Interpretation Comments PTT (test code = PTT) 32.6 s 22.9-35.8 [facility]annPARATHYROID ZVOTDVV6231-14-57 06:45:001.04[facility] [place] PARATHYROID WWAYGMD2562-40-50 06:45:001.06[facility] HermannCHEM NXMQZ6883-69-12 10:32:002.3[facility] HermannCHEM FDMEW0827-72-52 10:32:002.2[facility] EACNKPAYRDEW0435-94-90 10:32:0010.4[facility] JudxhsbTWXHRZESGGPT2468-46-18 10:32:0071[facility] IkjnfcpEUHVLCAWIONE9731-45-96 10:32:0027[facility] [place] RTKNQDTHJPJS2091-28-98 10:32:008.2[facility] OxtbrphFTRMTLUUDSLQ5405-71-73 10:32:85296Cqgemouv UbkwicgZOJORGFFGDTK9721-29-17 10:32:0018[facility] [place] NGRMXWRYEJQE0976-72-36 10:32:001.12[facility] KdhgfezDGWHBYVHLHEQ5553-59-30 10:32:004.4[facility] BkudwzkVNQLPPTCLGHU8644-62-59 10:32:49701Jtsfsygl [place] QQMSKXORRXWE8223-20-53 10:32:71026Lzsvecba PnlhfwxAJAHNGXLPE5851-37-84 10:32:00 * Test Item Value Reference Range Interpretation Comments PTT (test code = PTT) 32.7 s 22.9-35.8 [facility] ZcgsateGVYDYSPUIG9455-51-62 10:32:001.41[facility]annHEMATOLOGY 2017-09-01 10:32:00* Test Item Value Reference Range Interpretation Comments PT (test code = PT) 17.3 s 12.0-14.7 [facility] WanpvreCZSLPFLFQQ0871-27-30 10:32:87872Cfjnuyyh HermannHEMATOLOGY 2017-09-01 10:32:0013.1[facility] OwgezrxUMLFFPBNSL9591-87-38 10:32:008.9[facility] YctsvzqXYXEUIAZYC6717-41-17 10:32:0086.7[facility] QgiechrDYLJLSEHBB3754-45-73 10:32:0033.5[facility] RslrizbKRKAPODLWM7471-42-56 10:32:00* Test Item Value Reference Range Interpretation Comments MCH (test code = MCH) 29.8 pg 27.0-31.0 [facility] PrjfcwfLHYZGYOHUY1988-44-91 10:32:003.86[facility]annHEMATOLOGY 2017-09-01 10:32:0034.4[facility] EehasdjNMFVIRUEKX6400-40-52 10:32:0011.5[facility] BnuiplzAUPDUKODEE6747-13-31 10:32:0017.0[facility] TfalvveCTJWMGIXTZ0726-23-10 10:32:001.5[facility] CmovdxgJCGOSLJHOR2824-33-04 10:32:000.1[facility] ARUJOQVQIL7244-30-00 10:32:0013.8[facility] BsyhbqtVRVOSMISQM7871-54-65 10:32:00 0.2[facility] BcktkxtYTRXXYYDUG0414-28-87 10:32:001.7[facility]annHEMATOLOGY 2017-09-01 10:32:0081.1[facility] JaznhjeUKVPYJSTAU4276-18-24 10:32:008.9[facility] UuviyzhHEGEVJIAPM3235-61-17 10:32:009.7[facility]annPARATHYROID PROFILE 2017-09-01 10:32:001.05[facility]annPARATHYROID XMVVKIF0420-98-22 10:32:00 1.05[facility] HermannCHEM JMRAB4413-93-28 08:08:0062[facility]annCHEM PANEL 2017-08-31 08:08:005.9[facility]annCHEM JHYKH6658-36-98 08:08:002.9[facility]annCHEM LOLXP7068-11-15 08:08:0057[facility]annCHEM AWQSS2463-17-22 08:08:000.5[facility]annCHEM JSHKK0620-18-46 08:08:000.4[facility]annCHEM ZTJUC9891-07-67 08:08:000.1[facility]annCHEM AYZCA8791-79-21 08:08:0063 [facility]annCHEM FPYMR9403-78-09 08:08:003.0[facility]annCHEM PANEL 2017-08-31 08:08:001.0[facility]annCHEM ZZIDK6561-58-58 08:08:001.3[facility] VbndvlvWASHJNTFMK3606-46-49 08:08:00* Test Item Value Reference Range Interpretation Comments Thrombin Time (test code = Thrombin Time) 16.6 s 15.0-21.2 [facility] XgelolrRAULDLJOKU4206-22-13 08:08:56157Ikwrneya HermannHEMATOLOGY 2017-08-31 08:08:000.73[facility]annCHEM ETHHN9310-71-21 21:33:001.9[facility] TqlrjsoDSOSRCJHEE8221-14-20 21:33:00* Test Item Value Reference Range Interpretation Comments Thrombin Time (test code = Thrombin Time) 20.3 s 15.0-21.2 [facility] JzqnjuoSQONCMWQIK9193-00-26 21:33:001.29[facility] HermannHEMATOLOGY 2017-08-30 21:33:70801Rklsspaa KwhkmafVVJWVCSFQU7582-64-28 21:33:0020.0[facility] YcedrvzSALPJTEGCE7583-83-45 21:33:001.0[facility] FbybmsfJMRCOHUQLJ9860-65-19 21:33:000.0[facility] HermannCHEM WSUSJ0886-60-00 11:28:000.6[facility]annCHEM QLTBN1009-66-88 11:28:0075[facility]annCHEM PZNSC0917-34-09 11:28:003.5 [facility]annCHEM MVZWF4558-04-47 11:28:0060[facility]annCHEM PANEL 2017-08-30 11:28:0026[facility]annCHEM NCHJD8107-51-62 11:28:006.9[facility]annCHEM RBAEV9510-23-65 11:28:001.0[facility]annCHEM DGEJU8928-54-68 11:28:003.4[facility]annCHEM KQKLZ8833-18-69 11:28:0012[facility] Sae JBMJYRXQCL3718-57-01 11:28:000.1[facility] JnnosszNYRJLLAIRE6781-65-82 11:28:000.1 [facility]URINE AND RUUOI5691-53-08 06:01:00Clear (08/30/17 12:01 AM) [facility] HBIJN4531-47-24 06:01:00Yellow *NA*(08/30/17 12:01 AM) [facility] HXPKB8068-47-51 06:01:001.010[facility] NEEUL5594-01-21 06:01:006.0[facility] AND TZVDX0434-72-16 06:01:00 Negative *NA*(08/30/17 12:01 AM)[facility] XTXRE7623-82-87 06:01:00<1[facility] ZGWEL2809-07-74 06:01:00Negative (08/30/17 12:01 AM)[facility] UKCCJ5324-06-77 06:01:00Negative (08/30/17 12:01 AM)[facility] TSYKW4561-87-67 06:01:00Negative (08/30/17 12:01 AM)[facility]annBLOOD BANK WOFCXXY7412-38-89 23:51:51Product available (08/29/17 5:51 PM)[facility]BL[facility]OD BANK PCPGUOV1827-90-21 23:51:51Product available (08/29/17 5:51 PM)[facility] B[facility] QYYVCQK1352-56-89 23:51:51Product available (08/29/17 5:51 PM)[facility] HermannBACTERIAL - SEROLOGY 2017-08-29 11:07:00Negative (08/29/17 5:07 AM)[facility]BL[facility] BANK RESULTS 2017-08-29 11:01:00Negative (08/29/17 5:01 AM)[facility]annCHEM PANEL 2017-08-29 11:01:000.4[facility]annCHEM OTBPP7758-76-25 11:01:000.1[facility] HermannSPECIAL ALWIJAOZU9007-29-89 11:01:006.4[facility]annCHEM PANEL 2017-08-28 22:47:0082[facility]annCHEM BXTWY9665-30-25 22:47:000.99[facility] NwprspaRUBOTYHPJF8304-31-95 22:47:0014.0[facility]annCHEM WAVVQ2554-18-01 12:56:0072[facility]annCHEM IYBNY7411-02-90 12:56:0028[facility]annCHEM ZEKCM5628-37-98 12:56:008.4[facility]annCHEM XGMFR4327-85-77 12:56:001.11 [facility]annCHEM QFVYR9428-28-02 12:56:42053Ghngvgxu HermannCHEM PANEL 2017-08-28 12:56:0021[facility] HermannCHEM CZNTL1950-44-08 12:56:57041Xidtdzxe HermannCHEM QRFUO7537-47-90 12:56:003.9[facility]annCHEM SQZFA8671-79-13 12:56:10424Ejhxmmsq HermannCHEM WELVM2918-19-76 12:56:0011.9[facility] [place] SOTTXDSRZL3251-48-42 12:56:000.1[facility] IxqetadIEKRVFHXII6801-43-54 12:56:000.8 [facility] AanqsjtIVPGKYOLPQ0712-24-47 12:56:000.4[facility] HermannHEMATOLOGY 2017-08-28 12:56:001.4[facility] QuermknUVKMODQEQH4647-35-54 12:56:005.9[facility] GwwokrrVBZDCFQLOM4868-25-24 12:56:002.7[facility] ZyeogshICKJLENRBH3448-13-65 12:56:0028.1[facility] FkkdntqVYJUHVWEQW2684-32-58 12:56:0061.5[facility] XNURYGZSAF4336-12-51 12:56:008.6[facility] XwcdsvaDVTIIUVZME2219-75-84 12:56:00* Test Item Value Reference Range Interpretation Comments PT (test code = PT) 12.4 s 12.0-14.7 [facility] QmcrqlsKEYUOLRDCP1122-56-21 12:56:00* Test Item Value Reference Range Interpretation Comments PTT (test code = PTT) 28.5 s 22.9-35.8 [facility] WrnceccHEMNBUUPSB5996-99-85 12:56:000.92[facility] HermannHEMATOLOGY 2017-08-28 12:56:0087.1[facility] IzctglkFQEIRAWTFR6066-13-16 12:56:0043.5[facility] YegtfpwIOSKWHCFPR8209-53-39 12:56:0014.8[facility] XeinuhhIPIIEPUCZE9349-09-25 12:56:004.99[facility] DvzpjboCSODHGVXZL4878-45-00 12:56:009.6[facility] ZZIMHYPEVL3616-94-39 12:56:0012.9[facility] BkzpepfDITENYNWAA4818-21-24 12:56:00 206[facility] CdjmtrpLJCPOSLHSI5624-35-88 12:56:00* Test Item Value Reference Range Interpretation Comments MCH (test code = MCH) 29.6 pg 27.0-31.0 [facility] PwkvnurZZJLKXOQCL8646-65-96 12:56:0034.0[facility] HermannHEMATOLOGY 2017-08-28 12:56:009.0[facility] RkdjtrjIUCUJV5722-76-95 12:56:0044[facility] VcuukyeZZROAP0227-83-17 12:56:0020[facility] UimmkftMSMNMT1392-68-77 12:56:0030 [facility] EjtniuwNHCTUV6507-53-83 12:56:0094[facility] IlngowvVCQMUN7412-08-80 12:56:24644Llzqlanu NrtybdoLUDEHG2601-88-85 12:56:003.13[facility] HermannCHEST 2 VIEWS [place] [address] Patient Name: TERRENCE OLIVAS MR #: [id number] : 1955 Age/Sex: 62/M Req #: [id number] [facility] Physician: Ordered by: MARIELY RODRIGUEZ MD Report #: [id number] Location: OR Room/Bed: Procedure: [id number] DX/CHEST 2 VIEWS Exam Da te: 10/17/17 Exam Time: 1020 REPORT STATUS: Sig keenan PROCEDURE: X-RAY CHEST, TWO VIEWS COMPARISON: None. INDICATIONS: PREO PERATIVE FOR DRAINAGE OF ABSCESS FINDINGS: LUNGS: No consolidation s or edema. PLEURA: No effusions or pneumothorax. HEART T ME DIASTINUM: The heart is within normal size-limits. Sternotomy wire sutures an d multiple mediastinal clips. BONES T SOFT TISSUES: No acute findings . Irregularity of the distal right clavicle may be postoperative in nature. D egenerative changes of the spine. CONCLUSION: No acute thoraci c abnormality. Ger Najera D.O. Dictated by: Ger tejada D.O. on 10/17/2017 at 10:57 Electronically approved by: Ger Najera D.O. on 10/17/2017 at 10:57 Dictated By: GER NAJREA DO Delicia ctronically Signed By: GER NAJERA DO on 10/17/17 105 Transcribed By: LINDA on 10/17/171056 COPY TO: MARIELY RODRIGUEZ MD
[2020-04-06 16:59] LABS: BASOPHILS # (AUTO) 0.1 (0.0-0.1); BASOPHILS % 0.3 % (0.0-1.0); HEMATOCRIT 42.7 % (38.2-49.6); HEMOGLOBIN 14.4 g/dL (14.0-18.0); LYMPHOCYTES % 4.8 % (18.0-39.1); MEAN CORPUSCULAR HEMOGLOBIN 28.8 pg (28-32); MEAN CORPUSCULAR HGB CONC 33.7 g/dL (31-35); MEAN CORPUSCULAR VOLUME 85.4 fL (81-99); MONOCYTES # (AUTO) 1.5 (0.2-0.8); MONOCYTES % 7.4 % (4.4-11.3); NEUTROPHILS # (AUTO) 17.7 (2.1-6.9); NEUTROPHILS % 86.4 % (38.7-80.0); PLATELET COUNT 205 x10e3/uL (140-360)
[2020-04-06 17:14] LABS: ALBUMIN 3.7 g/dL (3.5-5.0); ANION GAP 15.1 mmol/L (8-16); CALCIUM 9.1 mg/dL (8.4-10.2); CREATININE, SERUM 1.27 mg/dL (0.72-1.25); POTASSIUM 4.1 mmol/L (3.5-5.1)
[2020-04-06] MEDS ORDERED: LIDOCAINE HCL 1% LOCAL INJ 20 ML VIAL ONE (17:21)
--- NOTE | 2020-04-06 17:32 | NUR ---
COVID SWAB COMPLETED
--- NOTE | 2020-04-06 17:33 | NUR ---
RADIOLOGY AT BEDSIDE
[2020-04-06] MEDS ORDERED: SODIUM CHLORIDE 0.9% 1000ML 1,000 ML IV STA ×2 (17:38)
--- NOTE | 2020-04-06 17:44 | NUR ---
DR. PIERRE AT BEDSIDE
[2020-04-06] MEDS ORDERED: SODIUM CHLORIDE 0.9% 1000ML 2,000 ML ONE (17:47)
[2020-04-06] MEDS ORDERED: PIPER-TAZ 3.375 GM 50 ML IV STA (17:51)
--- NOTE | 2020-04-06 17:59 | NUR ---
PATIENT CONSENTED FOR KNEE DRAINAGE BY DR. PIERRE
--- NOTE | 2020-04-06 17:59 | NUR ---
KNEE DRAINAGE TAKEN TO LAB FOR STAT PROCESSING PER DR. PIERRE
[2020-04-06] MEDS ORDERED: VANCOMYCIN 1GM/NS 250 ML 250 ML IV ONE (18:00)
--- NOTE | 2020-04-06 18:00 | Diagnostic Imaging Report ---
Exam: Left knee 3 views History: Pain Comparison: None. Findings: See impression Impression: No acute finding. Intact left total knee arthroplasty. Signed by: Dr. Wiliam Benedict M.D. on 04/06/2020 5:57 PM
--- NOTE | 2020-04-06 18:01 | Diagnostic Imaging Report ---
Examination: Single AP view of the chest. COMPARISON: None. INDICATION: Fever DISCUSSION: Lines/tubes: Sternotomy wires. Lungs: The lungs are well inflated and clear. No pneumonia or pulmonary edema. Pleura: No pleural effusion or pneumothorax. Heart and mediastinum: Prominent heart size. Bones and soft tissues: No acute bony abnormalities. IMPRESSION: 1. Cardiomegaly without decompensation. Signed by: Dr. Wiliam Benedict M.D. on 04/06/2020 5:58 PM
--- NOTE | 2020-04-06 18:35 | Emergency Department Note ---
History of Present Illnes History of Present Illness Chief Complaint: Extremity Trauma/Pain History of Present Illness This is a 64 year old male Patient in from home with complaints of left knee pain that started last night without known cause. Patient has a history of a left total knee replacement from approximately 10 years ago. Historian: Patient Arrival Mode: Car Box Finisher Required: No Onset (how long ago): day(s) (LAST NIGHT) Location: LEFT KNEE Quality: PAIN, SWELLING Severity: severe Onset quality: sudden Timing of current episode: constant Progression: worsening Chronicity: new Context: Denies recent illness Relieving factors: none Exacerbating factors: none Associated symptoms: Reports denies other symptoms Treatments prior to arrival: none (TERESE HUNTLEY MD) Past Medical/Family History Physician Review I have reviewed the patient's past medical and family history. Any updates have been documented here. (TERESE HUNTLEY MD) Past Medical History Recent Fever: No Clinical Suspicion of Infectio: No New/Unexplained Change in Ment: No Past Medical History: Diabetes Past Surgical History: Knee Replacement, Back Surgery Other Surgery: Quintuple Bipass Bilateral rotator cuff repair Surgical repair of right ankle 3 back surgeries (TERESE HUNTLEY MD) Social History Smoking Cessation: Never Smoker Counseling Performed: No Alcohol Use: None Any Illegal Drug Use: No TB Exposure/Symptoms: No Physically hurt or threatened: No (TERESE HUNTLEY MD) Family History Family history of heart diseas: No (TERESE HUNTLEY MD) Other Any Pre-Existing Lines (PICC,: No (TERESE HUNTLEY MD) Review of Systems Review of Systems Constitutional: Reports fever EENTM: Reports no symptoms Cardiovascular: Reports no symptoms Respiratory: Reports no symptoms Gastrointestinal: Reports no symptoms Genitourinary: Reports no symptoms Musculoskeletal: Reports as per HPI Integumentary: Reports no symptoms Neurological: Reports no symptoms Psychological: Reports no symptoms Endocrine: Reports no symptoms Hematological/Lymphatic: Reports no symptoms (TERESE HUNTLEY MD) Physical Exam Related Data Allergies: Coded Allergies: No Known Allergies (Unverified , 04/06/20) Triage Vital Signs Vital Signs Date Time Temp Pulse Resp B/P (MAP) Pulse Ox O2 Delivery O2 Flow Rate FiO2 04/06/20 16:20 102.9 109 21 137/79 98 Room Air Vital signs reviewed: Yes (TERESE HUNTLEY MD) Physical Exam CONSTITUTIONAL Constitutional: Present well-developed, Present well-nourished HENT HENT: Present normocephalic, Present atraumatic, Present oropharynx clear/moist, Present nose normal HENT L/R: Present left ext ear normal, Present right ext ear normal EYES Eyes: Reports PERRL, Reports conjunctivae normal NECK Neck: Present ROM normal PULMONARY Pulmonary: Present effort normal, Present breath sounds normal CARDIOVASCULAR Cardiovascular: Present regular rhythm, Present heart sounds normal, Present ca pillary refill normal, Present normal rate GASTROINTESTINAL Abdominal: Present soft, Present nontender, Present bowel sounds normal GENITOURINARY Genitourinary: Present exam deferred SKIN Skin: Present warm, Present dry MUSCULOSKELETAL Musculoskeletal: Present tenderness, Present swelling, Present other (KNEE TENDER, SWOLLEN WITH JOINT EFFUSION, INCR WARMTH, SEVERE PAIN WITH ANY ROM OR AXIAL LOADING) NEUROLOGICAL Neurological: Present alert, Present oriented x 3, Present no gross motor or sensory deficits PSYCHOLOGICAL Psychological: Present mood/affect normal, Present judgement normal (TERESE HUNTLEY MD) Results Laboratory Result Diagram: 04/06/20 1630 04/06/20 1630 Laboratory Laboratory Tests Test 04/06/20 18:07 04/06/20 17:31 04/06/20 16:30 White Blood Count 20.48 x10e3/uL (4.8-10.8) Red Blood Count 5.00 x10e6/uL (4.3-5.7) Hemoglobin 14.4 g/dL (14.0-18.0) Hematocrit 42.7 % (38.2-49.6) Mean Corpuscular Volume 85.4 fL (81-99) Mean Corpuscular Hemoglobin 28.8 pg (28-32) Mean Corpuscular Hemoglobin Concent 33.7 g/dL (31-35) Red Cell Distribution Width 13.0 % (11.7-14.4) Platelet Count 205 x10e3/uL (140-360) Neutrophils (%) (Auto) 86.4 % (38.7-80.0) Lymphocytes (%) (Auto) 4.8 % (18.0-39.1) Monocytes (%) (Auto) 7.4 % (4.4-11.3) Eosinophils (%) (Auto) 0.0 % (0.0-6.0) Basophils (%) (Auto) 0.3 % (0.0-1.0) Neutrophils # (Auto) 17.7 (2.1-6.9) Lymphocytes # (Auto) 1.0 (1.0-3.2) Monocytes # (Auto) 1.5 (0.2-0.8) Eosinophils # (Auto) 0.0 (0.0-0.4) Basophils # (Auto) 0.1 (0.0-0.1) Absolute Immature Granulocyte (auto 0.23 x10e3/uL (0-0.1) Erythrocyte Sedimentation Rate 34 mm/hr (0-13) Sodium Level 133 mmol/L (136-145) Potassium Level 4.1 mmol/L (3.5-5.1) Chloride Level 101 mmol/L (98-107) Carbon Dioxide Level 21 mmol/L (22-29) Anion Gap 15.1 mmol/L (8-16) Blood Urea Nitrogen 13 mg/dL (7-26) Creatinine 1.27 mg/dL (0.72-1.25) Estimat Glomerular Filtration Rate 57 ML/MIN (60-) BUN/Creatinine Ratio 10 (6-25) Glucose Level 176 mg/dL (74-118) Lactic Acid Level 2.7 mmol/L (0.5-2.0) Calcium Level 9.1 mg/dL (8.4-10.2) Total Bilirubin 1.0 mg/dL (0.2-1.2) Aspartate Amino Transf (AST/SGOT) 18 IU/L (5-34) Alanine Aminotransferase (ALT/SGPT) 26 IU/L (0-55) Alkaline Phosphatase 84 IU/L (40-150) Total Protein 7.4 g/dL (6.5-8.1) Albumin 3.7 g/dL (3.5-5.0) Globulin 3.7 g/dL (2.3-3.5) Albumin/Globulin Ratio 1.0 (0.8-2.0) Lab results reviewed: Yes (TERESE HUNTLEY MD) Laboratory Laboratory Tests Test 04/06/20 19:50 04/06/20 19:16 04/06/20 18:07 04/06/20 17:31 Lactic Acid Level 1.5 mmol/L (0.5-2.0) Urine Color Yellow (YELLOW) Urine Clarity Sl cloudy (CLEAR) Urine pH 6.5 (5 - 7) Urine Specific [place] 1.015 (1.010-1.025) Urine Protein Trace (NEGATIVE) Urine Glucose (UA) Negative (NEGATIVE) Urine Ketones Negative (NEGATIVE) Urine Blood Negative (NEGATIVE) Urine Nitrite Negative (NEGATIVE) Urine Bilirubin Negative (NEGATIVE) Urine Urobilinogen 0.2 mg/dL (0.2 - 1) Urine Leukocyte Esterase Negative (NEGATIVE) Urine RBC None /HPF (0-5) Urine WBC 0-5 /HPF (0-5) Urine Epithelial Cells Few /LPF (NONE) Urine Bacteria Few /HPF (NONE) Body Fluid Type Synovial Body Fluid Color White Body Fluid Appearance Turbid Body Fluid WBC 29576 cells/uL Body Fluid RBC 594 cells/uL Body Fluid Total Cells Counted 100 Body Fluid Neutrophils 78 % Body Fluid Lymphocytes % Body Fluid Monocytes 22 % Test 04/06/20 16:30 White Blood Count 20.48 x10e3/uL (4.8-10.8) Red Blood Count 5.00 x10e6/uL (4.3-5.7) Hemoglobin 14.4 g/dL (14.0-18.0) Hematocrit 42.7 % (38.2-49.6) Mean Corpuscular Volume 85.4 fL (81-99) Mean Corpuscular Hemoglobin 28.8 pg (28-32) Mean Corpuscular Hemoglobin Concent 33.7 g/dL (31-35) Red Cell Distribution Width 13.0 % (11.7-14.4) Platelet Count 205 x10e3/uL (140-360) Neutrophils (%) (Auto) 86.4 % (38.7-80.0) Lymphocytes (%) (Auto) 4.8 % (18.0-39.1) Monocytes (%) (Auto) 7.4 % (4.4-11.3) Eosinophils (%) (Auto) 0.0 % (0.0-6.0) Basophils (%) (Auto) 0.3 % (0.0-1.0) Neutrophils # (Auto) 17.7 (2.1-6.9) Lymphocytes # (Auto) 1.0 (1.0-3.2) Monocytes # (Auto) 1.5 (0.2-0.8) Eosinophils # (Auto) 0.0 (0.0-0.4) Basophils # (Auto) 0.1 (0.0-0.1) Absolute Immature Granulocyte (auto 0.23 x10e3/uL (0-0.1) Erythrocyte Sedimentation Rate 34 mm/hr (0-13) Sodium Level 133 mmol/L (136-145) Potassium Level 4.1 mmol/L (3.5-5.1) Chloride Level 101 mmol/L (98-107) Carbon Dioxide Level 21 mmol/L (22-29) Anion Gap 15.1 mmol/L (8-16) Blood Urea Nitrogen 13 mg/dL (7-26) Creatinine 1.27 mg/dL (0.72-1.25) Estimat Glomerular Filtration Rate 57 ML/MIN (60-) BUN/Creatinine Ratio 10 (6-25) Glucose Level 176 mg/dL (74-118) Lactic Acid Level 2.7 mmol/L (0.5-2.0) Calcium Level 9.1 mg/dL (8.4-10.2) Total Bilirubin 1.0 mg/dL (0.2-1.2) Aspartate Amino Transf (AST/SGOT) 18 IU/L (5-34) Alanine Aminotransferase (ALT/SGPT) 26 IU/L (0-55) Alkaline Phosphatase 84 IU/L (40-150) Total Protein 7.4 g/dL (6.5-8.1) Albumin 3.7 g/dL (3.5-5.0) Globulin 3.7 g/dL (2.3-3.5) Albumin/Globulin Ratio 1.0 (0.8-2.0) (MATTHEW MALDONADO DO) Imaging Imaging results reviewed: Yes Impressions [place] [address] Patient Name: TERRENCE OLIVAS MR #: [id number] : 1955 Age/Sex: 64/M Req #: [id number] Adm Physician: Ordered by: TERESE HUNTLEY MD Report #: [id number] Location: ER Room/Bed: Procedure: [id number] DX/KNEE LEFT THREE VIEWS Exam Date: 04/06/20 Exam Time: 1730 REPORT STATUS: Signed Exam: Left knee 3 views History: Pain Comparison: None. Findings: See impression Impression: No acute finding. Intact left total knee arthroplasty. Signed by: Dr. Eryn Lee M.D. on 04/06/2020 5:57 PM Dictated By: ERYN LEE MD 56 Transcribed By: DIGNA on 04/06/201756 COPY TO: TERESE HUNTLEY MD~ (MATTHEW MALDONADO DO) Critical Care Time Total Critical Care Time (min): 31 Critcal care necessary due to: sepsis Critcal care time spent by me: discussion w consultants, order/review laboratory studies, order/review radiographic studies, re-evaluation of patient condition (MATTHEW MALODNADO DO) Assessment & Plan Medical Decision Making MDM H/O LEFT TKA ~10 YRS AGO NOW WITH SEVERE PAIN, EFFUSION, FEVER - MUST R/O SEPTIC ARTHRITIS - CHECK CBC, CHEM, BLOOD CX'S, UA/CX, ESR, DO ARTHROCENTESIS PRIOR TO ABX'S (TERESE HUNTLEY MD) MDM Diff Dx : Sepsis, Septic joint, hardware subluxation (MATTHEW MALDONADO DO) Reassessment Reassessment DR PIERRE WAS HERE SEEING ANOTHER PT AND DID ARTHROCENTESIS - ~45 CC OF PURULENT FLUID. REPORT TO DR MALDONADO - PT REQUESTS TRANSFER TO DR KITA DONG OF [facility] WHO DID HIS ORTHO PROCEDURES INCLUDING TKA. DR MALDONADO TO CONTACT DR DONG AND INITIATE TRANSFER (TERESE HUNTLEY MD) Reassessment time: 18:15 Reassessment D/W Dr Dong at [facility] who graciously accepted patient to his service for continuuity of care. Patient hemodynamically stable and non-t oxic appearing. Patient agreeable to transfer. (MATTHEW MALDONADO DO) Assessment & Plan Final Impression: (1) Sepsis (2) Septic arthritis of knee, left (3) Abnormal renal function (MATTHEW MALDONADO DO) Depart Disposition: TRANS TO OTHER [facility] FAC[facility] Last Vital Signs Date Time Temp Pulse Resp B/P (MAP) Pulse Ox O2 Delivery O2 Flow Rate FiO2 04/06/20 17:00 105 18 136/74 98 Room Air 04/06/20 16:20 102.9 (TERESE HUNTLEY MD) Home Meds Reported Medications Atorvastatin Calcium (ATORVASTATIN CALCIUM) 20 Mg Tablet, 40 MG PO HS, #30 TAB 10/17/17 Metoprolol Tartrate (METOPROLOL TARTRATE) 25 Mg Tablet, 12.5 MG PO DAILY, TAB 10/17/17 Aspirin (ASPIR 81) 81 Mg Tablet.dr, 1 TAB PO DAILY 10/17/17 Medications in the ED Acetaminophen 975 mg ONCE ONCE PO Last administered on 04/06/20at 16:50; Admin Dose 975 MG; Start 04/06/20 at 16:45; Stop 04/06/20 at 16:46; Status DC Morphine Sulfate 4 mg NOW STAT IV Last administered on 04/06/20at 16:52; Admin Dose 4 MG; Start 04/06/20 at 16:43; Stop 04/06/20 at 16:45; Status DC Ondansetron HCl 4 mg NOW STAT IV Last administered on 04/06/20at 16:52; Admin Dose 4 MG; Start 04/06/20 at 16:43; Stop 04/06/20 at 16:45; Status DC Lidocaine HCl 20 ml STK-MED ONCE .ROUTE ; Start 04/06/20 at 17:21; Stop 04/06/20 at 17:15; Status DC Sodium Chloride 1,000 ml @ 0 mls/hr Q0M STAT IV Last administered on 04/06/20at 18:23; Admin Dose 1,000 MLS/HR; Start 04/06/20 at 17:38; Stop 04/06/20 at 17:40; Status DC Sodium Chloride 1,000 ml @ 0 mls/hr Q0M STAT IV Last administered on 04/06/20at 18:23; Admin Dose 1,000 MLS/HR; Start 04/06/20 at 17:38; Stop 04/06/20 at 17:40; Status DC Sodium Chloride 2,000 ml @ ud STK-MED ONCE .ROUTE ; Start 04/06/20 at 17:47; Stop 04/06/20 at 17:41; Status DC Piperacillin Sod/ Tazobactam Sod 50 ml @ 50 mls/hr NOW STAT IV Last administered on 04/06/20at 18:24; Admin Dose 50 MLS/HR; Start 04/06/20 at 17:51; Stop 04/06/20 at 18:50 Vancomycin HCl 250 ml @ 166.667 mls/hr NOW ONCE IV ; Start 04/06/20 at 18:00; Stop 04/06/20 at 19:29 (TERESE HUNTLEY MD) TERESE HUNTLEY MD Apr 06, 2020 18:35 MATTHEW MALDONADO DO Apr 06, 2020 19:54
[2020-04-06 18:52] LABS: BODY FLUID APPEARANCE TURBID; BODY FLUID TYPE SYNOVIAL; RBC,BODY FLUID 594 cells/uL; WBC,BODY FLUID 20493 cells/uL
[2020-04-06] MEDS ORDERED: KETOROLAC TROMETHAMINE 30 MG/ML VIAL IV STA (19:21)
[2020-04-06 19:23] LABS: BILIRUBIN,URINE NEGATIVE (NEGATIVE); CLARITY,URINE SL CLOUDY (CLEAR); COLOR,URINE YELLOW (YELLOW); KETONES,URINE NEGATIVE (NEGATIVE); LEUKOCYTE ESTERASE ,URINE NEGATIVE (NEGATIVE); NITRITE,URINE NEGATIVE (NEGATIVE); PROTEIN,URINE DIPSTICK TRACE (NEGATIVE); URINE UROBILINOGEN 0.2 mg/dL (0.2 - 1)
[2020-04-06 19:36] LABS: BACTERIA,URINE FEW /HPF; EPITHELIAL CELLS,URINE FEW /LPF; WBC,URINE (MAN) 0-5 /HPF (0-5)
[2020-04-06 20:07] LABS: MONO/MACROPHG,BODY FLUID 22 %; NEUTROPHILS,BODY FLUID 78 %
[2020-04-06 20:23] VITALS: BP 101/64
== END 2020-04-06 21:09 | disposition other institution (70) ==
LOC: ER 16:44
DX: A41.9 Sepsis, unspecified organism (principal); M00.9 Pyogenic arthritis, unspecified; R94.4 Abnormal results of kidney function studies; Z11.59 Encounter for screening for other viral diseases
CPT/HCPCS: 20610; 36415; 71045; 73562; 80053; 81001; 83605; 85025; 85651; 87040; 87070; 87086; 87102; 87116; 87205; 87206 ×2; 89051; 89060; 99284; J1885; J2001; J2270; J2405; J2543; J3370; J7030; U0002

== ENCOUNTER → 2021-09-07 | Day surgery (SDC) | payer OTHER ==
[2021-09-06 09:11] LABS: BASOPHILS # (AUTO) 0.1 (0.0-0.1); BASOPHILS % 0.4 % (0.0-1.0); EOSINOPHILS # (AUTO) 0.1 (0.0-0.4); EOSINOPHILS % 0.8 % (0.0-6.0); HEMATOCRIT 32.8 % (38.2-49.6); HEMOGLOBIN 9.9 g/dL (14.0-18.0); LYMPHOCYTES # (AUTO) 3.4 (1.0-3.2); LYMPHOCYTES % 24.1 % (18.0-39.1); MEAN CORPUSCULAR HEMOGLOBIN 23.6 pg (28-32); MEAN CORPUSCULAR HGB CONC 30.2 g/dL (31-35); MEAN CORPUSCULAR VOLUME 78.3 fL (81-99); MONOCYTES # (AUTO) 1.3 (0.2-0.8); MONOCYTES % 9.3 % (4.4-11.3); NEUTROPHILS # (AUTO) 9.2 (2.1-6.9); NEUTROPHILS % 64.6 % (38.7-80.0); PLATELET COUNT 428 x10e3/uL (140-360); RED BLOOD COUNT 4.19 x10e6/uL (4.3-5.7)
[~2021-09-07] MED LIST changes: +CIPRO500 MG PO; +DOXYCYCLINE HY100 MG PO; +ELIQUIS5 MG PO; +FENTANYL CITRATE/PF 100MCG/2 ML INJ ONE; +GABAPENTIN300 MG PO; +GLUCAGON FOR INJ 1 MG VIAL ONE; +HYDROCODON-ACE1 EAC9 PO; +HYOSCYAMINE SULFATE 0.5 MG/ML INJ ONE; +LEXAPRO20 MG PO; +LIDOCAINE HCL 2% LOCAL INJ 5 ML SDV VIAL INJ ONE; +MIDAZOLAM HCL 2 MG/2 ML VIAL ONE; +PROPOFOL IV EMULSION 10 MG/ML 20 ML VIAL ONE; +ULTRAM 50MG50 MG PO
[2021-09-07 12:25] VITALS: BP 121/80
== END | disposition home or self-care (01) ==
LOC: OR 08:18
PROVIDERS: ATTEND Internal Medicine Gastroenterology
DX: K57.92 Diverticulitis of intestine, part unspecified, without perforation or abscess without bleeding (principal); D12.0 Benign neoplasm of cecum; D12.2 Benign neoplasm of ascending colon; D12.3 Benign neoplasm of transverse colon; D12.4 Benign neoplasm of descending colon; K64.8 Other hemorrhoids; G47.33 Obstructive sleep apnea (adult) (pediatric); E11.9 Type 2 diabetes mellitus without complications; I48.91 Unspecified atrial fibrillation; I25.810 Atherosclerosis of coronary artery bypass graft(s) without angina pectoris; I10 Essential (primary) hypertension; E78.5 Hyperlipidemia, unspecified; I25.2 Old myocardial infarction; E66.9 Obesity, unspecified; K42.9 Umbilical hernia without obstruction or gangrene; Z88.6 Allergy status to analgesic agent; Z01.810 Encounter for preprocedural cardiovascular examination; Z01.812 Encounter for preprocedural laboratory examination; Z20.822 Contact with and (suspected) exposure to COVID-19; Z79.02 Long term (current) use of antithrombotics/antiplatelets; Z79.82 Long term (current) use of aspirin; Z79.899 Other long term (current) drug therapy; Z68.37 Body mass index [BMI] 37.0-37.9, adult; Z95.1 Presence of aortocoronary bypass graft
CPT/HCPCS: 36415 ×2; 45380; 45385; 82948; 85025; 93005; J1610; J1980; J2001; J2250; J2704; J3010; U0002; 45378; 45384

== ENCOUNTER 2021-09-11 13:04 | Inpatient (IN) | payer OTHER ==
[~2021-09-11] VITALS: Ht 188 cm; Wt 117.9 kg
[~2021-09-11 13:04] MED LIST changes: -CIPRO500 MG PO; -DOXYCYCLINE HY100 MG PO; -IOPAMIDOL 370 MG/ML 200 ML INFUS..BTL INJ ONE; -LEXAPRO20 MG PO; -SODIUM CHLORIDE 0.9% 50ML 50 ML ONE
[2021-09-11] MEDS ORDERED: SODIUM CHLORIDE 0.9% 1000ML 500 ML IV STA (13:46)
[2021-09-11] MEDS ORDERED: METRONIDAZOLE 500MG/NS 100ML 100 ML IV STA (13:46)
[2021-09-11] MEDS ORDERED: PIPERACILLIN/TAZOBACTAM 3.375 GM in SODIUM CHLORIDE 0.9% 50ML 50 ML IV STA (13:46)
[2021-09-11] MEDS ORDERED: Morphine 4mg Syringe 4 MG/ML INJ IV STA (13:46)
[2021-09-11] MEDS ORDERED: ONDANSETRON HCL INJ 2MG/ML 2ML 2 MG/ML VIAL IV STA (13:46)
[2021-09-11 14:12] LABS: BASOPHILS # (AUTO) 0.1 (0.0-0.1); BASOPHILS % 0.5 % (0.0-1.0); EOSINOPHILS # (AUTO) 0.1 (0.0-0.4); EOSINOPHILS % 0.8 % (0.0-6.0); HEMATOCRIT 28.8 % (38.2-49.6); HEMOGLOBIN 8.7 g/dL (14.0-18.0); LYMPHOCYTES # (AUTO) 3.7 (1.0-3.2); LYMPHOCYTES % 29.9 % (18.0-39.1); MEAN CORPUSCULAR HEMOGLOBIN 23.5 pg (28-32); MEAN CORPUSCULAR HGB CONC 30.2 g/dL (31-35); MEAN CORPUSCULAR VOLUME 77.8 fL (81-99); MONOCYTES # (AUTO) 0.9 (0.2-0.8); NEUTROPHILS # (AUTO) 7.4 (2.1-6.9); PLATELET COUNT 423 x10e3/uL (140-360); RED CELL DISTRIBUTION WIDTH 16.3 % (11.7-14.4)
[2021-09-11 14:23] LABS: INR 1.04; PROTHROMBIN TIME 14.4 seconds (11.9-14.5)
[2021-09-11 14:24] LABS: PARTIAL THROMBOPLASTIN TIME 29.5 seconds (23.8-35.5)
[2021-09-11 14:33] LABS: ALBUMIN 2.9 g/dL (3.5-5.0); ALBUMIN/GLOBULIN RATIO 0.7 (0.8-2.0); ANION GAP 9.2 mmol/L (8-16); CREATININE, SERUM 1.05 mg/dL (0.72-1.25); POTASSIUM 4.2 mmol/L (3.5-5.1)
[2021-09-11 14:42] LABS: CREATINE KINASE MB 0.5 ng/mL (0-5.0)
[2021-09-11] MEDS ORDERED: ONDANSETRON HCL INJ 2MG/ML 2ML 2 MG/ML VIAL IV PRN (14:45)
[2021-09-11] MEDS: CLINDAMYCIN PHOS 900MG/ 50ML 50 ML IV SCH ×2 (14:45→22:00)
[2021-09-11] MEDS ORDERED: Morphine 4mg Syringe 4 MG/ML INJ IV PRN (14:45)
[2021-09-11 14:54] LABS: CALCIUM 9.1 mg/dL (8.4-10.2)
[2021-09-11 16:23] VITALS: BP 101/71
[2021-09-11] MEDS: SODIUM CHLORIDE 0.9% 1000ML 1,000 ML IV SCH (17:35)
[2021-09-11] MEDS ORDERED: LEXAPRO20 MG PO (18:19)
[2021-09-11 19:05] LABS: CLARITY,URINE SL CLOUDY (CLEAR); COLOR,URINE YELLOW (YELLOW); KETONES,URINE NEGATIVE (NEGATIVE); LEUKOCYTE ESTERASE ,URINE NEGATIVE (NEGATIVE); NITRITE,URINE NEGATIVE (NEGATIVE); PROTEIN,URINE DIPSTICK NEGATIVE (NEGATIVE); URINE UROBILINOGEN 0.2 mg/dL (0.2 - 1)
[2021-09-11 19:12] LABS: WBC,URINE (MAN) 0-5 /HPF (0-5)
[2021-09-11 20:00] VITALS: BP 118/69
[2021-09-11] MEDS: PIPERACILLIN/TAZOBACTAM 3.375 GM in SODIUM CHLORIDE 0.9% 50ML 50 ML IV SCH (20:00)
[2021-09-11 21:22] VITALS: BP 101/71
[2021-09-11] MEDS: HYDROMORPHONE 1MG/1ML INJ IV PRN (21:30)
[2021-09-12] VITALS (8 sets, daily range): BP systolic 104–132; BP diastolic 60–70
[2021-09-12] MEDS: PIPERACILLIN/TAZOBACTAM 3.375 GM in SODIUM CHLORIDE 0.9% 50ML 50 ML IV SCH ×4 (02:00→20:00)
[2021-09-12 02:07] LABS: % IRON SATURATION 10 % (15-50); IRON 23 ug/dL (65-175); TOTAL IRON BINDING CAPACITY 230 ug/dL (261-478); TRANSFERRIN 164 mg/dL (174-364)
[2021-09-12 05:51] LABS: BASOPHILS # (AUTO) 0.1 (0.0-0.1); BASOPHILS % 0.7 % (0.0-1.0); EOSINOPHILS # (AUTO) 0.2 (0.0-0.4); HEMATOCRIT 25.7 % (38.2-49.6); HEMOGLOBIN 7.8 g/dL (14.0-18.0); LYMPHOCYTES # (AUTO) 2.3 (1.0-3.2); LYMPHOCYTES % 30.7 % (18.0-39.1); MEAN CORPUSCULAR HEMOGLOBIN 23.4 pg (28-32); MEAN CORPUSCULAR HGB CONC 30.4 g/dL (31-35); MEAN CORPUSCULAR VOLUME 77.2 fL (81-99); MONOCYTES # (AUTO) 0.6 (0.2-0.8); MONOCYTES % 8.5 % (4.4-11.3); NEUTROPHILS # (AUTO) 4.2 (2.1-6.9); NEUTROPHILS % 56.7 % (38.7-80.0); PLATELET COUNT 373 x10e3/uL (140-360); RED BLOOD COUNT 3.33 x10e6/uL (4.3-5.7); RED CELL DISTRIBUTION WIDTH 16.3 % (11.7-14.4)
[2021-09-12] MEDS: CLINDAMYCIN PHOS 900MG/ 50ML 50 ML IV SCH ×3 (06:00→22:00)
[2021-09-12] MEDS: SODIUM CHLORIDE 0.9% 1000ML 1,000 ML IV SCH ×5 (06:31→23:33)
[2021-09-12 06:36] LABS: ALBUMIN 2.5 g/dL (3.5-5.0); ALBUMIN/GLOBULIN RATIO 0.7 (0.8-2.0); CALCIUM 8.6 mg/dL (8.4-10.2); CREATININE, SERUM 0.95 mg/dL (0.72-1.25)
[2021-09-12 07:44] LABS: CREATINE KINASE MB 0.4 ng/mL (0-5.0)
[2021-09-12] MEDS ORDERED: DOXYCYCLINE HY100 MG PO (11:37)
[2021-09-12] MEDS ORDERED: CIPRO500 MG PO (11:37)
[2021-09-12] MEDS: HYDROMORPHONE 1MG/1ML INJ IV PRN (13:18)
[2021-09-12 15:04] LABS: CREATINE KINASE MB 0.5 ng/mL (0-5.0)
[2021-09-12] MEDS ORDERED: CYANOCOBALAMIN INJ 1,000 MCG/ML VIAL IM ONE (22:30)
[2021-09-13] VITALS (7 sets, daily range): BP systolic 111–138; BP diastolic 62–74
[2021-09-13] MEDS: HYDROMORPHONE 1MG/1ML INJ IV PRN ×3 (00:04→21:10)
[2021-09-13] MEDS: PIPERACILLIN/TAZOBACTAM 3.375 GM in SODIUM CHLORIDE 0.9% 50ML 50 ML IV SCH ×4 (02:57→21:10)
[2021-09-13] MEDS: SODIUM CHLORIDE 0.9% 1000ML 1,000 ML IV SCH ×3 (06:45→22:29)
[2021-09-13 07:38] LABS: BASOPHILS # (AUTO) 0.1 (0.0-0.1); BASOPHILS % 0.7 % (0.0-1.0); EOSINOPHILS # (AUTO) 0.1 (0.0-0.4); EOSINOPHILS % 1.3 % (0.0-6.0); HEMATOCRIT 26.8 % (38.2-49.6); HEMOGLOBIN 7.9 g/dL (14.0-18.0); LYMPHOCYTES # (AUTO) 1.7 (1.0-3.2); LYMPHOCYTES % 22.5 % (18.0-39.1); MEAN CORPUSCULAR HEMOGLOBIN 23.1 pg (28-32); MEAN CORPUSCULAR HGB CONC 29.5 g/dL (31-35); MEAN CORPUSCULAR VOLUME 78.4 fL (81-99); MONOCYTES # (AUTO) 0.6 (0.2-0.8); MONOCYTES % 8.1 % (4.4-11.3); NEUTROPHILS # (AUTO) 5.1 (2.1-6.9); NEUTROPHILS % 66.6 % (38.7-80.0); PLATELET COUNT 384 x10e3/uL (140-360); RED BLOOD COUNT 3.42 x10e6/uL (4.3-5.7); RED CELL DISTRIBUTION WIDTH 16.3 % (11.7-14.4)
[2021-09-13 07:59] LABS: ALBUMIN 2.5 g/dL (3.5-5.0); ALBUMIN/GLOBULIN RATIO 0.7 (0.8-2.0); CALCIUM 8.4 mg/dL (8.4-10.2); CREATININE, SERUM 0.92 mg/dL (0.72-1.25)
[2021-09-13] MEDS: CLINDAMYCIN PHOS 900MG/ 50ML 50 ML IV SCH ×2 (08:50→17:00)
[2021-09-13] MEDS: CYANOCOBALAMIN INJ 1,000 MCG/ML VIAL IM SCH (08:59)
[2021-09-13] MEDS ORDERED: LIDOCAINE HCL 1% LOCAL INJ 20 ML VIAL ONE ×2 (10:50→11:23)
[2021-09-13] MEDS: IRON SUCROSE 100 MG in SODIUM CHLORIDE 0.9% 100 ML 100 ML IV SCH (12:00)
[2021-09-13] MEDS ORDERED: SODIUM CHLORIDE 0.9% 250ML 250 ML ONE (12:43)
[2021-09-14] VITALS: BP 120/68
[2021-09-14] MEDS: CLINDAMYCIN PHOS 900MG/ 50ML 50 ML IV SCH ×2 (00:30→07:24)
[2021-09-14] MEDS: PIPERACILLIN/TAZOBACTAM 3.375 GM in SODIUM CHLORIDE 0.9% 50ML 50 ML IV SCH ×2 (01:29→08:04)
[2021-09-14] MEDS: HYDROMORPHONE 1MG/1ML INJ IV PRN (01:30)
[2021-09-14 04:00] VITALS: BP 126/69
[2021-09-14] MEDS: SODIUM CHLORIDE 0.9% 1000ML 1,000 ML IV SCH (06:44)
[2021-09-14 08:20] VITALS: BP 122/72
[2021-09-14 08:28] VITALS: BP 122/72
[2021-09-14] MEDS: IRON SUCROSE 100 MG in SODIUM CHLORIDE 0.9% 100 ML 100 ML IV SCH (09:48)
[2021-09-14] MEDS: CYANOCOBALAMIN INJ 1,000 MCG/ML VIAL IM SCH (09:51)
[2021-09-14 11:51] VITALS: BP 135/74
[2021-09-14] MEDS ORDERED: MEROPENEM 1 GM in SODIUM CHLORIDE 0.9% 100 ML IV SCH (14:00)
== END 2021-09-14 16:00 | disposition home health service (06) | DRG 392 ==
LOC: ER 13:46 → ERHOLD 14:59 → MED/SURG 15:31
PROVIDERS: ADMIT Internal Medicine; ATTEND Internal Medicine
PROC: 0W9G3ZZ Drainage of Peritoneal Cavity, Percutaneous Approach (ICD-10-PCS; principal; 2021-09-13)
PROC: 02HV33Z Insertion of Infusion Device into Superior Vena Cava, Percutaneous Approach (ICD-10-PCS; 2021-09-13)
DX: K57.20 Diverticulitis of large intestine with perforation and abscess without bleeding (principal); L02.211 Cutaneous abscess of abdominal wall; E44.1 Mild protein-calorie malnutrition; E11.9 Type 2 diabetes mellitus without complications; I10 Essential (primary) hypertension; I25.10 Atherosclerotic heart disease of native coronary artery without angina pectoris; D64.9 Anemia, unspecified; E66.9 Obesity, unspecified; Z68.33 Body mass index [BMI] 33.0-33.9, adult; Z82.49 Family history of ischemic heart disease and other diseases of the circulatory system; Z79.82 Long term (current) use of aspirin; Z95.1 Presence of aortocoronary bypass graft; Z96.652 Presence of left artificial knee joint
CPT/HCPCS: 10160; 36415; 36558; 71045; 76937; 77012; 80053; 81001; 82550; 82553; 82607; 82746; 82948; 83540; 83605; 83690; 83735; 83880; 84466; 84484; 85025; 85045; 85610; 85730; 86850; 86900; 87040; 87071; 87102; 87116; 87205; 87206; 93005; 94799; 99284; C1751; J1170; J1756; J2001; J2185; J2405; J2543; J3420; J7030; J7050

== ENCOUNTER → 2021-09-11 | Outpatient (CLI) | payer OTHER ==
[~2021-09-11] MED LIST changes: -FENTANYL CITRATE/PF 100MCG/2 ML INJ ONE; -GLUCAGON FOR INJ 1 MG VIAL ONE; -HYOSCYAMINE SULFATE 0.5 MG/ML INJ ONE; +IOPAMIDOL 370 MG/ML 200 ML INFUS..BTL INJ ONE; -LIDOCAINE HCL 2% LOCAL INJ 5 ML SDV VIAL INJ ONE; -MIDAZOLAM HCL 2 MG/2 ML VIAL ONE; -PROPOFOL IV EMULSION 10 MG/ML 20 ML VIAL ONE; +SODIUM CHLORIDE 0.9% 50ML 50 ML ONE
[2021-09-11 08:30] LABS: CREATININE, SERUM 0.99 mg/dL (0.72-1.25)
== END ==
LOC: CT 07:20
PROVIDERS: ATTEND Internal Medicine Gastroenterology
DX: K42.9 Umbilical hernia without obstruction or gangrene (principal)
CPT/HCPCS: 36415; 74177; 82565; 84520; Q9967

== ENCOUNTER → 2021-11-06 | Outpatient (CLI) | payer OTHER ==
[~2021-11-06] MED LIST changes: +CIPRO500 MG PO; +DOXYCYCLINE HY100 MG PO; +LEXAPRO20 MG PO
== END ==
LOC: DX 10:30
PROVIDERS: ATTEND Surgery
DX: K57.30 Diverticulosis of large intestine without perforation or abscess without bleeding (principal)
CPT/HCPCS: 74280

== ENCOUNTER 2021-12-04 08:04 | Inpatient (IN) | payer OTHER ==
[2021-11-30 09:25] LABS: BASOPHILS # (AUTO) 0.1 (0.0-0.1); BASOPHILS % 0.7 % (0.0-1.0); EOSINOPHILS # (AUTO) 0.1 (0.0-0.4); EOSINOPHILS % 1.4 % (0.0-6.0); HEMATOCRIT 38.4 % (38.2-49.6); HEMOGLOBIN 11.7 g/dL (14.0-18.0); LYMPHOCYTES % 31.2 % (18.0-39.1); MEAN CORPUSCULAR HEMOGLOBIN 23.5 pg (28-32); MEAN CORPUSCULAR HGB CONC 30.5 g/dL (31-35); MEAN CORPUSCULAR VOLUME 77.1 fL (81-99); MONOCYTES # (AUTO) 0.8 (0.2-0.8); MONOCYTES % 8.7 % (4.4-11.3); NEUTROPHILS # (AUTO) 5.4 (2.1-6.9); NEUTROPHILS % 57.3 % (38.7-80.0); PLATELET COUNT 274 x10e3/uL (140-360); RED BLOOD COUNT 4.98 x10e6/uL (4.3-5.7); RED CELL DISTRIBUTION WIDTH 18.2 % (11.7-14.4)
[2021-11-30 10:19] LABS: ANION GAP 15.7 mmol/L (8-16); CALCIUM 9.6 mg/dL (8.4-10.2); CREATININE, SERUM 1.11 mg/dL (0.72-1.25); POTASSIUM 4.7 mmol/L (3.5-5.1)
[2021-12-04] VITALS (12 sets, daily range): BP systolic 91–123; BP diastolic 55–76
[~2021-12-04] VITALS: Ht 188 cm; Wt 126.1 kg
[~2021-12-04 08:04] MED LIST changes: +ERYTHROMYCIN PO
[2021-12-04] MEDS ORDERED: NALOXONE HCL INJ 0.4 MG/ML AMP IV PRN (17:45)
[2021-12-04] MEDS: SODIUM CHLORIDE 0.9% 1000ML 1,000 ML IV SCH ×2 (17:45→22:30)
[2021-12-04] MEDS: SODIUM CHLORIDE 0.9% 250ML IRRIG IR SCH ×2 (17:45→21:40)
[2021-12-04] MEDS ORDERED: ACETAMINOPHEN 1000 MG/100 ML IV PRN (17:45)
[2021-12-04] MEDS ORDERED: FENTANYL CITRATE/PF 100MCG/2 ML INJ ONE (17:49)
[2021-12-04] MEDS ORDERED: MIDAZOLAM HCL 2 MG/2 ML VIAL ONE (17:49)
[2021-12-04] MEDS ORDERED: HYDROMORPHONE 0.2MG/ML-SOD CHL 30ML PCA SYRINGE IV ONE (17:55)
[2021-12-04] MEDS ORDERED: HYDROMORPHONE 1MG/1ML INJ ONE (17:59)
[2021-12-04] MEDS: METRONIDAZOLE 500MG/NS 100ML 100 ML IV SCH ×2 (18:00→23:54)
[2021-12-04] MEDS: HYDROMORPHONE 1MG/1ML INJ IV PRN (19:05)
[2021-12-04] MEDS ORDERED: LACTATED RINGER'S 1,000 ML ONE (19:06)
[2021-12-04] MEDS ORDERED: LIDOCAINE HCL 2% LOCAL INJ 5 ML SDV VIAL INJ ONE (19:06)
[2021-12-04] MEDS ORDERED: DEXAMETHASONE SOD PHOS INJ 4 MG/ML SDV ONE (19:06)
[2021-12-04] MEDS ORDERED: ONDANSETRON HCL INJ 2MG/ML 2ML 2 MG/ML VIAL ONE (19:06)
[2021-12-04] MEDS ORDERED: POVIDONE IODINE 0.05% 0.05 % ML PO ONE (19:06)
[2021-12-04] MEDS ORDERED: ROCURONIUM BROMIDE 10 MG/ML 5ML VIAL IV ONE (19:06)
[2021-12-04] MEDS ORDERED: SEVOFLURANE INHAL SOLN 250 ML PEN BTL ONE (19:06)
[2021-12-04] MEDS ORDERED: PROPOFOL IV EMULSION 10 MG/ML 20 ML VIAL ONE (19:06)
[2021-12-04] MEDS ORDERED: LORAZEPAM INJ 2 MG/ML VIAL IV PRN (19:15)
[2021-12-04] MEDS ORDERED: LACTATED RINGER'S 1,000 ML INJ ONE (19:15)
[2021-12-04 22:37] LABS: BASOPHILS # (AUTO) 0.1 (0.0-0.1); BASOPHILS % 0.3 % (0.0-1.0); HEMOGLOBIN 11.2 g/dL (14.0-18.0); LYMPHOCYTES # (AUTO) 1.1 (1.0-3.2); LYMPHOCYTES % 2.2 % (18.0-39.1); MEAN CORPUSCULAR HEMOGLOBIN 24.2 pg (28-32); MEAN CORPUSCULAR HGB CONC 31.1 g/dL (31-35); MEAN CORPUSCULAR VOLUME 77.8 fL (81-99); MONOCYTES # (AUTO) 2.7 (0.2-0.8); MONOCYTES % 5.3 % (4.4-11.3); NEUTROPHILS # (AUTO) 47.1 (2.1-6.9); NEUTROPHILS % 91.2 % (38.7-80.0); PLATELET COUNT 314 x10e3/uL (140-360); RED BLOOD COUNT 4.63 x10e6/uL (4.3-5.7); RED CELL DISTRIBUTION WIDTH 18.1 % (11.7-14.4)
[2021-12-04 22:56] LABS: ANISOCYTOSIS SLIGHT; BAND NEUTROPHILS % (MANUAL) 15 %; LYMPHOCYTES % (MANUAL) 3 % (19-48); METAMYELOCYTES % (MANUAL) 1 % (0-0); MONOCYTES % (MANUAL) 4 % (3.4-9.0); NEUTROPHILS % (MANUAL) 76 % (40-74); PLATELET ESTIMATE ADEQUATE; PLATELET MORPHOLOGY COMMENT NORMAL; POLYCHROMASIA 1+; RBC MORPHOLOGY COMMENT NORMAL
[2021-12-04] MEDS ORDERED: SODIUM CHLORIDE 0.9% 250ML 250 ML IV ONE (23:00)
[2021-12-05] VITALS (23 sets, daily range): BP systolic 87–158; BP diastolic 56–96
[2021-12-05] MEDS: SODIUM CHLORIDE 0.9% 250ML IRRIG IR SCH ×6 (01:47→21:49)
[2021-12-05] MEDS: HYDROMORPHONE 0.2MG/ML-SOD CHL 30ML PCA SYRINGE IV PRN ×2 (04:25→15:16)
[2021-12-05 06:03] LABS: BASOPHILS % 0.1 % (0.0-1.0); HEMATOCRIT 35.5 % (38.2-49.6); HEMOGLOBIN 10.7 g/dL (14.0-18.0); LYMPHOCYTES # (AUTO) 1.6 (1.0-3.2); LYMPHOCYTES % 2.8 % (18.0-39.1); MEAN CORPUSCULAR HGB CONC 30.1 g/dL (31-35); MEAN CORPUSCULAR VOLUME 79.8 fL (81-99); MONOCYTES # (AUTO) 3.5 (0.2-0.8); NEUTROPHILS # (AUTO) 51.8 (2.1-6.9); NEUTROPHILS % 89.6 % (38.7-80.0); PLATELET COUNT 326 x10e3/uL (140-360); RED BLOOD COUNT 4.45 x10e6/uL (4.3-5.7); RED CELL DISTRIBUTION WIDTH 17.8 % (11.7-14.4)
[2021-12-05] MEDS: SODIUM CHLORIDE 0.9% 1000ML 1,000 ML IV SCH ×3 (06:08→20:02)
[2021-12-05] MEDS: METRONIDAZOLE 500MG/NS 100ML 100 ML IV SCH ×4 (06:20→23:36)
[2021-12-05 06:25] LABS: ALBUMIN 3.3 g/dL (3.5-5.0); ALBUMIN/GLOBULIN RATIO 0.9 (0.8-2.0); ANION GAP 17.4 mmol/L (8-16); CALCIUM 8.1 mg/dL (8.4-10.2); CREATININE, SERUM 2.62 mg/dL (0.72-1.25)
[2021-12-05 06:32] LABS: POTASSIUM 6.4 mmol/L (3.5-5.1)
[2021-12-05 08:41] LABS: BAND NEUTROPHILS % (MANUAL) 11 %; LYMPHOCYTES % (MANUAL) 2 % (19-48); MONOCYTES % (MANUAL) 9 % (3.4-9.0); NEUTROPHILS % (MANUAL) 78 % (40-74)
[2021-12-05 08:42] LABS: ANISOCYTOSIS MODERATE; HYPOCHROMASIA SLIGHT; MICROCYTOSIS SLIGHT; PLATELET ESTIMATE ADEQUATE; PLATELET MORPHOLOGY COMMENT NORMAL; RBC MORPHOLOGY COMMENT ABNORMAL
[2021-12-05] MEDS: METOPROLOL TARTRATE 25 MG TAB PO SCH (08:45)
[2021-12-05] MEDS ORDERED: DEXTROSE 50% SYRINGE 50 ML IV PRN (09:00)
[2021-12-05] MEDS ORDERED: INSULIN REGULAR, HUMAN 100 UNIT/1 ML IV ONE (09:20)
[2021-12-05] MEDS ORDERED: CALCIUM GLUC 1 G/50 ML NACL 50 ML IV ONE (09:30)
[2021-12-05] MEDS ORDERED: ALBUTEROL SULF 0.083% NEB SOLN 3 ML NEB NEB ONE (09:30)
[2021-12-05] MEDS ORDERED: SODIUM CHLORIDE 0.9% 1000ML 1,000 ML IV ONE (15:15)
[2021-12-05 15:50] LABS: ALBUMIN 2.9 g/dL (3.5-5.0); ALBUMIN/GLOBULIN RATIO 0.9 (0.8-2.0); ANION GAP 13.4 mmol/L (8-16); CREATININE, SERUM 2.34 mg/dL (0.72-1.25); POTASSIUM 5.4 mmol/L (3.5-5.1)
[2021-12-05] MEDS ORDERED: SODIUM CHLORIDE 0.9% 500ML 500 ML IV ONE (18:00)
[2021-12-05] MEDS ORDERED: FUROSEMIDE INJ 10 MG/ML 2 ML VIAL IV ONE (19:30)
[2021-12-06] VITALS (29 sets, daily range): BP systolic 99–153; BP diastolic 49–91
[2021-12-06] MEDS: HYDROMORPHONE 0.2MG/ML-SOD CHL 30ML PCA SYRINGE IV PRN ×2 (00:30→15:07)
[2021-12-06] MEDS: LINEZOLID 600 MG/D5W 300ML 300 ML IV SCH ×3 (00:45→23:49)
[2021-12-06] MEDS: SODIUM CHLORIDE 0.9% 250ML IRRIG IR SCH ×6 (01:49→21:33)
[2021-12-06] MEDS: SODIUM CHLORIDE 0.9% 1000ML 1,000 ML IV SCH (03:50)
[2021-12-06] MEDS: METRONIDAZOLE 500MG/NS 100ML 100 ML IV SCH ×3 (06:10→21:33)
[2021-12-06] MEDS: METOPROLOL TARTRATE 25 MG TAB PO SCH (08:56)
[2021-12-06 08:57] LABS: BASOPHILS # (AUTO) 0.1 (0.0-0.1); BASOPHILS % 0.2 % (0.0-1.0); HEMATOCRIT 26.6 % (38.2-49.6); HEMOGLOBIN 8.2 g/dL (14.0-18.0); LYMPHOCYTES # (AUTO) 2.4 (1.0-3.2); LYMPHOCYTES % 5.3 % (18.0-39.1); MEAN CORPUSCULAR HEMOGLOBIN 24.1 pg (28-32); MEAN CORPUSCULAR HGB CONC 30.8 g/dL (31-35); MEAN CORPUSCULAR VOLUME 78.2 fL (81-99); MONOCYTES # (AUTO) 3.8 (0.2-0.8); MONOCYTES % 8.4 % (4.4-11.3); NEUTROPHILS # (AUTO) 37.9 (2.1-6.9); NEUTROPHILS % 84.3 % (38.7-80.0); PLATELET COUNT 297 x10e3/uL (140-360); RED CELL DISTRIBUTION WIDTH 18.6 % (11.7-14.4)
[2021-12-06 09:35] LABS: ALBUMIN 2.7 g/dL (3.5-5.0); ALBUMIN/GLOBULIN RATIO 0.8 (0.8-2.0); ANION GAP 10.9 mmol/L (8-16); CALCIUM 7.9 mg/dL (8.4-10.2); CREATININE, SERUM 1.28 mg/dL (0.72-1.25); POTASSIUM 4.9 mmol/L (3.5-5.1)
[2021-12-06] MEDS: DEXTROSE 5%/0.45% SOD CHL 1,000 ML IV SCH ×2 (14:04→23:20)
[2021-12-06] MEDS: HYDROMORPHONE 1MG/1ML INJ IV PRN (22:15)
[2021-12-07] VITALS (31 sets, daily range): BP systolic 106–152; BP diastolic 48–97
[2021-12-07] MEDS: SODIUM CHLORIDE 0.9% 250ML IRRIG IR SCH ×6 (01:23→21:37)
[2021-12-07] MEDS: METRONIDAZOLE 500MG/NS 100ML 100 ML IV SCH ×3 (05:21→21:37)
[2021-12-07 05:56] LABS: BASOPHILS % 0.1 % (0.0-1.0); EOSINOPHILS % 0.1 % (0.0-6.0); HEMATOCRIT 23.5 % (38.2-49.6); HEMOGLOBIN 7.6 g/dL (14.0-18.0); LYMPHOCYTES # (AUTO) 2.6 (1.0-3.2); LYMPHOCYTES % 7.1 % (18.0-39.1); MEAN CORPUSCULAR HEMOGLOBIN 24.5 pg (28-32); MEAN CORPUSCULAR HGB CONC 32.3 g/dL (31-35); MEAN CORPUSCULAR VOLUME 75.8 fL (81-99); MONOCYTES # (AUTO) 2.7 (0.2-0.8); MONOCYTES % 7.1 % (4.4-11.3); PLATELET COUNT 323 x10e3/uL (140-360); RED CELL DISTRIBUTION WIDTH 18.4 % (11.7-14.4)
[2021-12-07 06:33] LABS: ALBUMIN 2.6 g/dL (3.5-5.0); ALBUMIN/GLOBULIN RATIO 0.8 (0.8-2.0); CREATININE, SERUM 0.89 mg/dL (0.72-1.25)
[2021-12-07] MEDS: HYDROMORPHONE 1MG/1ML INJ IV PRN ×6 (06:59→22:25)
[2021-12-07 08:47] LABS: EOSINOPHILS % (MANUAL) 1 % (0-7); LYMPHOCYTES % (MANUAL) 3 % (19-48); MONOCYTES % (MANUAL) 5 % (3.4-9.0); NEUTROPHILS % (MANUAL) 90 % (40-74); PROMYELOCYTES % (MANUAL) 1 % (0-0)
[2021-12-07 08:48] LABS: PLATELET ESTIMATE ADEQUATE; PLATELET MORPHOLOGY COMMENT NORMAL; RBC MORPHOLOGY COMMENT NORMAL
[2021-12-07] MEDS: METOPROLOL TARTRATE 25 MG TAB PO SCH (09:00)
[2021-12-07] MEDS: DEXTROSE 5%/0.45% SOD CHL 1,000 ML IV SCH ×2 (09:30→18:52)
[2021-12-07] MEDS: ONDANSETRON HCL INJ 2MG/ML 2ML 2 MG/ML VIAL IV PRN (10:23)
[2021-12-07] MEDS: LINEZOLID 600 MG/D5W 300ML 300 ML IV SCH ×2 (12:50→23:42)
[2021-12-07] MEDS ORDERED: SODIUM CHLORIDE 0.9% 250ML 250 ML IV ONE (15:15)
[2021-12-07] MEDS ORDERED: PNEUMOCOCCAL VACCINE POLYVALENT 23 MCG/0.5 ML VIAL IM ONE (15:30)
[2021-12-07] MEDS ORDERED: MENINGOCOCCAL POLYSACC VAC 50 MCG VIAL IM ONE (16:00)
[2021-12-07] MEDS: BISACODYL 10 MG SUPP PR SCH (20:54)
[2021-12-08] VITALS (22 sets, daily range): BP systolic 110–150; BP diastolic 62–77
[2021-12-08] MEDS: HYDROMORPHONE 1MG/1ML INJ IV PRN ×9 (01:29→23:14)
[2021-12-08] MEDS: SODIUM CHLORIDE 0.9% 250ML IRRIG IR SCH ×4 (01:29→13:01)
[2021-12-08] MEDS: DEXTROSE 5%/0.45% SOD CHL 1,000 ML IV SCH ×3 (04:46→20:00)
[2021-12-08 05:03] LABS: BASOPHILS # (AUTO) 0.1 (0.0-0.1); BASOPHILS % 0.4 % (0.0-1.0); EOSINOPHILS # (AUTO) 0.2 (0.0-0.4); EOSINOPHILS % 0.7 % (0.0-6.0); HEMATOCRIT 26.7 % (38.2-49.6); HEMOGLOBIN 8.5 g/dL (14.0-18.0); LYMPHOCYTES # (AUTO) 2.8 (1.0-3.2); LYMPHOCYTES % 10.1 % (18.0-39.1); MEAN CORPUSCULAR HEMOGLOBIN 24.4 pg (28-32); MEAN CORPUSCULAR HGB CONC 31.8 g/dL (31-35); MEAN CORPUSCULAR VOLUME 76.5 fL (81-99); MONOCYTES # (AUTO) 2.9 (0.2-0.8); MONOCYTES % 10.6 % (4.4-11.3); NEUTROPHILS # (AUTO) 20.8 (2.1-6.9); NEUTROPHILS % 75.5 % (38.7-80.0); PLATELET COUNT 378 x10e3/uL (140-360); RED BLOOD COUNT 3.49 x10e6/uL (4.3-5.7); RED CELL DISTRIBUTION WIDTH 18.6 % (11.7-14.4)
[2021-12-08] MEDS: METRONIDAZOLE 500MG/NS 100ML 100 ML IV SCH ×3 (05:25→22:43)
[2021-12-08 05:36] LABS: ALBUMIN 2.4 g/dL (3.5-5.0); ALBUMIN/GLOBULIN RATIO 0.7 (0.8-2.0); ANION GAP 8.8 mmol/L (8-16); CREATININE, SERUM 0.79 mg/dL (0.72-1.25); POTASSIUM 3.8 mmol/L (3.5-5.1)
[2021-12-08] MEDS: METOPROLOL TARTRATE 25 MG TAB PO SCH (08:36)
[2021-12-08] MEDS ORDERED: PNEUMOCOCCAL VACCINE POLYVALENT 23 MCG/0.5 ML VIAL IM ONE (09:00)
[2021-12-08] MEDS ORDERED: MENINGOCOCCAL POLYSACC VAC 50 MCG VIAL IM ONE (09:00)
[2021-12-08] MEDS: BISACODYL 10 MG SUPP PR SCH (09:38)
[2021-12-08] MEDS ORDERED: BISACODYL 10 MG SUPP PR SCH (10:00)
[2021-12-08] MEDS: LINEZOLID 600 MG/D5W 300ML 300 ML IV SCH ×2 (12:00→23:59)
[2021-12-08] MEDS: ONDANSETRON HCL INJ 2MG/ML 2ML 2 MG/ML VIAL IV PRN (20:10)
[2021-12-09] VITALS (7 sets, daily range): BP systolic 118–141; BP diastolic 63–77
[2021-12-09] MEDS: HYDROMORPHONE 1MG/1ML INJ IV PRN ×7 (02:15→21:22)
[2021-12-09] MEDS: METRONIDAZOLE 500MG/NS 100ML 100 ML IV SCH ×3 (05:23→22:39)
[2021-12-09] MEDS: METOPROLOL TARTRATE 25 MG TAB PO SCH ×2 (09:00→12:00)
[2021-12-09] MEDS: LINEZOLID 600 MG/D5W 300ML 300 ML IV SCH (11:35)
[2021-12-09] MEDS: ONDANSETRON HCL INJ 2MG/ML 2ML 2 MG/ML VIAL IV PRN ×3 (12:00→18:11)
[2021-12-09] MEDS: DEXTROSE 5%/0.45% SOD CHL 1,000 ML IV SCH (14:30)
[2021-12-09] MEDS ORDERED: ZOLPIDEM TARTRATE 10 MG TAB PO PRN (22:30)
[2021-12-10] VITALS (7 sets, daily range): BP systolic 117–147; BP diastolic 66–79
[2021-12-10] MEDS: DEXTROSE 5%/0.45% SOD CHL 1,000 ML IV SCH ×2 (00:36→11:00)
[2021-12-10] MEDS: ONDANSETRON HCL INJ 2MG/ML 2ML 2 MG/ML VIAL IV PRN ×4 (00:48→21:11)
[2021-12-10] MEDS: HYDROMORPHONE 1MG/1ML INJ IV PRN ×7 (00:49→21:11)
[2021-12-10] MEDS: METRONIDAZOLE 500MG/NS 100ML 100 ML IV SCH ×3 (05:57→22:00)
[2021-12-10 06:16] LABS: ANION GAP 8.7 mmol/L (8-16); CALCIUM 8.2 mg/dL (8.4-10.2); CREATININE, SERUM 0.81 mg/dL (0.72-1.25); POTASSIUM 3.7 mmol/L (3.5-5.1)
[2021-12-10] MEDS: METOPROLOL TARTRATE 25 MG TAB PO SCH (08:07)
[2021-12-10] MEDS: LINEZOLID 600 MG/D5W 300ML 300 ML IV SCH ×2 (11:27)
[2021-12-10] MEDS ORDERED: ZOLPIDEM TARTRATE 10 MG TAB PO PRN (12:30)
[2021-12-10] MEDS: BISACODYL 10 MG SUPP PR SCH (21:00)
[2021-12-11] VITALS (8 sets, daily range): BP systolic 115–138; BP diastolic 67–81
[2021-12-11] MEDS: ONDANSETRON HCL INJ 2MG/ML 2ML 2 MG/ML VIAL IV PRN ×5 (01:31→17:51)
[2021-12-11] MEDS: HYDROMORPHONE 1MG/1ML INJ IV PRN ×5 (01:32→17:51)
[2021-12-11] MEDS: DEXTROSE 5%/0.45% SOD CHL 1,000 ML IV SCH ×2 (05:10→21:10)
[2021-12-11] MEDS: METRONIDAZOLE 500MG/NS 100ML 100 ML IV SCH ×3 (05:13→22:20)
[2021-12-11 05:16] LABS: BASOPHILS # (AUTO) 0.1 (0.0-0.1); BASOPHILS % 0.5 % (0.0-1.0); EOSINOPHILS # (AUTO) 0.2 (0.0-0.4); EOSINOPHILS % 1.3 % (0.0-6.0); HEMOGLOBIN 8.2 g/dL (14.0-18.0); LYMPHOCYTES # (AUTO) 2.6 (1.0-3.2); LYMPHOCYTES % 13.7 % (18.0-39.1); MEAN CORPUSCULAR HEMOGLOBIN 24.3 pg (28-32); MEAN CORPUSCULAR HGB CONC 31.5 g/dL (31-35); MEAN CORPUSCULAR VOLUME 76.9 fL (81-99); MONOCYTES # (AUTO) 2.6 (0.2-0.8); MONOCYTES % 13.8 % (4.4-11.3); NEUTROPHILS # (AUTO) 12.6 (2.1-6.9); NEUTROPHILS % 66.5 % (38.7-80.0); PLATELET COUNT 526 x10e3/uL (140-360); RED BLOOD COUNT 3.38 x10e6/uL (4.3-5.7); RED CELL DISTRIBUTION WIDTH 18.9 % (11.7-14.4)
[2021-12-11 05:55] LABS: ALBUMIN 2.3 g/dL (3.5-5.0); ALBUMIN/GLOBULIN RATIO 0.7 (0.8-2.0); ANION GAP 10.6 mmol/L (8-16); CALCIUM 7.9 mg/dL (8.4-10.2); CREATININE, SERUM 0.81 mg/dL (0.72-1.25); POTASSIUM 3.6 mmol/L (3.5-5.1)
[2021-12-11] MEDS: BISACODYL 10 MG SUPP PR SCH (08:37)
[2021-12-11] MEDS: METOPROLOL TARTRATE 25 MG TAB PO SCH (08:37)
[2021-12-11 08:40] LABS: EOSINOPHILS % (MANUAL) 1 % (0-7); LYMPHOCYTES % (MANUAL) 8 % (19-48); MONOCYTES % (MANUAL) 5 % (3.4-9.0); NEUTROPHILS % (MANUAL) 86 % (40-74); NUCLEATED RED BLOOD CELLS 4; PLATELET ESTIMATE SLIGHTLY INCREASED; PLATELET MORPHOLOGY COMMENT FEW LARGE; RBC MORPHOLOGY COMMENT NORMAL
[2021-12-11] MEDS: LINEZOLID 600 MG/D5W 300ML 300 ML IV SCH ×2 (12:19)
[2021-12-11] MEDS ORDERED: HYDROMORPHONE 1MG/1ML INJ IV PRN (22:00)
[2021-12-11] MEDS: HYDROCODONE/APAP 7.5MG-325MG 1 EA TAB PO PRN (22:20)
[2021-12-12] VITALS: BP 142/64
[2021-12-12] MEDS: LINEZOLID 600 MG/D5W 300ML 300 ML IV SCH ×2 (00:22→12:15)
[2021-12-12 01:16] VITALS: BP 120/66
[2021-12-12] MEDS: HYDROCODONE/APAP 7.5MG-325MG 1 EA TAB PO PRN ×3 (02:15→13:33)
[2021-12-12 04:42] VITALS: BP 143/78
[2021-12-12] MEDS: METRONIDAZOLE 500MG/NS 100ML 100 ML IV SCH ×2 (06:08→14:00)
[2021-12-12] MEDS: ONDANSETRON HCL INJ 2MG/ML 2ML 2 MG/ML VIAL IV PRN (06:31)
[2021-12-12 08:28] VITALS: BP 131/72
[2021-12-12] MEDS: METOPROLOL TARTRATE 25 MG TAB PO SCH (08:41)
[2021-12-12 09:17] VITALS: BP 131/72
[2021-12-12] MEDS: DEXTROSE 5%/0.45% SOD CHL 1,000 ML IV SCH (09:21)
[2021-12-12 12:08] VITALS: BP 93/63
== END 2021-12-12 14:45 | disposition home or self-care (01) | DRG 853 ==
LOC: OR 08:04 → ICU 17:30 → MED/SURG 12-08 22:12
PROVIDERS: ADMIT Surgery; ATTEND Surgery
PROC: 07TP0ZZ Resection of Spleen, Open Approach (ICD-10-PCS; 2021-12-04)
PROC: 0WPG0JZ Removal of Synthetic Substitute from Peritoneal Cavity, Open Approach (ICD-10-PCS; 2021-12-04)
PROC: 0DNW0ZZ Release Peritoneum, Open Approach (ICD-10-PCS; 2021-12-04)
PROC: 0DTN0ZZ Resection of Sigmoid Colon, Open Approach (ICD-10-PCS; principal; 2021-12-04 10:53)
PROC: 3E03328 Introduction of Oxazolidinones into Peripheral Vein, Percutaneous Approach (ICD-10-PCS; 2021-12-06)
PROC: 30233N1 Transfusion of Nonautologous Red Blood Cells into Peripheral Vein, Percutaneous Approach (ICD-10-PCS; 2021-12-07)
PROC: 3E0234Z Introduction of Serum, Toxoid and Vaccine into Muscle, Percutaneous Approach (ICD-10-PCS; 2021-12-08)
DX: A41.9 Sepsis, unspecified organism (principal); N17.0 Acute kidney failure with tubular necrosis; K57.20 Diverticulitis of large intestine with perforation and abscess without bleeding; E78.5 Hyperlipidemia, unspecified; R65.20 Severe sepsis without septic shock; Z96.652 Presence of left artificial knee joint; I25.10 Atherosclerotic heart disease of native coronary artery without angina pectoris; E11.9 Type 2 diabetes mellitus without complications; Z95.1 Presence of aortocoronary bypass graft; E66.9 Obesity, unspecified; Z68.35 Body mass index [BMI] 35.0-35.9, adult; Z79.899 Other long term (current) drug therapy; Z23 Encounter for immunization; Z79.4 Long term (current) use of insulin; Z20.822 Contact with and (suspected) exposure to COVID-19; E87.5 Hyperkalemia; G47.33 Obstructive sleep apnea (adult) (pediatric)
CPT/HCPCS: 36415; 71046; 80048; 80053; 82150; 82948; 85025; 86850; 86900; 86920; 88305; 88307; 90732; 94640; 94799; 96361; 97139; 99251; C1713; J0692; J0694; J1100; J1170; J1817; J1940; J2001; J2020; J2185; J2250; J2405; J2543; J3010; J7030; J7050; J7121; J7799; P9016; U0002

== ENCOUNTER 2021-12-20 16:37 | Inpatient (IN) | payer OTHER ==
[~2021-12-20] VITALS: Ht 188 cm; Wt 121.6 kg
[2021-12-20 17:35] LABS: BASOPHILS # (AUTO) 0.1 (0.0-0.1); BASOPHILS % 0.6 % (0.0-1.0); EOSINOPHILS % 0.1 % (0.0-6.0); HEMATOCRIT 28.1 % (38.2-49.6); HEMOGLOBIN 8.8 g/dL (14.0-18.0); LYMPHOCYTES % 10.9 % (18.0-39.1); MEAN CORPUSCULAR HEMOGLOBIN 24.2 pg (28-32); MEAN CORPUSCULAR HGB CONC 31.3 g/dL (31-35); MEAN CORPUSCULAR VOLUME 77.4 fL (81-99); MONOCYTES # (AUTO) 2.2 (0.2-0.8); MONOCYTES % 12.1 % (4.4-11.3); NEUTROPHILS # (AUTO) 13.6 (2.1-6.9); NEUTROPHILS % 75.7 % (38.7-80.0); PLATELET COUNT 1021 x10e3/uL (140-360); RED BLOOD COUNT 3.63 x10e6/uL (4.3-5.7); RED CELL DISTRIBUTION WIDTH 18.5 % (11.7-14.4)
[2021-12-20 18:00] LABS: INR 1.2; PROTHROMBIN TIME 16.3 seconds (11.9-14.5)
[2021-12-20 18:08] LABS: ALBUMIN 2.8 g/dL (3.5-5.0); ALBUMIN/GLOBULIN RATIO 0.6 (0.8-2.0); CALCIUM 8.7 mg/dL (8.4-10.2)
[2021-12-20] MEDS ORDERED: SODIUM CHLORIDE FLUSH 10 ML SYR INJ PRN (18:30)
[2021-12-20] MEDS ORDERED: ONDANSETRON HCL INJ 2MG/ML 2ML 2 MG/ML VIAL IV PRN (18:30)
[2021-12-20] MEDS ORDERED: ENOXAPARIN INJ 80 MG/0.8 ML SYR SC STA (18:35)
[2021-12-20] MEDS: Morphine 4mg Syringe 4 MG/ML INJ IV PRN (20:24)
[2021-12-20 23:00] VITALS: BP 120/69
[2021-12-20 23:30] VITALS: BP 128/72
[2021-12-21] VITALS (37 sets, daily range): BP systolic 99–167; BP diastolic 53–117
[2021-12-21] MEDS: Morphine 4mg Syringe 4 MG/ML INJ IV PRN ×4 (00:10→15:26)
[2021-12-21 05:00] LABS: BASOPHILS # (AUTO) 0.1 (0.0-0.1); BASOPHILS % 0.7 % (0.0-1.0); EOSINOPHILS # (AUTO) 0.1 (0.0-0.4); EOSINOPHILS % 0.6 % (0.0-6.0); HEMATOCRIT 26.3 % (38.2-49.6); HEMOGLOBIN 8.1 g/dL (14.0-18.0); LYMPHOCYTES # (AUTO) 3.2 (1.0-3.2); LYMPHOCYTES % 20.9 % (18.0-39.1); MEAN CORPUSCULAR HEMOGLOBIN 24.4 pg (28-32); MEAN CORPUSCULAR HGB CONC 30.8 g/dL (31-35); MEAN CORPUSCULAR VOLUME 79.2 fL (81-99); MONOCYTES # (AUTO) 2.7 (0.2-0.8); MONOCYTES % 17.4 % (4.4-11.3); NEUTROPHILS # (AUTO) 9.3 (2.1-6.9); NEUTROPHILS % 59.8 % (38.7-80.0); PLATELET COUNT 946 x10e3/uL (140-360); RED BLOOD COUNT 3.32 x10e6/uL (4.3-5.7); RED CELL DISTRIBUTION WIDTH 18.6 % (11.7-14.4)
[2021-12-21 05:10] LABS: INR 1.16; PROTHROMBIN TIME 15.8 seconds (11.9-14.5)
[2021-12-21 05:11] LABS: PARTIAL THROMBOPLASTIN TIME 38.3 seconds (23.8-35.5)
[2021-12-21 05:27] LABS: ANION GAP 13.8 mmol/L (8-16); CALCIUM 8.9 mg/dL (8.4-10.2); CREATININE, SERUM 0.87 mg/dL (0.72-1.25); POTASSIUM 3.8 mmol/L (3.5-5.1)
[2021-12-21] MEDS ORDERED: SODIUM CHLORIDE 0.9% 250ML 250 ML ONE (06:40)
[2021-12-21] MEDS ORDERED: SODIUM CHLORIDE 0.9% 250ML 250 ML IV ONE (11:00)
[2021-12-21] MEDS ORDERED: HEPARIN SOD/SOD CHLORIDE 1,000 ML ONE ×2 (14:38→14:47)
[2021-12-21] MEDS ORDERED: SODIUM CHLORIDE 0.9% 1000ML 1,000 ML ONE (14:39)
[2021-12-21] MEDS ORDERED: IOPAMIDOL 370 MG/ML 100 ML INFUS..BTL INJ ONE (14:50)
[2021-12-21] MEDS ORDERED: MIDAZOLAM HCL 2 MG/2 ML VIAL ONE (14:55)
[2021-12-21] MEDS ORDERED: FENTANYL CITRATE/PF 100MCG/2 ML INJ ONE (14:56)
[2021-12-21 16:07] LABS: BASOPHILS # (AUTO) 0.1 (0.0-0.1); BASOPHILS % 0.8 % (0.0-1.0); EOSINOPHILS # (AUTO) 0.1 (0.0-0.4); EOSINOPHILS % 0.5 % (0.0-6.0); HEMATOCRIT 27.6 % (38.2-49.6); HEMOGLOBIN 8.4 g/dL (14.0-18.0); LYMPHOCYTES # (AUTO) 2.2 (1.0-3.2); LYMPHOCYTES % 12.6 % (18.0-39.1); MEAN CORPUSCULAR HEMOGLOBIN 24.1 pg (28-32); MEAN CORPUSCULAR HGB CONC 30.4 g/dL (31-35); MEAN CORPUSCULAR VOLUME 79.1 fL (81-99); MONOCYTES # (AUTO) 2.8 (0.2-0.8); MONOCYTES % 15.9 % (4.4-11.3); NEUTROPHILS # (AUTO) 12.2 (2.1-6.9); NEUTROPHILS % 69.7 % (38.7-80.0); PLATELET COUNT 970 x10e3/uL (140-360); RED BLOOD COUNT 3.49 x10e6/uL (4.3-5.7); RED CELL DISTRIBUTION WIDTH 18.6 % (11.7-14.4)
[2021-12-21] MEDS ORDERED: ENOXAPARIN INJ 80 MG/0.8 ML SYR SC ONE (18:00)
[2021-12-21] MEDS: HYDROMORPHONE 1MG/1ML INJ IV PRN (18:08)
[2021-12-21] MEDS ORDERED: IRON DEXTRAN INJ 50 MG in SODIUM CHLORIDE 0.9% 100 ML IV ONE (20:15)
[2021-12-21] MEDS: GABAPENTIN 300 MG CAP PO SCH (20:48)
[2021-12-21] MEDS: ATORVASTATIN 40 MG TAB PO SCH (20:48)
[2021-12-21] MEDS: ANAGRELIDE HCL 0.5 MG CAP PO SCH (20:48)
[2021-12-21] MEDS ORDERED: IRON DEXTRAN INJ 500 MG in SODIUM CHLORIDE 0.9% 500ML 500 ML IV PRN (21:00)
[2021-12-21] MEDS: HYDROCODONE/APAP 7.5MG-325MG 1 EA TAB PO PRN (21:10)
[2021-12-22] VITALS (23 sets, daily range): BP systolic 98–157; BP diastolic 51–120
[2021-12-22 05:27] LABS: ALBUMIN 2.5 g/dL (3.5-5.0); ALBUMIN/GLOBULIN RATIO 0.5 (0.8-2.0); ANION GAP 13.9 mmol/L (8-16); CALCIUM 8.9 mg/dL (8.4-10.2); CREATININE, SERUM 0.95 mg/dL (0.72-1.25); POTASSIUM 4.9 mmol/L (3.5-5.1)
[2021-12-22 05:33] LABS: BASOPHILS % 0.2 % (0.0-1.0); HEMOGLOBIN 8.4 g/dL (14.0-18.0); LYMPHOCYTES # (AUTO) 1.1 (1.0-3.2); LYMPHOCYTES % 6.5 % (18.0-39.1); MEAN CORPUSCULAR HEMOGLOBIN 24.6 pg (28-32); MEAN CORPUSCULAR HGB CONC 31.1 g/dL (31-35); MEAN CORPUSCULAR VOLUME 78.9 fL (81-99); MONOCYTES # (AUTO) 0.3 (0.2-0.8); MONOCYTES % 1.6 % (4.4-11.3); NEUTROPHILS # (AUTO) 15.5 (2.1-6.9); NEUTROPHILS % 91.2 % (38.7-80.0); PLATELET COUNT 982 x10e3/uL (140-360); RED BLOOD COUNT 3.42 x10e6/uL (4.3-5.7); RED CELL DISTRIBUTION WIDTH 18.5 % (11.7-14.4)
[2021-12-22] MEDS: ANAGRELIDE HCL 0.5 MG CAP PO SCH ×4 (09:12→21:22)
[2021-12-22] MEDS: HYDROCODONE/APAP 7.5MG-325MG 1 EA TAB PO PRN ×3 (10:57→21:27)
[2021-12-22] MEDS ORDERED: ENOXAPARIN INJ 80 MG/0.8 ML SYR SC ONE (17:50)
[2021-12-22] MEDS: GABAPENTIN 300 MG CAP PO SCH (21:22)
[2021-12-22] MEDS: ATORVASTATIN 40 MG TAB PO SCH (21:22)
[2021-12-23] VITALS (9 sets, daily range): BP systolic 110–134; BP diastolic 61–96
[2021-12-23] MEDS: HYDROCODONE/APAP 7.5MG-325MG 1 EA TAB PO PRN ×3 (01:17→14:30)
[2021-12-23 06:18] LABS: BASOPHILS % 0.2 % (0.0-1.0); HEMOGLOBIN 7.5 g/dL (14.0-18.0); LYMPHOCYTES # (AUTO) 2.6 (1.0-3.2); LYMPHOCYTES % 12.9 % (18.0-39.1); MEAN CORPUSCULAR HEMOGLOBIN 24.4 pg (28-32); MEAN CORPUSCULAR HGB CONC 31.3 g/dL (31-35); MEAN CORPUSCULAR VOLUME 78.2 fL (81-99); MONOCYTES # (AUTO) 2.2 (0.2-0.8); MONOCYTES % 10.9 % (4.4-11.3); NEUTROPHILS # (AUTO) 15.5 (2.1-6.9); NEUTROPHILS % 75.4 % (38.7-80.0); PLATELET COUNT 951 x10e3/uL (140-360); RED BLOOD COUNT 3.07 x10e6/uL (4.3-5.7); RED CELL DISTRIBUTION WIDTH 18.2 % (11.7-14.4)
[2021-12-23 06:47] LABS: ALBUMIN 2.5 g/dL (3.5-5.0); ALBUMIN/GLOBULIN RATIO 0.7 (0.8-2.0); ANION GAP 10.9 mmol/L (8-16); CALCIUM 8.5 mg/dL (8.4-10.2); CREATININE, SERUM 0.95 mg/dL (0.72-1.25); POTASSIUM 3.9 mmol/L (3.5-5.1)
[2021-12-23] MEDS: ANAGRELIDE HCL 0.5 MG CAP PO SCH ×4 (10:46→21:31)
[2021-12-23] MEDS: HYDROMORPHONE 1MG/1ML INJ IV PRN ×2 (18:28→21:31)
[2021-12-23] MEDS: GABAPENTIN 300 MG CAP PO SCH (21:31)
[2021-12-23] MEDS: ATORVASTATIN 40 MG TAB PO SCH (21:31)
[2021-12-24] MEDS: HYDROCODONE/APAP 7.5MG-325MG 1 EA TAB PO PRN ×5 (00:49→23:47)
[2021-12-24 05:17] VITALS: BP 134/74
[2021-12-24 05:43] LABS: BASOPHILS # (AUTO) 0.1 (0.0-0.1); BASOPHILS % 0.7 % (0.0-1.0); EOSINOPHILS # (AUTO) 0.1 (0.0-0.4); EOSINOPHILS % 0.8 % (0.0-6.0); HEMATOCRIT 24.9 % (38.2-49.6); HEMOGLOBIN 7.5 g/dL (14.0-18.0); LYMPHOCYTES % 25.9 % (18.0-39.1); MEAN CORPUSCULAR HEMOGLOBIN 23.8 pg (28-32); MEAN CORPUSCULAR HGB CONC 30.1 g/dL (31-35); MONOCYTES # (AUTO) 2.8 (0.2-0.8); MONOCYTES % 17.8 % (4.4-11.3); NEUTROPHILS # (AUTO) 8.5 (2.1-6.9); NEUTROPHILS % 54.3 % (38.7-80.0); PLATELET COUNT 922 x10e3/uL (140-360); RED BLOOD COUNT 3.15 x10e6/uL (4.3-5.7); RED CELL DISTRIBUTION WIDTH 18.4 % (11.7-14.4)
[2021-12-24] MEDS: ANAGRELIDE HCL 0.5 MG CAP PO SCH ×4 (08:45→23:10)
[2021-12-24 08:46] VITALS: BP 134/74
[2021-12-24] MEDS: HYDROMORPHONE 1MG/1ML INJ IV PRN ×2 (12:54→20:20)
[2021-12-24 20:00] VITALS: BP 119/95
[2021-12-24] MEDS: GABAPENTIN 300 MG CAP PO SCH (23:10)
[2021-12-24] MEDS: ATORVASTATIN 40 MG TAB PO SCH (23:10)
[2021-12-25] VITALS (8 sets, daily range): BP systolic 111–129; BP diastolic 60–76
[2021-12-25] MEDS: HYDROMORPHONE 1MG/1ML INJ IV PRN ×8 (00:50→23:28)
[2021-12-25 05:33] LABS: BASOPHILS # (AUTO) 0.1 (0.0-0.1); BASOPHILS % 0.6 % (0.0-1.0); EOSINOPHILS # (AUTO) 0.1 (0.0-0.4); EOSINOPHILS % 0.6 % (0.0-6.0); HEMATOCRIT 26.3 % (38.2-49.6); HEMOGLOBIN 8.1 g/dL (14.0-18.0); LYMPHOCYTES # (AUTO) 3.8 (1.0-3.2); LYMPHOCYTES % 20.7 % (18.0-39.1); MEAN CORPUSCULAR HEMOGLOBIN 24.3 pg (28-32); MEAN CORPUSCULAR HGB CONC 30.8 g/dL (31-35); MEAN CORPUSCULAR VOLUME 78.7 fL (81-99); MONOCYTES # (AUTO) 3.7 (0.2-0.8); MONOCYTES % 20.6 % (4.4-11.3); NEUTROPHILS # (AUTO) 10.3 (2.1-6.9); NEUTROPHILS % 56.8 % (38.7-80.0); PLATELET COUNT 803 x10e3/uL (140-360); RED BLOOD COUNT 3.34 x10e6/uL (4.3-5.7); RED CELL DISTRIBUTION WIDTH 18.6 % (11.7-14.4)
[2021-12-25 06:06] LABS: ALBUMIN 2.4 g/dL (3.5-5.0); ALBUMIN/GLOBULIN RATIO 0.6 (0.8-2.0); CALCIUM 8.6 mg/dL (8.4-10.2); CREATININE, SERUM 0.9 mg/dL (0.72-1.25)
[2021-12-25 06:51] LABS: LYMPHOCYTES % (MANUAL) 20 % (19-48); MONOCYTES % (MANUAL) 19 % (3.4-9.0); NEUTROPHILS % (MANUAL) 61 % (40-74); PLATELET ESTIMATE MARKEDLY INCREASED
[2021-12-25 06:52] LABS: PLATELET MORPHOLOGY COMMENT NORMAL; RBC MORPHOLOGY COMMENT NORMAL
[2021-12-25] MEDS: SODIUM CHLORIDE 0.9% 1000ML 1,000 ML IV SCH ×2 (08:18→17:43)
[2021-12-25] MEDS: ANAGRELIDE HCL 0.5 MG CAP PO SCH ×4 (08:22→21:48)
[2021-12-25] MEDS ORDERED: SODIUM CHLORIDE 0.9% 1000ML 1,000 ML ONE (08:27)
[2021-12-25] MEDS ORDERED: DIATRIZOATE MEGL/DIATRIZOA SOD 30 ML BTL PO ONE (08:34)
[2021-12-25] MEDS ORDERED: IOPAMIDOL 370 MG/ML 100 ML INFUS..BTL INJ ONE (09:36)
[2021-12-25] MEDS: ATORVASTATIN 40 MG TAB PO SCH (21:48)
[2021-12-25] MEDS: GABAPENTIN 300 MG CAP PO SCH (21:48)
[2021-12-26] VITALS (7 sets, daily range): BP systolic 104–138; BP diastolic 57–69
[2021-12-26] MEDS: HYDROMORPHONE 1MG/1ML INJ IV PRN ×5 (04:07→23:26)
[2021-12-26 05:03] LABS: BASOPHILS # (AUTO) 0.1 (0.0-0.1); BASOPHILS % 0.5 % (0.0-1.0); EOSINOPHILS # (AUTO) 0.1 (0.0-0.4); EOSINOPHILS % 0.6 % (0.0-6.0); HEMOGLOBIN 7.6 g/dL (14.0-18.0); LYMPHOCYTES # (AUTO) 3.1 (1.0-3.2); LYMPHOCYTES % 16.5 % (18.0-39.1); MEAN CORPUSCULAR HEMOGLOBIN 24.2 pg (28-32); MEAN CORPUSCULAR HGB CONC 30.4 g/dL (31-35); MEAN CORPUSCULAR VOLUME 79.6 fL (81-99); MONOCYTES # (AUTO) 4.3 (0.2-0.8); MONOCYTES % 22.8 % (4.4-11.3); NEUTROPHILS # (AUTO) 10.9 (2.1-6.9); NEUTROPHILS % 58.2 % (38.7-80.0); PLATELET COUNT 665 x10e3/uL (140-360); RED BLOOD COUNT 3.14 x10e6/uL (4.3-5.7); RED CELL DISTRIBUTION WIDTH 18.8 % (11.7-14.4)
[2021-12-26 05:47] LABS: ALBUMIN 2.2 g/dL (3.5-5.0); ALBUMIN/GLOBULIN RATIO 0.5 (0.8-2.0); ANION GAP 10.8 mmol/L (8-16); CREATININE, SERUM 0.89 mg/dL (0.72-1.25); POTASSIUM 3.8 mmol/L (3.5-5.1)
[2021-12-26] MEDS: SODIUM CHLORIDE 0.9% 1000ML 1,000 ML IV SCH ×3 (06:26→22:45)
[2021-12-26] MEDS: ANAGRELIDE HCL 0.5 MG CAP PO SCH ×4 (07:52→21:36)
[2021-12-26] MEDS ORDERED: SODIUM CHLORIDE 0.9% 250ML 250 ML IV ONE ×2 (08:30)
[2021-12-26] MEDS: ATORVASTATIN 40 MG TAB PO SCH (21:37)
[2021-12-26] MEDS: GABAPENTIN 300 MG CAP PO SCH (21:37)
[2021-12-27] VITALS (17 sets, daily range): BP systolic 110–128; BP diastolic 65–79
[2021-12-27] MEDS: HYDROMORPHONE 1MG/1ML INJ IV PRN ×3 (02:51→09:15)
[2021-12-27 05:37] LABS: BASOPHILS # (AUTO) 0.1 (0.0-0.1); BASOPHILS % 0.4 % (0.0-1.0); EOSINOPHILS # (AUTO) 0.2 (0.0-0.4); HEMOGLOBIN 8.8 g/dL (14.0-18.0); LYMPHOCYTES # (AUTO) 3.3 (1.0-3.2); LYMPHOCYTES % 19.9 % (18.0-39.1); MEAN CORPUSCULAR HEMOGLOBIN 24.9 pg (28-32); MEAN CORPUSCULAR HGB CONC 31.4 g/dL (31-35); MEAN CORPUSCULAR VOLUME 79.3 fL (81-99); MONOCYTES # (AUTO) 4.2 (0.2-0.8); MONOCYTES % 25.1 % (4.4-11.3); NEUTROPHILS # (AUTO) 8.5 (2.1-6.9); NEUTROPHILS % 51.1 % (38.7-80.0); PLATELET COUNT 493 x10e3/uL (140-360); RED BLOOD COUNT 3.53 x10e6/uL (4.3-5.7)
[2021-12-27 06:09] LABS: ALBUMIN 2.1 g/dL (3.5-5.0); ALBUMIN/GLOBULIN RATIO 0.5 (0.8-2.0); ANION GAP 11.8 mmol/L (8-16); CALCIUM 8.1 mg/dL (8.4-10.2); CREATININE, SERUM 0.84 mg/dL (0.72-1.25); POTASSIUM 3.8 mmol/L (3.5-5.1)
[2021-12-27 07:03] LABS: EOSINOPHILS % (MANUAL) 2 % (0-7); LYMPHOCYTES % (MANUAL) 26 % (19-48); METAMYELOCYTES % (MANUAL) 1 % (0-0); MONOCYTES % (MANUAL) 22 % (3.4-9.0); MYELOCYTES % (MANUAL) 4 % (0-0); NEUTROPHILS % (MANUAL) 45 % (40-74); NUCLEATED RED BLOOD CELLS 1
[2021-12-27 07:04] LABS: ANISOCYTOSIS MODERATE; HYPOCHROMASIA MODERATE; MICROCYTOSIS MODERATE; PLATELET ESTIMATE ADEQUATE; PLATELET MORPHOLOGY COMMENT NORMAL; POIKILOCYTOSIS SLIGHT; POLYCHROMASIA FEW; RBC MORPHOLOGY COMMENT ABNORMAL
[2021-12-27] MEDS ORDERED: HEPARIN SOD/SOD CHLORIDE 1,000 ML ONE (08:44)
[2021-12-27] MEDS: SODIUM CHLORIDE 0.9% 1000ML 1,000 ML IV SCH ×3 (10:30→20:20)
[2021-12-27] MEDS ORDERED: FENTANYL CITRATE/PF 100MCG/2 ML INJ ONE (12:45)
[2021-12-27] MEDS ORDERED: MIDAZOLAM HCL 2 MG/2 ML VIAL ONE (12:45)
[2021-12-27] MEDS ORDERED: SEVOFLURANE INHAL SOLN 250 ML PEN BTL ONE (12:59)
[2021-12-27] MEDS ORDERED: POVIDONE IODINE 0.05% 0.05 % ML PO ONE (12:59)
[2021-12-27] MEDS ORDERED: LIDOCAINE HCL 2% LOCAL INJ 5 ML SDV VIAL INJ ONE (12:59)
[2021-12-27] MEDS ORDERED: PHENYLEPHRINE HCL 1% 10 MG/ML VIAL ONE (12:59)
[2021-12-27] MEDS ORDERED: PROPOFOL IV EMULSION 10 MG/ML 20 ML VIAL ONE (12:59)
[2021-12-27] MEDS ORDERED: KETOROLAC TROMETHAMINE 30 MG/ML VIAL ONE (12:59)
[2021-12-27] MEDS ORDERED: ONDANSETRON HCL INJ 2MG/ML 2ML 2 MG/ML VIAL ONE (12:59)
[2021-12-27] MEDS ORDERED: ROCURONIUM BROMIDE 10 MG/ML 5ML VIAL IV ONE (12:59)
[2021-12-27] MEDS ORDERED: DEXAMETHASONE SOD PHOS INJ 4 MG/ML SDV ONE (12:59)
[2021-12-27] MEDS ORDERED: BUPIVACAINE HCL 0.5% INJ 30 ML VIAL INJ ONE (15:57)
[2021-12-27] MEDS ORDERED: BUPIVACAINE LIPOSOME/PF 266 MG/20 ML IJ ONE (15:58)
[2021-12-27] MEDS ORDERED: LORAZEPAM INJ 2 MG/ML VIAL IV PRN (17:00)
[2021-12-27] MEDS ORDERED: NALOXONE HCL INJ 0.4 MG/ML AMP IV PRN (17:00)
[2021-12-27] MEDS ORDERED: HYDROMORPHONE 1MG/1ML INJ ONE (17:24)
[2021-12-27] MEDS ORDERED: HYDROMORPHONE 0.2MG/ML-SOD CHL 30ML PCA SYRINGE IV ONE (17:24)
[2021-12-27] MEDS ORDERED: ACETAMINOPHEN 1000 MG/100 ML IV PRN (18:00)
[2021-12-27] MEDS: METRONIDAZOLE 500MG/NS 100ML 100 ML IV SCH (18:59)
[2021-12-27] MEDS: MEROPENEM 1 GM in SODIUM CHLORIDE 0.9% 100 ML IV SCH (20:20)
[2021-12-28] VITALS (61 sets, daily range): BP systolic 102–135; BP diastolic 48–99
[2021-12-28] MEDS: METRONIDAZOLE 500MG/NS 100ML 100 ML IV SCH ×4 (00:41→18:31)
[2021-12-28] MEDS: SODIUM CHLORIDE 0.9% 1000ML 1,000 ML IV SCH ×3 (02:40→20:13)
[2021-12-28] MEDS: MEROPENEM 1 GM in SODIUM CHLORIDE 0.9% 100 ML IV SCH ×3 (03:30→20:13)
[2021-12-28] MEDS: HYDROMORPHONE 0.2MG/ML-SOD CHL 30ML PCA SYRINGE IV PRN (04:51)
[2021-12-28 04:52] LABS: BASOPHILS # (AUTO) 0.1 (0.0-0.1); BASOPHILS % 0.3 % (0.0-1.0); HEMATOCRIT 29.1 % (38.2-49.6); HEMOGLOBIN 8.9 g/dL (14.0-18.0); LYMPHOCYTES # (AUTO) 1.9 (1.0-3.2); LYMPHOCYTES % 6.7 % (18.0-39.1); MEAN CORPUSCULAR HEMOGLOBIN 25.2 pg (28-32); MEAN CORPUSCULAR HGB CONC 30.6 g/dL (31-35); MEAN CORPUSCULAR VOLUME 82.4 fL (81-99); MONOCYTES # (AUTO) 2.6 (0.2-0.8); MONOCYTES % 9.2 % (4.4-11.3); NEUTROPHILS # (AUTO) 22.8 (2.1-6.9); NEUTROPHILS % 81.1 % (38.7-80.0); PLATELET COUNT 331 x10e3/uL (140-360); RED BLOOD COUNT 3.53 x10e6/uL (4.3-5.7); RED CELL DISTRIBUTION WIDTH 18.6 % (11.7-14.4)
[2021-12-28 05:14] LABS: ALBUMIN 1.4 g/dL (3.5-5.0); ALBUMIN/GLOBULIN RATIO 0.5 (0.8-2.0); ANION GAP 9.2 mmol/L (8-16); CREATININE, SERUM 0.59 mg/dL (0.72-1.25); POTASSIUM 3.2 mmol/L (3.5-5.1)
[2021-12-28] MEDS: ONDANSETRON HCL 4 MG ORAL DISINTEGRATING TAB PO PRN ×2 (05:25→19:18)
[2021-12-28 05:27] LABS: CALCIUM 5.7 mg/dL (8.4-10.2)
[2021-12-28] MEDS ORDERED: POTASSIUM CHLORIDE 20MEQ/100ML 200 ML IV ONE (05:45)
[2021-12-28 06:43] LABS: BAND NEUTROPHILS % (MANUAL) 3 %; LYMPHOCYTES % (MANUAL) 4 % (19-48); MONOCYTES % (MANUAL) 6 % (3.4-9.0); NEUTROPHILS % (MANUAL) 87 % (40-74)
[2021-12-28 06:44] LABS: PLATELET ESTIMATE ADEQUATE; PLATELET MORPHOLOGY COMMENT FEW LARGE; RBC MORPHOLOGY COMMENT NORMAL
[2021-12-28] MEDS ORDERED: CALCIUM GLUC 1 G/50 ML NACL 50 ML IV ONE (06:45)
[2021-12-28] MEDS: HYDROMORPHONE 1MG/1ML INJ IV PRN ×7 (08:40→22:46)
[2021-12-29] VITALS (25 sets, daily range): BP systolic 102–148; BP diastolic 58–82
[2021-12-29] MEDS: METRONIDAZOLE 500MG/NS 100ML 100 ML IV SCH ×5 (00:07→23:18)
[2021-12-29] MEDS: HYDROMORPHONE 1MG/1ML INJ IV PRN ×3 (02:41→20:55)
[2021-12-29] MEDS: MEROPENEM 1 GM in SODIUM CHLORIDE 0.9% 100 ML IV SCH ×3 (04:55→20:11)
[2021-12-29 05:55] LABS: BASOPHILS # (AUTO) 0.2 (0.0-0.1); BASOPHILS % 0.7 % (0.0-1.0); EOSINOPHILS # (AUTO) 0.1 (0.0-0.4); EOSINOPHILS % 0.3 % (0.0-6.0); HEMATOCRIT 30.2 % (38.2-49.6); HEMOGLOBIN 9.2 g/dL (14.0-18.0); LYMPHOCYTES # (AUTO) 3.9 (1.0-3.2); LYMPHOCYTES % 11.1 % (18.0-39.1); MEAN CORPUSCULAR HEMOGLOBIN 25.2 pg (28-32); MEAN CORPUSCULAR HGB CONC 30.5 g/dL (31-35); MEAN CORPUSCULAR VOLUME 82.7 fL (81-99); MONOCYTES # (AUTO) 3.8 (0.2-0.8); MONOCYTES % 10.8 % (4.4-11.3); NEUTROPHILS # (AUTO) 24.9 (2.1-6.9); NEUTROPHILS % 70.9 % (38.7-80.0); PLATELET COUNT 314 x10e3/uL (140-360); RED BLOOD COUNT 3.65 x10e6/uL (4.3-5.7); RED CELL DISTRIBUTION WIDTH 19.3 % (11.7-14.4)
[2021-12-29 06:12] LABS: ALBUMIN 1.9 g/dL (3.5-5.0); ALBUMIN/GLOBULIN RATIO 0.5 (0.8-2.0); ANION GAP 11.2 mmol/L (8-16); CALCIUM 7.8 mg/dL (8.4-10.2); CREATININE, SERUM 0.76 mg/dL (0.72-1.25); POTASSIUM 4.2 mmol/L (3.5-5.1)
[2021-12-29] MEDS: SODIUM CHLORIDE 0.9% 1000ML 1,000 ML IV SCH ×3 (06:21→20:55)
[2021-12-29 07:24] LABS: EOSINOPHILS % (MANUAL) 1 % (0-7); LYMPHOCYTES % (MANUAL) 11 % (19-48); MONOCYTES % (MANUAL) 6 % (3.4-9.0); MYELOCYTES % (MANUAL) 1 % (0-0); NEUTROPHILS % (MANUAL) 80 % (40-74); NUCLEATED RED BLOOD CELLS 2; PLATELET ESTIMATE ADEQUATE; PLATELET MORPHOLOGY COMMENT FEW LARGE; RBC MORPHOLOGY COMMENT NORMAL
[2021-12-29] MEDS: HYDROMORPHONE 0.2MG/ML-SOD CHL 30ML PCA SYRINGE IV PRN (10:15)
[2021-12-29] MEDS ORDERED: AMIODARONE HCL 150 MG/100 ML BAG IV ONE (10:40)
[2021-12-29] MEDS ORDERED: AMIODARONE 900MG 500 ML IV SCH (10:50)
[2021-12-29] MEDS ORDERED: HYDROMORPHONE 0.2MG/ML-SOD CHL 30ML PCA SYRINGE IV PRN (15:15)
[2021-12-29] MEDS: ONDANSETRON HCL 4 MG ORAL DISINTEGRATING TAB PO PRN (20:55)
[2021-12-30] VITALS (24 sets, daily range): BP systolic 113–152; BP diastolic 69–87
[2021-12-30] MEDS: HYDROMORPHONE 1MG/1ML INJ IV PRN ×7 (01:38→23:38)
[2021-12-30] MEDS: MEROPENEM 1 GM in SODIUM CHLORIDE 0.9% 100 ML IV SCH ×3 (04:50→20:03)
[2021-12-30 05:23] LABS: BASOPHILS # (AUTO) 0.2 (0.0-0.1); BASOPHILS % 0.7 % (0.0-1.0); EOSINOPHILS # (AUTO) 0.4 (0.0-0.4); EOSINOPHILS % 1.5 % (0.0-6.0); HEMATOCRIT 28.3 % (38.2-49.6); HEMOGLOBIN 8.8 g/dL (14.0-18.0); LYMPHOCYTES # (AUTO) 3.7 (1.0-3.2); LYMPHOCYTES % 13.1 % (18.0-39.1); MEAN CORPUSCULAR HEMOGLOBIN 25.2 pg (28-32); MEAN CORPUSCULAR HGB CONC 31.1 g/dL (31-35); MEAN CORPUSCULAR VOLUME 81.1 fL (81-99); MONOCYTES # (AUTO) 2.8 (0.2-0.8); MONOCYTES % 9.9 % (4.4-11.3); NEUTROPHILS # (AUTO) 18.4 (2.1-6.9); NEUTROPHILS % 65.6 % (38.7-80.0); PLATELET COUNT 250 x10e3/uL (140-360); RED BLOOD COUNT 3.49 x10e6/uL (4.3-5.7); RED CELL DISTRIBUTION WIDTH 19.3 % (11.7-14.4)
[2021-12-30 05:46] LABS: ALBUMIN 1.8 g/dL (3.5-5.0); ALBUMIN/GLOBULIN RATIO 0.5 (0.8-2.0); ANION GAP 11.6 mmol/L (8-16); CALCIUM 7.7 mg/dL (8.4-10.2); CREATININE, SERUM 0.66 mg/dL (0.72-1.25); POTASSIUM 3.6 mmol/L (3.5-5.1)
[2021-12-30] MEDS: METRONIDAZOLE 500MG/NS 100ML 100 ML IV SCH ×4 (06:15→23:38)
[2021-12-30 09:04] LABS: BAND NEUTROPHILS % (MANUAL) 1 %; EOSINOPHILS % (MANUAL) 4 % (0-7); LYMPHOCYTES % (MANUAL) 11 % (19-48); METAMYELOCYTES % (MANUAL) 1 % (0-0); MONOCYTES % (MANUAL) 8 % (3.4-9.0); MYELOCYTES % (MANUAL) 2 % (0-0); NEUTROPHILS % (MANUAL) 72 % (40-74); NUCLEATED RED BLOOD CELLS 2; PLATELET ESTIMATE ADEQUATE
[2021-12-30 09:05] LABS: PLATELET MORPHOLOGY COMMENT MODERATE GIANT; RBC MORPHOLOGY COMMENT NORMAL
[2021-12-30] MEDS: SODIUM CHLORIDE 0.9% 1000ML 1,000 ML IV SCH ×2 (12:34→22:22)
[2021-12-31] VITALS (24 sets, daily range): BP systolic 125–159; BP diastolic 69–89
[2021-12-31] MEDS: HYDROMORPHONE 1MG/1ML INJ IV PRN ×7 (03:04→23:52)
[2021-12-31] MEDS: MEROPENEM 1 GM in SODIUM CHLORIDE 0.9% 100 ML IV SCH ×3 (03:40→19:44)
[2021-12-31 05:15] LABS: BASOPHILS # (AUTO) 0.2 (0.0-0.1); BASOPHILS % 0.7 % (0.0-1.0); EOSINOPHILS # (AUTO) 0.3 (0.0-0.4); EOSINOPHILS % 1.4 % (0.0-6.0); HEMATOCRIT 29.1 % (38.2-49.6); LYMPHOCYTES # (AUTO) 2.5 (1.0-3.2); LYMPHOCYTES % 10.7 % (18.0-39.1); MEAN CORPUSCULAR HEMOGLOBIN 25.4 pg (28-32); MEAN CORPUSCULAR HGB CONC 30.9 g/dL (31-35); MONOCYTES # (AUTO) 2.2 (0.2-0.8); MONOCYTES % 9.4 % (4.4-11.3); NEUTROPHILS % 69.4 % (38.7-80.0); PLATELET COUNT 371 x10e3/uL (140-360); RED BLOOD COUNT 3.55 x10e6/uL (4.3-5.7); RED CELL DISTRIBUTION WIDTH 19.3 % (11.7-14.4)
[2021-12-31 05:29] LABS: ALANINE AMINOTRANSFERASE 9 IU/L (0-55); ALBUMIN 1.7 g/dL (3.5-5.0); ALBUMIN/GLOBULIN RATIO 0.5 (0.8-2.0); ALKALINE PHOSPHATASE 56 IU/L (40-150); ANION GAP 12.4 mmol/L (8-16); BLOOD UREA NITROGEN < 5 mg/dL (7-26); CALCIUM 7.5 mg/dL (8.4-10.2); CARBON DIOXIDE 27 mmol/L (22-29); CHLORIDE 103 mmol/L (98-107); CREATININE, SERUM 0.64 mg/dL (0.72-1.25); EST GLOMERULAR FILTRATION RATE 126 ML/MIN (60-); GLUCOSE 109 mg/dL (74-118); MAGNESIUM 1.7 MG/DL (1.3-2.1); POTASSIUM 3.4 mmol/L (3.5-5.1); SODIUM 139 mmol/L (136-145)
[2021-12-31 05:31] LABS: BUN/CREATININE RATIO 8 (6-25)
[2021-12-31] MEDS: METRONIDAZOLE 500MG/NS 100ML 100 ML IV SCH ×4 (05:31→23:52)
[2021-12-31 07:39] LABS: EOSINOPHILS % (MANUAL) 3 % (0-7); LYMPHOCYTES % (MANUAL) 6 % (19-48); MONOCYTES % (MANUAL) 4 % (3.4-9.0); NEUTROPHILS % (MANUAL) 86 % (40-74); NUCLEATED RED BLOOD CELLS 5; RBC MORPHOLOGY COMMENT ABNORMAL
[2021-12-31 07:40] LABS: ANISOCYTOSIS SLIG; HYPOCHROMASIA SLIGHT; MICROCYTOSIS SLIGHT; PLATELET ESTIMATE ADEQUATE; PLATELET MORPHOLOGY COMMENT FEW LARGE; POIKILOCYTOSIS SLIG; TARGET CELLS FEW
[2021-12-31 07:41] LABS: SMUDGE CELLS FEW
[2021-12-31] MEDS: SODIUM CHLORIDE 0.9% 1000ML 1,000 ML IV SCH ×2 (07:42→18:21)
[2022-01-01] VITALS (13 sets, daily range): BP systolic 119–155; BP diastolic 70–85
[2022-01-01] MEDS: SODIUM CHLORIDE 0.9% 1000ML 1,000 ML IV SCH ×2 (02:53→17:17)
[2022-01-01] MEDS: MEROPENEM 1 GM in SODIUM CHLORIDE 0.9% 100 ML IV SCH ×3 (03:10→21:17)
[2022-01-01] MEDS: HYDROMORPHONE 1MG/1ML INJ IV PRN ×7 (03:10→21:59)
[2022-01-01] MEDS: METRONIDAZOLE 500MG/NS 100ML 100 ML IV SCH ×4 (05:37→23:41)
[2022-01-01 05:39] LABS: BASOPHILS # (AUTO) 0.1 (0.0-0.1); BASOPHILS % 0.5 % (0.0-1.0); EOSINOPHILS # (AUTO) 0.2 (0.0-0.4); HEMOGLOBIN 9.2 g/dL (14.0-18.0); LYMPHOCYTES # (AUTO) 2.9 (1.0-3.2); LYMPHOCYTES % 13.2 % (18.0-39.1); MEAN CORPUSCULAR HEMOGLOBIN 25.6 pg (28-32); MEAN CORPUSCULAR HGB CONC 31.7 g/dL (31-35); MEAN CORPUSCULAR VOLUME 80.6 fL (81-99); MONOCYTES # (AUTO) 2.3 (0.2-0.8); MONOCYTES % 10.3 % (4.4-11.3); NEUTROPHILS # (AUTO) 15.4 (2.1-6.9); NEUTROPHILS % 69.2 % (38.7-80.0); PLATELET COUNT 523 x10e3/uL (140-360); RED CELL DISTRIBUTION WIDTH 19.3 % (11.7-14.4)
[2022-01-01 06:03] LABS: ALBUMIN 1.8 g/dL (3.5-5.0); ALBUMIN/GLOBULIN RATIO 0.5 (0.8-2.0); ANION GAP 13.2 mmol/L (8-16); CALCIUM 7.7 mg/dL (8.4-10.2); CREATININE, SERUM 0.6 mg/dL (0.72-1.25); POTASSIUM 3.2 mmol/L (3.5-5.1)
[2022-01-01 07:18] LABS: EOSINOPHILS % (MANUAL) 1 % (0-7); LYMPHOCYTES % (MANUAL) 4 % (19-48); METAMYELOCYTES % (MANUAL) 3 % (0-0); MONOCYTES % (MANUAL) 6 % (3.4-9.0); MYELOCYTES % (MANUAL) 1 % (0-0); NEUTROPHILS % (MANUAL) 84 % (40-74)
[2022-01-01 07:19] LABS: PLATELET ESTIMATE SLIGHTLY INCREASED; PLATELET MORPHOLOGY COMMENT FEW GIANT; RBC MORPHOLOGY COMMENT NORMAL
[2022-01-01] MEDS ORDERED: SIMETHICONE 80 MG CHEW PO PRN (10:00)
[2022-01-01] MEDS: ONDANSETRON HCL 4 MG ORAL DISINTEGRATING TAB PO PRN (11:34)
[2022-01-01] MEDS ORDERED: MAGNESIUM/ALUMINUM/SIMETHICONE 30 ML UDC PO PRN (11:45)
[2022-01-01] MEDS ORDERED: POTASSIUM CHLORIDE 10MEQ EA PO ONE (12:45)
[2022-01-02] VITALS (9 sets, daily range): BP systolic 118–147; BP diastolic 58–84
[2022-01-02] MEDS: HYDROMORPHONE 1MG/1ML INJ IV PRN ×8 (01:15→23:48)
[2022-01-02] MEDS: MEROPENEM 1 GM in SODIUM CHLORIDE 0.9% 100 ML IV SCH ×3 (04:55→20:57)
[2022-01-02 05:18] LABS: BASOPHILS # (AUTO) 0.1 (0.0-0.1); BASOPHILS % 0.5 % (0.0-1.0); EOSINOPHILS # (AUTO) 0.3 (0.0-0.4); EOSINOPHILS % 1.4 % (0.0-6.0); HEMATOCRIT 28.9 % (38.2-49.6); HEMOGLOBIN 8.9 g/dL (14.0-18.0); LYMPHOCYTES # (AUTO) 3.1 (1.0-3.2); LYMPHOCYTES % 15.4 % (18.0-39.1); MEAN CORPUSCULAR HGB CONC 30.8 g/dL (31-35); MEAN CORPUSCULAR VOLUME 81.2 fL (81-99); MONOCYTES % 9.9 % (4.4-11.3); NEUTROPHILS # (AUTO) 13.7 (2.1-6.9); NEUTROPHILS % 68.6 % (38.7-80.0); PLATELET COUNT 625 x10e3/uL (140-360); RED BLOOD COUNT 3.56 x10e6/uL (4.3-5.7); RED CELL DISTRIBUTION WIDTH 19.6 % (11.7-14.4)
[2022-01-02 05:40] LABS: ALBUMIN 1.8 g/dL (3.5-5.0); ALBUMIN/GLOBULIN RATIO 0.5 (0.8-2.0); ANION GAP 13.7 mmol/L (8-16); CALCIUM 7.8 mg/dL (8.4-10.2); CREATININE, SERUM 0.65 mg/dL (0.72-1.25); MAGNESIUM 1.8 MG/DL (1.3-2.1); POTASSIUM 3.7 mmol/L (3.5-5.1)
[2022-01-02] MEDS: METRONIDAZOLE 500MG/NS 100ML 100 ML IV SCH ×3 (05:52→19:57)
[2022-01-02] MEDS: SODIUM CHLORIDE 0.9% 1000ML 1,000 ML IV SCH (17:15)
[2022-01-02 17:20] LABS: BASOPHILS # (AUTO) 0.1 (0.0-0.1); BASOPHILS % 0.4 % (0.0-1.0); EOSINOPHILS # (AUTO) 0.2 (0.0-0.4); HEMATOCRIT 32.6 % (38.2-49.6); HEMOGLOBIN 10.2 g/dL (14.0-18.0); LYMPHOCYTES # (AUTO) 4.1 (1.0-3.2); LYMPHOCYTES % 20.4 % (18.0-39.1); MEAN CORPUSCULAR HEMOGLOBIN 25.1 pg (28-32); MEAN CORPUSCULAR HGB CONC 31.3 g/dL (31-35); MEAN CORPUSCULAR VOLUME 80.3 fL (81-99); MONOCYTES # (AUTO) 1.8 (0.2-0.8); MONOCYTES % 8.7 % (4.4-11.3); NEUTROPHILS # (AUTO) 13.6 (2.1-6.9); NEUTROPHILS % 67.3 % (38.7-80.0); PLATELET COUNT 723 x10e3/uL (140-360); RED BLOOD COUNT 4.06 x10e6/uL (4.3-5.7); RED CELL DISTRIBUTION WIDTH 19.9 % (11.7-14.4)
[2022-01-02] MEDS ORDERED: MAGNESIUM HYDROXIDE 30 ML UDC PO ONE (18:20)
[2022-01-02] MEDS ORDERED: IRON DEXTRAN INJ 50 MG in SODIUM CHLORIDE 0.9% 100 ML IV ONE (18:50)
[2022-01-02] MEDS ORDERED: IRON DEXTRAN INJ 500 MG in SODIUM CHLORIDE 0.9% 500ML 500 ML IV PRN (20:30)
[2022-01-03] VITALS (7 sets, daily range): BP systolic 115–149; BP diastolic 66–85
[2022-01-03] MEDS: METRONIDAZOLE 500MG/NS 100ML 100 ML IV SCH ×5 (01:00→23:30)
[2022-01-03] MEDS: HYDROMORPHONE 1MG/1ML INJ IV PRN ×7 (04:20→23:30)
[2022-01-03] MEDS: MEROPENEM 1 GM in SODIUM CHLORIDE 0.9% 100 ML IV SCH ×3 (04:20→20:05)
[2022-01-03 05:06] LABS: BASOPHILS # (AUTO) 0.1 (0.0-0.1); BASOPHILS % 0.4 % (0.0-1.0); HEMATOCRIT 31.3 % (38.2-49.6); HEMOGLOBIN 9.8 g/dL (14.0-18.0); LYMPHOCYTES # (AUTO) 1.5 (1.0-3.2); LYMPHOCYTES % 8.7 % (18.0-39.1); MEAN CORPUSCULAR HEMOGLOBIN 24.9 pg (28-32); MEAN CORPUSCULAR HGB CONC 31.3 g/dL (31-35); MEAN CORPUSCULAR VOLUME 79.6 fL (81-99); MONOCYTES # (AUTO) 0.1 (0.2-0.8); MONOCYTES % 0.8 % (4.4-11.3); NEUTROPHILS % 87.7 % (38.7-80.0); PLATELET COUNT 797 x10e3/uL (140-360); RED BLOOD COUNT 3.93 x10e6/uL (4.3-5.7); RED CELL DISTRIBUTION WIDTH 19.5 % (11.7-14.4)
[2022-01-03 05:30] LABS: ALBUMIN 2.1 g/dL (3.5-5.0); ALBUMIN/GLOBULIN RATIO 0.5 (0.8-2.0); ANION GAP 16.2 mmol/L (8-16); CALCIUM 8.3 mg/dL (8.4-10.2); CREATININE, SERUM 0.68 mg/dL (0.72-1.25); POTASSIUM 4.2 mmol/L (3.5-5.1)
[2022-01-03] MEDS ORDERED: ANAGRELIDE HCL 0.5 MG CAP PO SCH (09:00)
[2022-01-03] MEDS: SODIUM CHLORIDE 0.9% 1000ML 1,000 ML IV SCH (11:55)
[2022-01-03] MEDS: ANAGRELIDE HCL 0.5 MG CAP PO SCH (17:07)
[2022-01-04] VITALS (8 sets, daily range): BP systolic 92–136; BP diastolic 62–85
[2022-01-04] MEDS: HYDROMORPHONE 1MG/1ML INJ IV PRN ×6 (02:33→18:45)
[2022-01-04] MEDS: MEROPENEM 1 GM in SODIUM CHLORIDE 0.9% 100 ML IV SCH ×3 (04:45→20:16)
[2022-01-04 05:16] LABS: BASOPHILS # (AUTO) 0.1 (0.0-0.1); BASOPHILS % 0.2 % (0.0-1.0); EOSINOPHILS % 0.1 % (0.0-6.0); HEMATOCRIT 26.7 % (38.2-49.6); HEMOGLOBIN 8.3 g/dL (14.0-18.0); LYMPHOCYTES # (AUTO) 2.9 (1.0-3.2); MEAN CORPUSCULAR HEMOGLOBIN 24.9 pg (28-32); MEAN CORPUSCULAR HGB CONC 31.1 g/dL (31-35); MEAN CORPUSCULAR VOLUME 79.9 fL (81-99); MONOCYTES # (AUTO) 1.8 (0.2-0.8); MONOCYTES % 8.7 % (4.4-11.3); NEUTROPHILS # (AUTO) 15.7 (2.1-6.9); NEUTROPHILS % 75.6 % (38.7-80.0); PLATELET COUNT 777 x10e3/uL (140-360); RED BLOOD COUNT 3.34 x10e6/uL (4.3-5.7); RED CELL DISTRIBUTION WIDTH 19.8 % (11.7-14.4)
[2022-01-04 06:18] LABS: ALBUMIN/GLOBULIN RATIO 0.6 (0.8-2.0); ANION GAP 11.4 mmol/L (8-16); CALCIUM 7.7 mg/dL (8.4-10.2); CREATININE, SERUM 0.64 mg/dL (0.72-1.25); POTASSIUM 3.4 mmol/L (3.5-5.1)
[2022-01-04] MEDS: METRONIDAZOLE 500MG/NS 100ML 100 ML IV SCH ×3 (06:37→17:50)
[2022-01-04] MEDS: SODIUM CHLORIDE 0.9% 1000ML 1,000 ML IV SCH (07:03)
[2022-01-04] MEDS: ANAGRELIDE HCL 0.5 MG CAP PO SCH ×2 (08:01→16:20)
[2022-01-04] MEDS: ONDANSETRON HCL 4 MG ORAL DISINTEGRATING TAB PO PRN (08:38)
[2022-01-04] MEDS: HYDROCODONE/APAP 7.5MG-325MG 1 EA TAB PO PRN (21:55)
[2022-01-05] VITALS: BP 121/79
[2022-01-05] MEDS: METRONIDAZOLE 500MG/NS 100ML 100 ML IV SCH ×4 (00:14→18:00)
[2022-01-05] MEDS: SODIUM CHLORIDE 0.9% 1000ML 1,000 ML IV SCH (03:03)
[2022-01-05] MEDS: MEROPENEM 1 GM in SODIUM CHLORIDE 0.9% 100 ML IV SCH ×2 (03:26→12:00)
[2022-01-05] MEDS: HYDROCODONE/APAP 7.5MG-325MG 1 EA TAB PO PRN ×3 (03:48→12:30)
[2022-01-05 04:00] VITALS: BP 107/66
[2022-01-05] MEDS: ONDANSETRON HCL 4 MG ORAL DISINTEGRATING TAB PO PRN (04:03)
[2022-01-05 08:57] VITALS: BP 122/71
[2022-01-05] MEDS: ANAGRELIDE HCL 0.5 MG CAP PO SCH ×2 (09:00→17:00)
[2022-01-05 09:03] LABS: BASOPHILS # (AUTO) 0.1 (0.0-0.1); BASOPHILS % 0.5 % (0.0-1.0); EOSINOPHILS # (AUTO) 0.1 (0.0-0.4); HEMATOCRIT 31.6 % (38.2-49.6); HEMOGLOBIN 9.9 g/dL (14.0-18.0); LYMPHOCYTES # (AUTO) 3.5 (1.0-3.2); LYMPHOCYTES % 24.1 % (18.0-39.1); MEAN CORPUSCULAR HEMOGLOBIN 25.3 pg (28-32); MEAN CORPUSCULAR HGB CONC 31.3 g/dL (31-35); MEAN CORPUSCULAR VOLUME 80.8 fL (81-99); MONOCYTES # (AUTO) 1.7 (0.2-0.8); MONOCYTES % 11.7 % (4.4-11.3); NEUTROPHILS % 61.7 % (38.7-80.0); PLATELET COUNT 791 x10e3/uL (140-360); RED BLOOD COUNT 3.91 x10e6/uL (4.3-5.7); RED CELL DISTRIBUTION WIDTH 20.6 % (11.7-14.4)
[2022-01-05 09:17] LABS: ALBUMIN 2.3 g/dL (3.5-5.0); ALBUMIN/GLOBULIN RATIO 0.7 (0.8-2.0); ANION GAP 11.5 mmol/L (8-16); CALCIUM 8.2 mg/dL (8.4-10.2); CREATININE, SERUM 0.69 mg/dL (0.72-1.25); MAGNESIUM 1.8 MG/DL (1.3-2.1); POTASSIUM 3.5 mmol/L (3.5-5.1)
[2022-01-05 12:32] VITALS: BP 126/78
[2022-01-05 16:48] VITALS: BP 114/70
[2022-01-05] MEDS ORDERED: PANTOPRAZOLE SOD 40 MG TABEC PO SCH (17:30)
[2022-01-05] MEDS ORDERED: METRONIDAZOLE 500 MG TAB PO SCH (18:45)
== END 2022-01-05 19:15 | disposition home or self-care (01) | DRG 329 ==
LOC: ER 16:40 → ERHOLD 19:44 → ICU 23:44 → MED/SURG 12-22 19:12 → ICU 12-27 14:25 → MED/SURG 01-01 13:49
PROVIDERS: ADMIT Internal Medicine; ATTEND Internal Medicine
PROC: 06H03DZ Insertion of Intraluminal Device into Inferior Vena Cava, Percutaneous Approach (ICD-10-PCS; principal; 2021-12-21)
PROC: 30233N1 Transfusion of Nonautologous Red Blood Cells into Peripheral Vein, Percutaneous Approach (ICD-10-PCS; 2021-12-21)
PROC: 0DBG0ZZ Excision of Left Large Intestine, Open Approach (ICD-10-PCS; 2021-12-27)
PROC: 0D1L0Z4 Bypass Transverse Colon to Cutaneous, Open Approach (ICD-10-PCS; 2021-12-27)
PROC: 0W9F0ZZ Drainage of Abdominal Wall, Open Approach (ICD-10-PCS; 2021-12-27)
DX: K55.041 Focal (segmental) acute infarction of large intestine (principal); I26.93 Single subsegmental thrombotic pulmonary embolism without acute cor pulmonale; K57.32 Diverticulitis of large intestine without perforation or abscess without bleeding; M96.841 Postprocedural hematoma of a musculoskeletal structure following other procedure; J90 Pleural effusion, not elsewhere classified; D68.69 Other thrombophilia; E88.09 Other disorders of plasma-protein metabolism, not elsewhere classified; E78.5 Hyperlipidemia, unspecified; I10 Essential (primary) hypertension; K66.0 Peritoneal adhesions (postprocedural) (postinfection); E66.01 Morbid (severe) obesity due to excess calories; E11.9 Type 2 diabetes mellitus without complications; D64.9 Anemia, unspecified; I25.10 Atherosclerotic heart disease of native coronary artery without angina pectoris; Z95.1 Presence of aortocoronary bypass graft; Z90.81 Acquired absence of spleen; Z68.34 Body mass index [BMI] 34.0-34.9, adult; D50.9 Iron deficiency anemia, unspecified; N28.1 Cyst of kidney, acquired; K63.89 Other specified diseases of intestine; I48.0 Paroxysmal atrial fibrillation; K21.9 Gastro-esophageal reflux disease without esophagitis; Y83.8 Other surgical procedures as the cause of abnormal reaction of the patient, or of later complication, without mention of misadventure at the time of the procedure; Y92.234 Operating room of hospital as the place of occurrence of the external cause; Z79.82 Long term (current) use of aspirin
CPT/HCPCS: 36415; 37191; 71045; 71260; 74177; 76937; 80048; 80053; 82150; 83735; 85025; 85379; 85610; 85730; 86850; 86900; 86920; 88305; 88307; 93005; 93306; 93970; 94799; 96360; 99152; 99251; 99284; C1713; C1769; J1100; J1170; J1200; J1650; J1750; J1885; J2001; J2185; J2250; J2270; J2370; J2405; J2543; J3010; J3480; J7030; J7040; J7050; P9016; Q0162; Q9967; U0002

== ENCOUNTER → 2022-05-16 | Outpatient (CLI) | payer OTHER ==
[~2022-05-16] MED LIST changes: +DIATRIZOATE MEGL/DIATRIZOA SOD 30 ML BTL PO ONE
[2022-05-16 08:18] LABS: CREATININE, SERUM 0.98 mg/dL (0.72-1.25)
== END ==
LOC: CT 07:28
PROVIDERS: ATTEND Surgery
DX: K57.92 Diverticulitis of intestine, part unspecified, without perforation or abscess without bleeding (principal)
CPT/HCPCS: 36415; 74177; 82565; 84520; Q9963

== ENCOUNTER 2022-06-25 07:58 | Inpatient (IN) | payer OTHER ==
[2022-06-21 08:51] LABS: BASOPHILS # (AUTO) 0.1 (0.0-0.1); BASOPHILS % 0.8 % (0.0-1.0); EOSINOPHILS # (AUTO) 0.2 (0.0-0.4); EOSINOPHILS % 1.9 % (0.0-6.0); HEMATOCRIT 44.4 % (38.2-49.6); LYMPHOCYTES # (AUTO) 4.7 (1.0-3.2); LYMPHOCYTES % 35.9 % (18.0-39.1); MEAN CORPUSCULAR HEMOGLOBIN 28.7 pg (28-32); MEAN CORPUSCULAR HGB CONC 31.5 g/dL (31-35); MONOCYTES # (AUTO) 1.6 (0.2-0.8); MONOCYTES % 12.4 % (4.4-11.3); NEUTROPHILS # (AUTO) 6.3 (2.1-6.9); NEUTROPHILS % 48.5 % (38.7-80.0); PLATELET COUNT 339 x10e3/uL (140-360); RED BLOOD COUNT 4.88 x10e6/uL (4.3-5.7); RED CELL DISTRIBUTION WIDTH 17.8 % (11.7-14.4)
[2022-06-21 09:32] LABS: ALBUMIN 3.9 g/dL (3.5-5.0); ALBUMIN/GLOBULIN RATIO 1.1 (0.8-2.0); ANION GAP 16.4 mmol/L (8-16); CALCIUM 9.4 mg/dL (8.4-10.2); CREATININE, SERUM 1.17 mg/dL (0.72-1.25); POTASSIUM 4.4 mmol/L (3.5-5.1)
[2022-06-25] VITALS (8 sets, daily range): BP systolic 108–123; BP diastolic 65–76
[~2022-06-25] VITALS: Ht 188 cm; Wt 132.4 kg
[~2022-06-25 07:58] MED LIST changes: +AGRYLIN0.5 MG PO; +AMITRIPTYLINE H25 MG PO; -DIATRIZOATE MEGL/DIATRIZOA SOD 30 ML BTL PO ONE; +LOVENOX120 MG/0.8 SC
[2022-06-25] MEDS ORDERED: MINERAL OIL STERILE 10ML VIAL ONE (09:50)
[2022-06-25] MEDS ORDERED: ROPIVACAINE 246.25 MG, EPINEPHRINE HCL 1:1000 1ML 0.5 MG, CLONIDINE HCL 0.08 MG, KETORO... INJ ONE ×5 (10:00)
[2022-06-25] MEDS ORDERED: FAMOTIDINE 20 MG/2 ML VIAL IV ONE (10:09)
[2022-06-25] MEDS ORDERED: NALOXONE HCL INJ 0.4 MG/ML AMP IV PRN (15:00)
[2022-06-25] MEDS: SODIUM CHLORIDE 0.9% 250ML IRRIG IR SCH ×3 (15:00→22:16)
[2022-06-25] MEDS: HYDROMORPHONE 0.2MG/ML-SOD CHL 30ML PCA SYRINGE IV PRN (15:15)
[2022-06-25] MEDS ORDERED: HYDROMORPHONE 0.2MG/ML-SOD CHL 30ML PCA SYRINGE IV ONE (15:26)
[2022-06-25] MEDS ORDERED: ONDANSETRON HCL INJ 2MG/ML 2ML 2 MG/ML VIAL ONE (15:32)
[2022-06-25] MEDS ORDERED: ENOXAPARIN INJ 80 MG/0.8 ML SYR SC ONE (17:00)
[2022-06-25] MEDS: CEFTRIAXONE 2 GM in SODIUM CHLORIDE 0.9% 100 ML IV SCH (17:28)
[2022-06-25] MEDS: DEXTROSE 5%/LACTATED RINGERS 1,000 ML IV SCH ×2 (17:30→22:16)
[2022-06-25] MEDS: ACETAMINOPHEN 1000 MG/100 ML IV PRN (20:10)
[2022-06-26] VITALS (25 sets, daily range): BP systolic 98–131; BP diastolic 48–78
[2022-06-26] MEDS: SODIUM CHLORIDE 0.9% 250ML IRRIG IR SCH ×6 (03:03→23:00)
[2022-06-26] MEDS: DEXTROSE 5%/LACTATED RINGERS 1,000 ML IV SCH ×3 (05:16→20:43)
[2022-06-26] MEDS: ACETAMINOPHEN 1000 MG/100 ML IV PRN ×3 (05:40→21:19)
[2022-06-26 05:43] LABS: BASOPHILS % 0.2 % (0.0-1.0); EOSINOPHILS % 0.2 % (0.0-6.0); HEMATOCRIT 40.1 % (38.2-49.6); HEMOGLOBIN 12.6 g/dL (14.0-18.0); LYMPHOCYTES % 8.6 % (18.0-39.1); MEAN CORPUSCULAR HEMOGLOBIN 28.6 pg (28-32); MEAN CORPUSCULAR HGB CONC 31.4 g/dL (31-35); MEAN CORPUSCULAR VOLUME 90.9 fL (81-99); MONOCYTES # (AUTO) 2.3 (0.2-0.8); MONOCYTES % 9.6 % (4.4-11.3); NEUTROPHILS # (AUTO) 19.2 (2.1-6.9); NEUTROPHILS % 80.9 % (38.7-80.0); PLATELET COUNT 291 x10e3/uL (140-360); RED BLOOD COUNT 4.41 x10e6/uL (4.3-5.7); RED CELL DISTRIBUTION WIDTH 17.2 % (11.7-14.4)
[2022-06-26 06:27] LABS: ANION GAP 14.5 mmol/L (8-16); CALCIUM 8.3 mg/dL (8.4-10.2); CREATININE, SERUM 0.98 mg/dL (0.72-1.25); POTASSIUM 4.5 mmol/L (3.5-5.1)
[2022-06-26 08:42] LABS: ANISOCYTOSIS SLIGHT; LYMPHOCYTES % (MANUAL) 12 % (19-48); MONOCYTES % (MANUAL) 7 % (3.4-9.0); NEUTROPHILS % (MANUAL) 77 % (40-74); PLATELET ESTIMATE ADEQUATE; PLATELET MORPHOLOGY COMMENT NORMAL; RBC MORPHOLOGY COMMENT NORMAL
[2022-06-26] MEDS: HYDROMORPHONE 0.2MG/ML-SOD CHL 30ML PCA SYRINGE IV PRN (14:04)
[2022-06-26] MEDS: CEFTRIAXONE 2 GM in SODIUM CHLORIDE 0.9% 100 ML IV SCH (16:00)
[2022-06-26] MEDS ORDERED: ENOXAPARIN INJ 80 MG/0.8 ML SYR SC SCH (17:00)
[2022-06-27] VITALS (20 sets, daily range): BP systolic 96–128; BP diastolic 59–79
[2022-06-27] MEDS: DEXTROSE 5%/LACTATED RINGERS 1,000 ML IV SCH ×4 (02:43→20:25)
[2022-06-27] MEDS: ACETAMINOPHEN 1000 MG/100 ML IV PRN ×2 (02:55→20:25)
[2022-06-27] MEDS: SODIUM CHLORIDE 0.9% 250ML IRRIG IR SCH ×5 (03:11→19:33)
[2022-06-27] MEDS: HYDROMORPHONE 0.2MG/ML-SOD CHL 30ML PCA SYRINGE IV PRN ×2 (03:12→19:50)
[2022-06-27 05:47] LABS: BASOPHILS # (AUTO) 0.1 (0.0-0.1); BASOPHILS % 0.5 % (0.0-1.0); EOSINOPHILS # (AUTO) 0.1 (0.0-0.4); EOSINOPHILS % 0.8 % (0.0-6.0); HEMOGLOBIN 11.7 g/dL (14.0-18.0); LYMPHOCYTES # (AUTO) 3.1 (1.0-3.2); LYMPHOCYTES % 17.7 % (18.0-39.1); MEAN CORPUSCULAR HEMOGLOBIN 28.3 pg (28-32); MEAN CORPUSCULAR HGB CONC 30.8 g/dL (31-35); MEAN CORPUSCULAR VOLUME 91.8 fL (81-99); MONOCYTES # (AUTO) 2.2 (0.2-0.8); MONOCYTES % 12.6 % (4.4-11.3); NEUTROPHILS # (AUTO) 11.8 (2.1-6.9); NEUTROPHILS % 67.9 % (38.7-80.0); PLATELET COUNT 265 x10e3/uL (140-360); RED BLOOD COUNT 4.14 x10e6/uL (4.3-5.7); RED CELL DISTRIBUTION WIDTH 17.9 % (11.7-14.4)
[2022-06-27 06:08] LABS: CALCIUM 8.5 mg/dL (8.4-10.2); CREATININE, SERUM 0.9 mg/dL (0.72-1.25)
[2022-06-27 10:20] LABS: % IRON SATURATION 6 % (15-50); IRON 12 ug/dL (65-175); TOTAL IRON BINDING CAPACITY 217 ug/dL (261-478); TRANSFERRIN 155 mg/dL (174-364)
[2022-06-27] MEDS ORDERED: METOPROLOL TARTRATE 25 MG TAB NG ONE (16:00)
[2022-06-27] MEDS: CEFTRIAXONE 2 GM in SODIUM CHLORIDE 0.9% 100 ML IV SCH (17:50)
[2022-06-27] MEDS: ENOXAPARIN INJ 80 MG/0.8 ML SYR SC SCH (17:50)
[2022-06-28] VITALS (21 sets, daily range): BP systolic 103–151; BP diastolic 59–86
[2022-06-28] MEDS: SODIUM CHLORIDE 0.9% 250ML IRRIG IR SCH ×6 (00:22→20:22)
[2022-06-28] MEDS: ACETAMINOPHEN 1000 MG/100 ML IV PRN (03:15)
[2022-06-28] MEDS: DEXTROSE 5%/LACTATED RINGERS 1,000 ML IV SCH ×3 (04:10→20:22)
[2022-06-28 04:55] LABS: BASOPHILS # (AUTO) 0.1 (0.0-0.1); BASOPHILS % 0.6 % (0.0-1.0); EOSINOPHILS # (AUTO) 0.3 (0.0-0.4); EOSINOPHILS % 1.5 % (0.0-6.0); HEMATOCRIT 37.6 % (38.2-49.6); HEMOGLOBIN 12.3 g/dL (14.0-18.0); LYMPHOCYTES # (AUTO) 3.5 (1.0-3.2); LYMPHOCYTES % 21.1 % (18.0-39.1); MEAN CORPUSCULAR HEMOGLOBIN 28.6 pg (28-32); MEAN CORPUSCULAR HGB CONC 32.7 g/dL (31-35); MEAN CORPUSCULAR VOLUME 87.4 fL (81-99); MONOCYTES # (AUTO) 2.3 (0.2-0.8); MONOCYTES % 13.8 % (4.4-11.3); NEUTROPHILS # (AUTO) 10.5 (2.1-6.9); NEUTROPHILS % 62.3 % (38.7-80.0); PLATELET COUNT 261 x10e3/uL (140-360); RED CELL DISTRIBUTION WIDTH 17.9 % (11.7-14.4)
[2022-06-28 05:18] LABS: ALBUMIN 2.6 g/dL (3.5-5.0); ALBUMIN/GLOBULIN RATIO 0.9 (0.8-2.0); ANION GAP 11.8 mmol/L (8-16); CALCIUM 8.5 mg/dL (8.4-10.2); CREATININE, SERUM 0.86 mg/dL (0.72-1.25); MAGNESIUM 1.8 MG/DL (1.3-2.1); POTASSIUM 3.8 mmol/L (3.5-5.1)
[2022-06-28] MEDS: METOPROLOL TARTRATE 25 MG TAB PO SCH ×3 (09:00→11:15)
[2022-06-28] MEDS ORDERED: SODIUM CHLORIDE 0.9% IRRIG 1,000 ML IR SCH (09:30)
[2022-06-28] MEDS: ENOXAPARIN INJ 80 MG/0.8 ML SYR SC SCH ×2 (09:44→16:20)
[2022-06-28] MEDS: IRON SUCROSE 100 MG in SODIUM CHLORIDE 0.9% 100 ML IV SCH (12:12)
[2022-06-28] MEDS: CEFTRIAXONE 2 GM in SODIUM CHLORIDE 0.9% 100 ML IV SCH (16:10)
[2022-06-28] MEDS: HYDROMORPHONE 0.2MG/ML-SOD CHL 30ML PCA SYRINGE IV PRN (16:21)
[2022-06-28] MEDS ORDERED: HYDROMORPHONE 0.2MG/ML-SOD CHL 30ML PCA SYRINGE IV PRN (18:15)
[2022-06-28] MEDS: BISACODYL 10 MG SUPP PR SCH (20:22)
[2022-06-29] VITALS (22 sets, daily range): BP systolic 119–157; BP diastolic 69–118
[2022-06-29] MEDS: SODIUM CHLORIDE 0.9% 250ML IRRIG IR SCH ×5 (00:06→15:13)
[2022-06-29 05:04] LABS: BASOPHILS # (AUTO) 0.1 (0.0-0.1); BASOPHILS % 0.6 % (0.0-1.0); EOSINOPHILS # (AUTO) 0.3 (0.0-0.4); EOSINOPHILS % 2.1 % (0.0-6.0); HEMATOCRIT 39.3 % (38.2-49.6); HEMOGLOBIN 12.3 g/dL (14.0-18.0); LYMPHOCYTES # (AUTO) 3.1 (1.0-3.2); LYMPHOCYTES % 21.5 % (18.0-39.1); MEAN CORPUSCULAR HEMOGLOBIN 28.5 pg (28-32); MEAN CORPUSCULAR HGB CONC 31.3 g/dL (31-35); MONOCYTES # (AUTO) 1.5 (0.2-0.8); MONOCYTES % 10.5 % (4.4-11.3); NEUTROPHILS # (AUTO) 9.4 (2.1-6.9); NEUTROPHILS % 64.9 % (38.7-80.0); PLATELET COUNT 311 x10e3/uL (140-360); RED BLOOD COUNT 4.32 x10e6/uL (4.3-5.7); RED CELL DISTRIBUTION WIDTH 17.2 % (11.7-14.4)
[2022-06-29 05:25] LABS: ANION GAP 13.1 mmol/L (8-16); CALCIUM 8.7 mg/dL (8.4-10.2); CREATININE, SERUM 0.92 mg/dL (0.72-1.25); POTASSIUM 4.1 mmol/L (3.5-5.1)
[2022-06-29] MEDS: DEXTROSE 5%/LACTATED RINGERS 1,000 ML IV SCH ×2 (06:10→15:49)
[2022-06-29] MEDS: BISACODYL 10 MG SUPP PR SCH ×3 (08:00→20:27)
[2022-06-29] MEDS: METOPROLOL TARTRATE 25 MG TAB PO SCH (08:27)
[2022-06-29] MEDS: ENOXAPARIN INJ 80 MG/0.8 ML SYR SC SCH ×2 (08:28→16:48)
[2022-06-29] MEDS: IRON SUCROSE 100 MG in SODIUM CHLORIDE 0.9% 100 ML IV SCH (12:27)
[2022-06-29] MEDS: CEFTRIAXONE 2 GM in SODIUM CHLORIDE 0.9% 100 ML IV SCH (16:48)
[2022-06-29] MEDS ORDERED: ACETAMINOPHEN 1000 MG/100 ML IV PRN (17:00)
[2022-06-30] VITALS (8 sets, daily range): BP systolic 107–128; BP diastolic 65–78
[2022-06-30] MEDS: HYDROMORPHONE 1MG/1ML INJ IV PRN ×5 (05:11→21:35)
[2022-06-30] MEDS: BISACODYL 10 MG SUPP PR SCH (08:00)
[2022-06-30] MEDS: METOPROLOL TARTRATE 25 MG TAB PO SCH (08:50)
[2022-06-30] MEDS: ENOXAPARIN INJ 80 MG/0.8 ML SYR SC SCH ×2 (08:50→17:49)
[2022-06-30] MEDS: ONDANSETRON HCL INJ 2MG/ML 2ML 2 MG/ML VIAL IV PRN ×2 (10:10→14:00)
[2022-06-30] MEDS: IRON SUCROSE 100 MG in SODIUM CHLORIDE 0.9% 100 ML IV SCH (13:21)
[2022-06-30] MEDS ORDERED: ARTIFICIAL TEARS (OPTH) 15 ML BTL OS PRN (14:00)
[2022-06-30] MEDS: CEFTRIAXONE 2 GM in SODIUM CHLORIDE 0.9% 100 ML IV SCH (17:25)
[2022-06-30] MEDS ORDERED: HYDROCODONE/APAP 7.5MG-325MG 1 EA TAB PO PRN (18:30)
[2022-06-30] MEDS: LACTATED RINGER'S 1,000 ML INJ SCH (18:38)
[2022-07-01] VITALS (7 sets, daily range): BP systolic 110–143; BP diastolic 61–76
[2022-07-01] MEDS: HYDROMORPHONE 1MG/1ML INJ IV PRN ×3 (00:25→22:26)
[2022-07-01] MEDS: LACTATED RINGER'S 1,000 ML INJ SCH ×2 (05:15→21:10)
[2022-07-01] MEDS: ENOXAPARIN INJ 80 MG/0.8 ML SYR SC SCH ×2 (09:26→16:49)
[2022-07-01] MEDS: METOPROLOL TARTRATE 25 MG TAB PO SCH (09:26)
[2022-07-01] MEDS: CEFTRIAXONE 2 GM in SODIUM CHLORIDE 0.9% 100 ML IV SCH (16:49)
[2022-07-02] VITALS: BP 109/61
[2022-07-02] MEDS: HYDROMORPHONE 1MG/1ML INJ IV PRN ×2 (01:31→05:14)
[2022-07-02 04:00] VITALS: BP_SYST 106; BP_SYST 109; BP_DIAS 61; BP_DIAS 63
[2022-07-02 05:29] LABS: BASOPHILS # (AUTO) 0.1 (0.0-0.1); BASOPHILS % 0.8 % (0.0-1.0); EOSINOPHILS # (AUTO) 0.2 (0.0-0.4); EOSINOPHILS % 2.4 % (0.0-6.0); HEMATOCRIT 38.2 % (38.2-49.6); HEMOGLOBIN 12.2 g/dL (14.0-18.0); LYMPHOCYTES # (AUTO) 3.7 (1.0-3.2); LYMPHOCYTES % 36.3 % (18.0-39.1); MEAN CORPUSCULAR HEMOGLOBIN 28.8 pg (28-32); MEAN CORPUSCULAR HGB CONC 31.9 g/dL (31-35); MEAN CORPUSCULAR VOLUME 90.1 fL (81-99); MONOCYTES # (AUTO) 1.5 (0.2-0.8); MONOCYTES % 14.7 % (4.4-11.3); NEUTROPHILS # (AUTO) 4.4 (2.1-6.9); NEUTROPHILS % 44.1 % (38.7-80.0); PLATELET COUNT 420 x10e3/uL (140-360); RED BLOOD COUNT 4.24 x10e6/uL (4.3-5.7); RED CELL DISTRIBUTION WIDTH 16.6 % (11.7-14.4)
[2022-07-02 05:55] LABS: ALBUMIN 2.9 g/dL (3.5-5.0); ALBUMIN/GLOBULIN RATIO 0.8 (0.8-2.0); ANION GAP 14.6 mmol/L (8-16); CREATININE, SERUM 0.89 mg/dL (0.72-1.25); POTASSIUM 3.6 mmol/L (3.5-5.1)
[2022-07-02 08:03] VITALS: BP 112/67
[2022-07-02 08:43] VITALS: BP 112/67
[2022-07-02] MEDS ORDERED: NEOMYCIN OP SCH (09:00)
[2022-07-02] MEDS ORDERED: POLYMYXIN B OP SCH (09:00)
[2022-07-02] MEDS ORDERED: HYDROCORTISONE OP SCH (09:00)
[2022-07-02] MEDS: ENOXAPARIN INJ 80 MG/0.8 ML SYR SC SCH ×2 (09:35→17:00)
[2022-07-02] MEDS: METOPROLOL TARTRATE 25 MG TAB PO SCH (09:37)
[2022-07-02 12:04] VITALS: BP 123/62
[2022-07-02] MEDS: NEOMYCIN/POLYMYXIN/DEX (OPTH) 3.5 GM TUBE OP SCH ×2 (13:10→15:00)
[2022-07-02 16:11] VITALS: BP 117/68
[2022-07-02] MEDS: CEFTRIAXONE 2 GM in SODIUM CHLORIDE 0.9% 100 ML IV SCH (16:30)
[2022-07-02] MEDS ORDERED: ONDANSETRON HCL 4 MG ORAL DISINTEGRATING TAB PO PRN (18:15)
[2022-07-02] MEDS ORDERED: ONDANSETRON HCL INJ 2MG/ML 2ML 2 MG/ML VIAL IV ONE (18:19)
[2022-07-02] MEDS ORDERED: LIDOCAINE HCL 2% LOCAL INJ 5 ML SDV VIAL INJ ONE (18:19)
[2022-07-02] MEDS ORDERED: ROCURONIUM BROMIDE 10 MG/ML 5ML VIAL IV ONE (18:19)
[2022-07-02] MEDS ORDERED: PROPOFOL IV EMULSION 10 MG/ML 20 ML VIAL IV ONE (18:19)
[2022-07-02] MEDS ORDERED: GLYCOPYRROLATE INJ 0.2 MG/ML VIAL IV ONE (18:19)
[2022-07-02] MEDS ORDERED: POVIDONE IODINE 0.05% 0.05 % ML PO ONE (18:19)
[2022-07-02] MEDS ORDERED: NEOSTIGMINE 1 MG/ML 10ML VIAL IV ONE (18:19)
[2022-07-02] MEDS ORDERED: PHENYLEPHRINE HCL 1% 10 MG/ML VIAL IV ONE (18:19)
[2022-07-02] MEDS ORDERED: SEVOFLURANE INHAL SOLN 250 ML PEN BTL INH ONE (18:19)
[2022-07-02] MEDS ORDERED: DEXAMETHASONE SOD PHOS INJ 4 MG/ML SDV IV ONE (18:19)
[2022-07-03] MEDS ORDERED: PANTOPRAZOLE SOD 40 MG TABEC PO SCH (07:30)
== END 2022-07-02 18:20 | disposition home or self-care (01) | DRG 330 ==
LOC: OR 07:58 → PACU V 14:56 → ICU 16:08 → MED/SURG 06-29 21:26
PROVIDERS: ADMIT Surgery; ATTEND Surgery
PROC: 0DBE0ZZ Excision of Large Intestine, Open Approach (ICD-10-PCS; principal; 2022-06-25 10:00)
DX: Z43.3 Encounter for attention to colostomy (principal); I48.20 Chronic atrial fibrillation, unspecified; I48.92 Unspecified atrial flutter; Z79.01 Long term (current) use of anticoagulants; I48.0 Paroxysmal atrial fibrillation; Z86.718 Personal history of other venous thrombosis and embolism; Z95.828 Presence of other vascular implants and grafts; K21.9 Gastro-esophageal reflux disease without esophagitis; I10 Essential (primary) hypertension; E66.01 Morbid (severe) obesity due to excess calories; Z68.37 Body mass index [BMI] 37.0-37.9, adult; D64.9 Anemia, unspecified; G47.33 Obstructive sleep apnea (adult) (pediatric); D69.6 Thrombocytopenia, unspecified; Z20.822 Contact with and (suspected) exposure to COVID-19; E11.69 Type 2 diabetes mellitus with other specified complication; E78.5 Hyperlipidemia, unspecified
CPT/HCPCS: 0223U; 36415; 71045; 71046; 80048; 80053; 83540; 83735; 84466; 85025; 87040; 87070; 87205; 88307; 93005; 94660; 94799; 99251; J0171; J0694; J0696; J1100; J1170; J1650; J1756; J1885; J2001; J2370; J2405; J2710; J2795; J7050; J7121

== ENCOUNTER → 2025-05-26 | Outpatient (REF) | payer MEDICARE ==
[~2025-05-26] MED LIST changes: +IOPAMIDOL 370 MG/ML 100 ML INFUS..BTL INJ ONE
[2025-05-26 08:53] LABS: EST GLOMERULAR FILTRATION RATE 68.0 ML/MIN (>=60)
== END ==
LOC: CT 07:29
PROVIDERS: ATTEND Internal Medicine
DX: K57.32 Diverticulitis of large intestine without perforation or abscess without bleeding (principal)
CPT/HCPCS: 36415; 74177; 82565; 84520; Q9967

== ENCOUNTER 2025-05-28 09:57 | Emergency (ER) | payer MEDICARE ==
[~2025-05-28] VITALS: Ht 188 cm; Wt 127.0 kg
[~2025-05-28 09:57] MED LIST changes: -IOPAMIDOL 370 MG/ML 100 ML INFUS..BTL INJ ONE
[2025-05-28 10:16] VITALS: TEMP 98.6
[2025-05-28 10:44] LABS: BASOPHILS % 1.0 % (0.0-1.0); EOSINOPHILS % 2.1 % (0.0-6.0); LYMPHOCYTES % 39.6 % (18.0-39.1); MONOCYTES % 10.2 % (4.4-11.3); NEUTROPHILS % 46.6 % (38.7-80.0); RED CELL DISTRIBUTION WIDTH 13.3 % (11.7-14.4)
[2025-05-28] MEDS ORDERED: SODIUM CHLORIDE FLUSH 10 ML SYR IV PRN (10:45)
[2025-05-28 12:10] LABS: EST GLOMERULAR FILTRATION RATE 74.0 ML/MIN (>=60)
[2025-05-28] MEDS: DONNATAL/LIDOCAINE/MAALOX 30 ML SUSP PO ONE (12:25)
[2025-05-28] MEDS ORDERED: IOPAMIDOL 370 MG/ML 100 ML INFUS..BTL INJ ONE (13:56)
[2025-05-28] MEDS ORDERED: SODIUM CHLORIDE 0.9% 100 ML ONE (13:56)
[2025-05-28 15:04] VITALS: PULSE 80; RESP 18; O2SAT 100
[2025-05-28] MEDS ORDERED: COLACE100 M1 PO (15:20)
[2025-05-28] MEDS ORDERED: DICYCLOMINE HCL20 MG PO (15:20)
[2025-05-28] MEDS: DICYCLOMINE HCL 20 MG/2 ML VIAL IM ONE (15:33)
== END 2025-05-28 17:30 | disposition home or self-care (01) ==
LOC: ER 10:23
DX: R10.13 Epigastric pain (principal); K59.00 Constipation, unspecified; I10 Essential (primary) hypertension; E11.65 Type 2 diabetes mellitus with hyperglycemia; I50.9 Heart failure, unspecified; I48.91 Unspecified atrial fibrillation; K76.0 Fatty (change of) liver, not elsewhere classified; E78.5 Hyperlipidemia, unspecified; K42.9 Umbilical hernia without obstruction or gangrene; Z95.1 Presence of aortocoronary bypass graft; Z87.19 Personal history of other diseases of the digestive system
CPT/HCPCS: 36415; 71045; 74174; 80053; 83690; 84484; 85025; 93005; 94760; 99284; J2470; J7050; Q9967

== ENCOUNTER 2025-06-04 09:20 | Emergency (ER) | payer MEDICARE ==
[~2025-06-04] VITALS: Ht 188 cm; Wt 127.0 kg
[~2025-06-04 09:20] MED LIST changes: +COLACE100 M1 PO; +DICYCLOMINE HCL20 MG PO
[2025-06-04 11:26] VITALS: PULSE 87; RESP 18; TEMP 98.1; O2SAT 99
[2025-06-04] MEDS ORDERED: ONDANSETRON HCL INJ 2MG/ML 2ML 2 MG/ML VIAL IV STA (11:29)
[2025-06-04] MEDS ORDERED: SODIUM CHLORIDE 0.9% 1000ML 1,000 ML IV ONE (11:30)
[2025-06-04 11:54] LABS: BASOPHILS % 0.8 % (0.0-1.0); EOSINOPHILS % 1.4 % (0.0-6.0); LYMPHOCYTES % 26.4 % (18.0-39.1); MONOCYTES % 10.1 % (4.4-11.3); NEUTROPHILS % 60.8 % (38.7-80.0); RED CELL DISTRIBUTION WIDTH 13.4 % (11.7-14.4)
[2025-06-04 12:21] LABS: EST GLOMERULAR FILTRATION RATE 76.0 ML/MIN (>=60)
[2025-06-04] MEDS ORDERED: SODIUM CHLORIDE 0.9% 1000ML 1,000 ML ONE (15:21)
[2025-06-04] MEDS ORDERED: ONDANSETRON HCL INJ 2MG/ML 2ML 2 MG/ML VIAL ONE (15:21)
[2025-06-04] MEDS ORDERED: GOLYTELY SOLU4000 M1 PO (15:28)
== END 2025-06-04 15:30 | disposition home or self-care (01) ==
LOC: ER 11:28
DX: R10.24 Suprapubic pain (principal); R10.812 Left upper quadrant abdominal tenderness; K59.00 Constipation, unspecified; Z89.612 Acquired absence of left leg above knee
CPT/HCPCS: 36415; 80053; 83690; 84484; 85025; 93005; 99284; J2405; J7030

== ENCOUNTER 2025-06-06 02:53 | Inpatient (IN) | payer MEDICARE ==
[2025-06-06] VITALS (9 sets, daily range): BP systolic 100–111; BP diastolic 55–69; PULSE 87–94; RESP 18–20; TEMP 97.9–98.4; O2SAT 96–98
[~2025-06-06] VITALS: Ht 188 cm; Wt 127.0 kg
[~2025-06-06 02:53] MED LIST changes: +GOLYTELY SOLU4000 M1 PO
[2025-06-06] MEDS ORDERED: BELLADONNA ALK/PHENOBARBITAL 5 ML UDC ONE ×2 (03:28→22:56)
[2025-06-06] MEDS ORDERED: MAGNESIUM/ALUMINUM/SIMETHICONE 30 ML UDC ONE ×2 (03:28→22:57)
[2025-06-06] MEDS ORDERED: LIDOCAINE VISC 2% SOLN 15 ML UDC ONE ×2 (03:28→22:56)
[2025-06-06 03:31] LABS: BASOPHILS % 0.7 % (0.0-1.0); EOSINOPHILS % 0.7 % (0.0-6.0); LYMPHOCYTES % 38.2 % (18.0-39.1); MONOCYTES % 9.2 % (4.4-11.3); NEUTROPHILS % 50.4 % (38.7-80.0); RED CELL DISTRIBUTION WIDTH 13.1 % (11.7-14.4)
[2025-06-06 03:42] LABS: EST GLOMERULAR FILTRATION RATE 77.0 ML/MIN (>=60)
[2025-06-06] MEDS: SODIUM CHLORIDE 0.9% 1000ML 1,000 ML IV STA (03:49)
[2025-06-06] MEDS: MAGNESIUM/ALUMINUM/SIMETHICONE 30 ML UDC PO STA (03:50)
[2025-06-06] MEDS: LIDOCAINE VISC 2% SOLN 15 ML UDC PO STA (03:50)
[2025-06-06] MEDS: ONDANSETRON HCL INJ 2MG/ML 2ML 2 MG/ML VIAL IV STA (03:50)
[2025-06-06] MEDS: BELLADONNA ALK/PHENOBARBITAL 5 ML UDC PO ONE (03:50)
[2025-06-06] MEDS: HYDROMORPHONE 1MG/1ML INJ IV PRN ×3 (04:26→17:36)
[2025-06-06] MEDS ORDERED: HYDROMORPHONE 1MG/1ML INJ IV PRN (05:45)
[2025-06-06] MEDS ORDERED: IOPAMIDOL 370 MG/ML 100 ML INFUS..BTL INJ ONE (06:48)
[2025-06-06] MEDS: SODIUM CHLORIDE 0.9% 1000ML 1,000 ML IV SCH (07:37)
[2025-06-06 07:40] LABS: LEUKOCYTE ESTERASE ,URINE NEGATIVE (NEGATIVE); PROTEIN,URINE DIPSTICK NEGATIVE (NEGATIVE)
[2025-06-06 07:41] LABS: EPITHELIAL CELLS,URINE FEW /LPF; URINE UROBILINOGEN 0.2 mg/dL (0.2 - 1)
[2025-06-06] MEDS ORDERED: ZOLPIDEM TARTRAT5 MG PO (13:28)
[2025-06-06] MEDS ORDERED: NEURONTIN400 MG PO (13:28)
[2025-06-06] MEDS ORDERED: HYDROCODON-ACE1 EA12 PO (13:30)
[2025-06-06] MEDS ORDERED: CELEBREX200 MG PO (13:30)
[2025-06-06] MEDS: DONNATAL/LIDOCAINE/MAALOX 30 ML SUSP PO STA (23:05)
[2025-06-07] VITALS (8 sets, daily range): BP systolic 100–121; BP diastolic 54–72; PULSE 80–106; RESP 18–20; TEMP 97.9–98.7; O2SAT 96–100
[2025-06-07 05:02] LABS: BASOPHILS % 1.0 % (0.0-1.0); EOSINOPHILS % 2.7 % (0.0-6.0); LYMPHOCYTES % 35.6 % (18.0-39.1); MONOCYTES % 14.0 % (4.4-11.3); NEUTROPHILS % 46.1 % (38.7-80.0); RED CELL DISTRIBUTION WIDTH 13.5 % (11.7-14.4)
[2025-06-07 05:29] LABS: EST GLOMERULAR FILTRATION RATE 70.0 ML/MIN (>=60)
[2025-06-07] MEDS: ONDANSETRON HCL INJ 2MG/ML 2ML 2 MG/ML VIAL IV PRN (05:53)
[2025-06-07] MEDS: SIMETHICONE 80 MG CHEW PO PRN (19:49)
[2025-06-07] MEDS: SUCRALFATE 1 GM/10 ML SUSP PO STA (22:41)
[2025-06-08 03:33] VITALS: BP 110/67; PULSE 85; RESP 18; TEMP 97.9; O2SAT 100
[2025-06-08 07:31] VITALS: BP 103/65; PULSE 92; RESP 17; TEMP 98.2; O2SAT 100
[2025-06-08 08:03] LABS: BASOPHILS % 0.7 % (0.0-1.0); EOSINOPHILS % 1.5 % (0.0-6.0); LYMPHOCYTES % 17.1 % (18.0-39.1); MONOCYTES % 10.7 % (4.4-11.3); NEUTROPHILS % 69.2 % (38.7-80.0); RED CELL DISTRIBUTION WIDTH 13.8 % (11.7-14.4)
[2025-06-08] MEDS: SUCRALFATE 1 GM/10 ML SUSP PO SCH (08:34)
[2025-06-08 08:41] LABS: EST GLOMERULAR FILTRATION RATE 76.0 ML/MIN (>=60)
[2025-06-08 08:45] VITALS: BP 103/65; PULSE 92; RESP 17; TEMP 98.2; O2SAT 100
[2025-06-08 11:05] VITALS: BP 100/63; PULSE 88; RESP 20; TEMP 98.4; O2SAT 100
[2025-06-08] MEDS: LOPERAMIDE HCL 2 MG CAP PO PRN (14:57)
[2025-06-08 15:25] VITALS: BP 100/60; PULSE 89; RESP 20; TEMP 98.2; O2SAT 99
[2025-06-08 20:00] VITALS: BP 104/49; PULSE 93; RESP 20; TEMP 98.5; O2SAT 100
[2025-06-08 23:07] LABS: BASOPHILS % 0.7 % (0.0-1.0); EOSINOPHILS % 2.3 % (0.0-6.0); LYMPHOCYTES % 30.6 % (18.0-39.1); MONOCYTES % 11.3 % (4.4-11.3); NEUTROPHILS % 54.4 % (38.7-80.0); RED CELL DISTRIBUTION WIDTH 13.7 % (11.7-14.4)
[2025-06-08] MEDS: METRONIDAZOLE 500MG/NS 100ML 100 ML IV SCH (23:09)
[2025-06-09] VITALS (7 sets, daily range): BP systolic 101–123; BP diastolic 49–57; PULSE 73–93; RESP 18–20; TEMP 97.5–98.8; O2SAT 98–100
[2025-06-09 05:18] LABS: BASOPHILS % 0.8 % (0.0-1.0); EOSINOPHILS % 2.9 % (0.0-6.0); LYMPHOCYTES % 34.1 % (18.0-39.1); MONOCYTES % 13.6 % (4.4-11.3); NEUTROPHILS % 48.1 % (38.7-80.0); RED CELL DISTRIBUTION WIDTH 13.8 % (11.7-14.4)
[2025-06-09 05:43] LABS: EST GLOMERULAR FILTRATION RATE 83.0 ML/MIN (>=60)
[2025-06-09] MEDS: METRONIDAZOLE 500MG/NS 100ML 100 ML IV SCH (13:44)
[2025-06-10] VITALS (7 sets, daily range): BP systolic 98–134; BP diastolic 58–78; PULSE 76–91; RESP 18–20; TEMP 97.3–98.8; O2SAT 95–100
[2025-06-10 01:05] LABS: % IRON SATURATION 17 % (15-50)
[2025-06-10 08:19] LABS: BASOPHILS % 1.0 % (0.0-1.0); EOSINOPHILS % 4.1 % (0.0-6.0); LYMPHOCYTES % 30.0 % (18.0-39.1); MONOCYTES % 14.6 % (4.4-11.3); NEUTROPHILS % 49.9 % (38.7-80.0); RED CELL DISTRIBUTION WIDTH 14.6 % (11.7-14.4)
[2025-06-10] MEDS: IRON SUCROSE 100 MG in SODIUM CHLORIDE 0.9% 100 ML IV SCH ×2 (09:30→22:01)
[2025-06-11] VITALS (7 sets, daily range): BP systolic 130–150; BP diastolic 61–91; PULSE 77–98; RESP 17–18; TEMP 98–99; O2SAT 95–100
[2025-06-11 08:40] LABS: INR 1.13
[2025-06-11] MEDS ORDERED: LIDOCAINE HCL 2% LOCAL INJ 5 ML SDV VIAL INJ ONE (13:58)
[2025-06-11] MEDS ORDERED: PROPOFOL IV EMULSION 10 MG/ML 20 ML VIAL ONE ×2 (13:58→14:55)
[2025-06-11] MEDS ORDERED: FENTANYL CITRATE/PF 100MCG/2 ML INJ ONE (14:39)
[2025-06-11] MEDS ORDERED: EPINEPHRINE HCL 1:1000 1ML 1 MG/ML AMP ONE (14:50)
[2025-06-11] MEDS ORDERED: METOCLOPRAMIDE HCL 10 MG/2ML VIAL ONE (14:50)
[2025-06-11] MEDS: HYDROMORPHONE 1MG/1ML INJ ONE (15:40)
[2025-06-12 04:00] VITALS: BP 149/71; PULSE 87; RESP 18; TEMP 98.6; O2SAT 97
[2025-06-12 07:18] LABS: BASOPHILS % 0.9 % (0.0-1.0); EOSINOPHILS % 1.7 % (0.0-6.0); LYMPHOCYTES % 25.3 % (18.0-39.1); MONOCYTES % 10.1 % (4.4-11.3); NEUTROPHILS % 61.5 % (38.7-80.0); RED CELL DISTRIBUTION WIDTH 14.7 % (11.7-14.4)
[2025-06-12 07:34] LABS: EST GLOMERULAR FILTRATION RATE 94.0 ML/MIN (>=60)
[2025-06-12 08:37] VITALS: BP 160/69; PULSE 81; RESP 20; TEMP 99; O2SAT 100
[2025-06-12 09:00] VITALS: BP 160/69; PULSE 81; RESP 20; TEMP 99; O2SAT 100
[2025-06-12 12:19] VITALS: BP 136/78; PULSE 82; RESP 18; TEMP 98.5; O2SAT 98
[2025-06-12 16:31] VITALS: BP 145/88; PULSE 78; RESP 20; TEMP 97.9; O2SAT 100
[2025-06-12 20:00] VITALS: BP 111/55; PULSE 82; RESP 18; TEMP 98.6; O2SAT 95
[2025-06-12] MEDS: CYANOCOBALAMIN INJ 1,000 MCG/ML VIAL IM ONE (23:17)
[2025-06-13] VITALS (7 sets, daily range): BP systolic 122–144; BP diastolic 66–84; PULSE 79–86; RESP 16–20; TEMP 98–98.8; O2SAT 98–100
[2025-06-13 05:40] LABS: BASOPHILS % 1.0 % (0.0-1.0); EOSINOPHILS % 4.3 % (0.0-6.0); LYMPHOCYTES % 32.2 % (18.0-39.1); MONOCYTES % 12.5 % (4.4-11.3); NEUTROPHILS % 49.6 % (38.7-80.0); RED CELL DISTRIBUTION WIDTH 14.9 % (11.7-14.4)
[2025-06-13 06:20] LABS: EST GLOMERULAR FILTRATION RATE 87.0 ML/MIN (>=60)
[2025-06-13] MEDS: CYANOCOBALAMIN INJ 1,000 MCG/ML VIAL IM SCH (08:12)
[2025-06-13] MEDS: HYDROMORPHONE 1MG/1ML INJ IV PRN (12:57)
[2025-06-13] MEDS: PHYTONADIONE 10 MG/ML AMP IV STA (22:59)
[2025-06-14] VITALS (8 sets, daily range): BP systolic 112–156; BP diastolic 52–80; PULSE 63–80; RESP 17–20; TEMP 97.3–98.1; O2SAT 96–100
[2025-06-14 06:54] LABS: BASOPHILS % 1.1 % (0.0-1.0); EOSINOPHILS % 5.1 % (0.0-6.0); LYMPHOCYTES % 26.3 % (18.0-39.1); MONOCYTES % 13.7 % (4.4-11.3); NEUTROPHILS % 53.5 % (38.7-80.0); RED CELL DISTRIBUTION WIDTH 15.3 % (11.7-14.4)
[2025-06-14] MEDS: SODIUM CHLORIDE 0.9% 250ML 250 ML ONE (08:45)
[2025-06-15] VITALS (7 sets, daily range): BP systolic 120–144; BP diastolic 61–83; PULSE 70–81; RESP 18–20; TEMP 97.1–98; O2SAT 97–100
[2025-06-15 06:13] LABS: BASOPHILS % 0.7 % (0.0-1.0); EOSINOPHILS % 3.9 % (0.0-6.0); LYMPHOCYTES % 31.6 % (18.0-39.1); MONOCYTES % 13.5 % (4.4-11.3); NEUTROPHILS % 49.9 % (38.7-80.0); RED CELL DISTRIBUTION WIDTH 15.7 % (11.7-14.4)
[2025-06-15 06:43] LABS: EST GLOMERULAR FILTRATION RATE 73.0 ML/MIN (>=60)
[2025-06-15] MEDS: HYDROCODONE/APAP 10MG-325MG TAB PO PRN (09:11)
[2025-06-16 05:23] VITALS: BP 142/73; PULSE 82; RESP 18; TEMP 97.5; O2SAT 100
[2025-06-16 08:34] VITALS: BP 141/70; PULSE 77; RESP 18; TEMP 98.9; O2SAT 97
[2025-06-16 08:43] VITALS: BP 141/70; PULSE 77; RESP 18; TEMP 98.9; O2SAT 97
[2025-06-17] MEDS ORDERED: PANTOPRAZOLE SO40 MG PO (22:10)
[2025-06-17] MEDS ORDERED: SUCRALFATE1 GM PO (22:10)
[2025-06-17] MEDS ORDERED: VOQUEZNA10 MG PO (22:10)
[2025-06-17] MEDS ORDERED: FLOMAX0.4 MG PO (22:10)
[2025-06-17] MEDS ORDERED: CEPHALEXIN500 MG PO (22:12)
== END 2025-06-16 10:39 | disposition home or self-care (01) | DRG 378 ==
LOC: ER 03:16 → ERHOLD 05:32 → MED/SURG 13:20
PROVIDERS: ADMIT Internal Medicine; ATTEND Internal Medicine
PROC: 0D598ZZ Destruction of Duodenum, Via Natural or Artificial Opening Endoscopic (ICD-10-PCS; principal; 2025-06-11 14:35)
PROC: 3E0G8GC Introduction of Other Therapeutic Substance into Upper GI, Via Natural or Artificial Opening Endoscopic (ICD-10-PCS; 2025-06-11 14:35)
PROC: 0DB68ZX Excision of Stomach, Via Natural or Artificial Opening Endoscopic, Diagnostic (ICD-10-PCS; 2025-06-11 14:35)
PROC: 02HV33Z Insertion of Infusion Device into Superior Vena Cava, Percutaneous Approach (ICD-10-PCS; 2025-06-12)
DX: K26.4 Chronic or unspecified duodenal ulcer with hemorrhage (principal); A04.9 Bacterial intestinal infection, unspecified; D62 Acute posthemorrhagic anemia; T81.72XA Complication of vein following a procedure, not elsewhere classified, initial encounter; L03.113 Cellulitis of right upper limb; I11.0 Hypertensive heart disease with heart failure; E11.9 Type 2 diabetes mellitus without complications; I50.9 Heart failure, unspecified; I48.91 Unspecified atrial fibrillation; I25.10 Atherosclerotic heart disease of native coronary artery without angina pectoris; E78.5 Hyperlipidemia, unspecified; E66.812 Obesity, class 2; Z68.35 Body mass index [BMI] 35.0-35.9, adult; Y84.8 Other medical procedures as the cause of abnormal reaction of the patient, or of later complication, without mention of misadventure at the time of the procedure; Z79.82 Long term (current) use of aspirin; Z95.1 Presence of aortocoronary bypass graft; Z90.81 Acquired absence of spleen; Z89.612 Acquired absence of left leg above knee
CPT/HCPCS: 36415; 36569; 43239; 43255; 43270; 71045; 74177; 80053; 81001; 82550; 82607; 83540; 83690; 83735; 84466; 84484; 85025; 85045; 85610; 85730; 88305; 88342; 93005; 93971; 99284; J0169; J1171; J1756; J2003; J2405; J2470; J2543; J2765; J3420; J3430; J7030; J7050; Q9967

== ENCOUNTER 2025-06-17 16:08 | Inpatient (IN) | payer MEDICARE ==
[~2025-06-17] VITALS: Ht 188 cm; Wt 127.0 kg
[~2025-06-17 16:08] MED LIST changes: +CELEBREX200 MG PO; +HYDROCODON-ACE1 EA12 PO; +NEURONTIN400 MG PO; +ZOLPIDEM TARTRAT5 MG PO
[2025-06-17] MEDS ORDERED: SEVOFLURANE INHAL SOLN 250 ML PEN BTL ONE (17:20)
[2025-06-17] MEDS: ONDANSETRON HCL INJ 2MG/ML 2ML 2 MG/ML VIAL IV PRN (17:36)
[2025-06-17] MEDS: SODIUM CHLORIDE 0.9% 1000ML 1,000 ML IV STA (17:36)
[2025-06-17] MEDS: FENTANYL CITRATE/PF 100MCG/2 ML INJ IV PRN (17:36)
[2025-06-17 17:40] LABS: BASOPHILS % 0.5 % (0.0-1.0); EOSINOPHILS % 0.7 % (0.0-6.0); LYMPHOCYTES % 17.0 % (18.0-39.1); MONOCYTES % 7.7 % (4.4-11.3); NEUTROPHILS % 73.5 % (38.7-80.0); RED CELL DISTRIBUTION WIDTH 16.4 % (11.7-14.4)
[2025-06-17 18:02] LABS: EST GLOMERULAR FILTRATION RATE 77.0 ML/MIN (>=60)
[2025-06-17] MEDS ORDERED: IOPAMIDOL 370 MG/ML 100 ML INFUS..BTL INJ ONE (18:11)
[2025-06-17] MEDS ORDERED: ONDANSETRON HCL INJ 2MG/ML 2ML 2 MG/ML VIAL IV PRN (19:30)
[2025-06-17] MEDS: SODIUM CHLORIDE 0.9% 1000ML 1,000 ML IV SCH (20:03)
[2025-06-17] MEDS: HYDROMORPHONE 1MG/1ML INJ IV PRN (20:04)
[2025-06-17 20:16] VITALS: PULSE 75; RESP 20; TEMP 98
[2025-06-17 20:30] VITALS: BP 135/66; PULSE 86; RESP 18; TEMP 97.6; O2SAT 92
[2025-06-17 20:50] VITALS: BP 135/66; PULSE 86; RESP 18; TEMP 97.6; O2SAT 92
[2025-06-17 21:00] VITALS: BP 135/66; PULSE 86; RESP 18; TEMP 97.6; O2SAT 92
[2025-06-17] MEDS ORDERED: PANTOPRAZOLE SO40 MG PO (22:10)
[2025-06-17] MEDS ORDERED: FLOMAX0.4 MG PO (22:10)
[2025-06-17] MEDS ORDERED: VOQUEZNA10 MG PO (22:10)
[2025-06-17] MEDS ORDERED: SUCRALFATE1 GM PO (22:10)
[2025-06-17] MEDS ORDERED: CEPHALEXIN500 MG PO (22:12)
[2025-06-17] MEDS: ACETAMINOPHEN 1000 MG/100 ML IV PRN (23:14)
[2025-06-17] MEDS: ZOLPIDEM TARTRATE 5 MG TAB PO SCH (23:48)
[2025-06-18] VITALS (7 sets, daily range): BP systolic 129–153; BP diastolic 64–75; PULSE 77–82; RESP 16–20; TEMP 97.8–98.3; O2SAT 94–100
[2025-06-18 05:38] LABS: BASOPHILS % 0.5 % (0.0-1.0); EOSINOPHILS % 1.5 % (0.0-6.0); LYMPHOCYTES % 27.4 % (18.0-39.1); MONOCYTES % 12.3 % (4.4-11.3); NEUTROPHILS % 57.8 % (38.7-80.0); RED CELL DISTRIBUTION WIDTH 16.8 % (11.7-14.4)
[2025-06-18 06:06] LABS: EST GLOMERULAR FILTRATION RATE 85.0 ML/MIN (>=60)
[2025-06-18] MEDS ORDERED: ZOLPIDEM TARTRATE 5 MG TAB PO SCH (21:00)
[2025-06-19] VITALS (7 sets, daily range): BP systolic 127–146; BP diastolic 67–88; PULSE 82–89; RESP 16–19; TEMP 98.1–98.7; O2SAT 95–100
[2025-06-19] MEDS ORDERED: FENTANYL CITRATE/PF 100MCG/2 ML INJ ONE ×2 (10:52→12:58)
[2025-06-19] MEDS ORDERED: LIDOCAINE HCL 2% LOCAL INJ 5 ML SDV VIAL INJ ONE (10:52)
[2025-06-19] MEDS ORDERED: SUCCINYLCHOLINE CHLORIDE 20 MG/ML 10ML VIAL ONE (10:53)
[2025-06-19] MEDS ORDERED: ROCURONIUM BROMIDE 1 ML IV ONE (10:53)
[2025-06-19] MEDS ORDERED: PROPOFOL IV EMULSION 10 MG/ML 20 ML VIAL ONE (10:54)
[2025-06-19] MEDS ORDERED: DEXAMETHASONE SOD PHOS INJ 4 MG/ML SDV ONE (12:01)
[2025-06-19] MEDS ORDERED: EPHEDRINE SULFATE INJ 50 MG/ML VIAL ONE (12:22)
[2025-06-19] MEDS ORDERED: ACETAMINOPHEN 1000 MG/100 ML 100 ML IV ONE (12:46)
[2025-06-19] MEDS ORDERED: KETOROLAC TROMETHAMINE 30 MG/ML VIAL ONE (12:58)
[2025-06-19] MEDS ORDERED: ONDANSETRON HCL INJ 2MG/ML 2ML 2 MG/ML VIAL ONE (12:58)
[2025-06-19] MEDS ORDERED: SUGAMMADEX SODIUM 200 MG/2 ML VIAL IV ONE (13:03)
[2025-06-19] MEDS ORDERED: METOPROLOL TARTRATE INJ 1 MG/ML VIAL ONE (13:20)
[2025-06-19] MEDS ORDERED: ACETAMINOPHEN 1000 MG/100 ML IV PRN (13:30)
[2025-06-19] MEDS: DOCUSATE SODIUM 100 MG CAP PO SCH (17:06)
[2025-06-19] MEDS: SUCRALFATE 1 GM TAB PO SCH (17:07)
[2025-06-20] VITALS (8 sets, daily range): BP systolic 117–147; BP diastolic 53–89; PULSE 70–89; RESP 18; TEMP 97.1–98.4; O2SAT 97–99
[2025-06-20 08:00] LABS: BASOPHILS % 0.2 % (0.0-1.0); EOSINOPHILS % 0.1 % (0.0-6.0); LYMPHOCYTES % 17.0 % (18.0-39.1); MONOCYTES % 13.6 % (4.4-11.3); NEUTROPHILS % 68.5 % (38.7-80.0); RED CELL DISTRIBUTION WIDTH 16.4 % (11.7-14.4)
[2025-06-20] MEDS: TAMSULOSIN HCL 0.4 MG CAP PO SCH (08:01)
[2025-06-20] MEDS: ESCITALOPRAM OXALATE 10 MG TAB PO SCH (08:01)
[2025-06-20 08:29] LABS: EST GLOMERULAR FILTRATION RATE 87.0 ML/MIN (>=60)
[2025-06-21] VITALS (7 sets, daily range): BP systolic 103–145; BP diastolic 60–88; PULSE 73–85; RESP 18–20; TEMP 97.6–98.3; O2SAT 96–99
[2025-06-21] MEDS: HYDROCODONE/APAP 7.5MG-325MG 1 EA TAB PO PRN (05:42)
[2025-06-21 06:18] LABS: BASOPHILS % 0.5 % (0.0-1.0); EOSINOPHILS % 3.2 % (0.0-6.0); LYMPHOCYTES % 26.3 % (18.0-39.1); MONOCYTES % 16.5 % (4.4-11.3); NEUTROPHILS % 53.0 % (38.7-80.0); RED CELL DISTRIBUTION WIDTH 16.8 % (11.7-14.4)
[2025-06-21 06:38] LABS: EST GLOMERULAR FILTRATION RATE 79.0 ML/MIN (>=60)
== END 2025-06-21 15:55 | disposition home or self-care (01) | DRG 335 ==
LOC: ER 16:41 → ERHOLD 19:27 → MED/SURG3 20:44
PROVIDERS: ADMIT Internal Medicine; ATTEND Internal Medicine
PROC: 0WQF0ZZ Repair Abdominal Wall, Open Approach (ICD-10-PCS; 2025-06-19)
PROC: 0WUF0JZ Supplement Abdominal Wall with Synthetic Substitute, Open Approach (ICD-10-PCS; 2025-06-19)
PROC: 0DN80ZZ Release Small Intestine, Open Approach (ICD-10-PCS; principal; 2025-06-19 11:48)
DX: K43.6 Other and unspecified ventral hernia with obstruction, without gangrene (principal); K26.4 Chronic or unspecified duodenal ulcer with hemorrhage; K56.50 Intestinal adhesions [bands], unspecified as to partial versus complete obstruction; D62 Acute posthemorrhagic anemia; E66.01 Morbid (severe) obesity due to excess calories; Z68.35 Body mass index [BMI] 35.0-35.9, adult; I11.0 Hypertensive heart disease with heart failure; I50.9 Heart failure, unspecified; E11.9 Type 2 diabetes mellitus without complications; D72.829 Elevated white blood cell count, unspecified; I48.91 Unspecified atrial fibrillation; E78.5 Hyperlipidemia, unspecified; I25.10 Atherosclerotic heart disease of native coronary artery without angina pectoris; F41.9 Anxiety disorder, unspecified; Z79.82 Long term (current) use of aspirin; Z95.1 Presence of aortocoronary bypass graft
CPT/HCPCS: 36415; 74018; 74177; 80048; 80053; 82948; 83690; 85025; 99284; C1781; J0330; J0690; J1100; J1171; J1885; J2003; J2405; J2470; J2543; J7030; Q9967